=== PATIENT | male | born 1960 | race Caucasian/White ===

== ENCOUNTER → 2018-03-29 | Outpatient (CLI) | payer MEDICARE, OTHER ==
--- NOTE | 2018-03-29 09:44 | US ---
EXAMINATION TYPE: US abdomen complete DATE OF EXAM: 03/29/2018 COMPARISON: NONE CLINICAL HISTORY: R63.4 Abnormal Weight Loss. abnormal weight loss- 20 lbs in 2 months. Diarrhea. L ight headed. NPO. EXAM MEASUREMENTS: Liver Length: 14.7 cm Gallbladder Wall: 0.1 cm CBD: 0.5 cm CHD: 0.3 cm Spleen: 8.3 cm Right Kidney: 9.4 x 4.5 x 5.6 cm Left Kidney: 9.5 x 4.8 x 5.6 cm Pancreas: Heterogenous. Tail obscured by overlying bowel gas. Hypoechoic oval lesion seen superior to pancreas = 1.6 x 2.3 x 0.7 cm Liver: Right lobe anterior cystic appearing lesion seen = 1.6 x 1.1 x 1.0 cm Gallbladder: Nonshadowing echogenic lesion seen, doesn't seen to be mobile = Evidence for sonographic Lee's sign: neg CBD: wnl CHD: wnl Spleen: wnl Right Kidney: possible dromedary hump seen. Possible cortical indentation seen in mid kidney. Left Kidney: possible dromedary hump seen Upper IVC: wnl Abd Aorta: Atherosclerotic changes seen The liver is homogenous. The intrahepatic portion of the IVC and proximal abdominal aorta are within normal limits. Common bile duct is unremarkable. The spleen is unremarkable. Kidneys are symmetri c and free of hydronephrosis. No renal lesions are seen. IMPRESSION: 1. Hypoechoic lesion noted superior to the pancreas may reflect adenopathy. Pancreas also heterogenou s. CT abdomen advised. 2. Probable simple hepatic cysts. 3. Possible gallbladder polyp.
== END | disposition home or self-care (01) ==
LOC: RADUSWWP 08:52
PROVIDERS: ATTEND Family Medicine
DX: L98.9 Disorder of the skin and subcutaneous tissue, unspecified (principal); R63.4 Abnormal weight loss
CPT/HCPCS: 76700

== ENCOUNTER → 2018-04-06 | Outpatient (CLI) | payer MEDICARE, OTHER ==
--- NOTE | 2018-04-06 14:57 | CT ---
EXAMINATION TYPE: CT abdomen w con DATE OF EXAM: 04/06/2018 COMPARISON: NONE HISTORY: 57-year-old male Neoplasm of pancreas. Abnormal US. TECHNIQUE: Contiguous axial scanning of the abdomen and pelvis following administration of 100 ml Iso irish 370 IV contrast. Delayed images through the kidneys and coronal/sagittal reconstructions perform ed. CT DLP: 316.2 mGycm Automated exposure control for dose reduction was used. FINDINGS: Heart normal size without pericardial effusion. Pleural parenchymal scarring at the right base with a symmetric elevation of the right hemidiaphragm. No pleural effusion. There is a 1.4 cm hypodense lesion anterior mid liver that show soft tissue attenuation but no signif icant change in density on delayed kidney images, possibly a complicated cyst given cystic appearance on ultrasound. Oral venous system is patent. No biliary ductal dilatation. Cortical defect lateral right kidney suggesting prior vascular or infectious insult. Otherwise, symme tric uptake contrast from the kidneys. No excretion is seen on the delayed kidney images. This could be due to the timing of the scan or secondary to acute kidney injury. Adrenal glands, gallbladder, spleen, and pancreas appear within normal limits. Moderate atherosclerotic calcifications within the infrarenal abdominal aorta and iliac arteries. No dilated small bowel, free fluid, or free air. Some scattered prominent fluid-filled small bowel loops in the mid and lower abdomen and liquid stool seen throughout the colon. No pericolonic inflammatory change. Borderline sized 1 cm carleen hepatic lymph node likely reactive. Otherwise, no mesenteric or retroperi toneal lymphadenopathy. Bones: Posterior lumbar fusion hardware. Advanced endplate spondylosis lower thoracic spine and thora cic lumbar junction. IMPRESSION: 1. 1.4 CM HYPODENSE LESION ANTERIOR MID LIVER IS INDETERMINATE IT SHOW SOFT TISSUE ATTENUATION. TH IS MAY REPRESENT A COMPLICATED CYST AND CAN BE REASSESSED AT 3 MONTH FOLLOW-UP. A BORDERLINE TO MILDL Y ENLARGED 1 CM PORTAHEPATIC LYMPH NODE CAN ALSO BE REASSESSED AT THAT TIME. 2. PROMINENT FLUID-FILLED SMALL BOWEL LOOPS AND LIQUID STOOL THROUGHOUT THE COLON COULD REPRESENT ENT ERITIS/DIARRHEA. 3. NO EXCRETING CONTRAST ON THE DELAYED KIDNEY IMAGES. THIS COULD BE SECONDARY TO TIMING OF THE SCAN VERSUS ACUTE KIDNEY INJURY. CORRELATE WITH PATIENT'S RENAL FUNCTION.
== END ==
LOC: RADCTMAIN 10:42
PROVIDERS: ATTEND Family Medicine
DX: D49.0 Neoplasm of unspecified behavior of digestive system (principal)
CPT/HCPCS: 74160; Q9967

== ENCOUNTER 2018-05-04 10:43 | Day surgery (SDC) | payer MEDICARE, OTHER ==
[2018-04-28 15:20] VITALS: BMI 22.2
[~2018-05-04 10:43] MED LIST: LACTATED RINGERS 1,000 ML IV SCH
[2018-05-04 11:37] VITALS: RESP 16; TEMP 98.6
[2018-05-04] MEDS ORDERED: PROPOFOL 10 MG/ML 20 ML VIAL IV ONE (13:00)
[2018-05-04] MEDS ORDERED: LIDOCAINE 1% INJ 10MG/ML (20 ML MDV) ONE (13:00)
--- NOTE | 2018-05-04 13:53 | P.PCN ---
Date of Procedure: 05/04/18 Procedure(s) Performed: Procedure: Colonoscopy and biopsy. Preoperative diagnosis: Chronic diarrhea. Postoperative diagnosis: 1. Mild sigmoid diverticulosis with no evidence of acute diverticulitis or strictures. 2. Blind biopsies obtained from the terminal ileum and random colon biopsies were obtained as well. Preparation: HalfLytely prep. Sedation: Was provided by anesthesia. Brief clinical history: The patient is a 57-year-old male with history of chronic diarrhea that dates back to 2014. I have performed a colonoscopy in February 2016 and biopsy showed collagenous colitis. The patient was seen earlier this month and was having ongoing issues with diarrhea and weight loss. He has lost 19 lbs over 2 & 1/2 months. He has nausea but no vomiting. Averaging 5 liquidy movements per day without blood. On his exam in 2015 I was not able to intubate the terminal ileum. This evaluation is scheduled to assess for colitis, ileitis or other pathology. Procedure: With the patient on his left lateral decubitus position and after informed consent and adequate sedation, the perianal area was inspected and it did not show any fissures or fistulas. There were no masses felt on digital rectal examination. The Olympus CFQ 160L video colonoscope was then inserted in the rectum in the usual fashion and advanced to the cecum. I was not able to intubate the ileocecal valve and examine the terminal ileum, however, I was able to pass the biopsy forceps blindly into the terminal ileum and obtain couple biopsies. I also obtained random biopsies from the colon. The colon appeared healthy. There was occasional diverticular orifices seen scattered in the sigmoid but there was no evidence of acute diverticulitis or strictures. No polyps or tumors were seen. I retroflexed the endoscope in the rectum before the endoscope was withdrawn. The patient tolerated the procedure well. Plan: The patient was reassured. Will await biopsy results. I will see him in follow-up in the office and make further recommendations. I will keep you updated on his progress.
[2018-05-04 14:09] VITALS: BP 110/73; PULSE 75
== END 2018-05-04 14:30 | disposition home or self-care (01) ==
LOC: ORWHC2ENDO 10:43
DX: K52.831 Collagenous colitis (principal); K52.9 Noninfective gastroenteritis and colitis, unspecified; K57.30 Diverticulosis of large intestine without perforation or abscess without bleeding; J44.9 Chronic obstructive pulmonary disease, unspecified; Z86.711 Personal history of pulmonary embolism; Z79.899 Other long term (current) drug therapy; Z98.42 Cataract extraction status, left eye; Z98.41 Cataract extraction status, right eye; Z88.8 Allergy status to other drugs, medicaments and biological substances
CPT/HCPCS: 88305; 45380; J2001; J2704

== ENCOUNTER → 2018-06-11 | Outpatient (CLI) | payer MEDICARE, OTHER ==
--- NOTE | 2018-06-11 15:50 | MR ---
EXAMINATION TYPE: MR lumbar spine wo/w con DATE OF EXAM: 06/11/2018 COMPARISON: No images. Report dated 05/05/2017 is reviewed. HISTORY: Low back pain CONTRAST: 7 mL intravenous Gadavist. TECHNIQUE: Multiplanar, multisequence images of the lumbar spine were acquired. FINDINGS: L5-S1: Right paracentral and right lateral endplate spurring is present contributing to severe right foraminal stenosis. Mild anterior thecal sac compression is present from disc bulging. No spinal silvestre l stenosis is present. Left foramen is patent. There is limitation to this level due to the pedicle s crews. L4-L5: There is limitation to this level through pedicle screws greater on the left. No significant d isc herniation is evident. Significant disc bulge is not identified. Foramen are poorly visualized. L3-L4: Disc level is essentially nondiagnostic with significant metallic susceptibility artifact obsc uring the spinal canal. Foramen cannot be evaluated. L2-L3: There is limited evaluation of this level due to susceptibility artifact. Obvious spinal canal stenosis is not evident. Neural foramen cannot be evaluated. L1-L2: There appears to be some broad-based disc bulging with anterior thecal sac flattening. No AP s sarbjit canal stenosis present. Pedicle screws are present causing mild limitation. Facet hypertrophy w ith posterior lateral thecal sac compression on the left is present. Neural foramen appear patent. T12-L1: Broad-based disc bulge is anterior thecal sac contact. No cord contact is evident. No spinal canal stenosis present. Neural foramen are patent. Mild facet hypertrophy is present. No abnormal enhancement. IMPRESSION: 1. Severely limited examination due to metallic susceptibility artifact. 2. Right paracentral endplate spurring with right foraminal stenosis L5-S1. 3. Disc bulging T12-L1 with mild anterior thecal sac compression. L1-2 disc bulging is present with m ild anterior thecal sac flattening.
== END | disposition home or self-care (01) ==
LOC: RADMRIMAIN 10:44
PROVIDERS: ATTEND Anesthesiology Pain Medicine
DX: M99.73 Connective tissue and disc stenosis of intervertebral foramina of lumbar region (principal); M51.05 Intervertebral disc disorders with myelopathy, thoracolumbar region; M46.07 Spinal enthesopathy, lumbosacral region
CPT/HCPCS: 72158; A9585

== ENCOUNTER → 2018-07-07 | Outpatient (CLI) | payer MEDICARE, OTHER ==
--- NOTE | 2018-07-08 08:03 | CT ---
EXAMINATION TYPE: CT abdomen w con DATE OF EXAM: 07/07/2018 COMPARISON: Prior CT abdomen April 06, 2018 HISTORY: Follow up for neoplasm of pancreas CT DLP: 426.6 mGycm, Automated Exposure Control for Dose Reduction was Utilized. CONTRAST: CT scan of the abdomen is performed with water given orally and with IV Contrast, patient injected wi th 120 mL of Isovue 370. Pancreas protocol. FINDINGS: LUNG BASES: Elevated right hemidiaphragm is redemonstrated. There is patchy right basilar scarring an d/or atelectasis redemonstrated. LIVER/GB: There is stable nonspecific 1.1 cm hypodense lesion anterior liver seen best series 5 image 45. Somewhat contracted gallbladder noted. PANCREAS: There is asymmetric bulging or prominence isodense to remainder of pancreas involving the p ancreatic head right aspect extending into the uncinate process seen best near axial image 80. No hyp odense mass or ductal dilatation is clearly seen. Main pancreatic duct extends inferior to this area seen best near axial image 75. Overall no definitive mass or significant change from prior. Correlate with findings obtained during endoscopy ultrasound recommended. SPLEEN: No significant abnormality is seen. ADRENALS: Slight fullness to left adrenal gland axial image 51 is unchanged from prior favoring lipid rich hyperplasia. KIDNEYS: Lobulated cortex to right kidney is redemonstrated seen best on coronal images. BOWEL: No gross abnormality seen. LYMPH NODES: No greater than 1cm abdominal lymph nodes are appreciated. OSSEOUS STRUCTURES: Extensive surgical change to the lumbar spine with multilevel interpedicular rods and screws extending from L2 through the S1 levels. There is severe multilevel spurring above the L2 level with moderate to severe multilevel disc space narrowing and multilevel vacuum disc phenomenon in the thoracolumbar spine. Artificial disc material is present in lower lumbar levels. No significan t change from prior. OTHER: No significant additional abnormality is seen. IMPRESSION: Fullness in the pancreatic head extending inferiorly into uncinate process without defini tive mass or ductal dilatation. Correlate with findings during endoscopic ultrasound and/or MRI/MRCP. Overall no significant change from comparison CT.
== END | disposition home or self-care (01) ==
LOC: RADCTMAIN 16:51
PROVIDERS: ATTEND Family Medicine
DX: R93.3 Abnormal findings on diagnostic imaging of other parts of digestive tract (principal); D49.0 Neoplasm of unspecified behavior of digestive system
CPT/HCPCS: 74160; Q9967

== ENCOUNTER → 2018-07-27 | Outpatient (CLI) | payer MEDICARE, OTHER ==
--- NOTE | 2018-07-28 07:56 | US ---
EXAMINATION TYPE: US carotid duplex BILAT DATE OF EXAM: 07/27/2018 COMPARISON: US 2013 CLINICAL HISTORY: R09.89 other specified symptoms and signs involvin. Bruit EXAM MEASUREMENTS: RIGHT: Peak Systolic Velocity (PSV) cm/sec ----- Right CCA: 115.7 ----- Right ICA: 133.1 ----- Right ECA: 149.6 ICA/CCA ratio: 1.2 RIGHT: End Diastole cm/sec ----- Right CCA: 35.7 ----- Right ICA: 44.5 ----- Right ECA: 17.1 LEFT: Peak Systolic Velocity (PSV) cm/sec ----- Left CCA: 101.3 ----- Left ICA: 146.8 ----- Left ECA: 107.6 ICA/CCA ratio: 1.4 LEFT: End Diastole cm/sec ----- Left CCA: 26.0 ----- Left ICA: 48.0 ----- Left ECA: 19.8 VERTEBRALS (direction of flow): Right Vertebral: Antegrade Left Vertebral: Antegrade Rhythm: Normal Bilateral intimal thickening, plaque bilateral bulb, elevated velocities: right proximal ICA, right p roximal ECA, left proximal CCA, and left proximal ICA, no significant stenosis. IMPRESSION: Elevated velocities throughout suggests underlying hypertension. Although there is a mod erate degree of atheromatous plaquing within the right carotid bulb, right internal carotid artery an d left carotid bulb the internal carotid artery to common carotid artery ratios are maintained and th erefore stenosis is estimated at less than 50% (nonhemodynamically significant). Criteria for Assigning % of Stenosis / Diameter reduction (Estimation based on the indirect measurements of the internal carotid artery velocities (ICA PSV). 1. Normal (no stenosis)=ICA PSV < 125 cm/s: ratio < 2.0: ICA EDV<40 cm/s. 2. Less than 50% stenosis=ICA PSV < 125 cm/s: ratio < 2.0: ICA EDV<40 cm/s. 3. 50 to 69% stenosis=ICA PSV of 125 to 230 cm/s: ration 2.0 ? 4.0: ICA EDV 40-100 cm/s. 4. Greater than 70% stenosis to near occlusion= ICA PSV > 230 cm/s: ratio > 4.0: ICA EDV > 100 cm/s. 5. Near occlusion= ICA PSV velocities may be low or undetectable: variable ratio and ICA EDV. 6. Total occlusion=unable to detect flow.
== END | disposition home or self-care (01) ==
LOC: RADUSWWP 15:42
PROVIDERS: ATTEND Family Medicine
DX: I65.23 Occlusion and stenosis of bilateral carotid arteries (principal)
CPT/HCPCS: 93880

== ENCOUNTER → 2018-07-28 | Outpatient (CLI) | payer MEDICARE, OTHER ==
[2018-07-28 11:29] LABS: HGB 14.6 gm/dL (13.0-17.5); MCH 34.4 pg (25.0-35.0); MCHC 33.9 g/dL (31.0-37.0); MCV 101.5 fL (80.0-100.0); Macrocytosis Slight; Mean Platelet Volume 8.1; Platelet Count 260 k/uL (150-450); RBC 4.23 m/uL (4.30-5.90); RDW 13.2 % (11.5-15.5); WBC 6.1 k/uL (3.8-10.6)
[2018-07-28 11:59] LABS: Partial Thromboplastin Time 24.8 sec (22.0-30.0); Prothrombin Time 10.6 sec (9.0-12.0)
[2018-07-28 17:13] LABS: Iron Saturation 25.48 (15.00-50.00)
[2018-07-28 17:14] LABS: Albumin 4.2 g/dL (3.80-4.90); Albumin/Globulin Ratio 2.33 (1.20-2.10); Anion Gap 2.3 mmol/L (4.00-12.00); Calcium 9.3 mg/dL (8.7-10.3); Carbon Dioxide 30.7 mmol/L (21.6-31.8); Globulin 1.8 g/dL (1.6-3.3); LDL Cholesterol,Calculated 76.6 mg/dL (0.0-131.0); Magnesium 1.8 mg/dL (1.5-2.4); Potassium 4.6 mmol/L (3.5-5.5); Total Bilirubin 0.3 mg/dL (0.3-1.2); VLDL Calculation 19.4 mg/dL (5.00-40.00)
[2018-07-28 17:17] LABS: Parathyroid Hormone Intact 37.8 pg/mL (14.0-72.0)
[2018-07-28 17:24] LABS: Vitamin D 25 Hydroxy 22.6 ng/mL (30.0-100.0)
[2018-07-28 17:32] LABS: Folate, Serum 15.3 ng/mL
[2018-07-28 20:06] LABS: Hemoglobin A1C 5.2 % (4.0-6.0)
[2018-07-29 12:45] LABS: Zinc, Serum 76 ug/dL (60-130)
[2018-07-30 09:35] LABS: Vitamin A 45 ug/dL (38-106)
[2018-07-30 09:45] LABS: Vitamin B1 66 ug/L (38-122)
== END | disposition home or self-care (01) ==
LOC: LABWHC1 10:18
PROVIDERS: ATTEND Surgery Plastic and Reconstructive Surgery
DX: E21.1 Secondary hyperparathyroidism, not elsewhere classified (principal); E89.1 Postprocedural hypoinsulinemia; D50.8 Other iron deficiency anemias; K90.89 Other intestinal malabsorption; E55.9 Vitamin D deficiency, unspecified; K74.1 Hepatic sclerosis; N19 Unspecified kidney failure; K50.90 Crohn's disease, unspecified, without complications
CPT/HCPCS: 36415; 80053; 80061; 82306; 82525; 82607; 82728; 82746; 83036; 83540; 83550; 83735; 83970; 84100; 84134; 84255; 84425; 84443; 84590; 84630; 85027; 85610; 85730

== ENCOUNTER → 2019-07-08 | Outpatient (CLI) | payer MEDICARE, OTHER ==
--- NOTE | 2019-07-08 13:39 | MR ---
EXAMINATION TYPE: MR lumbar spine wo/w con DATE OF EXAM: 07/08/2019 COMPARISON: 06/11/2018 HISTORY: postlaminectomy syndrome CONTRAST: 7 mL intravenous Gadavist. TECHNIQUE: Multiplanar, multisequence images of the lumbar spine were acquired. FINDINGS: Multilevel pedicle screws are present which appear to extend from L2 to S1. This will caus e some susceptibility artifact at these levels causing limitation. L5-S1: No significant disc bulge is evident. There is mild disc space narrowing. Mild facet hypertrop hy is present. There is mild left and moderate right foraminal narrowing. L4-L5: There is loss of disc height. No significant disc bulge is evident. Laminectomies been perform ed. Pedicle screws are present. L3-L4: This level is essentially nondiagnostic due to significant susceptibility artifact. L2-L3: Disc space narrowing is present. No significant residual disc bulge is evident. No spinal silvestre l stenosis present. Susceptibility artifact causing some limitation on evaluation. Left foramen appea rs patent. Right foramen cannot be well evaluated. L1-L2: Left and right paracentral disc bulge is present with moderate anterior thecal sac compression . AP spinal canal stenosis is not present. Facet hypertrophy is present. Pedicle screws are present. T12-L1: Mild disc bulge has anterior thecal sac contact. No AP spinal canal stenosis or neural forami nal stenosis is present. Following contrast no abnormal enhancement is evident. IMPRESSION: 1. Very limited exam due to susceptibility artifact from the pedicle screws. Exam however does appear to be stable from the comparison 06/11/2018. 2. Suspicious spinal canal stenosis is not identified. 3. Some mild foraminal narrowing on the left and moderate foraminal narrowing on the right is present L5-S1. Additional foramen are essentially nondiagnostic.
== END | disposition home or self-care (01) ==
LOC: RADMRIMAIN 11:35
PROVIDERS: ATTEND Anesthesiology Pain Medicine
DX: M96.1 Postlaminectomy syndrome, not elsewhere classified (principal); M48.061 Spinal stenosis, lumbar region without neurogenic claudication
CPT/HCPCS: 72158; A9585

== ENCOUNTER → 2019-09-09 | Outpatient (CLI) | payer MEDICARE, OTHER ==
--- NOTE | 2019-09-11 21:58 | US ---
EXAMINATION TYPE: US carotid duplex BILAT DATE OF EXAM: 09/09/2019 COMPARISON: 07/27/2018 CLINICAL HISTORY: 59-year-old male I65.29 occlusion and stenosis of unspecified. TECHNIQUE: Carotid duplex ultrasound examination. In the right Doppler criteria was utilized. 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 No significant velocity increases. IMPRESSION: Moderate atherosclerotic change redemonstrated on the right. No hemodynamically significant stenosis identified in either internal carotid artery. Criteria for Assigning % of Stenosis / Diameter reduction (Estimation based on the indirect measurements of the internal carotid artery velocities (ICA PSV). 1. Normal (no stenosis)=ICA PSV < 125 cm/s: ratio < 2.0: ICA EDV<40 cm/s. 2. Less than 50% stenosis=ICA PSV < 125 cm/s: ratio < 2.0: ICA EDV<40 cm/s. 3. 50 to 69% stenosis=ICA PSV of 125 to 230 cm/s: ration 2.0 ? 4.0: ICA EDV 40-100 cm/s. 4. Greater than 70% stenosis to near occlusion= ICA PSV > 230 cm/s: ratio > 4.0: ICA EDV > 100 cm/s. 5. Near occlusion= ICA PSV velocities may be low or undetectable: variable ratio and ICA EDV. 6. Total occlusion=unable to detect flow.
== END | disposition home or self-care (01) ==
LOC: RADUSWWP 16:21
PROVIDERS: ATTEND Family Medicine
DX: I65.21 Occlusion and stenosis of right carotid artery (principal)
CPT/HCPCS: 93880

== ENCOUNTER 2020-11-03 14:34 | Emergency (ER) | payer MEDICARE, OTHER ==
[2020-11-03 14:45] VITALS: RESP 18; TEMP 98.6
[2020-11-03] MEDS ORDERED: SODIUM CHLORIDE 0.9% 1,000 ML IV STA (15:08)
--- NOTE | 2020-11-03 15:20 | ED ---
General Adult HPI - General Chief complaint: Back Pain/Injury Stated complaint: back pain Time Seen by Provider: 11/03/20 14:51 Source: patient, EMS, RN notes reviewed Mode of arrival: EMS Limitations: no limitations - History of Present Illness Initial comments: 60-year-old white male, alert and oriented 4, presents to the emergency room with complaints of intermittent dizziness, with brain fog and also generalized weakness that started this morning. Patient states last night when he was playing with the puppies he felt a sharp pain in his right shoulder that radiated into his upper back. Patient states resolved on its own only lasting about 45-60 minutes. Patient took Robaxin, but pain had resolved prior to taking the Robaxin. Patient states this morning when he woke up he felt weak, like he had "brain fog". States he felt dizzy when he walked into the kitchen to make coffee but denies any pain. Patient states he had 2 cups of coffee, a monster, and propel today but didn't eat. Patient also states he just started to cry out of the blue. Patient does have a history of alcohol abuse states has been sober for over for 4 days. Patient states when he is drinking he drinks about 12 beers a day. Patient denies seizures. patient also has a history of asthma, COPD, pulmonary embolisms, surgeries on his back with hardware for fusio ns of L4-L5 and S1. patient has a right foot drop post back surgery. Patient denies any sick contacts. Patient is a pack and a half day smoker. Patient admits to having depression but denies homicidal or suicidal ideations. Patient states he lives with his . -: days(s) (1) Associated Symptoms: confusion, weakness - Related Data Home Medications Medication Instructions Recorded Confirmed Multivitamins, Thera [Multivitamin 1 tab PO DAILY 04/28/18 11/03/20 (formulary)] Vitamin B Complex 1 cap PO DAILY 04/28/18 11/03/20 Calcium/Magnesium/Zinc 1 tab PO DAILY 11/03/20 11/03/20 [Lpkryyh-Mriidikeh-Vcpj Tablet] Cholecalciferol [Vitamin D3 (25 25 mcg PO DAILY 11/03/20 11/03/20 Mcg = 1000 Iu)] DULoxetine HCL [Cymbalta] 30 mg PO DAILY 11/03/20 11/03/20 Diclofenac Sodium [Voltaren] 75 mg PO BID 11/03/20 11/03/20 Gabapentin 600 mg PO TID 11/03/20 11/03/20 Latanoprost/Pf [Latanoprost 0.005% 1 drop BOTH EYES HS 11/03/20 11/03/20 Eye Drop] methocarbamoL [Methocarbamol] 750 mg PO Q8H 11/03/20 11/03/20 traZODone HCL 150 mg PO HS 11/03/20 11/03/20 Allergies Allergy/AdvReac Type Severity Reaction Status Date / Time buprenorphine [From Butrans] Allergy BUTRANS Verified 11/03/20 17:19 PATCH-ITCHING OF SKIN AND DISCOLORATION Review of Systems ROS Statement: Those systems with pertinent positive or pertinent negative responses have been documented in the HPI. ROS Other: All systems not noted in ROS Statement are negative. Past Medical History Past Medical History: Asthma, COPD, Pulmonary Embolus (PE) Additional Past Medical History / Comment(s): HX: chronic diarrhea and weight loss, bilateral lung pulmonary embolisms-in 2012 and previous to that, R lung pleurisy, asthma as child, back pain and sciatica, R foot drop with numbness and tingling to R foot due to pinched nerves, multifactoral anemia, elevated LFTs, 1997 R hand fracture. History of Any Multi-Drug Resistant Organisms: None Reported Past Surgical History: Back Surgery, Orthopedic Surgery Additional Past Surgical History / Comment(s): back-fusions x 2 L4, L5, S1 with hardware, cataracts bilateral with lens implants, rotator cuff right shoulder, colonoscopies Past Anesthesia/Blood Transfusion Reactions: No Reported Reaction Past Psychological History: Anxiety, Depression Smoking Status: Current every day smoker Past Alcohol Use History: Abuse, Heavy Past Drug Use History: Cocaine, Marijuana - Past Family History Mother Family Medical History: Cancer Additional Family Medical History / Comment(s): Mother of pancreatic cancer at age 82 yrs. Father Family Medical History: Cancer Additional Family Medical History / Comment(s): Father of lung cancer at 86yrs. He was a heavy smoker. hx colon cancer Brother(s) Family Medical History: Cancer Additional Family Medical History / Comment(s): (1) lymphoma, (1) BRAIN CANCER Sister(s) Family Medical History: Cancer Additional Family Medical History / Comment(s): lung cancer and throat cancer General Exam Limitations: no limitations General appearance: alert, in no apparent distress Head exam: Present: atraumatic, normocephalic, normal inspection Eye exam: Present: normal appearance, PERRL, EOMI, nystagmus Pupils: Present: normal accommodation ENT exam: Present: normal exam, mucous membranes moist Neck exam: Present: normal inspection, full ROM. Absent: tenderness, meningismus, lymphadenopathy, thyromegaly Respiratory exam: Present: normal lung sounds bilaterally, decreased breath sounds. Absent: respiratory distress, wheezes, rales, rhonchi, stridor Cardiovascular Exam: Present: regular rate, normal rhythm, normal heart sounds. Absent: systolic murmur, diastolic murmur, rubs, gallop, clicks GI/Abdominal exam: Present: soft, normal bowel sounds. Absent: distended, tenderness, guarding, rebound, rigid Extremities exam: Present: normal inspection, normal capillary refill, other (right foot drop chronic). Absent: tenderness, pedal edema, joint swelling Back exam: Present: normal inspection, full ROM. Absent: tenderness, CVA tenderness (R), CVA tenderness (L) Neurological exam: Present: alert, oriented X3, CN II-XII intact Psychiatric exam: Present: normal affect, depressed Skin exam: Present: warm, dry, intact, normal color. Absent: rash, cyanosis, diaphoretic Course Vital Signs 11/03/20 14:39 Temperature 98.6 F Pulse Rate 91 Respiratory 18 Rate Blood Pressure 145/97 O2 Sat by Pulse 99 Oximetry EKG Findings - EKG Results: EKG: sinus rhythm (Ventricular rate of 84, SC interval of 0.10, QRS of 0.90, QTC of 0.437) Medical Decision Making - Medical Decision Making Due to nystagmus, dizziness, alcoholism, aspirin a day for the history of pulmonary embolisms 2, a CT of the brain was performed to rule out bleed and was negative for hemorrhage, masses, sinuses are normal. Patient given IV fluids and states feels better. Patient states he does have a primary care doc tor appointment with Dr. Augustine next week. States that he is on Cymbalta for depression but has been on it for several years and will talk to his primary care doctor about dose adjustments. Troponin was negative at 0.012, hemoglobin stable at 12.7 and 35.4 respectively. Chest x-ray shows right right lung scarring but no effusions, or masses, and heart within normal limits. patient will be given referrals for mental health services in the community. Directed to follow up with his primary care doctor patient is comfortable with this plan. Case discussed with Dr. Hills who is agreeable to this plan of care. - Lab Data Result diagrams: 11/03/20 15:36 11/03/20 15:37 Lab Results 11/03/20 11/03/20 11/03/20 Range/Units 15:36 15:37 15:37 WBC 5.9 (3.8-10.6) k/uL RBC 3.29 L (4.30-5.90) m/uL Hgb 12.7 L (13.0-17.5) gm/dL Hct 35.4 L (39.0-53.0) % MCV 107.4 H (80.0-100.0) fL MCH 38.5 H (25.0-35.0) pg MCHC 35.9 (31.0-37.0) g/dL RDW 12.7 (11.5-15.5) % Plt Count 227 (150-450) k/uL MPV 8.0 Neutrophils % 68 % Lymphocytes % 17 % Monocytes % 8 % Eosinophils % 3 % Basophils % 1 % Neutrophils # 4.0 (1.3-7.7) k/uL Lymphocytes # 1.0 (1.0-4.8) k/uL Monocytes # 0.5 (0-1.0) k/uL Eosinophils # 0.2 (0-0.7) k/uL Basophils # 0.0 (0-0.2) k/uL Macrocytosis Moderate Sodium 136 L (137-145) mmol/L Potassium 3.6 (3.5-5.1) mmol/L Chloride 103 (98-107) mmol/L Carbon Dioxide 27 (22-30) mmol/L Anion Gap 6 mmol/L BUN 4 L (9-20) mg/dL Creatinine 0.57 L (0.66-1.25) mg/dL Est GFR (CKD-EPI)AfAm >90 (>60 ml/min/1.73 sqM) Est GFR (CKD-EPI)NonAf >90 (>60 ml/min/1.73 sqM) Glucose 93 (74-99) mg/dL Calcium 9.0 (8.4-10.2) mg/dL Total Bilirubin 0.6 (0.2-1.3) mg/dL AST 37 (17-59) U/L ALT 19 (4-49) U/L Alkaline Phosphatase 76 (38-126) U/L Troponin I <0.012 (0.000-0.034) ng/mL Total Protein 6.5 (6.3-8.2) g/dL Albumin 3.8 (3.5-5.0) g/dL Disposition Clinical Impression: Depression, Lightheadedness Disposition: HOME SELF-CARE Condition: Fair Instructions (If sedation given, give patient instructions): Depression (ED), Lightheadedness (ED), Musculoskeletal Pain (ED) Additional Instructions: Increase your fluid intake to 6-8 glasses of water a day. Clear primary care doctor and follow up within 1 week. Utilize the list of mental health services provided for alcohol abuse and depression. Return to the emergency room with worsening symptoms. Is patient prescribed a controlled substance at d/c from ED?: No Referrals: Emile Augustine DO [Primary Care Provider] - 1-2 days Time of Disposition: 18:10
[2020-11-03 15:45] LABS: Basophils % (A) 1 %; Eosinophils # (A) 0.2 k/uL (0-0.7); Eosinophils % (A) 3 %; HCT 35.4 % (39.0-53.0); HGB 12.7 gm/dL (13.0-17.5); Lymphocytes % (A) 17 %; MCH 38.5 pg (25.0-35.0); MCHC 35.9 g/dL (31.0-37.0); MCV 107.4 fL (80.0-100.0); Macrocytosis Moderate; Monocytes # (A) 0.5 k/uL (0-1.0); Monocytes % (A) 8 %; Neutrophils % (A) 68 %; Platelet Count 227 k/uL (150-450); RBC 3.29 m/uL (4.30-5.90); RDW 12.7 % (11.5-15.5); WBC 5.9 k/uL (3.8-10.6)
--- NOTE | 2020-11-03 15:47 | XR ---
EXAMINATION TYPE: XR chest 2V DATE OF EXAM: 11/03/2020 COMPARISON: 03/17/2014 HISTORY: Short of breath TECHNIQUE: FINDINGS: There is some linear density right lung base consistent with pleural diaphragmatic scarring . There is no heart failure. Heart size is normal. There is lumbar spine fusion surgery. There are no hilar masses. Trachea is midline. Bony thorax is intact. IMPRESSION: Pleural diaphragmatic scarring at the right lung base without change compared to old exam . No acute lung disease. Normal heart.
[2020-11-03 15:54] LABS: ALT 19 U/L (4-49); AST 37 U/L (17-59); African American GFR (CKD) >90 (>60 ml/min/1.73 sqM); Albumin 3.8 g/dL (3.5-5.0); Alkaline Phosphatase 76 U/L (38-126); Anion Gap 6 mmol/L; Blood Urea Nitrogen 4 mg/dL (9-20); Carbon Dioxide 27 mmol/L (22-30); Chloride 103 mmol/L (98-107); Glucose 93 mg/dL (74-99); Non-African American GFR(CKD) >90 (>60 ml/min/1.73 sqM); Potassium 3.6 mmol/L (3.5-5.1); Sodium 136 mmol/L (137-145); Total Bilirubin 0.6 mg/dL (0.2-1.3); Total Protein 6.5 g/dL (6.3-8.2)
--- NOTE | 2020-11-03 17:41 | CT ---
EXAMINATION TYPE: CT brain wo con DATE OF EXAM: 11/03/2020 COMPARISON: May 21, 2010 HISTORY: Dizziness, brain fog. CT DLP: 1118.4 mGycm Automated exposure control for dose reduction was used. There is some cerebral atrophy. There is no mass effect nor midline shift. There is no sign of intrac ranial hemorrhage. The calvarium is intact. There is fairly normal aeration of the paranasal sinuses and mastoid sinuses. Skull base is intact. IMPRESSION: Cerebral atrophy. No acute intracranial abnormality. Progression of atrophy compared to old exam.
[2020-11-03 18:23] VITALS: BP 146/93; PULSE 75
== END 2020-11-03 18:23 | disposition home or self-care (01) ==
LOC: EC 14:34
DX: F32.9 Major depressive disorder, single episode, unspecified (principal); R42 Dizziness and giddiness; F17.200 Nicotine dependence, unspecified, uncomplicated; J44.9 Chronic obstructive pulmonary disease, unspecified; Z79.899 Other long term (current) drug therapy; F41.9 Anxiety disorder, unspecified; F12.90 Cannabis use, unspecified, uncomplicated; F14.90 Cocaine use, unspecified, uncomplicated; Z86.711 Personal history of pulmonary embolism
CPT/HCPCS: 36415; 70450; 71046; 80053; 84484; 85025; 93005; 96360; 99285

== ENCOUNTER 2020-11-25 21:52 | Emergency (ER) | payer MEDICARE, OTHER ==
[2020-11-25 22:04] VITALS: RESP 18
--- NOTE | 2020-11-25 22:22 | ED ---
General Adult HPI - General Chief complaint: Alcohol Stated complaint: ETOH Time Seen by Provider: 11/25/20 21:57 Source: patient, EMS Mode of arrival: EMS Limitations: no limitations - History of Present Illness Initial comments: 60 year-old male patient presents to the emergency department today requesting assistance to stop drinking. Patient states he has had 8-16oz beers today. States he drinks on a daily basis. States he has done rehab 7 times and does not like AA meetings. He feels that his life is empty so he drinks. Denies any suicidal or homicidal ideation. Denies any current illness or injury. Patient denies any recent rash, fever, chills, cough, shortness of breath, chest pain, abdominal pain, nausea, vomiting, diarrhea, constipation, back pain, numbness, tingling, dizziness, weakness, hematuria, dysuria, urinary urgency, urinary frequency, headache, visual changes, or any other complaints. - Related Data Home Medications Medication Instructions Recorded Confirmed Multivitamins, Thera [Multivitamin 1 tab PO DAILY 04/28/18 11/25/20 (formulary)] Vitamin B Complex 1 cap PO DAILY 04/28/18 11/25/20 Calcium/Magnesium/Zinc 1 tab PO DAILY 11/03/20 11/25/20 [Tlieyve-Cjeksgzyz-Dqum Tablet] Cholecalciferol [Vitamin D3 (25 25 mcg PO DAILY 11/03/20 11/25/20 Mcg = 1000 Iu)] DULoxetine HCL [Cymbalta] 30 mg PO DAILY 11/03/20 11/25/20 Diclofenac Sodium [Voltaren] 75 mg PO BID 11/03/20 11/25/20 Gabapentin 600 mg PO TID 11/03/20 11/25/20 Latanoprost/Pf [Latanoprost 0.005% 1 drop BOTH EYES HS 11/03/20 11/25/20 Eye Drop] methocarbamoL [Methocarbamol] 750 mg PO Q8H 11/03/20 11/25/20 traZODone HCL 150 mg PO HS 11/03/20 11/25/20 Allergies Allergy/AdvReac Type Severity Reaction Status Date / Time buprenorphine [From Butrans] Allergy BUTRANS Verified 11/25/20 23:36 PATCH-ITCHING OF SKIN AND DISCOLORATION Review of Systems ROS Statement: Those systems with pertinent positive or pertinent negative responses have been documented in the HPI. ROS Other: All systems not noted in ROS Statement are negative. Past Medical History Past Medical History: Asthma, COPD, Pulmonary Embolus (PE) Additional Past Medical History / Comment(s): HX: chronic diarrhea and weight loss, bilateral lung pulmonary embolisms-in 2012 and previous to that, R lung pleurisy, asthma as child, back pain and sciatica, R foot drop with numbness and tingling to R foot due to pinched nerves, multifactoral anemia, elevated LFTs, 1997 R hand fracture. History of Any Multi-Drug Resistant Organisms: None Reported Past Surgical History: Back Surgery, Orthopedic Surgery Additional Past Surgical History / Comment(s): back-fusions x 2 L4, L5, S1 with hardware, cataracts bilateral with lens implants, rotator cuff right shoulder, colonoscopies Past Anesthesia/Blood Transfusion Reactions: No Reported Reaction Past Psychological History: Anxiety, Depression Smoking Status: Current every day smoker Past Alcohol Use History: Abuse, Heavy Past Drug Use History: Cocaine, Marijuana - Past Family History Mother Family Medical History: Cancer Additional Family Medical History / Comment(s): Mother of pancreatic cancer at age 82 yrs. Father Family Medical History: Cancer Additional Family Medical History / Comment(s): Father of lung cancer at 86yrs. He was a heavy smoker. hx colon cancer Brother(s) Family Medical History: Cancer Additional Family Medical History / Comment(s): (1) lymphoma, (1) BRAIN CANCER Sister(s) Family Medical History: Cancer Additional Family Medical History / Comment(s): lung cancer and throat cancer General Exam Limitations: no limitations General appearance: alert, in no apparent distress, other (Is a well-developed, well-nourished adult male patient in no acute distress. Vital signs upon presentation are temperature 98.0F, pulse 82, respirations 18, blood pressure 165/105, pulse ox 99% on room air.) Eye exam: Present: normal appearance, PERRL, EOMI. Absent: scleral icterus, conjunctival injection, periorbital swelling ENT exam: Present: normal exam, normal oropharynx, mucous membranes moist Respiratory exam: Present: normal lung sounds bilaterally. Absent: respiratory distress, wheezes, rales, rhonchi, stridor Cardiovascular Exam: Present: regular rate, normal rhythm, normal heart sounds. Absent: systolic murmur, diastolic murmur, rubs, gallop, clicks GI/Abdominal exam: Present: soft, normal bowel sounds. Absent: distended, tenderness, guarding, rebound, rigid Neurological exam: Present: alert, oriented X3, CN II-XII intact Psychiatric exam: Present: normal affect, normal mood Skin exam: Present: warm, dry, intact, normal color. Absent: rash Course Vital Signs 11/25/20 11/26/20 21:53 00:41 Temperature 98 F 97.6 F Pulse Rate 82 74 Respiratory 18 18 Rate Blood Pressure 165/105 154/94 O2 Sat by Pulse 99 97 Oximetry Medical Decision Making - Medical Decision Making 60 year-old presented requesting assistance with stopping alcohol use. Patient physical exam unremarkable. He blew 0.218 on breath alcohol test. He adamantly denies suicidal or homicidal ideation. He is alert and oriented. Patient does not meet criteria for admission based off alcohol level. He is does not have any signs or symptoms of withdrawal. He will be discharged to follow up with his primary care physician for recheck in 1-2 days. Return parameters are discussed in detail. He verbalizes understanding and agrees with this plan. Case discussed with my attending Dr. Chairez. Disposition Clinical Impression: Alcohol intoxication Disposition: HOME SELF-CARE Condition: Good Instructions (If sedation given, give patient instructions): Alcohol Intoxication (ED) Additional Instructions: Follow up with primary care physician for recheck as soon as possible. Return for any new, worsening, or concerning symptoms. Is patient prescribed a controlled substance at d/c from ED?: No Referrals: Emile Augustine DO [Primary Care Provider] - 1-2 days Time of Disposition: 23:59
[2020-11-26 00:43] VITALS: BP 154/94; PULSE 74; TEMP 97.6
== END 2020-11-26 00:42 | disposition home or self-care (01) ==
LOC: EC 21:52
DX: F10.129 Alcohol abuse with intoxication, unspecified (principal); J44.9 Chronic obstructive pulmonary disease, unspecified; F41.9 Anxiety disorder, unspecified; F32.9 Major depressive disorder, single episode, unspecified; F17.200 Nicotine dependence, unspecified, uncomplicated; F12.90 Cannabis use, unspecified, uncomplicated; F14.90 Cocaine use, unspecified, uncomplicated; Z86.711 Personal history of pulmonary embolism; Z79.1 Long term (current) use of non-steroidal anti-inflammatories (NSAID); Y90.9 Presence of alcohol in blood, level not specified
CPT/HCPCS: 99284

== ENCOUNTER 2021-02-01 16:34 | Inpatient (IN) | payer MEDICARE, OTHER ==
[2021-02-01] MEDS ORDERED: PANTOPRAZOLE 40 MG/10 ML VIAL IVP STA (16:44)
[2021-02-01] MEDS ORDERED: LORazepam 2 MG/ML INJ IV PRN ×3 (17:04)
[2021-02-01] MEDS ORDERED: THIAMINE 100 MG/ML 2 ML VIAL IM STA (17:04)
--- NOTE | 2021-02-01 17:07 | ED ---
General Adult HPI - General Chief complaint: GI Bleed Stated complaint: Liver Issues-Sent by Dr Lynch Seen by Provider: 02/01/21 16:43 Source: patient Mode of arrival: ambulatory Limitations: no limitations - History of Present Illness Initial comments: Dictation was produced using [employer] dictation software. please excuse any grammatical, word or spelling errors. Chief Complaint: 60-year-old male presents with melanotic stools History of Present Illness: It is 60-year-old male he drinks daily. He drinks multiple beers on a daily basis has been doing that for several years. States that last 5 days he's had black and tarry stools. Patient reports having had a colonoscopy in 2018 and showed diverticulosis. Patient complains of some mild nausea. He denies any abdominal pain. Patient is out of his any history of esophageal varices. Denies any rectal pain.) Care doctor and was instructed to come to the emergency department. He reports having approximately 5-6 passages of melanotic stools. The ROS documented in this emergency department record has been reviewed and confirmed by me. Those systems with pertinent positive or negative responses have been documented in the HPI. All other systems are other negative and/or noncontributory. PHYSICAL EXAM: General Impression: Alert and oriented x3, not in acute distress HEENT: Normocephalic atraumatic, extra-ocular movements intact, pupils equal and reactive to light bilaterally, mucous membranes moist. Cardiovascular: Heart regular rate and rhythm Chest: Able to complete full sentences, no retractions, no tachypnea Abdomen: abdomen soft, non-tender, non-distended, no organomegaly Musculoskeletal: Pulses present and equal in all extremities, no peripheral ed addie Motor: no focal deficits noted Neurological: CN II-XII grossly intact, no focal motor or sensory deficits noted Skin: Intact with no visualized rashes Psych: Normal affect and mood Rectal exam: No gross blood ED course: 60-year-old male presents with black tarry stools. He is a daily drinker. Vital signs upon arrival shows heart rate of 102 , rest of vital signs within acceptable limits. Laboratory evaluation obtained. CBC, coag panel is unremarkable. Metabolic panel shows lactic acid doses of 2.1. AST is 78. Alcohol is 210, stool occult blood negative. Case discussed with Dr. Meza who is willing to accept patients care. He request the patient be admitted to the ICU. Case was discussed with accounting methods analyst Dr. Pelaez who does not feel patient meets criteria for ICU admission. Patient given Protonix. Revert at bedside at 6:45 PM found to be stable medical condition. Patient will be admitted with consultation to GI. EKG interpretation: Ventricular rate 86, normal sinus rhythm,. Interval 146, QRS 100, QTC 447. No ME prolongation, no QTC prolongation, no ST or T-wave changes noted. EKG compared to 11/03/2020 showing no changes. Overall, this EKG is unremarkable - Related Data Home Medications Medication Instructions Recorded Confirmed Multivitamins, Thera [Multivitamin 1 tab PO DAILY 04/28/18 02/01/21 (formulary)] Vitamin B Complex 1 cap PO DAILY 04/28/18 02/01/21 Calcium/Magnesium/Zinc 1 tab PO DAILY 11/03/20 02/01/21 [Gcaowca-Pczvzkaej-Zgwm Tablet] Cholecalciferol [Vitamin D3 (25 25 mcg PO DAILY 11/03/20 02/01/21 Mcg = 1000 Iu)] DULoxetine HCL [Cymbalta] 30 mg PO DAILY 11/03/20 02/01/21 Diclofenac Sodium [Voltaren] 75 mg PO BID 11/03/20 02/01/21 Gabapentin 600 mg PO TID 11/03/20 02/01/21 methocarbamoL [Methocarbamol] 750 mg PO Q8H 11/03/20 02/01/21 traZODone HCL 150 mg PO HS 11/03/20 02/01/21 Thiamine HCl [Vitamin B-1] 100 mg PO DAILY 02/01/21 02/01/21 Allergies Allergy/AdvReac Type Severity Reaction Status Date / Time buprenorphine [From Butrans] Allergy BUTRANS Verified 02/01/21 17:50 PATCH-ITCHING OF SKIN AND DISCOLORATION Review of Systems ROS Statement: Those systems with pertinent positive or pertinent negative responses have been documented in the HPI. ROS Other: All systems not noted in ROS Statement are negative. Past Medical History Past Medical History: Asthma, COPD, Pulmonary Embolus (PE) Additional Past Medical History / Comment(s): HX: chronic diarrhea and weight loss, alcoholism, bilateral lung pulmonary embolisms-in 2012 and previous to that, R lung pleurisy, asthma as child, back pain and sciatica, R foot drop with numbness and tingling to R foot due to pinched nerves, multifactoral anemia, elevated LFTs, 1997 R hand fracture. History of Any Multi-Drug Resistant Organisms: None Reported Past Surgical History: Back Surgery, Orthopedic Surgery Additional Past Surgical History / Comment(s): back-fusions x 2 L4, L5, S1 with hardware, cataracts bilateral with lens implants, rotator cuff right shoulder, colonoscopies Past Anesthesia/Blood Transfusion Reactions: No Reported Reaction Past Psychological History: Anxiety, Depression Smoking Status: Current every day smoker Past Alcohol Use History: Abuse, Heavy Past Drug Use History: Cocaine, Marijuana - Past Family History Mother Family Medical History: Cancer Additional Family Medical History / Comment(s): Mother of pancreatic cancer at age 82 yrs. Father Family Medical History: Cancer Additional Family Medical History / Comment(s): Father of lung cancer at 86yrs. He was a heavy smoker. hx colon cancer Brother(s) Family Medical History: Cancer Additional Family Medical History / Comment(s): (1) lymphoma, (1) BRAIN CANCER Sister(s) Family Medical History: Cancer Additional Family Medical History / Comment(s): lung cancer and throat cancer General Exam Limitations: no limitations Course Vital Signs 02/01/21 16:35 Temperature 98.1 F Pulse Rate 102 H Respiratory 18 Rate Blood Pressure 126/78 O2 Sat by Pulse 98 Oximetry Medical Decision Making - Lab Data Result diagrams: 02/01/21 17:44 02/01/21 17:44 Lab Results 02/01/21 02/01/21 02/01/21 Range/Units 17:36 17:44 17:44 WBC 3.9 (3.8-10.6) k/uL RBC 3.50 L (4.30-5.90) m/uL Hgb 13.0 (13.0-17.5) gm/dL Hct 36.6 L (39.0-53.0) % MCV 104.5 H (80.0-100.0) fL MCH 37.0 H (25.0-35.0) pg MCHC 35.4 (31.0-37.0) g/dL RDW 12.5 (11.5-15.5) % Plt Count 209 (150-450) k/uL MPV 7.7 Neutrophils % 41 % Lymphocytes % 46 % Monocytes % 7 % Eosinophils % 2 % Basophils % 1 % Neutrophils # 1.6 (1.3-7.7) k/uL Lymphocytes # 1.8 (1.0-4.8) k/uL Monocytes # 0.3 (0-1.0) k/uL Eosinophils # 0.1 (0-0.7) k/uL Basophils # 0.0 (0-0.2) k/uL Macrocytosis Slight PT 10.8 (9.0-12.0) sec INR 1.0 (<1.2) APTT 25.2 (22.0-30.0) sec Sodium (137-145) mmol/L Potassium (3.5-5.1) mmol/L Chloride (98-107) mmol/L Carbon Dioxide (22-30) mmol/L Anion Gap mmol/L BUN (9-20) mg/dL Creatinine (0.66-1.25) mg/dL Est GFR (CKD-EPI)AfAm (>60 ml/min/1.73 sqM) Est GFR (CKD-EPI)NonAf (>60 ml/min/1.73 sqM) Glucose (74-99) mg/dL Plasma Lactic Acid Alli (0.7-2.0) mmol/L Calcium (8.4-10.2) mg/dL Total Bilirubin (0.2-1.3) mg/dL AST (17-59) U/L ALT (4-49) U/L Alkaline Phosphatase (38-126) U/L Total Protein (6.3-8.2) g/dL Albumin (3.5-5.0) g/dL Stool Occult Blood (Negative) Serum Alcohol mg/dL Blood Type B Negative Blood Type Recheck B Neg Bld Type Recheck Status No Antibody Screen NEGATIVE Spec Expiration Date 02/04/2021 - 234302/01/21 02/01/21 02/01/21 Range/Units 17:44 17:44 17:44 WBC (3.8-10.6) k/uL RBC (4.30-5.90) m/uL Hgb (13.0-17.5) gm/dL Hct (39.0-53.0) % MCV (80.0-100.0) fL MCH (25.0-35.0) pg MCHC (31.0-37.0) g/dL RDW (11.5-15.5) % Plt Count (150-450) k/uL MPV Neutrophils % % Lymphocytes % % Monocytes % % Eosinophils % % Basophils % % Neutrophils # (1.3-7.7) k/uL Lymphocytes # (1.0-4.8) k/uL Monocytes # (0-1.0) k/uL Eosinophils # (0-0.7) k/uL Basophils # (0-0.2) k/uL Macrocytosis PT (9.0-12.0) sec INR (<1.2) APTT (22.0-30.0) sec Sodium 138 (137-145) mmol/L Potassium 4.3 (3.5-5.1) mmol/L Chloride 104 (98-107) mmol/L Carbon Dioxide 27 (22-30) mmol/L Anion Gap 7 mmol/L BUN 3 L (9-20) mg/dL Creatinine 0.61 L (0.66-1.25) mg/dL Est GFR (CKD-EPI)AfAm >90 (>60 ml/min/1.73 sqM) Est GFR (CKD-EPI)NonAf >90 (>60 ml/min/1.73 sqM) Glucose 82 (74-99) mg/dL Plasma Lactic Acid Alli 2.1 H* (0.7-2.0) mmol/L Calcium 9.1 (8.4-10.2) mg/dL Total Bilirubin 0.2 (0.2-1.3) mg/dL AST 78 H (17-59) U/L ALT 32 (4-49) U/L Alkaline Phosphatase 77 (38-126) U/L Total Protein 7.0 (6.3-8.2) g/dL Albumin 4.3 (3.5-5.0) g/dL Stool Occult Blood Negative (Negative) Serum Alcohol 210 H* mg/dL Blood Type Blood Type Recheck Bld Type Recheck Status Antibody Screen Spec Expiration Date Disposition Clinical Impression: GI bleed Disposition: ADMITTED IP TO THIS [facility] Condition: Fair Referrals: Emile Augustine DO [Primary Care Provider] - 1-2 days
[2021-02-01 18:00] LABS: ALT 32 U/L (4-49); AST 78 U/L (17-59); African American GFR (CKD) >90 (>60 ml/min/1.73 sqM); Albumin 4.3 g/dL (3.5-5.0); Alkaline Phosphatase 77 U/L (38-126); Anion Gap 7 mmol/L; Blood Urea Nitrogen 3 mg/dL (9-20); Calcium 9.1 mg/dL (8.4-10.2); Carbon Dioxide 27 mmol/L (22-30); Chloride 104 mmol/L (98-107); Glucose 82 mg/dL (74-99); Non-African American GFR(CKD) >90 (>60 ml/min/1.73 sqM); Potassium 4.3 mmol/L (3.5-5.1); Sodium 138 mmol/L (137-145); Total Bilirubin 0.2 mg/dL (0.2-1.3)
[2021-02-01 18:02] LABS: Basophils % (A) 1 %; Eosinophils # (A) 0.1 k/uL (0-0.7); Eosinophils % (A) 2 %; HCT 36.6 % (39.0-53.0); Lymphocytes # (A) 1.8 k/uL (1.0-4.8); Lymphocytes % (A) 46 %; MCHC 35.4 g/dL (31.0-37.0); MCV 104.5 fL (80.0-100.0); Macrocytosis Slight; Mean Platelet Volume 7.7; Monocytes # (A) 0.3 k/uL (0-1.0); Monocytes % (A) 7 %; Neutrophils # (A) 1.6 k/uL (1.3-7.7); Neutrophils % (A) 41 %; Platelet Count 209 k/uL (150-450); RDW 12.5 % (11.5-15.5); WBC 3.9 k/uL (3.8-10.6)
[2021-02-01 18:04] LABS: Alcohol 210 mg/dL
[2021-02-01 18:10] LABS: Partial Thromboplastin Time 25.2 sec (22.0-30.0); Prothrombin Time 10.8 sec (9.0-12.0)
[2021-02-01] MEDS ORDERED: NALOXONE 0.4 MG/ML 1 ML VIAL IV PRN (18:42)
[2021-02-01] MEDS ORDERED: ACETAMINOPHEN TAB 325 MG TAB PO PRN (18:42)
[2021-02-01] MEDS: SODIUM CHLORIDE 0.9% 1,000 ML IV SCH (19:18)
--- NOTE | 2021-02-01 21:57 | P.HPIM ---
History of Present Illness H&P Date: 02/01/21 Chief Complaint: maroon stool per rectum History of presenting complaint: This is a 60-year-old patient who follows a Dr. Augustine. Chronic stable medical conditions include COPD, chronic right foot drop, chronic low back pain, anxiety, depression. Patient long-standing history of excessive alcohol intake. Also smokes a pack of cigarettes a day. Patient drinks anywhere from 8-12 beers a day, 16 ounce. Has been doing it for quite a while. Patient for last 5 days a slight anywhere from 3-5 maroon-colored bowel movements. No abdominal pain. No obvious nausea vomiting. No fever no chills denies any abdominal pain. Feeling weak and tired. Also short of breath and wheezing. Very poor appetite. Note that patient is also on voltaren, and distal could be ulcer b leed. Review of systems: GEN.: Tired, poor appetite EYES: None HEENT: None NECK: None RESPIRATORY: As above CARDIOVASCULAR: None GASTROINTESTINAL: As above GENITOURINARY: None MUSCULOSKELETAL: None LYMPHATICS: None HEMATOLOGICAL: None PSYCHIATRY: None NEUROLOGICAL: Some tremors Past medical history to include: COPD, PE, alcoholism, bilateral pulmonary embolism in 2013, right foot drop due to neuropathy, anxiety depression, alcohol use disorder, nicotine dependence Social history: Drinks 8-12 beers a day, 16 ounce.. Smokes at least a pack a day for over 35 years. In the past has done cocaine and LSD marijuana. . also is an alcoholic. Family history: Mother of pancreatic cancer Physical examination: VITAL SIGNS: 98, 102, 18, 126/78, 98% room air GENERAL: BMI 19.2, sitting up in bed, tired slight shaky. EYES: Pupils equal. Conjunctiva palel. HEENT: External appearance of nose and ears normal, oral cavity grossly normal. NECK: JVD not raised; masses not palpable. HEART: First and second heart sounds are normal; no edema. LUNGS: Respiratory rate increased, diminished breath sounds and wheezing. ABDOMEN: Soft, nontender, liver spleen not palpable, no masses palpable. PSYCH: Alert and oriented x3; mood and affect anxiousl. MUSCULAR SKELETAL: Wasting of muscles, prominent bones NEUROLOGICAL: Cranial nerves grossly intact; no facial asymmetry, power and sensation grossly intact. Mild tremors LYMPHATICS: No lymph nodes palpable in the axilla and neck INVESTIGATIONS, reviewed in the clinical context: WBC 3.9 hemoglobin 13 platelets 209 potassium 4.3 creatinine 0.61 Lactic acid 2.1 AST 78 ALT 32 serum alcohol to 10 EKG tracing personally reviewed by me-normal sinus rhythm Assessment and plan: -This is a patient presents with for 5 days of maroon color stool. Alcoholic. This could be lying very still bleed. Peptic ulcer disease also needs to be ruled out. Follow H&H closely. GI consulted. PPI -Alcohol use disorder CIWA scale -Early alcohol withdrawal symptoms. Patient is anxious. Says some tremors Valium 5 mg 3 times a day. Lopressor 12.5 by mouth twice a day. -Mild protein calorie malnutrition Dietitian -Acute COPD exacerbation in a current smoker [place]. Inhaled steroids -Chronic nicotine dependence, cigarette smoker Nicotine patch -Chronic right foot drop -Chronic anxiety and depression On trazodone, Cymbalta Spoke to the ER physician, for admission to the ICU. He discussed with Dr. Pelaez. Sap Integration Architect. [place],. Inhaled steroids. Nothing by mouth except for medications. Home medications to be resumed. Hold NSAIDs. Follow H&H closely. GI consulted. Given the complexity and severity of patient's condition expect the patient to be in the hospital at least for 2 overnights Past Medical History Past Medical History: Asthma, COPD, Pulmonary Embolus (PE) Additional Past Medical History / Comment(s): HX: chronic diarrhea and weight loss, alcoholism, bilateral lung pulmonary embolisms-in 2012 and previous to that, R lung pleurisy, asthma as child, back pain and sciatica, R foot drop with numbness and tingling to R foot due to pinched nerves, multifactoral anemia, elevated LFTs, 1997 R hand fracture. History of Any Multi-Drug Resistant Organisms: None Reported Past Surgical History: Back Surgery, Orthopedic Surgery Additional Past Surgical History / Comment(s): back-fusions x 2 L4, L5, S1 with hardware, cataracts bilateral with lens implants, rotator cuff right shoulder, colonoscopies Past Anesthesia/Blood Transfusion Reactions: No Reported Reaction Past Psychological History: Anxiety, Depression Smoking Status: Current every day smoker Past Alcohol Use History: Abuse, Heavy Past Drug Use History: Cocaine, Marijuana - Past Family History Mother Family Medical History: Cancer Additional Family Medical History / Comment(s): Mother of pancreatic cancer at age 82 yrs. Father Family Medical History: Cancer Additional Family Medical History / Comment(s): Father of lung cancer at 86yrs. He was a heavy smoker. hx colon cancer Brother(s) Family Medical History: Cancer Additional Family Medical History / Comment(s): (1) lymphoma, (1) BRAIN CANCER Sister(s) Family Medical History: Cancer Additional Family Medical History / Comment(s): lung cancer and throat cancer Medications and Allergies Home Medications Medication Instructions Recorded Confirmed Type Multivitamins, Thera [Multivitamin 1 tab PO DAILY 04/28/18 02/01/21 History (formulary)] Vitamin B Complex 1 cap PO DAILY 04/28/18 02/01/21 History Calcium/Magnesium/Zinc 1 tab PO DAILY 11/03/20 02/01/21 History [Sqpzuyi-Vxewiepcl-Pnqx Tablet] Cholecalciferol [Vitamin D3 (25 25 mcg PO DAILY 11/03/20 02/01/21 History Mcg = 1000 Iu)] DULoxetine HCL [Cymbalta] 30 mg PO DAILY 11/03/20 02/01/21 History Diclofenac Sodium [Voltaren] 75 mg PO BID 11/03/20 02/01/21 History Gabapentin 600 mg PO TID 11/03/20 02/01/21 History methocarbamoL [Methocarbamol] 750 mg PO Q8H 11/03/20 02/01/21 History traZODone HCL 150 mg PO HS 11/03/20 02/01/21 History Thiamine HCl [Vitamin B-1] 100 mg PO DAILY 02/01/21 02/01/21 History Allergies Allergy/AdvReac Type Severity Reaction Status Date / Time buprenorphine [From Butrans] Allergy BUTRANS Verified 02/01/21 17:50 PATCH-ITCHING OF SKIN AND DISCOLORATION Physical Exam Vitals: Vital Signs Temp Pulse Resp BP Pulse Ox 02/01/21 19:03 85 18 105/76 96 02/01/21 16:35 98.1 F 102 H 18 126/78 98 Intake and Output 02/01/21 02/01/21 02/01/21 06:59 14:59 22:59 Other: Weight 60.781 kg Results CBC & Chem 7: 02/01/21 17:44 02/01/21 17:44 Labs: Abnormal Lab Results - Last 24 Hours (Table) 02/01/21 02/01/21 02/01/21 Range/Units 17:44 17:44 17:44 RBC 3.50 L (4.30-5.90) m/uL Hct 36.6 L (39.0-53.0) % MCV 104.5 H (80.0-100.0) fL MCH 37.0 H (25.0-35.0) pg BUN 3 L (9-20) mg/dL Creatinine 0.61 L (0.66-1.25) mg/dL Plasma Lactic Acid Alli 2.1 H* (0.7-2.0) mmol/L AST 78 H (17-59) U/L Serum Alcohol 210 H* mg/dL 02/01/21 Range/Units 20:27 RBC (4.30-5.90) m/uL Hct (39.0-53.0) % MCV (80.0-100.0) fL MCH (25.0-35.0) pg BUN (9-20) mg/dL Creatinine (0.66-1.25) mg/dL Plasma Lactic Acid Alli 2.3 H* (0.7-2.0) mmol/L AST (17-59) U/L Serum Alcohol mg/dL
--- NOTE | 2021-02-01 22:19 | XR ---
EXAMINATION TYPE: XR chest 1V DATE OF EXAM: 02/01/2021 COMPARISON: 11/03/2020 HISTORY: COPD. Weakness. TECHNIQUE: FINDINGS: There is some linear density right lung base with some tenting of the right diaphragm. Left lung is clear. There is no heart failure. Heart size is normal. Mediastinum is normal. IMPRESSION: Pleural and pulmonary scarring right lung base without change. No acute lung disease. Nor mal heart.
[2021-02-02] MEDS: BUDESONIDE 1 MG/2 ML NEBU INHALATION SCH ×3 (00:17→19:46)
[2021-02-02] MEDS: IPRATROPIUM-ALBUTEROL 3 ML NEB INHALATION SCH ×5 (00:17→19:46)
[2021-02-02] MEDS: PANTOPRAZOLE 40 MG/10 ML VIAL IVP SCH ×3 (00:18→20:00)
[2021-02-02] MEDS: methocarbamoL 750 MG TAB PO SCH ×4 (00:18→22:08)
[2021-02-02] MEDS: traZODone HCL 50 MG TAB PO SCH ×2 (00:19→22:08)
[2021-02-02] MEDS: diazePAM 5 MG TAB PO SCH ×4 (00:23→22:09)
[2021-02-02] MEDS: GABAPENTIN 300 MG CAP PO SCH ×4 (00:23→22:08)
[2021-02-02] MEDS: METOPROLOL TARTRATE 12.5 MG TAB PO SCH ×3 (00:23→20:01)
[2021-02-02] MEDS: NICOTINE 21MG/24HR PATCH TRANSDERM SCH ×2 (00:25→07:39)
[2021-02-02] MEDS: SODIUM CHLORIDE 0.9% 1,000 ML IV SCH ×3 (04:27→20:01)
[2021-02-02] MEDS: THIAMINE 100 MG TAB PO SCH ×3 (06:43→15:11)
[2021-02-02] MEDS: DULoxetine HCL 30 MG CAPSULE.DR PO SCH (07:39)
[2021-02-02] MEDS ORDERED: NON FORMULARY DRUG (Vitamin B Complex [Vitamin B Complex] 1 EACH Capsule) PO SCH (09:00)
--- NOTE | 2021-02-02 14:04 | P.PN ---
Progress Note - Text Progress Note Date: 02/02/21 Chief Complaint: maroon stool per rectum History of presenting complaint: This is a 60-year-old patient who follows a Dr. Augustine. Chronic stable medical conditions include COPD, chronic right foot drop, chronic low back pain, anxiety, depression. Patient long-standing history of excessive alcohol intake. Also smokes a pack of cigarettes a day. Patient drinks anywhere from 8-12 beers a day, 16 ounce. Has been doing it for quite a while. Patient for last 5 days a slight anywhere from 3-5 maroon-colored bowel movements. No abdominal pain. No obvious nausea vomiting. No fever no chills denies any abdominal pain. Feeling weak and tired. Also short of breath and wheezing. Very poor appetite. Note that patient is also on voltaren, and distal could be ulcer bleed. Patient has chronic long-standing intermittent diarrhea. Admitted with maroon stools, alcohol use disorder, alcohol withdrawal syndrome, COPD,. Put on bronchodilators. Valium. Beta blockers. CIWA scale. February 02: Less anxious. Tolerating liquid diet. Walk to the bathroom holding a poor. Patient states that he's been into alcohol rehab about 7 times. His relationship with his is not good and that often precipitates his alcohol drinking. He thinks only with her get off of alcohol drinking is going through divorce. Review of systems: Was done for constitutional, cardiovascular, GI, pulmonary. relevant finding as above Active Medications Acetaminophen (Acetaminophen Tab 325 Mg Tab) 650 mg PO Q6HR PRN PRN Reason: Mild Pain or Fever > 100.5 Albuterol/Ipratropium (Ipratropium-Albuterol 3 Ml Neb) 3 ml INHALATION RT-QID [facility] Last Admin: 02/02/21 11:44 Dose: Not Given Documented by: Budesonide (Budesonide 1 Mg/2 Ml Nebu) 1 mg INHALATION RT-BID [facility] Last Admin: 02/02/21 08:16 Dose: Not Given Documented by: Diazepam (Diazepam 5 Mg Tab) 5 mg PO Q8H [facility] Last Admin: 02/02/21 13:41 Dose: 5 mg Documented by: Duloxetine HCl (Duloxetine Hcl 30 Mg Chrissy.) 30 mg PO DAILY [facility] Last Admin: 02/02/21 07:39 Dose: 30 mg Documented by: Gabapentin (Gabapentin 300 Mg Cap) 600 mg PO TID [facility] Last Admin: 02/02/21 07:39 Dose: 600 mg Documented by: Sodium Chloride (Saline 0.9%) 1,000 mls @ 120 mls/hr IV .Q8H20M [facility] Last Admin: 02/02/21 07:44 Dose: Not Given Documented by: Lorazepam (Lorazepam 2 Mg/Ml Inj) 1 mg IV Q2HR PRN PRN Reason: CIWA 8 or 9 Last Admin: 02/01/21 21:16 Dose: 1 mg Documented by: Lorazepam (Lorazepam 2 Mg/Ml Inj) 1 mg IV Q1HR PRN PRN Reason: CIWA 10 to 15 Lorazepam (Lorazepam 2 Mg/Ml Inj) 2 mg IV Q10M PRN PRN Reason: CIWA 16 or higher Stop: 02/03/21 17:04 Methocarbamol (Methocarbamol 750 Mg Tab) 750 mg PO Q8H [facility] Last Admin: 02/02/21 13:41 Dose: 750 mg Documented by: Metoprolol Tartrate (Metoprolol Tartrate 12.5 Mg Tab) 12.5 mg PO BID [facility] Last Admin: 02/02/21 07:39 Dose: 12.5 mg Documented by: Naloxone HCl (Naloxone 0.4 Mg/Ml 1 Ml Vial) 0.2 mg IV Q2M PRN PRN Reason: Opioid Reversal Nicotine (Nicotine 21mg/24hr Patch) 1 patch TRANSDERM DAILY [facility] Last Admin: 02/02/21 07:39 Dose: 1 patch Documented by: Pantoprazole Sodium (Pantoprazole 40 Mg/10 Ml Vial) 40 mg IVP BID [facility] Last Admin: 02/02/21 07:39 Dose: 40 mg Documented by: Psyllium Hydrophilic Mucilloid (Psyllium Husk 100% 6 Gm Packet) 6 gm PO BID [facility] Thiamine HCl (Thiamine 100 Mg Tab) 100 mg PO BID-W/MEALS [facility] Last Admin: 02/02/21 06:43 Dose: 100 mg Documented by: Thiamine HCl (Thiamine 100 Mg Tab) 100 mg PO DAILY [facility] Last Admin: 02/02/21 07:39 Dose: 100 mg Documented by: Trazodone HCl (Trazodone Hcl 50 Mg Tab) 150 mg PO HS [facility] Last Admin: 02/02/21 00:19 Dose: Not Given Documented by: Past medical history to include: COPD, PE, alcoholism, bilateral pulmonary embolism in 2013, right foot drop due to neuropathy, anxiety depression, alcohol use disorder, nicotine dependence Social history: Drinks 8-12 beers a day, 16 ounce.. Smokes at least a pack a day for over 35 years. In the past has done cocaine and LSD marijuana. . also is an alcoholic. Family history: Mother of pancreatic cancer Physical examination: VITAL SIGNS: 98.4, 69, 18, 160/88, 94% room air GENERAL: Sitting up in a chair, less tired, improved shaking EYES: Pupils equal. Conjunctiva pale. HEENT: External appearance of nose and ears normal, oral cavity grossly normal. NECK: JVD not raised; masses not palpable. HEART: First and second heart sounds are normal; no edema. LUNGS: Respiratory rate increased, diminished breath sounds ABDOMEN: Soft, nontender, liver spleen not palpable, no masses palpable. PSYCH: Alert and oriented x3; mood and affect anxiousl. MUSCULAR SKELETAL: Wasting of muscles, prominent bones NEUROLOGICAL: Tremors improved INVESTIGATIONS, reviewed in the clinical context: February 02: Lactic acid 0.9 WBC 3.9 hemoglobin 13 platelets 209 potassium 4.3 creatinine 0.61 Lactic acid 2.1 AST 78 ALT 32 serum alcohol to 10 EKG tracing personally reviewed by me-normal sinus rhythm Assessment and plan: -This is a patient presents with for 5 days of maroon color stool. Alcoholic. Possibly variceal bleed. Peptic ulcer disease also needs to be considered given that patient is taking voltaren. Follow H&H closely. GI consulted. PPI. Pending endoscopy -Alcohol use disorder CIWA scale -Early alcohol withdrawal symptoms. Patient is anxious. Better Valium 5 mg 3 times a day. Lopressor 12.5 by mouth twice a day. -Mild protein calorie malnutrition Dietitian -Acute COPD exacerbation in a current smoker [place]. Inhaled steroids -Chronic nicotine dependence, cigarette smoker Nicotine patch -Chronic right foot drop -Chronic anxiety and depression On trazodone, Cymbalta Continue on clear liquids. Nothing by mouth after midnight for possible endoscopy. Had a lengthy talk to patient of his social situation. Also would alcohol rehab. He is currently located to the same. Add Metamucil for his chronic intermittent diarrhea. Total time spent today was about 40 minutes with over 25 minutes of discussion.
[2021-02-02] MEDS: PSYLLIUM HUSK 100% 6 GM PACKET PO SCH ×2 (15:12→20:00)
[2021-02-03 06:41] LABS: Basophils % (A) 1 %; Eosinophils # (A) 0.2 k/uL (0-0.7); Eosinophils % (A) 6 %; HCT 37.9 % (39.0-53.0); HGB 12.5 gm/dL (13.0-17.5); Lymphocytes # (A) 1.6 k/uL (1.0-4.8); Lymphocytes % (A) 36 %; MCH 35.8 pg (25.0-35.0); MCHC 32.9 g/dL (31.0-37.0); MCV 108.9 fL (80.0-100.0); Macrocytosis Moderate; Mean Platelet Volume 8.7; Monocytes # (A) 0.3 k/uL (0-1.0); Monocytes % (A) 6 %; Neutrophils # (A) 2.2 k/uL (1.3-7.7); Neutrophils % (A) 49 %; Platelet Count 202 k/uL (150-450); RBC 3.48 m/uL (4.30-5.90); RDW 13.2 % (11.5-15.5); WBC 4.4 k/uL (3.8-10.6)
[2021-02-03 06:51] LABS: African American GFR (CKD) >90 (>60 ml/min/1.73 sqM); Anion Gap 2 mmol/L; Blood Urea Nitrogen 5 mg/dL (9-20); Carbon Dioxide 27 mmol/L (22-30); Chloride 112 mmol/L (98-107); Glucose 94 mg/dL (74-99); Magnesium 1.7 mg/dL (1.6-2.3); Non-African American GFR(CKD) >90 (>60 ml/min/1.73 sqM); Potassium 3.5 mmol/L (3.5-5.1); Sodium 141 mmol/L (137-145)
[2021-02-03] MEDS: SODIUM CHLORIDE 0.9% 1,000 ML IV SCH ×2 (06:59→12:08)
[2021-02-03] MEDS ORDERED: PROPOFOL 10 MG/ML 20 ML VIAL IV ONE (08:03)
[2021-02-03] MEDS ORDERED: IV FLUID CONTINUATION 1,000 ML IV ONE (08:06)
[2021-02-03] MEDS: BUDESONIDE 1 MG/2 ML NEBU INHALATION SCH (08:16)
[2021-02-03] MEDS: IPRATROPIUM-ALBUTEROL 3 ML NEB INHALATION SCH ×2 (08:16→11:31)
--- NOTE | 2021-02-03 08:26 | P.CONS ---
History of Present Illness - Reason for Consult Consult date: 02/02/21 Melena Requesting physician: Linus Meza - Chief Complaint Melena - History of Present Illness 60-year-old male with multiple medical comorbidities including COPD, chronic right foot drop, low back pain, alcohol abuse, anxiety and depression who presented to the hospital for evaluation of dark-colored stool. He reports that over the past 5-6 days he has been having black tarry stool. He reports that previously he has seen this intermittently in the past however never for this long infrequent as currently. He denies any history of peptic ulcer disease. He does take a baby aspirin at baseline but denies any eyzn-loa-qjrrgvk NSAID use. No nausea or vomiting. Last colonoscopy in 04/2018 significant for diverticulosis and collagenous colitis. He also reports prior endoscopic ultrasound abruptly 2 years ago for evaluation of pancreas. On presentation hemoglobin 13 with macrocytic indices with alcohol level greater than 210 and stool negative for occult blood. Review of Systems REVIEW OF SYSTEMS: CONSTITUTIONAL: Denies any fevers, chills, weight change or fatigue. CARDIOVASCULAR: Denies any chest pain, palpitations high or low blood pressures RESPIRATORY: Denies any shortness of breath, hemoptysis or cough. GENITOURINARY: No dysuria or hematuria. MUSCULOSKELETAL: No weakness reported. SKIN: Denies any new rashes or lesions, jaundice or pallor. PSYCHIATRIC: History of anxiety, depression, alcohol abuse. NEUROLOGY: Denies headache, denies any new focal deficits. EARS/NOSE/THROAT: No recent hearing change, congestion, nasal discharge or sore throat. EYES: No pain in eyes, discharge or change in vision. GASTROINTESTINAL: As per HPI. Past Medical History Past Medical History: Asthma, COPD, Pulmonary Embolus (PE) Additional Past Medical History / Comment(s): HX: chronic diarrhea and weight loss, alcoholism, bilateral lung pulmonary embolisms-in 2012 and previous to that, R lung pleurisy, asthma as child, back pain and sciatica, R foot drop with numbness and tingling to R foot due to pinched nerves, multifactoral anemia, elevated LFTs, 1997 R hand fracture. History of Any Multi-Drug Resistant Organisms: None Reported Past Surgical History: Back Surgery, Orthopedic Surgery Additional Past Surgical History / Comment(s): back-fusions x 2 L4, L5, S1 with hardware, cataracts bilateral with lens implants, rotator cuff right shoulder, colonoscopies Past Anesthesia/Blood Transfusion Reactions: No Reported Reaction Past Psychological History: Anxiety, Depression Additional Psychological History / Comment(s): He has anxiety and depression and has had mental health unit admissions. Smoking Status: Current every day smoker Past Alcohol Use History: Abuse, Heavy Additional Past Alcohol Use History / Comment(s): pt states drinks 8-12 of 16ox beers a day. smoker for 35 years 1 1/2 ppd Past Drug Use History: Cocaine, Marijuana Additional Drug Use History / Comment(s): In the s, pt used cocaine, LSD, and mesc. He has not used any of these drugs since then. - Past Family History Mother Family Medical History: Cancer Additional Family Medical History / Comment(s): Mother of pancreatic cancer at age 82 yrs. Father Family Medical History: Cancer Additional Family Medical History / Comment(s): Father of lung cancer at 86yrs. He was a heavy smoker. hx colon cancer Brother(s) Family Medical History: Cancer Additional Family Medical History / Comment(s): (1) lymphoma, (1) BRAIN CANCER Sister(s) Family Medical History: Cancer Additional Family Medical History / Comment(s): lung cancer and throat cancer Medications and Allergies Home Medications Medication Instructions Recorded Confirmed Type Multivitamins, Thera [Multivitamin 1 tab PO DAILY 04/28/18 02/01/21 History (formulary)] Vitamin B Complex 1 cap PO DAILY 04/28/18 02/01/21 History Calcium/Magnesium/Zinc 1 tab PO DAILY 11/03/20 02/01/21 History [Nmvkceu-Aocihyofz-Mrqh Tablet] Cholecalciferol [Vitamin D3 (25 25 mcg PO DAILY 11/03/20 02/01/21 History Mcg = 1000 Iu)] DULoxetine HCL [Cymbalta] 30 mg PO DAILY 11/03/20 02/01/21 History Diclofenac Sodium [Voltaren] 75 mg PO BID 11/03/20 02/01/21 History Gabapentin 600 mg PO TID 11/03/20 02/01/21 History methocarbamoL [Methocarbamol] 750 mg PO Q8H 11/03/20 02/01/21 History traZODone HCL 150 mg PO HS 11/03/20 02/01/21 History Thiamine HCl [Vitamin B-1] 100 mg PO DAILY 02/01/21 02/01/21 History Allergies Allergy/AdvReac Type Severity Reaction Status Date / Time buprenorphine [From Butrans] Allergy BUTRANS Verified 02/01/21 17:50 PATCH-ITCHING OF SKIN AND DISCOLORATION Physical Exam Vitals: Vital Signs Temp Pulse Pulse Resp BP BP Pulse Ox 02/02/21 08:00 18 02/02/21 07:35 97.7 F 78 18 111/68 95 02/02/21 03:15 99.3 F 103 H 16 126/68 94 L 02/02/21 02:00 100 20 02/02/21 01:41 99.3 F 100 125/76 97 02/02/21 01:20 96 20 94/62 97 02/01/21 19:03 85 18 105/76 96 02/01/21 16:35 98.1 F 102 H 18 126/78 98 Intake and Output 02/01/21 02/02/21 02/02/21 22:59 06:59 14:59 Intake Total 470 Balance 470 Intake: Intake, IV Titration 470 Amount Sodium Chloride 0.9% 1, 470 000 ml @ 120 mls/hr IV . Q8H20M [facility] Rx#:[id number] Other: Voiding Method Toilet # Voids 1 # Bowel Movements 1 Weight 60.781 kg 59.5 kg On physical examination, patient appears comfortable in no apparent distress. HEAD: Normocephalic, atraumatic. EYES: No scleral icterus. No conjunctival injection. MOUTH: No lesions, tongue midline. NECK: Trachea midline, no gross abnormalities. CHEST: Clear to auscultation with no wheezing or rhonchi appreciated. HEART: Regular rate and rhythm. ABDOMEN: Soft, nontender to palpation. Bowel sounds are positive. No organomegaly. No guarding or rigidity. EXTREMITIES: No pedal edema. SKIN: No rashes, no jaundice. NEUROLOGIC: Alert and oriented x3. No focal deficits. Results CBC & Chem 7: 02/03/21 06:31 02/03/21 06:31 Labs: Abnormal Lab Results - Last 24 Hours (Table) 02/01/21 02/01/21 02/01/21 Range/Units 17:44 17:44 17:44 RBC 3.50 L (4.30-5.90) m/uL Hct 36.6 L (39.0-53.0) % MCV 104.5 H (80.0-100.0) fL MCH 37.0 H (25.0-35.0) pg BUN 3 L (9-20) mg/dL Creatinine 0.61 L (0.66-1.25) mg/dL Plasma Lactic Acid Alli 2.1 H* (0.7-2.0) mmol/L AST 78 H (17-59) U/L Serum Alcohol 210 H* mg/dL 02/01/21 02/01/21 Range/Units 20:27 23:46 RBC (4.30-5.90) m/uL Hct (39.0-53.0) % MCV (80.0-100.0) fL MCH (25.0-35.0) pg BUN (9-20) mg/dL Creatinine (0.66-1.25) mg/dL Plasma Lactic Acid Alli 2.3 H* 2.2 H* (0.7-2.0) mmol/L AST (17-59) U/L Serum Alcohol mg/dL Assessment and Plan (1) Melena Narrative/Plan: 60-year-old male with multiple medical comorbidities including alcohol abuse presenting for evaluation of melanotic stool. 5-6 days of dark tarry stool. No prior peptic ulcer disease. Denies any qnfs-pev-mepvsvh NSAIDs but does take aspirin daily. Hemoglobin 13 on presentation with stool negative for occult blood. Last colonoscopy 04/2018 with diverticulosis in collagenous colitis noted. Unclear etiology, may be related to gastritis, esophagitis, peptic ulcer disease, AVM or other etiology. Current Visit: Yes Status: Acute Code(s): K92.1 - MELENA SNOMED Code(s): 2 830890 (2) Collagenous colitis Current Visit: Yes Status: Acute Code(s): K52.831 - COLLAGENOUS COLITIS SNOMED Code(s): 62939826 (3) Alcoholic intoxication Current Visit: Yes Status: Acute Code(s): F10.129 - ALCOHOL ABUSE WITH INTOXICATION, UNSPECIFIED SNOMED Code(s): 52301332 Plan: Supportive care Clear liquid diet Continue to monitor hemoglobin and hematocrit and transfuse as needed Continue to monitor CBC, BMP, LFTs Protonix 40 mg twice a day Hold anticoagulation therapy for now Nothing by mouth after midnight, plan for EGD tomorrow with all of the risks, benefits and possible complications explained to the patient length all his questions answered to his satisfaction Thank you for allowing us to participate in the care of the patient we will continue to follow
--- NOTE | 2021-02-03 08:28 | P.PCN ---
Date of Procedure: 02/03/21 Description of Procedure: BRIEF HISTORY: 60-year-old male with multiple medical comorbidities including COPD, chronic right foot drop, low back pain, alcohol abuse, anxiety and depression who presented to the hospital for evaluation of dark-colored stool. He reports that over the past 5-6 days he has been having black tarry stool. He reports that previously he has seen this intermittently in the past however never for this long infrequent as currently. He denies any history of peptic ulcer disease. He does take a baby aspirin at baseline but denies any nymo-duu-lrpkfcj NSAID use. No nausea or vomiting. Last colonoscopy in 04/2018 significant for diverticulosis and collagenous colitis. He also reports prior endoscopic ultrasound abruptly 2 years ago for evaluation of pancreas. On presentation hemoglobin 13 with macrocytic indices with alcohol level greater than 210 and stool negative for occult blood. PROCEDURE PERFORMED: Esophagogastroduodenoscopy with biopsy. PREOPERATIVE DIAGNOSIS: Melena. ESTIMATED BLOOD LOSS: Minimal. IV sedation per anesthesia. PROCEDURE: After informed consent was obtained, the patient was brought into the endoscopy unit. IV sedation was administered by Anesthesia under continuous monitoring. Initially the Olympus GIF-190 video endoscope was inserted into the mouth. Esophagus intubated without any difficulty. It was gradually advanced into the stomach and duodenum and carefully examined. The bulb and the second part of the duodenum appeared normal, except for moderate erythema in the bulb suggestive of moderate duodenitis with biopsies taken. The scope at this time was withdrawn to the stomach, adequately insufflated with air, and upon careful examination, mucosa of the antrum, body, cardia and the fundus appeared except for some superficial erythema in the antrum body and some superficial erosions suggestive of moderate gastritis with biopsies of the antrum and body taken. The scope was then withdrawn into the esophagus. The GE junction was located at 39 cm from the incisors and appeared somewhat irregular with biopsies taken to rule out Anderson's esophagus. The esophagus appeared normal. There were no erosions or ulcerations seen and the patient tolerated the procedure well. IMPRESSION: 1. Moderate gastritis . 2. Moderate duodenitis. 3. Biopsies of the duodenum, antrum body and lower esophagus. RECOMMENDATIONS: The findings of this examination were discussed with the patient and his family. Okay to resume diet. Okay to resume medications. Continue Protonix therapy. Await pathology from biopsies. Strict alcohol abstinence. Continue to monitor hemoglobin and hematocrit and stool output. Okay for discharge when otherwise medically stable. The GI service will stand by, please call us back with any questions or concerns.
[2021-02-03] MEDS: THIAMINE 100 MG TAB PO SCH ×2 (08:35→08:38)
[2021-02-03] MEDS: GABAPENTIN 300 MG CAP PO SCH (08:38)
[2021-02-03] MEDS: methocarbamoL 750 MG TAB PO SCH (08:38)
[2021-02-03] MEDS: DULoxetine HCL 30 MG CAPSULE.DR PO SCH (08:38)
[2021-02-03] MEDS: PSYLLIUM HUSK 100% 6 GM PACKET PO SCH (08:38)
[2021-02-03] MEDS: NICOTINE 21MG/24HR PATCH TRANSDERM SCH (08:39)
[2021-02-03] MEDS: PANTOPRAZOLE 40 MG/10 ML VIAL IVP SCH (08:39)
[2021-02-03] MEDS: METOPROLOL TARTRATE 12.5 MG TAB PO SCH (08:39)
[2021-02-03 08:54] VITALS: RESP 18
[2021-02-03] MEDS ORDERED: PANTOPRAZOLE 40 MG/10 ML VIAL IVP SCH (09:00)
[2021-02-03] MEDS: diazePAM 5 MG TAB PO SCH (09:37)
[2021-02-03 12:09] VITALS: BP 112/61; PULSE 67; TEMP 98.6
--- NOTE | 2021-02-03 21:28 | P.DS ---
Providers Date of admission: 02/01/21 18:44 Expected date of discharge: 02/03/21 Attending physician: Linus Meza Consults: 02/01/21 18:43 Consult Physician Routine Consulting Provider: Kareem Helm Reason/Comments: melanotic stools Do you want consulting provider notified?: Yes Primary care physician: [facility] Course: Chief Complaint: maroon stool per rectum History of presenting complaint: This is a 60-year-old patient who follows a Dr. Augustine. Chronic stable medical conditions include COPD, chronic right foot drop, chronic low back pain, anxiety, depression. Patient long-standing history of excessive alcohol intake. Also smokes a pack of cigarettes a day. Patient drinks anywhere from 8-12 beers a day, 16 ounce. Has been doing it for quite a while. Patient for last 5 days a slight anywhere from 3-5 maroon-colored bowel movements. No abdominal pain. No obvious nausea vomiting. No fever no chills denies any abdominal pain. Feeling weak and tired. Also short of breath and wheezing. Very poor appetite. Note that patient is also on voltaren, and distal could be ulcer bleed. Patient has chronic long-standing intermittent diarrhea. Admitted with maroon stools, alcohol use disorder, alcohol withdrawal syndrome, COPD,. Put on bronchodilators. Valium. Beta blockers. CIWA scale. February 02: Less anxious. Tolerating liquid diet. Walk to the bathroom holding a poor. Patient states that he's been into alcohol rehab about 7 times. His relationship with his is not good and that often precipitates his alcohol drinking. He thinks only with her get off of alcohol drinking is going through divorce. February 03: EGD: Moderate gastritis and duodenitis. Biopsy done. Care was discussed at length with the patient. Patient is does not want to use Antabuse. He will try to make social changes.. Questions answered. He might go to his daughter's house. Discussion and discharge planning more than 35 minutes Consultation: Dr. Tracey from GI Past medical history to include: COPD, PE, alcoholism, bilateral pulmonary embolism in 2013, right foot drop due to neuropathy, anxiety depression, alcohol use disorder, nicotine dependence Social history: Drinks 8-12 beers a day, 16 ounce.. Smokes at least a pack a day for over 35 years. In the past has done cocaine and LSD marijuana. . also is an alcoholic. Family history: Mother of pancreatic cancer Physical examination: VITAL SIGNS: 98.6, 67, 18, 112/61, 97% room air GENERAL: Sitting up, comfortable EYES: Pupils equal. Conjunctiva pale. HEENT: External appearance of nose and ears normal, oral cavity grossly normal. NECK: JVD not raised; masses not palpable. HEART: First and second heart sounds are normal; no edema. LUNGS: Respiratory rate increased, diminished breath sounds ABDOMEN: Soft, nontender, liver spleen not palpable, no masses palpable. PSYCH: Alert and oriented x3; mood and affect anxiety improved MUSCULAR SKELETAL: Wasting of muscles, prominent bones NEUROLOGICAL: Tremors improved INVESTIGATIONS, reviewed in the clinical context: February 03: WBC 4.4 hemoglobin 12.5 potassium 3.5 crit 0.5 bun magnesium 1.7 February 02: Lactic acid 0.9 WBC 3.9 hemoglobin 13 platelets 209 potassium 4.3 creatinine 0.61 Lactic acid 2.1 AST 78 ALT 32 serum alcohol to 10 EKG tracing personally reviewed by me-normal sinus rhythm Assessment and plan: -Acute GI bleed from alcohol-induced gastritis and duodenitis PPI -Moderate gastritis and duodenitis from alcoholism Alcohol cessation. PPI -Alcohol use disorder CIWA scale -Early alcohol withdrawal symptoms. Patient is anxious. Improved Valium 5 mg 3 times a day-discontinued. Lopressor 12.5 by mouth twice a day. -Mild protein calorie malnutrition Dietitian -Acute COPD exacerbation in a current smoker-improved DuoNeb. Inhaled steroids. Being discharged on Advair. -Chronic nicotine dependence, cigarette smoker Nicotine patch -Chronic right foot drop -Chronic anxiety and depression On trazodone, Cymbalta Disposition: Home. Patient Condition at Discharge: Fair Plan - Discharge Summary Discharge Rx Participant: No New Discharge Prescriptions: New Fluticasone/Salmeterol [Advair 250-50 Diskus] 1 inhalation PO BID #1 inhaler Psyllium Husk 100% [Metamucil Packet] 6 gm PO BID #60 packet Nicotine 21Mg/24Hr Patch [Habitrol] 1 patch TRANSDERM DAILY #30 patch Pantoprazole Sodium [Protonix] 20 mg PO BID #60 tablet. Continue DULoxetine HCL [Cymbalta] 30 mg PO DAILY Calcium/Magnesium/Zinc [Pgwmfqx-Rwjavxnme-Fsbt Tablet] 1 tab PO DAILY methocarbamoL [Methocarbamol] 750 mg PO Q8H Gabapentin 600 mg PO TID traZODone HCL 150 mg PO HS Discontinued Diclofenac Sodium [Voltaren] 75 mg PO BID No Action Vitamin B Complex 1 cap PO DAILY Multivitamins, Thera [Multivitamin (formulary)] 1 tab PO DAILY Cholecalciferol [Vitamin D3 (25 Mcg = 1000 Iu)] 25 mcg PO DAILY Thiamine HCl [Vitamin B-1] 100 mg PO DAILY Discharge Medication List Multivitamins, Thera [Multivitamin (formulary)] 1 tab PO DAILY 04/28/18 [History] Vitamin B Complex 1 cap PO DAILY 04/28/18 [History] Calcium/Magnesium/Zinc [Neegvpm-Bzcajdgav-Inxy Tablet] 1 tab PO DAILY 11/03/20 [History] Cholecalciferol [Vitamin D3 (25 Mcg = 1000 Iu)] 25 mcg PO DAILY 11/03/20 [History] DULoxetine HCL [Cymbalta] 30 mg PO DAILY 11/03/20 [History] Gabapentin 600 mg PO TID 11/03/20 [History] methocarbamoL [Methocarbamol] 750 mg PO Q8H 11/03/20 [History] traZODone HCL 150 mg PO HS 11/03/20 [History] Thiamine HCl [Vitamin B-1] 100 mg PO DAILY 02/01/21 [History] Fluticasone/Salmeterol [Advair 250-50 Diskus] 1 inhalation PO BID #1 inhaler 02/03/21 [Rx] Nicotine 21Mg/24Hr Patch [Habitrol] 1 patch TRANSDERM DAILY #30 patch 02/03/21 [Rx] Pantoprazole Sodium [Protonix] 20 mg PO BID #60 tablet. 02/03/21 [Rx] Psyllium Husk 100% [Metamucil Packet] 6 gm PO BID #60 packet 02/03/21 [Rx] Follow up Appointment(s)/Referral(s): Emile Augustine DO [Primary Care Provider] - 1-2 days (Office closed - please call to make an appointment) Patient Instructions/Handouts: Gastritis (DC), Abuse of Alcohol (DC), Melena (GEN) Discharge Disposition: HOME SELF-CARE
== END 2021-02-03 14:29 | disposition home or self-care (01) | DRG 378 ==
LOC: EC 16:34 → 3SCARD 18:44
PROVIDERS: ADMIT Hospitalist; ATTEND Hospitalist
PROC: 0DB38ZX Excision of Lower Esophagus, Via Natural or Artificial Opening Endoscopic, Diagnostic (ICD-10-PCS; principal; 2021-02-03 08:00)
PROC: 0DB98ZX Excision of Duodenum, Via Natural or Artificial Opening Endoscopic, Diagnostic (ICD-10-PCS; principal; 2021-02-03 08:00)
PROC: 0DB78ZX Excision of Stomach, Pylorus, Via Natural or Artificial Opening Endoscopic, Diagnostic (ICD-10-PCS; principal; 2021-02-03 08:00)
DX: K29.21 Alcoholic gastritis with bleeding (principal); F10.239 Alcohol dependence with withdrawal, unspecified; E44.1 Mild protein-calorie malnutrition; Z68.1 Body mass index [BMI] 19.9 or less, adult; J44.1 Chronic obstructive pulmonary disease with (acute) exacerbation; F10.229 Alcohol dependence with intoxication, unspecified; Y90.7 Blood alcohol level of 200-239 mg/100 ml; D64.9 Anemia, unspecified; F32.9 Major depressive disorder, single episode, unspecified; K29.81 Duodenitis with bleeding; F17.210 Nicotine dependence, cigarettes, uncomplicated; F41.9 Anxiety disorder, unspecified; G89.29 Other chronic pain; K57.90 Diverticulosis of intestine, part unspecified, without perforation or abscess without bleeding; M54.30 Sciatica, unspecified side; R19.7 Diarrhea, unspecified; M21.371 Foot drop, right foot; G62.9 Polyneuropathy, unspecified; Z63.0 Problems in relationship with spouse or partner; Z71.3 Dietary counseling and surveillance; Z98.1 Arthrodesis status; Z98.42 Cataract extraction status, left eye; Z98.41 Cataract extraction status, right eye; Z96.1 Presence of intraocular lens; Z79.82 Long term (current) use of aspirin; Z79.899 Other long term (current) drug therapy; Z80.0 Family history of malignant neoplasm of digestive organs; Z80.1 Family history of malignant neoplasm of trachea, bronchus and lung; Z80.7 Family history of other malignant neoplasms of lymphoid, hematopoietic and related tissues; Z80.8 Family history of malignant neoplasm of other organs or systems; Z86.711 Personal history of pulmonary embolism; Z87.81 Personal history of (healed) traumatic fracture
CPT/HCPCS: 36415; 43239; 71045; 80048; 80053; 80320; 82272; 83605; 83735; 85025; 85610; 85730; 86850; 86900; 86901; 88305; 93005; 96372; 96374; 99285

== ENCOUNTER 2021-03-12 20:20 | Observation (INO) | payer MEDICARE, OTHER ==
[2021-03-12] MEDS ORDERED: SODIUM CHLORIDE 0.9% 1,000 ML IV STA (21:35)
[2021-03-12] MEDS ORDERED: PANTOPRAZOLE 40 MG/10 ML VIAL IVP STA (21:35)
[2021-03-12] MEDS ORDERED: ONDANSETRON 4 MG/2 ML VIAL IVP STA (21:35)
[2021-03-12 22:00] LABS: HCT 40.8 % (39.0-53.0); HGB 14.1 gm/dL (13.0-17.5); MCH 37.4 pg (25.0-35.0); MCHC 34.5 g/dL (31.0-37.0); MCV 108.4 fL (80.0-100.0); Macrocytosis Moderate; Mean Platelet Volume 7.5; Platelet Count 326 k/uL (150-450); RBC 3.76 m/uL (4.30-5.90); RDW 13.7 % (11.5-15.5); WBC 4.8 k/uL (3.8-10.6)
[2021-03-12 22:04] LABS: ALT 20 U/L (4-49); AST 56 U/L (17-59); African American GFR (CKD) >90 (>60 ml/min/1.73 sqM); Albumin 4.8 g/dL (3.5-5.0); Alkaline Phosphatase 85 U/L (38-126); Anion Gap 12 mmol/L; Blood Urea Nitrogen 3 mg/dL (9-20); Calcium 9.7 mg/dL (8.4-10.2); Carbon Dioxide 21 mmol/L (22-30); Chloride 100 mmol/L (98-107); Glucose 69 mg/dL (74-99); Lipase 133 U/L (23-300); Magnesium 1.8 mg/dL (1.6-2.3); Non-African American GFR(CKD) >90 (>60 ml/min/1.73 sqM); Potassium 4.1 mmol/L (3.5-5.1); Sodium 133 mmol/L (137-145); Total Bilirubin 0.4 mg/dL (0.2-1.3)
[2021-03-12 22:06] LABS: Alcohol 211 mg/dL
[2021-03-12 22:10] LABS: Prothrombin Time 10.4 sec (9.0-12.0)
[2021-03-12 22:11] LABS: Partial Thromboplastin Time 25.2 sec (22.0-30.0)
--- NOTE | 2021-03-12 22:14 | ED ---
GI Bleed HPI - General Chief complaint: GI Bleed Stated complaint: GI Bleed Time Seen by Provider: 03/12/21 21:29 Source: patient, EMS, RN notes reviewed, old records reviewed Mode of arrival: EMS Limitations: no limitations - History of Present Illness Initial comments: This is a 60-year-old male the ER. Today he presents for evaluation regards to significant dark stools. Tarry stools with history of GI bleed and ulcer. Patient also admits to chronic alcoholism. No vomiting of blood. Patient does admit to weakness and dehydration. Patient did drink significant alcohol today. MD complaint: melena -: hour(s) Radiation: none Severity scale (1-10): 6 Quality: painless Consistency: constant Improves with: none Worsens with: none Context: history of GI bleed, liver disease Associated Symptoms: weakness Treatments Prior to Arrival: none - Related Data Home Medications Medication Instructions Recorded Confirmed Multivitamins, Thera [Multivitamin 1 tab PO DAILY 04/28/18 03/12/21 (formulary)] Calcium/Magnesium/Zinc 1 tab PO DAILY 11/03/20 03/12/21 [Ghecdwl-Ufsonsttg-Yoka Tablet] DULoxetine HCL [Cymbalta] 30 mg PO DAILY 11/03/20 03/12/21 Gabapentin 600 mg PO TID 11/03/20 03/12/21 methocarbamoL [Methocarbamol] 750 mg PO Q8H 11/03/20 03/12/21 traZODone HCL 150 mg PO HS 11/03/20 03/12/21 Thiamine HCl [Vitamin B-1] 100 mg PO DAILY 02/01/21 03/12/21 Aspirin EC [Ecotrin] 325 mg PO DAILY 03/12/21 03/12/21 Latanoprost/Pf [Latanoprost 0.005% 1 drop BOTH EYES HS 03/12/21 03/12/21 Eye Drop] Super B Complex 1 cap PO DAILY 03/12/21 03/12/21 Previous Rx's Medication Instructions Recorded Pantoprazole Sodium [Protonix] 20 mg PO BID #60 tablet. 02/03/21 Allergies Allergy/AdvReac Type Severity Reaction Status Date / Time buprenorphine [From Butrans] Allergy BUTRANS Verified 02/01/21 17:50 PATCH-ITCHING OF SKIN AND DISCOLORATION diclofenac [From Arthrotec] AdvReac DIZZY, Verified 03/12/21 22:11 LIGHTHEADED, "FELT STONED" mirtazapine [From Remeron] AdvReac DIZZY, Verified 03/12/21 22:11 LIGHTHEADED, "FELT STONED" misoprostol [From Arthrotec] AdvReac DIZZY, Verified 03/12/21 22:11 LIGHTHEADED, "FELT STONED" Review of Systems ROS Statement: Those systems with pertinent positive or pertinent negative responses have been documented in the HPI. ROS Other: All systems not noted in ROS Statement are negative. Past Medical History Past Medical History: Asthma, COPD, Pulmonary Embolus (PE) Additional Past Medical History / Comment(s): HX: chronic diarrhea and weight loss, alcoholism, bilateral lung pulmonary embolisms-in 2012 and previous to that, R lung pleurisy, asthma as child, back pain and sciatica, R foot drop with numbness and tingling to R foot due to pinched nerves, multifactoral anemia, elevated LFTs, 1997 R hand fracture. History of Any Multi-Drug Resistant Organisms: None Reported Past Surgical History: Back Surgery, Orthopedic Surgery Additional Past Surgical History / Comment(s): back-fusions x 2 L4, L5, S1 with hardware, cataracts bilateral with lens implants, rotator cuff right shoulder, colonoscopies Past Anesthesia/Blood Transfusion Reactions: No Reported Reaction Past Psychological History: Anxiety, Depression Smoking Status: Current every day smoker Past Alcohol Use History: Abuse, Heavy Past Drug Use History: Cocaine, Marijuana - Past Family History Mother Family Medical History: Cancer Additional Family Medical History / Comment(s): Mother of pancreatic cancer at age 82 yrs. Father Family Medical History: Cancer Additional Family Medical History / Comment(s): Father of lung cancer at 86yrs. He was a heavy smoker. hx colon cancer Brother(s) Family Medical History: Cancer Additional Family Medical History / Comment(s): (1) lymphoma, (1) BRAIN CANCER Sister(s) Family Medical History: Cancer Additional Family Medical History / Comment(s): lung cancer and throat cancer General Exam Limitations: no limitations General appearance: alert, in no apparent distress, anxious Head exam: Present: atraumatic, normocephalic, normal inspection Eye exam: Present: normal appearance, PERRL, EOMI. Absent: scleral icterus, conjunctival injection, periorbital swelling ENT exam: Present: normal exam, mucous membranes dry Neck exam: Present: normal inspection. Absent: tenderness, meningismus, lymphadenopathy Respiratory exam: Present: normal lung sounds bilaterally. Absent: respiratory distress, wheezes, rales, rhonchi, stridor Cardiovascular Exam: Present: regular rate, normal rhythm, normal heart sounds. Absent: systolic murmur, diastolic murmur, rubs, gallop, clicks GI/Abdominal exam: Present: soft, normal bowel sounds. Absent: distended, t enderness, guarding, rebound, rigid Extremities exam: Present: normal inspection, full ROM, normal capillary refill. Absent: tenderness, pedal edema, joint swelling, calf tenderness Back exam: Present: normal inspection Neurological exam: Present: alert, oriented X3, CN II-XII intact Psychiatric exam: Present: normal affect, normal mood Skin exam: Present: warm, dry, intact, normal color. Absent: rash Course Vital Signs 03/12/21 03/12/21 03/12/21 20:30 21:36 23:10 Temperature 99.0 F Pulse Rate 83 78 18 L Respiratory 18 18 Rate Blood Pressure 145/96 129/85 O2 Sat by Pulse 97 96 Oximetry - Reevaluation(s) Reevaluation #1: 03/12/21 23:36 Medical record is reviewed Reevaluation #2: 03/12/21 23:36 Patient does have persistent tarry stools here in the ER Reevaluation #3: 03/12/21 23:36 Patient does admit alcohol withdrawal symptoms severe will admit for DTs as well Reevaluation #4: 03/12/21 23:36 Patient is informed results and questions have been answered Medical Decision Making - Medical Decision Making 60-year-old male to the ER today for evaluation with history of alcoholism patient does have dark tarry stool here in the ER is lightheaded dizzy and weak as well as and toxic.. At this time patient be admitted for GI evaluation monitoring of hemoglobin and monitoring for DTs - Lab Data Result diagrams: 03/12/21 21:38 03/12/21 21:38 Lab Results 03/12/21 03/12/21 03/12/21 Range/Units 21:38 21:38 21:38 WBC 4.8 (3.8-10.6) k/uL RBC 3.76 L (4.30-5.90) m/uL Hgb 14.1 (13.0-17.5) gm/dL Hct 40.8 (39.0-53.0) % MCV 108.4 H (80.0-100.0) fL MCH 37.4 H (25.0-35.0) pg MCHC 34.5 (31.0-37.0) g/dL RDW 13.7 (11.5-15.5) % Plt Count 326 (150-450) k/uL MPV 7.5 Neutrophils % (Manual) 36 % Lymphocytes % (Manual) 56 % Monocytes % (Manual) 3 % Eosinophils % (Manual) 5 % Neutrophils # (Manual) 1.73 (1.3-7.7) k/uL Lymphocytes # (Manual) 2.69 (1.0-4.8) k/uL Monocytes # (Manual) 0.14 (0-1.0) k/uL Eosinophils # (Manual) 0.24 (0-0.7) k/uL Nucleated RBCs 0 (0-0) /100 WBC Manual Slide Review Performed Anisocytosis (manual) Present Macrocytosis Moderate Target Cells Present PT 10.4 (9.0-12.0) sec INR 1.0 (<1.2) APTT 25.2 (22.0-30.0) sec Sodium 133 L (137-145) mmol/L Potassium 4.1 (3.5-5.1) mmol/L Chloride 100 (98-107) mmol/L Carbon Dioxide 21 L (22-30) mmol/L Anion Gap 12 mmol/L BUN 3 L (9-20) mg/dL Creatinine 0.53 L (0.66-1.25) mg/dL Est GFR (CKD-EPI)AfAm >90 (>60 ml/min/1.73 sqM) Est GFR (CKD-EPI)NonAf >90 (>60 ml/min/1.73 sqM) Glucose 69 L (74-99) mg/dL Plasma Lactic Acid Alli (0.7-2.0) mmol/L Calcium 9.7 (8.4-10.2) mg/dL Magnesium 1.8 (1.6-2.3) mg/dL Total Bilirubin 0.4 (0.2-1.3) mg/dL AST 56 (17-59) U/L ALT 20 (4-49) U/L Alkaline Phosphatase 85 (38-126) U/L Troponin I (0.000-0.034) ng/mL Total Protein 8.0 (6.3-8.2) g/dL Albumin 4.8 (3.5-5.0) g/dL Lipase 133 (23-300) U/L Serum Alcohol 211 H* mg/dL Blood Type Blood Type Recheck Bld Type Recheck Status Antibody Screen Spec Expiration Date 03/12/21 03/12/21 03/12/21 Range/Units 21:38 21:38 21:38 WBC (3.8-10.6) k/uL RBC (4.30-5.90) m/uL Hgb (13.0-17.5) gm/dL Hct (39.0-53.0) % MCV (80.0-100.0) fL MCH (25.0-35.0) pg MCHC (31.0-37.0) g/dL RDW (11.5-15.5) % Plt Count (150-450) k/uL MPV Neutrophils % (Manual) % Lymphocytes % (Manual) % Monocytes % (Manual) % Eosinophils % (Manual) % Neutrophils # (Manual) (1.3-7.7) k/uL Lymphocytes # (Manual) (1.0-4.8) k/uL Monocytes # (Manual) (0-1.0) k/uL Eosinophils # (Manual) (0-0.7) k/uL Nucleated RBCs (0-0) /100 WBC Manual Slide Review Anisocytosis (manual) Macrocytosis Target Cells PT (9.0-12.0) sec INR (<1.2) APTT (22.0-30.0) sec Sodium (137-145) mmol/L Potassium (3.5-5.1) mmol/L Chloride (98-107) mmol/L Carbon Dioxide (22-30) mmol/L Anion Gap mmol/L BUN (9-20) mg/dL Creatinine (0.66-1.25) mg/dL Est GFR (CKD-EPI)AfAm (>60 ml/min/1.73 sqM) Est GFR (CKD-EPI)NonAf (>60 ml/min/1.73 sqM) Glucose (74-99) mg/dL Plasma Lactic Acid Alli 1.6 (0.7-2.0) mmol/L Calcium (8.4-10.2) mg/dL Magnesium (1.6-2.3) mg/dL Total Bilirubin (0.2-1.3) mg/dL AST (17-59) U/L ALT (4-49) U/L Alkaline Phosphatase (38-126) U/L Troponin I <0.012 (0.000-0.034) ng/mL Total Protein (6.3-8.2) g/dL Albumin (3.5-5.0) g/dL Lipase (23-300) U/L Serum Alcohol mg/dL Blood Type B Negative Blood Type Recheck B Neg Bld Type Recheck Status No Antibody Screen NEGATIVE Spec Expiration Date 03/15/20212337 Disposition Clinical Impression: Alcoholic intoxication, Melena, GI bleed Disposition: ADMITTED IP TO THIS [facility] Condition: Fair Is patient prescribed a controlled substance at d/c from ED?: No Referrals: None,Stated [Primary Care Provider] - 1-2 days
[2021-03-12 22:24] LABS: Eosinophils # (M) 0.24 k/uL (0-0.7); Lymphocytes # (M) 2.69 k/uL (1.0-4.8); Monocytes # (M) 0.14 k/uL (0-1.0); Neutrophils # (M) 1.73 k/uL (1.3-7.7); Neutrophils % (M) 36 %; Nucleated Red Blood Cells 0 /100 WBC (0-0); Total Cells Counted 100
[2021-03-12 22:25] LABS: Anisocytosis (M) Present; Target Cells Present
[2021-03-12] MEDS ORDERED: THIAMINE 100 MG/ML 2 ML VIAL IM STA (23:38)
[2021-03-12] MEDS ORDERED: MORPHINE SULFATE 4 MG/ML SYRINGE IV PRN (23:38)
[2021-03-12] MEDS ORDERED: ONDANSETRON 4 MG/2 ML VIAL IVP PRN (23:38)
[2021-03-12] MEDS ORDERED: LORazepam 2 MG/ML INJ IV PRN ×2 (23:38)
[2021-03-12] MEDS ORDERED: NALOXONE 0.4 MG/ML 1 ML VIAL IV PRN (23:38)
[2021-03-13] MEDS: SODIUM CHLORIDE 0.9% 1,000 ML IV SCH ×4 (00:01→23:47)
[2021-03-13] MEDS: THIAMINE 100 MG TAB PO SCH ×3 (00:01→16:09)
[2021-03-13] MEDS ORDERED: LORazepam 2 MG/ML INJ IV STA (00:24)
[2021-03-13] MEDS ORDERED: DIAZEPAM 5 MG/ML 2 ML INJ IVP STA (00:24)
[2021-03-13] MEDS ORDERED: DIAZEPAM 5 MG/ML 2 ML INJ IVP PRN (00:24)
[2021-03-13] MEDS ORDERED: IPRATROPIUM-ALBUTEROL 3 ML NEB INHALATION PRN (05:17)
[2021-03-13 05:20] LABS: HCT 38.4 % (39.0-53.0); HGB 13.2 gm/dL (13.0-17.5); MCH 37.7 pg (25.0-35.0); MCHC 34.3 g/dL (31.0-37.0); Macrocytosis Marked; Mean Platelet Volume 7.7; Platelet Count 314 k/uL (150-450); RDW 13.8 % (11.5-15.5); WBC 3.8 k/uL (3.8-10.6)
--- NOTE | 2021-03-13 05:28 | P.HPIM ---
History of Present Illness H&P Date: 03/13/21 Chief Complaint: GI bleedin g 60 year old male with chronic alcohol abuse, COPD not on home oxygen , continues to smoke heavily , recurrent GI bleeding patient comes in with black tarry stools, for few days now, denies any abd pain , SOB, palpitations , chest pain , dizziness. he is known to have gastritis,and duodenitis, for recent EGD. January 2021. despite that he continues to drink due to social life stressors . he otherwise denies any other medical concerns at this time. he is interested to look at non local subs rehab places, did not say why he does not want the local ones, but he has been through them over 7 times the one here and in [place] in the ED his Hgb was stable , alcohol level was elevated. he takes daily full aspirin due to history of blood clots. denies any NSAIDs. he is not compliant with his PPI he admits to depression but denies any current suicidal ideation . however he did have suicidal ideation in the remote past , but nothing current Review of Systems Pertinent positives as noted in HPI. All other systems were reviewed and are negative Past Medical History Past Medical History: Asthma, COPD, Pulmonary Embolus (PE) Additional Past Medical History / Comment(s): HX: chronic diarrhea and weight loss, alcoholism, bilateral lung pulmonary embolisms-in 2012 and previous to that, R lung pleurisy, asthma as child, back pain and sciatica, R foot drop with numbness and tingling to R foot due to pinched nerves, multifactoral anemia, elevated LFTs, 1997 R hand fracture. History of Any Multi-Drug Resistant Organisms: None Reported Past Surgical History: Back Surgery, Orthopedic Surgery Additional Past Surgical History / Comment(s): back-fusions x 2 L4, L5, S1 with hardware, cataracts bilateral with lens implants, rotator cuff right shoulder, colonoscopies Past Anesthesia/Blood Transfusion Reactions: No Reported Reaction Past Psychological History: Anxiety, Depression Smoking Status: Current every day smoker Past Alcohol Use History: Abuse, Heavy Past Drug Use History: Cocaine, Marijuana - Past Family History Mother Family Medical History: Cancer Additional Family Medical History / Comment(s): Mother of pancreatic cancer at age 82 yrs. Father Family Medical History: Cancer Additional Family Medical History / Comment(s): Father of lung cancer at 86yrs. He was a heavy smoker. hx colon cancer Brother(s) Family Medical History: Cancer Additional Family Medical History / Comment(s): (1) lymphoma, (1) B RAIN CANCER Sister(s) Family Medical History: Cancer Additional Family Medical History / Comment(s): lung cancer and throat cancer Medications and Allergies Home Medications Medication Instructions Recorded Confirmed Type Multivitamins, Thera [Multivitamin 1 tab PO DAILY 04/28/18 03/12/21 History (formulary)] Calcium/Magnesium/Zinc 1 tab PO DAILY 11/03/20 03/12/21 History [Upmxtgp-Awlvkptav-Dkfe Tablet] DULoxetine HCL [Cymbalta] 30 mg PO DAILY 11/03/20 03/12/21 History Gabapentin 600 mg PO TID 11/03/20 03/12/21 History methocarbamoL [Methocarbamol] 750 mg PO Q8H 11/03/20 03/12/21 History traZODone HCL 150 mg PO HS 11/03/20 03/12/21 History Thiamine HCl [Vitamin B-1] 100 mg PO DAILY 02/01/21 03/12/21 History Pantoprazole Sodium [Protonix] 20 mg PO BID #60 tablet. 02/03/21 03/12/21 Rx Aspirin EC [Ecotrin] 325 mg PO DAILY 03/12/21 03/12/21 History Latanoprost/Pf [Latanoprost 0.005% 1 drop BOTH EYES HS 03/12/21 03/12/21 History Eye Drop] Super B Complex 1 cap PO DAILY 03/12/21 03/12/21 History Allergies Allergy/AdvReac Type Severity Reaction Status Date / Time buprenorphine [From Butrans] Allergy BUTRANS Verified 02/01/21 17:50 PATCH-ITCHING OF SKIN AND DISCOLORATION diclofenac [From Arthrotec] AdvReac DIZZY, Verified 03/12/21 22:11 LIGHTHEADED, "FELT STONED" mirtazapine [From Remeron] AdvReac DIZZY, Verified 03/12/21 22:11 LIGHTHEADED, "FELT STONED" misoprostol [From Arthrotec] AdvReac DIZZY, Verified 03/12/21 22:11 LIGHTHEADED, "FELT STONED" Physical Exam Vitals: Vital Signs Temp Pulse Resp BP Pulse Ox 03/13/21 03:49 18 03/13/21 00:04 55 L 18 126/79 95 03/12/21 23:10 18 L 03/12/21 21:36 78 18 129/85 96 03/12/21 20:30 99.0 F 83 18 145/96 97 Intake and Output 03/12/21 03/12/21 03/13/21 14:59 22:59 06:59 Other: Weight 58.967 kg Constitutional: No acute distress, conversant, pleasant Eyes: Anicteric sclerae, moist conjunctiva, Pupils equal round reactive to light ENMT: NC/AT Oropharynx clear, no erythema, or exudates Neck: Supple, FROM, no masses, or JVD No carotid bruits No thyromegaly Lungs: diminished breath sounds throughout, diffuse wheezing and prolonged expiratory phase Clear to percussion Normal respiratory effort, no accessory muscle use Cardiovascular: Heart regular in rate and rhythm, No murmurs, gallops, or rubs No peripheral edema Abdominal: Soft Nontender, no guarding, rebound or rigidity Abdomen moving with respiration Normoactive bowel sounds No hepatomegaly, No splenomegaly No palpable mass No abdominal wall hernia noted Skin: Normal temperature, tone, texture, turgor echymosis and bruising over bilateral upper extremities Extremities: No digital cyanosis No clubbing Pedal pulses intact and symmetrical Radial pulses intact and symmetrical No calf tenderness Psychiatric: Alert and oriented to person, place and time Appropriate affect fair judgement Neuro Muscles Strength 5/5 in all 4 extremities , except for chronic right foot drop Sensation to light touch grossly present throughout Cranial nerves II-XII grossly intact No focal sensory deficits Lymphatics: no palpable cervical or supraclavicular , or inguinal lymph nodes Results CBC & Chem 7: 03/12/21 21:38 03/12/21 21:38 Labs: Abnormal Lab Results - Last 24 Hours (Table) 03/12/21 03/12/21 Range/Units 21:38 21:38 RBC 3.76 L (4.30-5.90) m/uL MCV 108.4 H (80.0-100.0) fL MCH 37.4 H (25.0-35.0) pg Sodium 133 L (137-145) mmol/L Carbon Dioxide 21 L (22-30) mmol/L BUN 3 L (9-20) mg/dL Creatinine 0.53 L (0.66-1.25) mg/dL Glucose 69 L (74-99) mg/dL Serum Alcohol 211 H* mg/dL Assessment and Plan Assessment: acute moderate alcohol intoxication , improving monitor for alcohol withdrawal syndrome IVF hydration seizure precautions thiamine benzo per CIWA scale public health social worker consult for subs rehab resources GI bleeding with history of gastritis and duodenitis monitor Hgb q8h currently stable if Hgb drops , then consider GI consultation PPI bid EGD done 01/2021, no changes in clinical presentation hold aspirin chronic conditions COPD not on home oxygen encouraged to quit heavy smoking, breathing treatment around the clock and PRN supplemental oxygen as needed depression , denies suicide ideation full code anticipated length of stay < 2 midnights anticipated discharge to home DVT PPX mechanical Preformed a thorough record review from recent hospitalization 01/2021 , presentation for GI bleeding and COPD , EGD done showed gastritis and duodenitis A total of 70 minutes was spent on the care of this complex patient more than 50% of the time was spent in counseling and care coordination.
[2021-03-13 05:42] LABS: MCV 109.8 fL (80.0-100.0)
[2021-03-13 05:56] LABS: ALT 17 U/L (4-49); AST 49 U/L (17-59); African American GFR (CKD) >90 (>60 ml/min/1.73 sqM); Albumin 3.8 g/dL (3.5-5.0); Alkaline Phosphatase 72 U/L (38-126); Anion Gap 9 mmol/L; Blood Urea Nitrogen 3 mg/dL (9-20); Calcium 9.1 mg/dL (8.4-10.2); Carbon Dioxide 20 mmol/L (22-30); Chloride 110 mmol/L (98-107); Glucose 65 mg/dL (74-99); Magnesium 1.7 mg/dL (1.6-2.3); Non-African American GFR(CKD) >90 (>60 ml/min/1.73 sqM); Phosphorus 4.2 mg/dL (2.5-4.5); Potassium 3.9 mmol/L (3.5-5.1); Sodium 139 mmol/L (137-145); Total Bilirubin 0.3 mg/dL (0.2-1.3); Total Protein 6.7 g/dL (6.3-8.2)
[2021-03-13] MEDS: methocarbamoL 750 MG TAB PO SCH ×3 (06:53→20:46)
[2021-03-13] MEDS: PANTOPRAZOLE 40 MG/10 ML VIAL IV SCH ×2 (08:53→20:34)
[2021-03-13] MEDS: GABAPENTIN 300 MG CAP PO SCH ×3 (08:54→20:46)
[2021-03-13] MEDS: NICOTINE 21MG/24HR PATCH TRANSDERM SCH (08:54)
[2021-03-13] MEDS ORDERED: MULTIVITAMINS, THERA 1 EACH TAB PO SCH (09:00)
[2021-03-13] MEDS: LORazepam 2 MG/ML INJ IV PRN ×2 (09:11→16:00)
[2021-03-13] MEDS: IPRATROPIUM-ALBUTEROL 3 ML NEB INHALATION SCH ×4 (09:35→20:04)
[2021-03-13] MEDS: MULTIVITAMINS, THERA 1 EACH TAB PO SCH (11:50)
[2021-03-13] MEDS: DULoxetine HCL 30 MG CAPSULE.DR PO SCH (11:51)
[2021-03-13 13:22] VITALS: BMI 18.6
[2021-03-13 13:54] LABS: Basophils # (A) 0.1 k/uL (0-0.2); Basophils % (A) 1 %; Eosinophils # (A) 0.1 k/uL (0-0.7); Eosinophils % (A) 2 %; HCT 40.4 % (39.0-53.0); HGB 13.7 gm/dL (13.0-17.5); Lymphocytes # (A) 1.6 k/uL (1.0-4.8); Lymphocytes % (A) 25 %; MCH 37.6 pg (25.0-35.0); Macrocytosis Marked; Monocytes # (A) 0.4 k/uL (0-1.0); Monocytes % (A) 6 %; Neutrophils % (A) 63 %; Platelet Count 297 k/uL (150-450); RBC 3.65 m/uL (4.30-5.90); RDW 13.1 % (11.5-15.5); WBC 6.3 k/uL (3.8-10.6)
[2021-03-13 14:02] LABS: MCV 110.7 fL (80.0-100.0)
--- NOTE | 2021-03-13 14:11 | P.CONS ---
History of Present Illness - Reason for Consult Consult date: 03/13/21 GI bleed Requesting physician: Doug Chairez - Chief Complaint dark black stools - History of Present Illness This is a pleasant 60-year-old male with history of chronic alcohol abuse, COPD, and current tobacco abuse . Who came into the emergency department yesterday with complaints of black stool. Patient recently was here a month ago for same complaints with a stable hemoglobin. At that time he underwent an EGD on 02/03/2021 by with findings of moderate gastritis and moderate duodenitis. The patient has a history of chronic alcohol abuse and reports drinking yesterday. States he drinks 1216 ounce beers a day. He denies any nausea, vomiting, or abdominal pain. States he's been having dark stools for the last 1 week's duration. He does have a history of chronic diarrhea and may go up to 6 times a day. He currently takes Pepto-Bismol for the diarrhea which is the likely cause of making his stool dark. He's had prior colonoscopy in 2015 and 2018 with that showed diverticulosis. Admitting labs WBC 3.8, hemoglobin 13.2, hematocrit 38, platelet count 314,000, INR 1.0, blood alcohol level CCXI, total bilirubin 0.3, alkaline phosphatase 72, AST 49, ALT 17. Patient is currently shaky, he denies any abdominal pain, nausea or vomiting. He denies any light in his stool or rectal bleeding. Review of Systems REVIEW OF SYSTEMS: CARDIOPULMONARY: No chest pain or shortness of breath. Gastrointestinal: No abdominal pain. No nausea or vomiting. No hematemesis, coffee-ground emesis. No rectal bleeding, patient reports dark black stool. GENITOURINARY: No dysuria or hematuria. MUSCULOSKELETAL: Reports normal range of motion., Joint pain. SKIN: No rashes. No jaundice. ENDOCRINE: No chills, fevers. No excessive weight gain or loss. No polydipsia or polyuria. PSYCHIATRIC: Unremarkable. NEUROLOGY: No change in mental status. Denies dizziness, headache. ENT: Vision unremarkable. CONSTITUTIONAL: No recent weight loss. No fever, chills, night sweats. Shaky. Past Medical History Past Medical History: Asthma, COPD, Pulmonary Embolus (PE) Additional Past Medical History / Comment(s): HX: chronic diarrhea and weight loss, alcoholism, bilateral lung pulmonary embolisms-in 2012 and previous to that, R lung pleurisy, asthma as child, back pain and sciatica, R foot drop with numbness and tingling to R foot due to pinched nerves, multifactoral anemia, elevated LFTs, 1997 R hand fracture. History of Any Multi-Drug Resistant Organisms: None Reported Past Surgical History: Back Surgery, Orthopedic Surgery Additional Past Surgical History / Comment(s): back-fusions x 2 L4, L5, S1 with hardware, cataracts bilateral with lens implants, rotator cuff right shoulder, colonoscopies Past Anesthesia/Blood Transfusion Reactions: No Reported Reaction Past Psychological History: Anxiety, Depression Smoking Status: Current every day smoker Past Alcohol Use History: Abuse, Heavy Past Drug Use History: Cocaine, Marijuana - Past Family History Mother Family Medical History: Cancer Additional Family Medical History / Comment(s): Mother of pancreatic cancer at age 82 yrs. Father Family Medical History: Cancer Additional Family Medical History / Comment(s): Father of lung cancer at 86yrs. He was a heavy smoker. hx colon cancer Brother(s) Family Medical History: Cancer Additional Family Medical History / Comment(s): (1) lymphoma, (1) BRAIN CANCER Sister(s) Family Medical History: Cancer Additional Family Medical History / Comment(s): lung cancer and throat cancer Medications and Allergies Home Medications Medication Instructions Recorded Confirmed Type Multivitamins, Thera [Multivitamin 1 tab PO DAILY 04/28/18 03/12/21 History (formulary)] Calcium/Magnesium/Zinc 1 tab PO DAILY 11/03/20 03/12/21 History [Ejlwerv-Ybronsdcy-Axdp Tablet] DULoxetine HCL [Cymbalta] 30 mg PO DAILY 11/03/20 03/12/21 History Gabapentin 600 mg PO TID 11/03/20 03/12/21 History methocarbamoL [Methocarbamol] 750 mg PO Q8H 11/03/20 03/12/21 History traZODone HCL 150 mg PO HS 11/03/20 03/12/21 History Thiamine HCl [Vitamin B-1] 100 mg PO DAILY 02/01/21 03/12/21 History Pantoprazole Sodium [Protonix] 20 mg PO BID #60 tablet. 02/03/21 03/12/21 Rx Aspirin EC [Ecotrin] 325 mg PO DAILY 03/12/21 03/12/21 History Latanoprost/Pf [Latanoprost 0.005% 1 drop BOTH EYES HS 03/12/21 03/12/21 History Eye Drop] Super B Complex 1 cap PO DAILY 03/12/21 03/12/21 History Allergies Allergy/AdvReac Type Severity Reaction Status Date / Time buprenorphine [From Butrans] Allergy BUTRANS Verified 02/01/21 17:50 PATCH-ITCHING OF SKIN AND DISCOLORATION diclofenac [From Arthrotec] AdvReac DIZZY, Verified 03/12/21 22:11 LIGHTHEADED, "FELT STONED" mirtazapine [From Remeron] AdvReac DIZZY, Verified 03/12/21 22:11 LIGHTHEADED, "FELT STONED" misoprostol [From Arthrotec] AdvReac DIZZY, Verified 03/12/21 22:11 LIGHTHEADED, "FELT STONED" Physical Exam Vitals: Vital Signs Temp Pulse Resp BP Pulse Ox 03/13/21 06:10 98.8 F 74 18 105/68 96 03/13/21 03:49 18 03/13/21 00:04 55 L 18 126/79 95 03/12/21 23:10 18 L 03/12/21 21:36 78 18 129/85 96 03/12/21 20:30 99.0 F 83 18 145/96 97 Intake and Output 03/12/21 03/13/21 03/13/21 22:59 06:59 14:59 Other: Weight 58.967 kg General appearance: The patient is alert, oriented, appears in no acute distress. HET: Head is normocephalic and atraumatic. Conjunctiva pink. Sclera anicteric. Neck: Supple without lymphadenopathy. Trachea midline. Heart: S1 S2. Regular rate and rhythm. Lungs: Clear to auscultation. Abdomen: Soft, nontender, nondistended with bowel sounds. No guarding or rigidity. Skin: No rashes. No jaundice. Extremities: Normal skin color and turgor. No pedal edema. Neurological: No focal deficits. Alert and oriented 3. Patient has signs of alcohol withdrawal with shakiness and tremors. Results CBC & Chem 7: 03/13/21 04:48 03/13/21 04:48 Labs: Abnormal Lab Results - Last 24 Hours (Table) 03/12/21 03/12/21 03/13/21 Range/Units 21:38 21:38 04:48 RBC 3.76 L 3.50 L (4.30-5.90) m/uL Hct 38.4 L (39.0-53.0) % MCV 108.4 H 109.8 H (80.0-100.0) fL MCH 37.4 H 37.7 H (25.0-35.0) pg Macrocytosis Marked A Sodium 133 L (137-145) mmol/L Chloride (98-107) mmol/L Carbon Dioxide 21 L (22-30) mmol/L BUN 3 L (9-20) mg/dL Creatinine 0.53 L (0.66-1.25) mg/dL Glucose 69 L (74-99) mg/dL Serum Alcohol 211 H* mg/dL 03/13/21 Range/Units 04:48 RBC (4.30-5.90) m/uL Hct (39.0-53.0) % MCV (80.0-100.0) fL MCH (25.0-35.0) pg Macrocytosis Sodium (137-145) mmol/L Chloride 110 H (98-107) mmol/L Carbon Dioxide 20 L (22-30) mmol/L BUN 3 L (9-20) mg/dL Creatinine 0.55 L (0.66-1.25) mg/dL Glucose 65 L (74-99) mg/dL Serum Alcohol mg/dL Assessment and Plan (1) Melena Narrative/Plan: This is 60-year-old male who presented to the emergency department with complaints of black stool. States he's been having black stools for last 1 week duration with no associated abdominal pain, nausea, or vomiting. Patient has history of significant alcohol abuse and presented intoxicated with a blood alcohol level of 211. Patient was recently admitted for the same complaints a month ago and underwent an EGD on 02/03/2021 by findings of moderate gastritis of moderate duodenitis no active bleeding or old blood noted. Patient admits to drinking 1216 ounce peers a day, reports last time drinking yesterday. Also has history of loose stools and collagenous colitis with a colonoscopy completed in 2016 and 2018. The tape patient frequently takes Pepto-Bismol for his diarrhea this is the likely source of making his stool dark. Patient's hemoglobin was stable on previous admission as well as this admission. Current hemoglobin 13.2. No plans on endoscopic evaluation. Discussed with patient importance of alcohol abstinence, continue Protonix 40 mg twice a day. Current Visit: Yes Status: Acute Code(s): K92.1 - MELENA SNOMED Code(s): 2214868 (2) Alcoholic intoxication Current Visit: Yes Status: Acute Code(s): F10.129 - ALCOHOL ABUSE WITH INTOXICATION, UNSPECIFIED SNOMED Code(s): 30112461 Plan: 1. Continue symptomatic and supportive care 2. Protonix 40 mg twice a day 3. Patient may have regular diet 4. Discuss with patient that Pepto-Bismol likely discoloring stool 5. Watch for alcohol withdrawal 6. No plans on endoscopic evaluation Thank you for this consultation, we will continue to follow Dr. Deja Sánchez I agree with the dictator's note, documented as a scribe by Milagros Lux.
[2021-03-13 20:53] LABS: Basophils % (A) 1 %; Eosinophils # (A) 0.1 k/uL (0-0.7); Eosinophils % (A) 1 %; HCT 35.3 % (39.0-53.0); HGB 11.9 gm/dL (13.0-17.5); Lymphocytes # (A) 1.4 k/uL (1.0-4.8); Lymphocytes % (A) 26 %; MCH 37.3 pg (25.0-35.0); MCHC 33.9 g/dL (31.0-37.0); MCV 110.2 fL (80.0-100.0); Macrocytosis Marked; Mean Platelet Volume 9.7; Monocytes # (A) 0.5 k/uL (0-1.0); Monocytes % (A) 9 %; Neutrophils # (A) 3.1 k/uL (1.3-7.7); Neutrophils % (A) 59 %; Platelet Count 234 k/uL (150-450); RDW 13.5 % (11.5-15.5); WBC 5.2 k/uL (3.8-10.6)
[2021-03-13] MEDS ORDERED: traZODone HCL 50 MG TAB PO SCH (21:00)
[2021-03-14] MEDS: LORazepam 2 MG/ML INJ IV PRN ×3 (04:24→12:43)
[2021-03-14] MEDS: SODIUM CHLORIDE 0.9% 1,000 ML IV SCH (04:25)
[2021-03-14] MEDS: methocarbamoL 750 MG TAB PO SCH ×2 (05:02→12:12)
[2021-03-14] MEDS: IPRATROPIUM-ALBUTEROL 3 ML NEB INHALATION SCH ×2 (07:43→11:17)
[2021-03-14] MEDS: THIAMINE 100 MG TAB PO SCH (08:41)
[2021-03-14] MEDS: DULoxetine HCL 30 MG CAPSULE.DR PO SCH (08:41)
[2021-03-14] MEDS: NICOTINE 21MG/24HR PATCH TRANSDERM SCH (08:41)
[2021-03-14] MEDS: GABAPENTIN 300 MG CAP PO SCH (08:41)
[2021-03-14] MEDS: PANTOPRAZOLE 40 MG/10 ML VIAL IV SCH (08:42)
[2021-03-14] MEDS: MULTIVITAMINS, THERA 1 EACH TAB PO SCH (08:42)
[2021-03-14 10:10] VITALS: RESP 16
[2021-03-14 12:16] VITALS: BP 116/78; PULSE 80; TEMP 98.2
--- NOTE | 2021-03-14 14:21 | P.DS ---
Providers Date of admission: 03/12/21 23:38 Expected date of discharge: 03/14/21 Attending physician: Lucia Gray MD Consults: 03/12/21 23:38 Consult Physician Routine Consulting Provider: Zena Sánchez Consult Reason/Comments: gib Do you want consulting provider notified?: Yes Primary care physician: Stated None Hospital Course: Acute alcohol intoxication Alcohol withdrawal syndrome Patient was admitted with acute alcohol intoxication for monitoring of alcohol withdrawal syndrome. Patient did well with when necessary Ativan, received a banana bag, then was started on thiamine, multivitamin, folate. On discharge, patient had plans to attend outpatient rehabilitation. He'll follow-up with his primary care provider for further care. History of gastritis Melenic stools Patient was also admitted with melenic stools, however, hemoglobin remained stable. GI was consulted, but did not recommend repeating EGD since one was recently done 1 month ago. Patient was treated with PPI twice a day. Patient to follow-up with GI on discharge. Alcohol cessation was given. Assessment: Gen: awake, alert HEENT: normocephalic, atraumatic, good hearing acuity, moist mucous membranes Resp: good air exchange, breathing comfortably with no accessory muscle use CVS: good distal perfusion x 4, GI: soft, NTTP, ND : no SPT, no CVAT, lee catheter not present MSK: no pitting edema, no clubbing Neuro: non-focal, moving all extremities Psych: cooperative, euthymic mood Patient Condition at Discharge: Good Plan - Discharge Summary Discharge Rx Participant: No New Discharge Prescriptions: Continue Multivitamins, Thera [Multivitamin (formulary)] 1 tab PO DAILY DULoxetine HCL [Cymbalta] 30 mg PO DAILY Calcium/Magnesium/Zinc [Tivatmo-Dvpgubrpl-Wvfm Tablet] 1 tab PO DAILY Aspirin EC [Ecotrin] 325 mg PO DAILY methocarbamoL [Methocarbamol] 750 mg PO Q8H Gabapentin 600 mg PO TID traZODone HCL 150 mg PO HS Thiamine HCl [Vitamin B-1] 100 mg PO DAILY Pantoprazole Sodium [Protonix] 20 mg PO BID #60 tablet. Latanoprost/Pf [Latanoprost 0.005% Eye Drop] 1 drop BOTH EYES HS Super B Complex 1 cap PO DAILY Discharge Medication List Multivitamins, Thera [Multivitamin (formulary)] 1 tab PO DAILY 04/28/18 [History] Calcium/Magnesium/Zinc [Yetmmze-Zegfhrgsc-Exaz Tablet] 1 tab PO DAILY 11/03/20 [History] DULoxetine HCL [Cymbalta] 30 mg PO DAILY 11/03/20 [History] Gabapentin 600 mg PO TID 11/03/20 [History] methocarbamoL [Methocarbamol] 750 mg PO Q8H 11/03/20 [History] traZODone HCL 150 mg PO HS 11/03/20 [History] Thiamine HCl [Vitamin B-1] 100 mg PO DAILY 02/01/21 [History] Pantoprazole Sodium [Protonix] 20 mg PO BID #60 tablet. 02/03/21 [Rx] Aspirin EC [Ecotrin] 325 mg PO DAILY 03/12/21 [History] Latanoprost/Pf [Latanoprost 0.005% Eye Drop] 1 drop BOTH EYES HS 03/12/21 [History] Super B Complex 1 cap PO DAILY 03/12/21 [History] Follow up Appointment(s)/Referral(s): None,Stated [Primary Care Provider] - 1-2 days Patient Instructions/Handouts: How to Stop Smoking (DC), Abuse of Alcohol (DC) Discharge Disposition: HOME SELF-CARE
== END 2021-03-14 14:02 | disposition home or self-care (01) ==
LOC: EC 20:20 → 4SSUR 23:38 → INTOOBSV 23:38 → 1SOBS 03-13 07:21 → 5NMEDONC 03-13 16:30 → UNDODISIN 03-14 14:02
PROVIDERS: ADMIT Internal Medicine; ATTEND Internal Medicine
DX: F10.229 Alcohol dependence with intoxication, unspecified (principal); K92.1 Melena; J44.9 Chronic obstructive pulmonary disease, unspecified; F17.200 Nicotine dependence, unspecified, uncomplicated; K29.70 Gastritis, unspecified, without bleeding; K29.80 Duodenitis without bleeding; F32.9 Major depressive disorder, single episode, unspecified; F10.239 Alcohol dependence with withdrawal, unspecified; F41.9 Anxiety disorder, unspecified; K52.9 Noninfective gastroenteritis and colitis, unspecified; M54.30 Sciatica, unspecified side; M54.9 Dorsalgia, unspecified; M21.371 Foot drop, right foot; G58.8 Other specified mononeuropathies; D64.9 Anemia, unspecified; Y90.7 Blood alcohol level of 200-239 mg/100 ml; E86.0 Dehydration; Z98.1 Arthrodesis status; Z86.711 Personal history of pulmonary embolism; Z79.899 Other long term (current) drug therapy; Z79.82 Long term (current) use of aspirin; Z88.8 Allergy status to other drugs, medicaments and biological substances; Z81.2 Family history of tobacco abuse and dependence; Z80.0 Family history of malignant neoplasm of digestive organs; Z80.1 Family history of malignant neoplasm of trachea, bronchus and lung; Z80.7 Family history of other malignant neoplasms of lymphoid, hematopoietic and related tissues; Z80.8 Family history of malignant neoplasm of other organs or systems; Z71.41 Alcohol abuse counseling and surveillance of alcoholic; Z71.6 Tobacco abuse counseling
CPT/HCPCS: 96376 ×4; 96361 ×2; 96372; 96374; 96375 ×2; 99285; 36415; 94640 ×3; 86900; 86901; 80053 ×2; 83605; 83690; 83735 ×2; 84100; 84484; 85025 ×2; 85610; 85730; 86850; G0378 ×4; G0480; S4990 ×2; J2060 ×2; J3411; J3360; J2405; C9113 ×3; 80320

== ENCOUNTER 2021-05-18 14:28 | Emergency (ER) | payer MEDICARE, OTHER ==
[2021-05-18 15:03] VITALS: BP 137/97; PULSE 100; RESP 18; TEMP 97.8
--- NOTE | 2021-05-18 15:09 | ED ---
General Adult HPI - General Chief complaint: Alcohol Stated complaint: Anxiety Time Seen by Provider: 05/18/21 14:33 Source: patient, RN notes reviewed Mode of arrival: EMS Limitations: no limitations - History of Present Illness Initial comments: Patient is a pleasant [age]-year-old male presenting to the emergency department for concerns regarding anxiety. Patient states he was meeting with a son of one of his friends who has a lot of problems. Patient felt anxious for him and had concerns regarding him. Patient states he is feeling much better at this time and does not feel he needs to be here. Patient denies any suicidal or homicidal thoughts. No hallucinations. Patient states he is doing fine. Patient has no complaints at this time and requests discharge. - Related Data Home Medications Medication Instructions Recorded Confirmed Multivitamins, Thera [Multivitamin 1 tab PO DAILY 04/28/18 03/12/21 (formulary)] Calcium/Magnesium/Zinc 1 tab PO DAILY 11/03/20 03/12/21 [Dtovppg-Ffczbirwq-Qrde Tablet] DULoxetine HCL [Cymbalta] 30 mg PO DAILY 11/03/20 03/12/21 Gabapentin 600 mg PO TID 11/03/20 03/12/21 methocarbamoL [Methocarbamol] 750 mg PO Q8H 11/03/20 03/12/21 traZODone HCL 150 mg PO HS 11/03/20 03/12/21 Thiamine HCl [Vitamin B-1] 100 mg PO DAILY 02/01/21 03/12/21 Aspirin EC [Ecotrin] 325 mg PO DAILY 03/12/21 03/12/21 Latanoprost/Pf [Latanoprost 0.005% 1 drop BOTH EYES HS 03/12/21 03/12/21 Eye Drop] Super B Complex 1 cap PO DAILY 03/12/21 03/12/21 Previous Rx's Medication Instructions Recorded Pantoprazole Sodium [Protonix] 20 mg PO BID #60 tablet. 02/03/21 Allergies Allergy/AdvReac Type Severity Reaction Status Date / Time buprenorphine [From Butrans] Allergy BUTRANS Verified 05/18/21 15:03 PATCH-ITCHING OF SKIN AND DISCOLORATION diclofenac [From Arthrotec] AdvReac DIZZY, Verified 05/18/21 15:03 LIGHTHEADED, "FELT STONED" mirtazapine [From Remeron] AdvReac DIZZY, Verified 05/18/21 15:03 LIGHTHEADED, "FELT STONED" misoprostol [From Arthrotec] AdvReac DIZZY, Verified 05/18/21 15:03 LIGHTHEADED, "FELT STONED" Review of Systems ROS Statement: Those systems with pertinent positive or pertinent negative responses have been documented in the HPI. ROS Other: All systems not noted in ROS Statement are negative. Constitutional: Denies: fever Eyes: Denies: eye pain ENT: Denies: throat pain Respiratory: Denies: cough Cardiovascular: Denies: chest pain Endocrine: Denies: fatigue Gastrointestinal: Denies: abdominal pain Genitourinary: Denies: dysuria Musculoskeletal: Denies: back pain Skin: Denies: rash Neurological: Denies: weakness Psychiatric: Reports: anxiety. Denies: auditory hallucinations, visual hallucinations, homicidal thoughts, suicidal thoughts Past Medical History Past Medical History: Asthma, COPD, Pulmonary Embolus (PE) Additional Past Medical History / Comment(s): HX: chronic diarrhea and weight loss, alcoholism, bilateral lung pulmonary embolisms-in 2012 and previous to that, R lung pleurisy, asthma as child, back pain and sciatica, R foot drop with numbness and tingling to R foot due to pinched nerves, multifactoral anemia, elevated LFTs, 1997 R hand fracture. History of Any Multi-Drug Resistant Organisms: None Reported Past Surgical History: Back Surgery, Orthopedic Surgery Additional Past Surgical History / Comment(s): back-fusions x 2 L4, L5, S1 with hardware, cataracts bilateral with lens implants, rotator cuff right shoulder, colonoscopies Past Anesthesia/Blood Transfusion Reactions: No Reported Reaction Past Psychological History: Anxiety, Depression Smoking Status: Current every day smoker Past Alcohol Use History: Abuse, Heavy Past Drug Use History: Cocaine, Marijuana - Past Family History Mother Family Medical History: Cancer Additional Family Medical History / Comment(s): Mother of pancreatic cancer at age 82 yrs. Father Family Medical History: Cancer Additional Family Medical History / Comment(s): Father of lung cancer at 86yrs. He was a heavy smoker. hx colon cancer Brother(s) Family Medical History: Cancer Additional Family Medical History / Comment(s): (1) lymphoma, (1) BRAIN CANCER Sister(s) Family Medical History: Cancer Additional Family Medical History / Comment(s): lung cancer and throat cancer General Exam Limitations: no limitations General appearance: alert, in no apparent distress Head exam: Present: normocephalic Eye exam: Present: normal appearance Neck exam: Present: normal inspection Respiratory exam: Present: normal lung sounds bilaterally Cardiovascular Exam: Present: regular rate, normal rhythm GI/Abdominal exam: Present: soft. Absent: tenderness Extremities exam: Present: normal inspection Neurological exam: Present: alert Psychiatric exam: Present: normal affect, normal mood Skin exam: Present: normal color Course Vital Signs 05/18/21 14:59 Temperature 97.8 F Pulse Rate 100 Respiratory 18 Rate Blood Pressure 137/97 O2 Sat by Pulse 97 Oximetry Disposition Clinical Impression: Anxiety Disposition: HOME SELF-CARE Condition: Stable Instructions (If sedation given, give patient instructions): Anxiety (ED) Additional Instructions: Please do follow-up with primary care physician in the next couple days for recheck. Return for thoughts of self-harm, worsening or change in symptoms, difficulty breathing, or other concerns. Is patient prescribed a controlled substance at d/c from ED?: No Referrals: Emile Augustine DO [Primary Care Provider] - 1-2 days Time of Disposition: 15:08
== END 2021-05-18 16:24 | disposition home or self-care (01) ==
LOC: EC 14:28
DX: F41.9 Anxiety disorder, unspecified (principal); J44.9 Chronic obstructive pulmonary disease, unspecified; F32.9 Major depressive disorder, single episode, unspecified; F17.200 Nicotine dependence, unspecified, uncomplicated; F12.90 Cannabis use, unspecified, uncomplicated; Z79.82 Long term (current) use of aspirin; Z88.1 Allergy status to other antibiotic agents; Z86.711 Personal history of pulmonary embolism
CPT/HCPCS: 99283

== ENCOUNTER 2021-12-16 03:27 | Emergency (ER) | payer MEDICARE, OTHER ==
[2021-12-16] MEDS ORDERED: ONDANSETRON 4 MG/2 ML VIAL IVP STA (03:30)
[2021-12-16] MEDS ORDERED: PANTOPRAZOLE 40 MG/10 ML VIAL IVP STA (03:30)
[2021-12-16] MEDS ORDERED: SODIUM CHLORIDE 0.9% 1,000 ML IV STA (03:30)
--- NOTE | 2021-12-16 03:31 | ED ---
GI Bleed HPI - General Stated complaint: GI Bleed Time Seen by Provider: 12/16/21 03:29 Source: RN notes reviewed, old records reviewed Mode of arrival: ambulatory Limitations: no limitations - History of Present Illness Initial comments: This is a 61-year-old male to the emergency department for evaluation he presents today for evaluation GI bleed he does have a history of alcohol disease and alcoholism. Patient coming in for what he states is a GI bleed the patient initially EMSs called the patient's house for domestic issue patient does say that he may have been having blood in his stool for 2 days. He requested EMS taken to the emergency department patient presents to ER under those circumstances. MD complaint: blood streaked stool, gross hematochezia -: unknown Radiation: none Severity scale (1-10): 5 Quality: painless Consistency: constant, now resolved Improves with: none Worsens with: none Context: swallowed FB Associated Symptoms: denies other symptoms - Related Data Home Medications Medication Instructions Recorded Confirmed Multivitamins, Thera [Multivitamin 1 tab PO DAILY 04/28/18 03/12/21 (formulary)] Calcium/Magnesium/Zinc 1 tab PO DAILY 11/03/20 03/12/21 [Gayvwqv-Luztwyyxd-Dcgf Tablet] DULoxetine HCL [Cymbalta] 30 mg PO DAILY 11/03/20 03/12/21 Gabapentin 600 mg PO TID 11/03/20 03/12/21 methocarbamoL [Methocarbamol] 750 mg PO Q8H 11/03/20 03/12/21 traZODone HCL 150 mg PO HS 11/03/20 03/12/21 Thiamine HCl [Vitamin B-1] 100 mg PO DAILY 02/01/21 03/12/21 Aspirin EC [Ecotrin] 325 mg PO DAILY 03/12/21 03/12/21 Latanoprost/Pf [Latanoprost 0.005% 1 drop BOTH EYES HS 03/12/21 03/12/21 Eye Drop] Super B Complex 1 cap PO DAILY 03/12/21 03/12/21 Previous Rx's Medication Instructions Recorded Pantoprazole Sodium [Protonix] 20 mg PO BID #60 tablet. 02/03/21 Allergies Allergy/AdvReac Type Severity Reaction Status Date / Time buprenorphine [From Butrans] Allergy BUTRANS Verified 05/18/21 15:03 PATCH-ITCHING OF SKIN AND DISCOLORATION diclofenac [From Arthrotec] AdvReac DIZZY, Verified 05/18/21 15:03 LIGHTHEADED, "FELT STONED" mirtazapine [From Remeron] AdvReac DIZZY, Verified 05/18/21 15:03 LIGHTHEADED, "FELT STONED" misoprostol [From Arthrotec] AdvReac DIZZY, Verified 05/18/21 15:03 LIGHTHEADED, "FELT STONED" Review of Systems ROS Statement: Those systems with pertinent positive or pertinent negative responses have been documented in the HPI. ROS Other: All systems not noted in ROS Statement are negative. Past Medical History Past Medical History: Asthma, COPD, Pulmonary Embolus (PE) Additional Past Medical History / Comment(s): HX: chronic diarrhea and weight loss, alcoholism, bilateral lung pulmonary embolisms-in 2012 and previous to that, R lung pleurisy, asthma as child, back pain and sciatica, R foot drop with numbness and tingling to R foot due to pinched nerves, multifactoral anemia, elevated LFTs, 1997 R hand fracture. History of Any Multi-Drug Resistant Organisms: None Reported Past Surgical History: Back Surgery, Orthopedic Surgery Additional Past Surgical History / Comment(s): back-fusions x 2 L4, L5, S1 with hardware, cataracts bilateral with lens implants, rotator cuff right shoulder, colonoscopies Past Anesthesia/Blood Transfusion Reactions: No Reported Reaction Past Psychological History: Anxiety, Depression Smoking Status: Current every day smoker Past Alcohol Use History: Abuse, Heavy Past Drug Use History: Cocaine, Marijuana - Past Family History Mother Family Medical History: Cancer Additional Family Medical History / Comment(s): Mother of pancreatic cancer at age 82 yrs. Father Family Medical History: Cancer Additional Family Medical History / Comment(s): Father of lung cancer at 86yrs. He was a heavy smoker. hx colon cancer Brother(s) Family Medical History: Cancer Additional Family Medical History / Comment(s): (1) lymphoma, (1) BRAIN CANCER Sister(s) Family Medical History: Cancer Additional Family Medical History / Comment(s): lung cancer and throat cancer General Exam General appearance: alert, in no apparent distress Head exam: Present: atraumatic, normocephalic, normal inspection Eye exam: Present: normal appearance, PERRL, EOMI. Absent: scleral icterus, conjunctival injection, periorbital swelling ENT exam: Present: normal exam, mucous membranes moist Neck exam: Present: normal inspection. Absent: tenderness, meningismus, lymphadenopathy Respiratory exam: Present: normal lung sounds bilaterally. Absent: respiratory distress, wheezes, rales, rhonchi, stridor Cardiovascular Exam: Present: regular rate, normal rhythm, normal heart sounds. Absent: systolic murmur, diastolic murmur, rubs, gallop, clicks GI/Abdominal exam: Present: soft, normal bowel sounds. Absent: distended, tenderness, guarding, rebound, rigid Extremities exam: Present: normal inspection, full ROM, normal capillary refill. Absent: tenderness, pedal edema, joint swelling, calf tenderness Back exam: Present: normal inspection Neurological exam: Present: alert, oriented X3, CN II-XII intact Psychiatric exam: Present: normal affect, normal mood Skin exam: Present: warm, dry, intact, normal color. Absent: rash Course Vital Signs 12/16/21 12/16/21 03:29 05:00 Temperature 97.9 F Pulse Rate 85 84 Blood Pressure 123/79 129/71 O2 Sat by Pulse 98 Oximetry - Reevaluation(s) Reevaluation #1: 12/16/21 Medical records reviewed Reevaluation #2: 12/16/21 Patient has no active GI bleeding here in the emergency department Reevaluation #3: 12/16/21 Patient is informed of results and questions answered Medical Decision Making - Medical Decision Making 61 male to the emergency department for evaluation patient is intoxicated alcohol intoxication clinic for GI bleed no active bleeding here in the ER. Hemoglobin is normal and vital signs are normal and stable patient can be discharged home - Lab Data Result diagrams: 12/16/21 03:55 12/16/21 03:55 Lab Results 12/16/21 12/16/21 12/16/21 Range/Units 03:55 03:55 03:55 WBC 5.3 (3.8-10.6) k/uL RBC 3.96 L (4.30-5.90) m/uL Hgb 13.5 (13.0-17.5) gm/dL Hct 40.5 (39.0-53.0) % MCV 102.4 H (80.0-100.0) fL MCH 34.2 (25.0-35.0) pg MCHC 33.4 (31.0-37.0) g/dL RDW 12.6 (11.5-15.5) % Plt Count 282 (150-450) k/uL MPV 7.6 Neutrophils % 36 % Lymphocytes % 50 % Monocytes % 5 % Eosinophils % 4 % Basophils % 2 % Neutrophils # 1.9 (1.3-7.7) k/uL Lymphocytes # 2.6 (1.0-4.8) k/uL Monocytes # 0.2 (0-1.0) k/uL Eosinophils # 0.2 (0-0.7) k/uL Basophils # 0.1 (0-0.2) k/uL PT 11.5 (9.0-12.0) sec INR 1.1 (<1.2) APTT 26.0 (22.0-30.0) sec Sodium 134 L (137-145) mmol/L Potassium 4.0 (3.5-5.1) mmol/L Chloride 100 (98-107) mmol/L Carbon Dioxide 25 (22-30) mmol/L Anion Gap 9 mmol/L BUN 4 L (9-20) mg/dL Creatinine 0.73 (0.66-1.25) mg/dL Est GFR (CKD-EPI)AfAm >90 (>60 ml/min/1.73 sqM) Est GFR (CKD-EPI)NonAf >90 (>60 ml/min/1.73 sqM) Glucose 80 (74-99) mg/dL Calcium 8.7 (8.4-10.2) mg/dL Magnesium 1.6 (1.6-2.3) mg/dL Total Bilirubin 0.2 (0.2-1.3) mg/dL AST 35 (17-59) U/L ALT 16 (4-49) U/L Alkaline Phosphatase 79 (38-126) U/L Ammonia (<30) umol/L Troponin I (0.000-0.034) ng/mL Total Protein 7.3 (6.3-8.2) g/dL Albumin 4.2 (3.5-5.0) g/dL Lipase 146 (23-300) U/L Serum Alcohol 263 H* mg/dL Blood Type Blood Type Recheck Bld Type Recheck Status Antibody Screen Spec Expiration Date 12/16/21 12/16/21 12/16/21 Range/Units 03:55 03:55 04:07 WBC (3.8-10.6) k/uL RBC (4.30-5.90) m/uL Hgb (13.0-17.5) gm/dL Hct (39.0-53.0) % MCV (80.0-100.0) fL MCH (25.0-35.0) pg MCHC (31.0-37.0) g/dL RDW (11.5-15.5) % Plt Count (150-450) k/uL MPV Neutrophils % % Lymphocytes % % Monocytes % % Eosinophils % % Basophils % % Neutrophils # (1.3-7.7) k/uL Lymphocytes # (1.0-4.8) k/uL Monocytes # (0-1.0) k/uL Eosinophils # (0-0.7) k/uL Basophils # (0-0.2) k/uL PT (9.0-12.0) sec INR (<1.2) APTT (22.0-30.0) sec Sodium (137-145) mmol/L Potassium (3.5-5.1) mmol/L Chloride (98-107) mmol/L Carbon Dioxide (22-30) mmol/L Anion Gap mmol/L BUN (9-20) mg/dL Creatinine (0.66-1.25) mg/dL Est GFR (CKD-EPI)AfAm (>60 ml/min/1.73 sqM) Est GFR (CKD-EPI)NonAf (>60 ml/min/1.73 sqM) Glucose (74-99) mg/dL Calcium (8.4-10.2) mg/dL Magnesium (1.6-2.3) mg/dL Total Bilirubin (0.2-1.3) mg/dL AST (17-59) U/L ALT (4-49) U/L Alkaline Phosphatase (38-126) U/L Ammonia <9 (<30) umol/L Troponin I <0.012 (0.000-0.034) ng/mL Total Protein (6.3-8.2) g/dL Albumin (3.5-5.0) g/dL Lipase (23-300) U/L Serum Alcohol mg/dL Blood Type B Negative Blood Type Recheck B Neg Bld Type Recheck Status No Antibody Screen NEGATIVE Spec Expiration Date 12/19/20212354 Disposition Clinical Impression: Alcoholic intoxication, GI bleed Disposition: HOME SELF-CARE Condition: Fair Instructions (If sedation given, give patient instructions): Gastrointestinal Bleeding (ED) Is patient prescribed a controlled substance at d/c from ED?: No Referrals: Emile Augustine DO [Primary Care Provider] - 1-2 days Time of Disposition: 06:30
[2021-12-16 03:40] VITALS: TEMP 97.9
[2021-12-16 04:07] LABS: Basophils # (A) 0.1 k/uL (0-0.2); Basophils % (A) 2 %; Eosinophils # (A) 0.2 k/uL (0-0.7); Eosinophils % (A) 4 %; HCT 40.5 % (39.0-53.0); HGB 13.5 gm/dL (13.0-17.5); Lymphocytes # (A) 2.6 k/uL (1.0-4.8); Lymphocytes % (A) 50 %; MCH 34.2 pg (25.0-35.0); MCHC 33.4 g/dL (31.0-37.0); MCV 102.4 fL (80.0-100.0); Mean Platelet Volume 7.6; Monocytes # (A) 0.2 k/uL (0-1.0); Monocytes % (A) 5 %; Neutrophils # (A) 1.9 k/uL (1.3-7.7); Neutrophils % (A) 36 %; Platelet Count 282 k/uL (150-450); RBC 3.96 m/uL (4.30-5.90); RDW 12.6 % (11.5-15.5); WBC 5.3 k/uL (3.8-10.6)
[2021-12-16 04:16] LABS: INR 1.1 (<1.2); Prothrombin Time 11.5 sec (9.0-12.0)
[2021-12-16 04:19] LABS: ALT 16 U/L (4-49); AST 35 U/L (17-59); African American GFR (CKD) >90 (>60 ml/min/1.73 sqM); Albumin 4.2 g/dL (3.5-5.0); Alkaline Phosphatase 79 U/L (38-126); Anion Gap 9 mmol/L; Blood Urea Nitrogen 4 mg/dL (9-20); Calcium 8.7 mg/dL (8.4-10.2); Carbon Dioxide 25 mmol/L (22-30); Chloride 100 mmol/L (98-107); Glucose 80 mg/dL (74-99); Lipase 146 U/L (23-300); Magnesium 1.6 mg/dL (1.6-2.3); Non-African American GFR(CKD) >90 (>60 ml/min/1.73 sqM); Sodium 134 mmol/L (137-145); Total Bilirubin 0.2 mg/dL (0.2-1.3); Total Protein 7.3 g/dL (6.3-8.2)
[2021-12-16 05:03] LABS: Alcohol 263 mg/dL
[2021-12-16 07:06] VITALS: BP 129/71; PULSE 84
== END 2021-12-16 07:07 | disposition home or self-care (01) ==
LOC: EC 03:27
DX: K92.2 Gastrointestinal hemorrhage, unspecified (principal); F10.129 Alcohol abuse with intoxication, unspecified; J44.9 Chronic obstructive pulmonary disease, unspecified; F17.200 Nicotine dependence, unspecified, uncomplicated; Z88.5 Allergy status to narcotic agent; Z88.6 Allergy status to analgesic agent; Z88.3 Allergy status to other anti-infective agents
CPT/HCPCS: 36415; 86900; 86901; 80053; 82140; 83690; 83735; 84484; 85025; 85610; 85730; 86850; 99284; 96374; 96375; G0480; J2405; C9113; 80320

== ENCOUNTER 2022-08-14 18:33 | Emergency (ER) | payer MEDICARE, OTHER ==
[2022-08-14 18:40] VITALS: BP 146/98; PULSE 88; RESP 18; TEMP 98.3
--- NOTE | 2022-08-14 19:31 | ED ---
General Adult HPI - General Chief complaint: Extremity Injury, Lower Stated complaint: R. Ankle Pain Time Seen by Provider: 08/14/22 19:03 Source: patient, EMS Mode of arrival: EMS - History of Present Illness Initial comments: Dictation was produced using [employer] dictation software. please excuse any grammatical, word or spelling errors. Chief Complaint: 62-year-old male presents emergency Department with right ankle injury. History of Present Illness: 62-year-old male presents emergency Department with right ankle injury. Patient was allegedly working on his car when he took a step and felt a pop. Patient states she had some alcohol today. Patient complaining of swelling on the lateral malleolus. Denies paresthesias to the right lower extremity. The ROS documented in this emergency department record has been reviewed and confirmed by me. Those systems with pertinent positive or negative responses have been documented in the HPI. All other systems are other negative and/or noncontributory. PHYSICAL EXAM: General Impression: Alert and oriented x3, not in acute distress HEENT: Normocephalic atraumatic, extra-ocular movements intact, pupils equal and reactive to light bilaterally, mucous membranes moist. Cardiovascular: Heart regular rate and rhythm Chest: Able to complete full sentences, no retractions, no tachypnea Musculoskeletal: Pulses present and equal in all extremities, no peripheral edema Motor: no focal deficits noted Neurological: CN II-XII grossly intact, no focal motor or sensory deficits noted Skin: Intact with no visualized rashes Psych: Normal affect and mood Right ankle: Mild swelling over the lateral malleolus ED course: 62-year-old male presents emergency department for right ankle injury. Vital signs upon arrival are within acceptable limits. Nursing notes and chart review was performed X-ray shows right ankle fracture with healing slightly displaced to the lateral malleolus. Patient placed in a splint. Patient given crutches to remain nonweightbearing. Patient also given orthopedic surgery referral. Was pt. sent in by a medical professional or institution ([facility], [facility], urgent care, hospital, or retirement...) When possible be specific @ -No Did you speak to anyone other than the patient for history (EMS, parent, family, police, friend...)? What history was obtained from this source @ -No Did you review nursing and triage notes (agree or disagree)? Why? @ -I reviewed and agree with nursing and triage notes Were old charts reviewed (outside hosp., previous admission, EMS record, old EKG, old radiological studies, urgent care reports/EKG's, retirement records)? Report findings @ -No old charts were reviewed Differential Diagnosis (chest pain, altered mental status, abdominal pain women, abdominal pain men, vaginal bleeding, weakness, fever, dyspnea, syncope, headache, dizziness, GI bleed, back pain, seizure, CVA, palpatations, mental health)? @ -Ankle sprain, Lisfranc injury, [place] fracture, foot sprain EKG interpreted by me (3pts min.). @ -none X-rays interpreted by me (1pt min.). @ -None done CT interpreted by me (1pt min.). @ -None done U/S interpreted by me (1pt. min.). @ -None done What testing was considered but not performed or refused? (CT, X-rays, U/S, labs)? Why? @ -See above What meds were considered but not given or refused? Why? @ -none Did you discuss the management of the patient with other professionals (professionals i.e. , PA, [facility], lab, RT, psych nurse, social work professor, forest patrolman, teacher, commercial escrow officer, rehabilitation case coordinator)? Give summary @ -no Was smoking cessation discussed for >3mins.? @ -No Was critical care preformed (if so, how long)? @ -No Were there social determinants of health that impacted care today? How? (Homelessness, low income, unemployed, alcoholism, drug addiction, transp ortation, low edu. Level, literacy, decrease access to med. care, residential, rehab)? @ -No Was there de-escalation of care discussed even if they declined (Discuss DNR or withdrawal of care, Hospice)? DNR status @ -No What co-morbidities impacted this encounter? (DM, HTN, Smoking, COPD, CAD, Cancer, CVA, ARF, Chemo, Hep., AIDS, mental health diagnosis, sleep apnea, morbid obesity)? @ -None Was patient admitted / discharged? Hospital course, mention meds given and route, prescriptions, significant lab abnormalities, going to OR and other pertinent info. @ -See above Undiagnosed new problem with uncertain prognosis? @ -No Drug Therapy requiring intensive monitoring for toxicity (Heparin, Nitro, Insulin, Cardizem)? @ -No Were any procedures done? @ -No Diagnosis/symptom? @ -Acute right ankle fracture Acute, or Chronic, or Acute on Chronic? @ -Acute Uncomplicated (without systemic symptoms) or Complicated (systemic symptoms)? @ -default Side effects of treatment? @ -No Exacerbation, Progression, or Severe Exacerbation? @ -No Poses a threat to life or bodily function? How? (Chest pain, [place], [place], pneumonia, PE, COPD, DKA, ARF, appy, cholecystitis, CVA, Diverticulitis, Homicidal, Suicidal, threat to staff... and all critical care pts) @ -No - Related Data Home Medications Medication Instructions Recorded Confirmed Multivitamins, Thera [Multivitamin 1 tab PO DAILY 04/28/18 03/12/21 (formulary)] Calcium/Magnesium/Zinc 1 tab PO DAILY 11/03/20 03/12/21 [Ycfjmao-Khkggtqss-Mrnu Tablet] DULoxetine HCL [Cymbalta] 30 mg PO DAILY 11/03/20 03/12/21 Gabapentin 600 mg PO TID 11/03/20 03/12/21 methocarbamoL [Methocarbamol] 750 mg PO Q8H 11/03/20 03/12/21 traZODone HCL 150 mg PO HS 11/03/20 03/12/21 Thiamine HCl [Vitamin B-1] 100 mg PO DAILY 02/01/21 03/12/21 Aspirin EC [Ecotrin] 325 mg PO DAILY 03/12/21 03/12/21 Latanoprost/Pf [Latanoprost 0.005% 1 drop BOTH EYES HS 03/12/21 03/12/21 Eye Drop] Super B Complex 1 cap PO DAILY 03/12/21 03/12/21 Previous Rx's Medication Instructions Recorded Pantoprazole Sodium [Protonix] 20 mg PO BID #60 tablet. 02/03/21 HYDROcodone/APAP 5-325MG [[place] 1 tab PO Q6HR PRN 3 Days #12 tab 08/14/22 5-325] Allergies Allergy/AdvReac Type Severity Reaction Status Date / Time buprenorphine [From Butrans] Allergy BUTRANS Verified 05/18/21 15:03 PATCH-ITCHING OF SKIN AND DISCOLORATION diclofenac [From Arthrotec] AdvReac DIZZY, Verified 05/18/21 15:03 LIGHTHEADED, "FELT STONED" mirtazapine [From Remeron] AdvReac DIZZY, Verified 05/18/21 15:03 LIGHTHEADED, "FELT STONED" misoprostol [From Arthrotec] AdvReac DIZZY, Verified 05/18/21 15:03 LIGHTHEADED, "FELT STONED" Review of Systems ROS Statement: Those systems with pertinent positive or pertinent negative responses have been documented in the HPI. ROS Other: All systems not noted in ROS Statement are negative. Past Medical History Past Medical History: Asthma, COPD, Pulmonary Embolus (PE) Additional Past Medical History / Comment(s): HX: chronic diarrhea and weight loss, alcoholism, bilateral lung pulmonary embolisms-in 2012 and previous to that, R lung pleurisy, asthma as child, back pain and sciatica, R foot drop with numbness and tingling to R foot due to pinched nerves, multifactoral anemia, elevated LFTs, 1997 R hand fracture. History of Any Multi-Drug Resistant Organisms: None Reported Past Surgical History: Back Surgery, Orthopedic Surgery Additional Past Surgical History / Comment(s): back-fusions x 2 L4, L5, S1 with hardware, cataracts bilateral with lens implants, rotator cuff right shoulder, colonoscopies Past Anesthesia/Blood Transfusion Reactions: No Reported Reaction Past Psychological History: Anxiety, Depression Smoking Status: Current every day smoker Past Alcohol Use History: Abuse, Heavy Past Drug Use History: Cocaine, Marijuana - Past Family History Mother Family Medical History: Cancer Additional Family Medical History / Comment(s): Mother of pancreatic cancer at age 82 yrs. Father Family Medical History: Cancer Additional Family Medical History / Comment(s): Father of lung cancer at 86yrs. He was a heavy smoker. hx colon cancer Brother(s) Family Medical History: Cancer Additional Family Medical History / Comment(s): (1) lymphoma, (1) BRAIN CANCER Sister(s) Family Medical History: Cancer Additional Family Medical History / Comment(s): lung cancer and throat cancer Course Vital Signs 08/14/22 18:36 Temperature 98.3 F Pulse Rate 88 Respiratory 18 Rate Blood Pressure 146/98 O2 Sat by Pulse 100 Oximetry Procedures - Orthopedic Splinting/Casting Injury #1 Side: right Lower Extremity Injury Location: ankle Disposition Clinical Impression: Ankle fracture Disposition: HOME SELF-CARE Condition: Fair Instructions (If sedation given, give patient instructions): Ankle Fracture (ED) Prescriptions: HYDROcodone/APAP 5-325MG [[place] 5-325] 1 tab PO Q6HR PRN 3 Days #12 tab PRN Reason: Severe Pain Is patient prescribed a controlled substance at d/c from ED?: Yes If prescribed controlled substance>3 days was MAPS reviewed?: Prescribed <3 Days Referrals: Emile Augustine DO [Primary Care Provider] - 1-2 days Lolly Piña DO [Doctor of Osteopathic Medicine] - 1-2 days Time of Disposition: 20:35
--- NOTE | 2022-08-14 19:38 | XR ---
EXAMINATION TYPE: XR ankle complete RT DATE OF EXAM: 08/14/2022 CLINICAL HISTORY: Lateral pain and swelling after injury TECHNIQUE: Frontal, lateral and oblique images of the right ankle are obtained. COMPARISON: None. FINDINGS: There is acute slightly displaced intra-articular spiral type fracture through the lateral malleolus with adjacent moderate lateral soft tissue swelling. Ankle mortise symmetry is maintained . Medial malleolus is intact. IMPRESSION: As above.
[2022-08-14] MEDS ORDERED: ACET/COD 300 MG/30 MG STARTER PACK 6 TAB BTL PO STA (20:34)
== END 2022-08-14 20:55 | disposition home or self-care (01) ==
LOC: EC 18:33
DX: S82.891D Other fracture of right lower leg, subsequent encounter for closed fracture with routine healing (principal); J44.9 Chronic obstructive pulmonary disease, unspecified; F41.9 Anxiety disorder, unspecified; F32.A Depression, unspecified; F17.200 Nicotine dependence, unspecified, uncomplicated; F12.90 Cannabis use, unspecified, uncomplicated; F14.10 Cocaine abuse, uncomplicated; Z86.711 Personal history of pulmonary embolism; Z79.82 Long term (current) use of aspirin; Z88.5 Allergy status to narcotic agent; Z88.6 Allergy status to analgesic agent; Z88.3 Allergy status to other anti-infective agents; Z88.8 Allergy status to other drugs, medicaments and biological substances; X58.XXXA Exposure to other specified factors, initial encounter
CPT/HCPCS: 99284

== ENCOUNTER 2022-10-01 17:52 | Emergency (ER) | payer MEDICARE, OTHER ==
[2022-10-01 18:15] VITALS: RESP 16
[2022-10-01] MEDS ORDERED: PROPARACAINE 0.5% OPHTH DROPS 15 ML BTL RIGHT EYE STA (19:18)
[2022-10-01] MEDS ORDERED: FLUORESCEIN STRIPS 1 MG STRIP RIGHT EYE ONE (19:19)
[2022-10-01 20:02] LABS: Chloride 102 mmol/L (98-107)
[2022-10-01 20:06] LABS: ALT 22 U/L (4-49); AST 36 U/L (17-59); African American GFR (CKD) >90 (>60 ml/min/1.73 sqM); Albumin 3.9 g/dL (3.5-5.0); Alkaline Phosphatase 69 U/L (38-126); Anion Gap 1 mmol/L; Blood Urea Nitrogen 6 mg/dL (9-20); C Reactive Protein <0.5 mg/dL (<1.0); Calcium 8.8 mg/dL (8.4-10.2); Carbon Dioxide 31 mmol/L (22-30); Glucose 85 mg/dL (74-99); Non-African American GFR(CKD) >90 (>60 ml/min/1.73 sqM); Potassium 4.1 mmol/L (3.5-5.1); Sodium 134 mmol/L (137-145); Total Bilirubin 0.4 mg/dL (0.2-1.3); Total Protein 6.7 g/dL (6.3-8.2)
[2022-10-01 20:08] LABS: INR 1.1 (<1.2); Partial Thromboplastin Time 24.3 sec (22.0-30.0)
--- NOTE | 2022-10-01 20:11 | ED ---
Eye Problem HPI - General Chief complaint: Eye Problems Stated complaint: vision issues Time Seen by Provider: 10/01/22 18:54 Source: patient, EMS, RN notes reviewed Mode of arrival: EMS Limitations: no limitations - History of Present Illness Initial comments: This is a 62-year-old male who presents to the emergency department for vision loss. States that he's had problems with vision loss on the bottom half of his right eye that seems to be progressing over the last month. Today it seemed to get worse. He is unable to see anything out of the bottom half of the right eye and the upper half is very blurry. The bottom half is described as looking completely black. He was told that he had glaucoma in the past, but was not compliant with the eye drops. Denies any eye pain or pressure. He does have an appointment with [facility] in 2 days, however because of the worsening vision today, he became frightened and opted to come to the emergency department. Denies any injury to the eye. Other than the visual changes, he does not have any symptoms. He does note problems with chronic alcohol use as well as both marijuana and cocaine use. Denies any fevers, chills, sore throat, cough, dyspnea, chest pain, palpitations, abdominal pain, nausea, vomiting, diarrhea, back pain, or headaches. MD chief complaint: vision change Onset/Timin -: month(s) Location: right eye Eye Symptoms: decreased vision, blurry vision - Related Data Home Medications Medication Instructions Recorded Confirmed Multivitamins, Thera [Multivitamin 1 tab PO DAILY 04/28/18 03/12/21 (formulary)] Calcium/Magnesium/Zinc 1 tab PO DAILY 11/03/20 03/12/21 [Azvyrqm-Utzgwnadh-Qvrl Tablet] DULoxetine HCL [Cymbalta] 30 mg PO DAILY 11/03/20 03/12/21 Gabapentin 600 mg PO TID 11/03/20 03/12/21 methocarbamoL [Methocarbamol] 750 mg PO Q8H 11/03/20 03/12/21 traZODone HCL 150 mg PO HS 11/03/20 03/12/21 Thiamine HCl [Vitamin B-1] 100 mg PO DAILY 02/01/21 03/12/21 Aspirin EC [Ecotrin] 325 mg PO DAILY 03/12/21 03/12/21 Latanoprost/Pf [Latanoprost 0.005% 1 drop BOTH EYES HS 03/12/21 03/12/21 Eye Drop] Super B Complex 1 cap PO DAILY 03/12/21 03/12/21 Previous Rx's Medication Instructions Recorded Pantoprazole Sodium [Protonix] 20 mg PO BID #60 tablet. 02/03/21 HYDROcodone/APAP 5-325MG [Dahinda 1 tab PO Q6HR PRN 3 Days #12 tab 08/14/22 5-325] Allergies Allergy/AdvReac Type Severity Reaction Status Date / Time buprenorphine [From Butrans] Allergy BUTRANS Verified 10/01/22 18:03 PATCH-ITCHING OF SKIN AND DISCOLORATION diclofenac [From Arthrotec] AdvReac DIZZY, Verified 10/01/22 18:03 LIGHTHEADED, "FELT STONED" mirtazapine [From Remeron] AdvReac DIZZY, Verified 10/01/22 18:03 LIGHTHEADED, "FELT STONED" misoprostol [From Arthrotec] AdvReac DIZZY, Verified 10/01/22 18:03 LIGHTHEADED, "FELT STONED" Review of Systems ROS Statement: Those systems with pertinent positive or pertinent negative responses have been documented in the HPI. ROS Other: All systems not noted in ROS Statement are negative. Past Medical History Past Medical History: Asthma, COPD, Pulmonary Embolus (PE) Additional Past Medical History / Comment(s): HX: chronic diarrhea and weight loss, alcoholism, bilateral lung pulmonary embolisms-in 2012 and previous to that, R lung pleurisy, asthma as child, back pain and sciatica, R foot drop with numbness and tingling to R foot due to pinched nerves, multifactoral anemia, elevated LFTs, 1997 R hand fracture. History of Any Multi-Drug Resistant Organisms: None Reported Past Surgical History: Back Surgery, Orthopedic Surgery Additional Past Surgical History / Comment(s): back-fusions x 2 L4, L5, S1 with hardware, cataracts bilateral with lens implants, rotator cuff right shoulder, colonoscopies Past Anesthesia/Blood Transfusion Reactions: No Reported Reaction Past Psychological History: Anxiety, Depression Smoking Status: Current every day smoker Past Alcohol Use History: Abuse, Daily, Heavy Past Drug Use History: Cocaine, Marijuana - Past Family History Mother Family Medical History: Cancer Additional Family Medical History / Comment(s): Mother of pancreatic cancer at age 82 yrs. Father Family Medical History: Cancer Additional Family Medical History / Comment(s): Father of lung cancer at 86yrs. He was a heavy smoker. hx colon cancer Brother(s) Family Medical History: Cancer Additional Family Medical History / Comment(s): (1) lymphoma, (1) BRAIN CANCER Sister(s) Family Medical History: Cancer Additional Family Medical History / Comment(s): lung cancer and throat cancer General Exam Limitations: no limitations General appearance: alert, in no apparent distress Head exam: Present: atraumatic, normocephalic, normal inspection Eye exam: Present: normal appearance, PERRL, EOMI. Absent: conjunctival injection, nystagmus, periorbital swelling, periorbital tenderness Pupils: Present: normal accommodation Expanded Eyelids: Normal Inspection: Bilateral Pupils: Regular, Round: Bilateral, Reactive: Bilateral Sclera/Conjunctival: Normal Inspection: Bilateral Visual acuity (R) = 20/: 70 Visual acuity (L) = 20/: 40 IOP (R) in mmH IOP (L) in mmH IOP measured with: Tonopen ENT exam: Present: normal exam, normal oropharynx, mucous membranes moist Respiratory exam: Present: normal lung sounds bilaterally. Absent: respiratory distress, wheezes, rales, rhonchi, stridor Cardiovascular Exam: Present: regular rate, normal rhythm, normal heart sounds. Absent: systolic murmur, diastolic murmur, rubs, gallop, clicks Neurological exam: Present: alert, oriented X3, CN II-XII intact Expanded Speech: Present: fluid speech Cerebellar function: Finger to Nose: Normal Motor strength exam: RUE: 5, LUE: 5, RLE: 5, LLE: 5 Psychiatric exam: Present: normal affect, normal mood Skin exam: Present: warm, dry, intact, normal color. Absent: rash Course Vital Signs 10/01/22 10/01/22 18:14 21:54 Temperature 98.8 F 98.4 F Pulse Rate 80 75 Respiratory 16 16 Rate Blood Pressure 130/82 160/96 O2 Sat by Pulse 97 98 Oximetry Medical Decision Making - Medical Decision Making This is a 62-year-old male who presents to the emergency department for painless vision loss. Was pt. sent in by a medical professional or institution? @ -No Did you speak to anyone other than the patient for history? @ -No Did you review nursing and triage notes? @ -Yes, and I agree, it is accurate with regards to the patient's symptoms. Were old charts reviewed? @ -No Differential Diagnosis? @ -Differential Vision Loss: Retinal artery occlusion, retinal vein occlusion, retinal detachment, stroke, ischemic optic neuropathy, keratitis, this is not meant to be an all-inclusive list. CT interpreted by me (1pt min.)? @ -Computed tomography scan of the brain without contrast and a CTA of the head and neck obtained. My interpretation identifies plaque formation but no evidence of acute intracranial hemorrhage, ischemic changes, or mass effect. What testing was considered but not performed? (CT, X-rays, U/S, labs)? Why? @ -None What meds were considered but not given? Why? @ -None Did you discuss the management of the patient with other professionals? @ -Yes, Dr. Perkins, recreational facilities motel manager ophthalmology. He advised that this is most likely related to retinal detachment or retinal vein occlusion, neither of which need to be addressed tonight. Also suspects that the cocaine use and smoking contributed to this. He instructed the patient to follow-up with an broach grinder, whether it be himself or his own, first thing tomorrow morning. Did you reconcile home meds? @ -No Was smoking cessation discussed for >3mins.? @ -I discussed smoking cessation for greater than 3 minutes. The risk of smoking were discussed with the patient including but not limited to risks of cancer, stroke, coronary artery disease and COPD. Also discussed with patient were multiple methods of quitting smoking. Lastly we discussed the financial cost of smoking. Was critical care preformed (if so, how long)? @ -No Were there social determinants of health that impacted care today? How? (Homele ssness, low income, unemployed, alcoholism, drug addiction, transportation, low edu. Level, literacy, decrease access to med. care, assisted, rehab)? @ -Yes, alcoholism and drug addiction, contributing to worsening of his overall health status and causing him to be noncompliant with medications and treatments. Was there de-escalation of care discussed even if they declined? (Discuss DNR or withdrawal of care, Hospice)? @ -No What co-morbidities impacted this encounter? (DM, HTN, Smoking, COPD, CAD, Cancer, CVA, Hep., AIDS, mental health diagnosis, sleep apnea, morbid obesity)? @ -Smoking, alcohol use, polysubstance abuse Was patient admitted / discharged? @ -Discharged. Lab work obtained and found be nonactionable. Visual acuity is 20/40 in the left eye and 20/70 in the right eye. Intraocular pressure 22 in the right eye and 17 in the left eye. Fluorescein staining negative for evidence of a corneal abrasion. CTA of the head and neck as well as a computed tomography scan of the brain without contrast obtained revealing no acute findings. Case discussed with Dr. Perkins, on-call ophthalmology. He advised that this is most likely related to retinal detachment or retinal vein occlusion. Findings discussed with the patient, in that he needs to follow-up with ophthalmology first thing tomorrow morning. Information for Dr. Perkins's office provided. He can also contact [facility] and see if they can get him in tomorrow as opposed to the following day, and follow up with whichever office can see him sooner. Instructed him to avoid driving, operating machinery, or doing any other potentially dangerous activities due to the vision loss. Undiagnosed new problem with uncertain prognosis? @ -None Drug Therapy requiring intensive monitoring for toxicity (Heparin, Nitro, Insulin, Cardizem)? @ -None Were any procedures done? @ -None Diagnosis/symptom? @ -Vision loss, right eye Acute, or Chronic, or Acute on Chronic? @ -Acute Uncomplicated (without systemic symptoms) or Complicated (systemic symptoms)? @ -Uncomplicated Side effects of treatment? @ -None Exacerbation, Progression, or Severe Exacerbation] @ -Not applicable Poses a threat to life or bodily function? @ -Yes Return precautions reviewed in depth, the patient is instructed to return to the emergency department with any new, worsening, or concerning symptoms. Patient verbalized understanding. This case was discussed in detail with the attending ED physician, Dr. Coronado. Presentation, findings, and treatment plan discussed in detail as well. - Lab Data Result diagrams: 10/01/22 19:43 10/01/22 19:43 Lab Results 10/01/22 10/01/22 10/01/22 Range/Units 19:43 19:43 19:43 WBC 4.3 (3.8-10.6) k/uL RBC 3.07 L (4.30-5.90) m/uL Hgb 11.8 L (13.0-17.5) gm/dL Hct 34.4 L (39.0-53.0) % MCV 112.2 H (80.0-100.0) fL MCH 38.4 H (25.0-35.0) pg MCHC 34.3 (31.0-37.0) g/dL RDW 13.0 (11.5-15.5) % Plt Count 296 (150-450) k/uL MPV 8.2 Neutrophils % 52 % Lymphocytes % 29 % Monocytes % 12 % Eosinophils % 2 % Basophils % 1 % Neutrophils # 2.2 (1.3-7.7) k/uL Lymphocytes # 1.2 (1.0-4.8) k/uL Monocytes # 0.5 (0-1.0) k/uL Eosinophils # 0.1 (0-0.7) k/uL Basophils # 0.0 (0-0.2) k/uL Poikilocytosis (manual Present Macrocytosis Marked A Target Cells Present ESR 12 (0-15) mm/hr PT 11.0 (9.0-12.0) sec INR 1.1 (<1.2) APTT 24.3 (22.0-30.0) sec Sodium 134 L (137-145) mmol/L Potassium 4.1 (3.5-5.1) mmol/L Chloride 102 (98-107) mmol/L Carbon Dioxide 31 H (22-30) mmol/L Anion Gap 1 mmol/L BUN 6 L (9-20) mg/dL Creatinine 0.53 L (0.66-1.25) mg/dL Est GFR (CKD-EPI)AfAm >90 (>60 ml/min/1.73 sqM) Est GFR (CKD-EPI)NonAf >90 (>60 ml/min/1.73 sqM) Glucose 85 (74-99) mg/dL Calcium 8.8 (8.4-10.2) mg/dL Total Bilirubin 0.4 (0.2-1.3) mg/dL AST 36 (17-59) U/L ALT 22 (4-49) U/L Alkaline Phosphatase 69 (38-126) U/L C-Reactive Protein <0.5 (<1.0) mg/dL Total Protein 6.7 (6.3-8.2) g/dL Albumin 3.9 (3.5-5.0) g/dL - Radiology Data Radiology results: report reviewed, image reviewed Disposition Clinical Impression: Vision loss, right eye Disposition: HOME SELF-CARE Instructions (If sedation given, give patient instructions): Blurred Vision (ED) Additional Instructions: Return to the emergency department with any new, worsening, or concerning symptoms. Call [facility] and let them know that you were seen in the emergency department and were told that you need to see ophthalmology first thing tomorrow morning for a follow-up appointment. If they are unable to get you in tomorrow, you can call Dr. Perkins's office, and he is willing to see you first thing tomorrow morning. Follow up with your primary care provider in 1-2 days. Is patient prescribed a controlled substance at d/c from ED?: No Referrals: Emile Augustine DO [Primary Care Provider] - 1-2 days Marques Perkins MD [STAFF PHYSICIAN] - 1-2 days
[2022-10-01 20:24] LABS: Basophils % (A) 1 %; Eosinophils # (A) 0.1 k/uL (0-0.7); Eosinophils % (A) 2 %; HCT 34.4 % (39.0-53.0); HGB 11.8 gm/dL (13.0-17.5); Lymphocytes # (A) 1.2 k/uL (1.0-4.8); Lymphocytes % (A) 29 %; MCH 38.4 pg (25.0-35.0); MCHC 34.3 g/dL (31.0-37.0); MCV 112.2 fL (80.0-100.0); Macrocytosis Marked; Mean Platelet Volume 8.2; Monocytes # (A) 0.5 k/uL (0-1.0); Monocytes % (A) 12 %; Neutrophils # (A) 2.2 k/uL (1.3-7.7); Neutrophils % (A) 52 %; Platelet Count 296 k/uL (150-450); RBC 3.07 m/uL (4.30-5.90); WBC 4.3 k/uL (3.8-10.6)
--- NOTE | 2022-10-01 20:44 | CT ---
EXAMINATION TYPE: CT brain wo con DATE OF EXAM: 10/01/2022 COMPARISON: 11/03/2020 HISTORY: vision changes CT DLP: 1692.6 (combined) mGycm Automated exposure control for dose reduction was used. There is cerebral cortical atrophy. There is no mass effect or midline shift. No sign of intracranial hemorrhage. Calvarium is intact. There is normal aeration of the mastoid sinuses. IMPRESSION: Cerebral atrophy. No acute intracranial abnormality. No change.
[2022-10-01 20:59] LABS: Poikilocytosis (M) Present; Target Cells Present
--- NOTE | 2022-10-01 21:10 | CT ---
EXAMINATION TYPE: CT angio head neck DATE OF EXAM: 10/01/2022 COMPARISON: None HISTORY: vision changes CT DLP: 1692.6 (combined) mGycm Automated exposure control for dose reduction was used. CONTRAST: Performed with IV Contrast, patient injected with 65ml mL of Isovue 370. Images obtained from the aortic arch to the vertex of the brain with the IV contrast. There are Three -D postprocessed images. There is normal branching pattern of the great vessels on the aortic arch. There is significant plaqu e and stenosis in the proximal left subclavian artery with 50% luminal narrowing. There is arterial f low in both subclavian arteries. There is arterial flow in the common internal and external carotid a rteries bilaterally. There is moderate plaque formation on the posterior wall of the right carotid ar lucinda bifurcation. There is plaque formation in 20% stenosis proximal left internal carotid artery. No evidence of carotid or vertebral artery aneurysm or dissection. There is arterial flow in both verte bral arteries with some plaque formation in the mid left vertebral artery. There is arterial flow in the vertebral basilar artery system. There is arterial flow in the anterior middle and posterior cerebral arteries bilaterally. No mass ef fect. No evidence of intracranial aneurysm or neovascularity. No evidence of hemodynamic arterial lionel nosis. There is normal enhancement of the venous sinuses. IMPRESSION: Atherosclerotic plaque formation. No hemodynamic stenosis in the carotid and vertebral arteries. Ther e is 50% stenosis of the proximal left subclavian artery. No dissection. No significant intracranial angiographic abnormality.
[2022-10-01 21:11] LABS: Erythrocyte Sedimentation Rate 12 mm/hr (0-15)
[2022-10-01 21:55] VITALS: BP 160/96; PULSE 75; TEMP 98.4
== END 2022-10-01 22:28 | disposition home or self-care (01) ==
LOC: EC 17:52
DX: H54.61 Unqualified visual loss, right eye, normal vision left eye (principal); J44.9 Chronic obstructive pulmonary disease, unspecified; F41.9 Anxiety disorder, unspecified; F32.A Depression, unspecified; F17.200 Nicotine dependence, unspecified, uncomplicated; F12.90 Cannabis use, unspecified, uncomplicated; Z88.8 Allergy status to other drugs, medicaments and biological substances; Z79.82 Long term (current) use of aspirin; Z79.899 Other long term (current) drug therapy
CPT/HCPCS: 99284 ×2; 36415; 80053; 85652; 85025; 85610; 85730; 86140; 70496; 70450; 70498; Q9967

== ENCOUNTER 2022-11-17 21:23 | Emergency (ER) | payer MEDICARE, OTHER ==
[2022-11-17 22:06] VITALS: TEMP 98.1
--- NOTE | 2022-11-17 22:28 | ED ---
General Adult HPI - General Chief complaint: Psychiatric Symptoms Stated complaint: [facility] Time Seen by Provider: 11/17/22 22:13 Source: patient Mode of arrival: wheelchair - History of Present Illness Initial comments: Dictation was produced using [employer] dictation software. please excuse any grammatical, word or spelling errors. Chief Complaint: 62-year-old male presents emergency department for suicidal ideation History of Present Illness: Patient 62-year-old male presents to emergency Department for suicidal ideation. Patient states he wants to overdose on medications. Patient feels depressed. He denies that there is any sort of particular reason why. Denies any visual or auditory hallucinations. He wants to overdose on his medications. Patient denies any visual or auditory hallucinations. Homicidal ideation. Patient did have alcohol. The ROS documented in this emergency department record has been reviewed and confirmed by me. Those systems with pertinent positive or negative responses have been documented in the HPI. All other systems are other negative and/or noncontributory. - Related Data Home Medications Medication Instructions Recorded Confirmed Gabapentin 600 mg PO TID 11/03/20 11/17/22 methocarbamoL [Methocarbamol] 750 mg PO Q8H 11/03/20 11/17/22 traZODone HCL 150 mg PO HS 11/03/20 11/17/22 Latanoprost/Pf [Latanoprost 0.005% 1 drop BOTH EYES HS 03/12/21 11/17/22 Eye Drop] DULoxetine HCL [Cymbalta] 30 mg PO DAILY 11/17/22 11/17/22 LORazepam [Ativan] 0.5 - 1 mg PO TID PRN 11/17/22 11/17/22 Ofloxacin 0.3% Ophth Soln [Ocuflox 1 drops RIGHT EYE QID 11/17/22 11/17/22 Ophth Soln] Pantoprazole [Protonix] 40 mg PO BID 11/17/22 11/17/22 prednisoLONE ACETATE 1% OPHTH 1 drops RIGHT EYE QID 11/17/22 11/17/22 [Pred Forte 1%] Allergies Allergy/AdvReac Type Severity Reaction Status Date / Time buprenorphine [From Butrans] Allergy BUTRANS Verified 11/17/22 22:06 PATCH-ITCHING OF SKIN AND DISCOLORATION diclofenac [From Arthrotec] AdvReac DIZZY, Verified 11/17/22 22:06 LIGHTHEADED, "FELT STONED" mirtazapine [From Remeron] AdvReac DIZZY, Verified 11/17/22 22:06 LIGHTHEADED, "FELT STONED" misoprostol [From Arthrotec] AdvReac DIZZY, Verified 11/17/22 22:06 LIGHTHEADED, "FELT STONED" Review of Systems ROS Statement: Those systems with pertinent positive or pertinent negative responses have been documented in the HPI. ROS Other: All systems not noted in ROS Statement are negative. Past Medical History Past Medical History: Asthma, COPD, Pulmonary Embolus (PE) Additional Past Medical History / Comment(s): HX: chronic diarrhea and weight loss, alcoholism, bilateral lung pulmonary embolisms-in 2012 and previous to that, R lung pleurisy, asthma as child, back pain and sciatica, R foot drop with numbness and tingling to R foot due to pinched nerves, multifactoral anemia, elevated LFTs, 1997 R hand fracture. History of Any Multi-Drug Resistant Organisms: None Reported Past Surgical History: Back Surgery, Orthopedic Surgery Additional Past Surgical History / Comment(s): back-fusions x 2 L4, L5, S1 with hardware, cataracts bilateral with lens implants, rotator cuff right shoulder, colonoscopies Past Anesthesia/Blood Transfusion Reactions: No Reported Reaction Past Psychological History: Anxiety, Depression Smoking Status: Current every day smoker Past Alcohol Use History: Abuse, Daily, Heavy Past Drug Use History: Cocaine, Marijuana - Past Family History Mother Family Medical History: Cancer Additional Family Medical History / Comment(s): Mother of pancreatic cancer at age 82 yrs. Father Family Medical History: Cancer Additional Family Medical History / Comment(s): Father of lung cancer at 86yrs. He was a heavy smoker. hx colon cancer Brother(s) Family Medical History: Cancer Additional Family Medical History / Comment(s): (1) lymphoma, (1) BRAIN CANCER Sister(s) Family Medical History: Cancer Additional Family Medical History / Comment(s): lung cancer and throat cancer General Exam - General Exam Comments Initial Comments: PHYSICAL EXAM: General Impression: Alert and oriented x3, not in acute distress HEENT: Normocephalic atraumatic, extra-ocular movements intact, pupils equal and reactive to light bilaterally, mucous membranes moist. Cardiovascular: Heart regular rate and rhythm Chest: Able to complete full sentences, no retractions, no tachypnea Abdomen: abdomen soft, non-tender, non-distended, no organomegaly Musculoskeletal: Pulses present and equal in all extremities, no peripheral edema Motor: no focal deficits noted Neurological: CN II-XII grossly intact, no focal motor or sensory deficits noted Skin: Intact with no visualized rashes Psych: Normal affect and mood Course Vital Signs 11/17/22 11/18/22 21:56 05:00 Temperature 98.1 F Pulse Rate 92 98 Respiratory 18 16 Rate Blood Pressure 116/75 110/76 O2 Sat by Pulse 98 98 Oximetry - Reevaluation(s) Reevaluation #1: 11/17/22 22:27 elevated breath alcohol test. Patient pending sobriety for medical clearance Medical Decision Making - Medical Decision Making Was pt. sent in by a medical professional or institution (, PA, SUB ASSEMBLY TEAM WORKER, urgent care, hospital, or care home...) When possible be specific @ -No Did you speak to anyone other than the patient for history (EMS, parent, family, police, friend...)? What history was obtained from this source @ -No Did you review nursing and triage notes (agree or disagree)? Why? @ -I reviewed and agree with nursing and triage notes Were old charts reviewed (outside hosp., previous admission, EMS record, old EKG, old radiological studies, urgent care reports/EKG's, care home records)? Report findings @ -No old charts were reviewed Differential Diagnosis (chest pain, altered mental status, abdominal pain women, abdominal pain men, vaginal bleeding, musculoskeletal, weakness, fever, dyspnea, syncope, headache, dizziness, GI bleed, back pain, seizure, CVA, palpatations, mental health)? @ -Differential Mental Health: Depression, anxiety, bipolar, psychosis, schizophrenia, borderline personality, situational depression, adjustment disorder, behavioral disorder, brain tumor, malingering, substance abuse, encephalopathy, medication reaction, dementia, hypothyroidism, degenerative neurologic disorder, lupus.... This is not meant to be all-inclusive list EKG interpreted by me (3pts min.). @ -None done X-rays interpreted by me (1pt min.). @ -None done CT interpreted by me (1pt min.). @ -None done U/S interpreted by me (1pt. min.). @ -None done What testing was considered but not performed or refused? (CT, X-rays, U/S, labs )? Why? @ -None What meds were considered but not given or refused? Why? @ -None Did you discuss the management of the patient with other professionals (professionals i.e. Dr., PA, SUB ASSEMBLY TEAM WORKER, lab, RT, psych nurse, renal social worker, zinc miner blasting, teacher, international first officer, case worker)? Give summary @ -No Was smoking cessation discussed for >3mins.? @ -No Was critical care preformed (if so, how long)? @ -No Were there social determinants of health that impacted care today? How? (Homelessness, low income, unemployed, alcoholism, drug addiction, transportation, low edu. Level, literacy, decrease access to med. care, usp, rehab)? @ -: Alcoholism Was there de-escalation of care discussed even if they declined (Discuss DNR or withdrawal of care, Hospice)? DNR status @ -No What co-morbidities impacted this encounter? (DM, HTN, Smoking, COPD, CAD, Cancer, CVA, ARF, Chemo, Hep., AIDS, mental health diagnosis, sleep apnea, morbid obesity)? @ -None Was patient admitted / discharged? Hospital course, mention meds given and route, prescriptions, significant lab abnormalities, going to OR and other pertinent info. @ -62-year-old male presents emergency department for depression and suicidal ideation. Patient was positive for alcohol. Patient was medically cleared after sobriety reevaluated by EPS recommended discharge with outpatient follow- up. Undiagnosed new problem with uncertain prognosis? @ -No Drug Therapy requiring intensive monitoring for toxicity (Heparin, Nitro, Insulin, Cardizem)? @ -No Were any procedures done? @ -No Diagnosis/symptom? Acute, or Chronic, or Acute on Chronic? Uncomplicated (without systemic symptoms) or Complicated (systemic symptoms)? @ -1. Suicidal ideation with Depression, 2. Alcoholic intoxication Side effects of treatment? @ -No Exacerbation, Progression, or Severe Exacerbation? @ -No Poses a threat to life or bodily function? How? (Chest pain, [place], [place], pneumonia, PE, COPD, DKA, ARF, appy, cholecystitis, CVA, Diverticulitis, Homicidal, Suicidal, threat to staff... and all critical care pts) @ -yes Disposition Clinical Impression: Depression Disposition: HOME SELF-CARE Condition: Good Instructions (If sedation given, give patient instructions): Depression (ED) Is patient prescribed a controlled substance at d/c from ED?: No Referrals: Emile Augustine DO [Primary Care Provider] - 1-2 days Time of Disposition: 06:15
[2022-11-18 06:31] VITALS: BP 112/78; PULSE 88; RESP 14
== END 2022-11-18 06:25 | disposition home or self-care (01) ==
LOC: EC 21:23
DX: F32.A Depression, unspecified (principal); J44.9 Chronic obstructive pulmonary disease, unspecified; F17.200 Nicotine dependence, unspecified, uncomplicated; F12.90 Cannabis use, unspecified, uncomplicated; Z79.899 Other long term (current) drug therapy; Z88.8 Allergy status to other drugs, medicaments and biological substances
CPT/HCPCS: 82075; 99284

== ENCOUNTER 2023-06-11 00:57 | Emergency (ER) | payer MEDICARE, OTHER ==
--- NOTE | 2023-06-11 02:16 | ED ---
Psych HPI <Gustabo Coronado - Last Filed: 06/11/23 13:31> - General Source: patient, EMS Mode of arrival: EMS Limitations: no limitations - History of Present Illness MD Complaint: suicidal ideation, feels depressed -: hour(s) Associated Psychiatric Symptoms: depression Quality: getting worse Improves With: none Worsens With: none Context: significant life stressor Associated Symptoms: denies other symptoms <Lukas Ward - Last Filed: 06/30/23 11:02> - General Stated Complaint: Mental Health Time Seen by Provider: 06/11/23 01:08 - History of Present Illness Initial Comments: 's patient is 63-year-old man brought by EMS to be evaluated for depression/suicidal ideation. Patient had reportedly called 911 and then described suicidal ideation. When I interview the patient, he states he is very depressed. He states he is at wits end. (Lukas Ward) - Related Data Home Medications Medication Instructions Recorded Confirmed Gabapentin 600 mg PO TID 11/03/20 11/17/22 methocarbamoL 750 mg PO Q8H 11/03/20 11/17/22 traZODone HCL 150 mg PO HS 11/03/20 11/17/22 Latanoprost/Pf [Latanoprost 0.005% 1 drop BOTH EYES HS 03/12/21 11/17/22 Eye Drop] DULoxetine HCL [Cymbalta] 30 mg PO DAILY 11/17/22 11/17/22 LORazepam [Ativan] 0.5 - 1 mg PO TID PRN 11/17/22 11/17/22 Ofloxacin 0.3% Ophth Soln [Ocuflox 1 drops RIGHT EYE QID 11/17/22 11/17/22 Ophth Soln] Pantoprazole [Protonix] 40 mg PO BID 11/17/22 11/17/22 prednisoLONE ACETATE 1% OPHTH 1 drops RIGHT EYE QID 11/17/22 11/17/22 [Pred Forte 1%] Allergies Allergy/AdvReac Type Severity Reaction Status Date / Time buprenorphine [From Butrans] Allergy BUTRANS Verified 11/17/22 22:06 PATCH-ITCHING OF SKIN AND DISCOLORATION diclofenac [From Arthrotec] AdvReac DIZZY, Verified 11/17/22 22:06 LIGHTHEADED, "FELT STONED" mirtazapine [From Remeron] AdvReac DIZZY, Verified 11/17/22 22:06 LIGHTHEADED, "FELT STONED" misoprostol [From Arthrotec] AdvReac DIZZY, Verified 11/17/22 22:06 LIGHTHEADED, "FELT STONED" Review of Systems ROS Other: All systems not noted in ROS Statement are negative. <Gustabo Coronado - Last Filed: 06/11/23 13:31> ROS Other: All systems not noted in ROS Statement are negative. Constitutional: Denies: fever Eyes: Denies: vision change Respiratory: Denies: cough, dyspnea Cardiovascular: Denies: chest pain, syncope Gastrointestinal: Denies: abdominal pain, vomiting, diarrhea Genitourinary: Denies: dysuria Musculoskeletal: Denies: back pain Skin: Denies: rash Neurological: Denies: headache, weakness Psychiatric: Reports: depression <Lukas Ward - Last Filed: 06/30/23 11:02> ROS Statement: Those systems with pertinent positive or pertinent negative responses have been documented in the HPI. Past Medical History Past Medical History: Asthma, COPD, Pulmonary Embolus (PE) Additional Past Medical History / Comment(s): HX: chronic diarrhea and weight loss, alcoholism, bilateral lung pulmonary embolisms-in 2012 and previous to that, R lung pleurisy, asthma as child, back pain and sciatica, R foot drop with numbness and tingling to R foot due to pinched nerves, multifactoral anemia, e levated LFTs, 1996 R hand fracture. History of Any Multi-Drug Resistant Organisms: None Reported Past Surgical History: Back Surgery, Orthopedic Surgery Additional Past Surgical History / Comment(s): back-fusions x 2 L4, L5, S1 with hardware, cataracts bilateral with lens implants, rotator cuff right shoulder, colonoscopies Past Anesthesia/Blood Transfusion Reactions: No Reported Reaction Past Psychological History: Anxiety, Depression Smoking Status: Current every day smoker Past Alcohol Use History: Abuse, Daily, Heavy Past Drug Use History: Cocaine, Marijuana - Past Family History Mother Family Medical History: Cancer Additional Family Medical History / Comment(s): Mother of pancreatic cancer at age 82 yrs. Father Family Medical History: Cancer Additional Family Medical History / Comment(s): Father of lung cancer at 86yrs. He was a heavy smoker. hx colon cancer Brother(s) Family Medical History: Cancer Additional Family Medical History / Comment(s): (1) lymphoma, (1) BRAIN CANCER Sister(s) Family Medical History: Cancer Additional Family Medical History / Comment(s): lung cancer and throat cancer <Lukas Ward - Last Filed: 06/30/23 11:02> General Exam General appearance: alert, in no apparent distress Head exam: Present: atraumatic, normocephalic Eye exam: Present: normal appearance. Absent: scleral icterus, conjunctival injection Neck exam: Present: normal inspection Respiratory exam: Present: normal lung sounds bilaterally. Absent: respiratory distress, wheezes, rales, rhonchi, stridor Cardiovascular Exam: Present: regular rate, normal rhythm, normal heart sounds. Absent: systolic murmur, diastolic murmur, rubs, gallop GI/Abdominal exam: Present: soft. Absent: distended, tenderness, guarding, rebound, rigid, mass Extremities exam: Present: normal inspection, normal capillary refill. Absent: pedal edema, calf tenderness Back exam: Present: normal inspection. Absent: CVA tenderness (R), CVA tenderness (L) Neurological exam: Present: alert Psychiatric exam: Present: depressed, flat affect. Absent: agitated, anxious, manic, homicidal ideation Skin exam: Present: warm, dry, intact, normal color. Absent: rash <Lukas Ward - Last Filed: 06/30/23 11:02> Course Vital Signs 06/11/23 06/11/23 06/11/23 01:50 11:31 14:40 Temperature 98.0 F 98.6 F 97.9 F Pulse Rate 89 106 H 99 Respiratory 20 18 20 Rate Blood Pressure 128/86 137/83 138/76 O2 Sat by Pulse 97 98 99 Oximetry Medical Decision Making <Lukas Ward - Last Filed: 06/30/23 11:02> - Medical Decision Making Was pt. sent in by a medical professional or institution (, PA, RETAIL SOLAR ADVISOR, urgent care, hospital, or usp...) When possible be specific @ -[No] Did you speak to anyone other than the patient for history (EMS, parent, family, police, friend...)? What history was obtained from this source @ -[No] Did you review nursing and triage notes (agree or disagree)? Why? @ -[I reviewed and agree with nursing and triage notes] Were old charts reviewed (outside hosp., previous admission, EMS record, old EKG, old radiological studies, urgent care reports/EKG's, usp records)? Report findings @ -[No old charts were reviewed] Differential Diagnosis (chest pain, altered mental status, abdominal pain women, abdominal pain men, vaginal bleeding, weakness, fever, dyspnea, syncope, headache, dizziness, GI bleed, back pain, seizure, CVA, palpatations, mental health, musculoskeletal)? @ -[Differential Mental Health Depression, anxiety, bipolar, psychosis, schizophrenia, borderline personality, situational depression, adjustment disorder, behavioral disorder, brain tumor, malingering, substance abuse, encephalopathy, medication reaction, dementia, hypothyroidism, degenerative neurologic disorder, lupus.... This is not meant to be all-inclusive list EKG interpreted by me (3pts min.). @ -[As above] X-rays interpreted by me (1pt min.). @ -[None done] CT interpreted by me (1pt min.). @ -[None done] U/S interpreted by me (1pt. min.). @ -[None done] What testing was considered but not performed or refused? (CT, X-rays, U/S, labs)? Why? @ -[None] What meds were considered but not given or refused? Why? @ -[None] Did you discuss the management of the patient with other professionals (professionals i.e. , PA, RETAIL SOLAR ADVISOR, lab, RT, psych nurse, pediatric social worker, utility tender carding, teacher, [employer] revenue officer, nurse case management)? Give summary @ -[Case was discussed with EPS personnel Was smoking cessation discussed for >3mins.? @ -[No] Was critical care preformed (if so, how long)? @ -[No] Were there social determinants of health that impacted care today? How? (Homelessness, low income, unemployed, alcoholism, drug addiction, transportation, low edu. Level, literacy, decrease access to med. care, [facility], rehab)? @ -[No] Was there de-escalation of care discussed even if they declined (Discuss DNR or withdrawal of care, Hospice)? DNR status @ -[No] What co-morbidities impacted this encounter? (DM, HTN, Smoking, COPD, CAD, Cancer, CVA, ARF, Chemo, Hep., AIDS, mental health diagnosis, sleep apnea, morbid obesity)? @ -[None] Was patient admitted / discharged? Hospital course, mention meds given and route, prescriptions, significant lab abnormalities, going to OR and other pertinent info. @ -[Patient is 63-year-old man who was here to have mental health evaluation for suicidal ideation. The patient was pending disposition at the shift change. It was reported to me that he had evaluation and then was stable to have further care as outpatient. Undiagnosed new problem with uncertain prognosis? @ -[No] Drug Therapy requiring intensive monitoring for toxicity (Heparin, Nitro, Insulin, Cardizem)? @ -[No] Were any procedures done? @ -[No] Diagnosis/symptom? @ -[Acute mood disorder Alcohol intoxication Acute, or Chronic, or Acute on Chronic? @ -[default] Uncomplicated (without systemic symptoms) or Complicated (systemic symptoms)? @ -[Uncomplicated Side effects of treatment? @ -[No] Exacerbation, Progression, or Severe Exacerbation? @ -[No] Poses a threat to life or bodily function? How? (Chest pain, [place], [place], pneumonia, PE, COPD, DKA, ARF, appy, cholecystitis, CVA, Diverticulitis, Homicidal, Suicidal, threat to staff... and all critical care pts) @ -[No] (Lukas Ward) Disposition <Gustabo Coronado - Last Filed: 06/11/23 13:31> Is patient prescribed a controlled substance at d/c from ED?: No <Lukas Ward - Last Filed: 06/30/23 11:02> Clinical Impression: Alcoholic intoxication, Mood disorder Disposition: HOME SELF-CARE Instructions (If sedation given, give patient instructions): Suicide Prevention (ED) Referrals: Emile Augustine DO [Primary Care Provider] - 1-2 days
[2023-06-11] MEDS ORDERED: LORazepam 1 MG TAB PO STA (02:52)
[2023-06-11 14:43] VITALS: BP 138/76; PULSE 99; RESP 20; TEMP 97.9
== END 2023-06-11 14:41 | disposition home or self-care (01) ==
LOC: EC 00:57
DX: F10.929 Alcohol use, unspecified with intoxication, unspecified (principal); F39 Unspecified mood [affective] disorder; J44.89 Other specified chronic obstructive pulmonary disease; F41.9 Anxiety disorder, unspecified; F32.A Depression, unspecified; F17.200 Nicotine dependence, unspecified, uncomplicated; F12.90 Cannabis use, unspecified, uncomplicated; F14.90 Cocaine use, unspecified, uncomplicated; Z79.899 Other long term (current) drug therapy; Z88.5 Allergy status to narcotic agent; Z88.8 Allergy status to other drugs, medicaments and biological substances; Z88.6 Allergy status to analgesic agent
CPT/HCPCS: 82075; 99285

== ENCOUNTER 2023-09-24 21:03 | Inpatient (IN) | payer MEDICARE, OTHER ==
[2023-09-24] MEDS ORDERED: IPRATROPIUM-ALBUTEROL 3 ML NEB INHALATION PRN (21:08)
--- NOTE | 2023-09-24 21:08 | ED ---
Abdominal Pain HPI - General Stated Complaint: abd pain Time Seen by Provider: 09/24/23 21:05 Source: RN notes reviewed, old records reviewed Limitations: no limitations - History of Present Illness Initial Comments: This is a 63-year-old male to the ER for evaluation today. Patient was today for evaluation of abdominal pain. Patient has severe abdominal pain with shortness of breath. Patient has no travel history or sick contacts. Patient has no fevers cough or congestion which is severe abdominal pain here in the ER does admit to drinking alcohol today MD Complaint: abdominal pain -: days(s) Location: epigastric Radiation: epigastric Migration to: epigastric Severity: moderate Severity scale (1-10): 6 Quality: cramping, stabbing, fullness, sharp Consistency: constant Improves With: nothing Worsens With: nothing Associated Symptoms: nausea, vomiting, constipation Treatments Prior to Arrival: other (0) - Related Data Home Medications Medication Instructions Recorded Confirmed Gabapentin 600 mg PO TID 11/03/20 09/24/23 methocarbamoL 750 mg PO BID 11/03/20 09/24/23 traZODone HCL 150 mg PO HS 11/03/20 09/24/23 Latanoprost/Pf [Latanoprost 0.005% 1 drop BOTH EYES HS 03/12/21 09/24/23 Eye Drop] DULoxetine HCL [Cymbalta] 30 mg PO DAILY 11/17/22 09/24/23 LORazepam [Ativan] 0.5 - 1 mg PO TID PRN 11/17/22 09/24/23 Ascorbic Acid [Vitamin C] 1,000 mg PO DAILY 09/24/23 09/24/23 Aspirin EC [Ecotrin] 325 mg PO DAILY 09/24/23 09/24/23 Cholecalciferol (Vitamin D3) 50 mcg PO DAILY 09/24/23 09/24/23 [Vitamin D3 (50 Mcg = 2000 Iu)] Multivitamins, Thera [Multivitamin 1 tab PO DAILY 09/24/23 09/24/23 (formulary)] Vitamin B Complex 1 cap PO DAILY 09/24/23 09/24/23 Vitamin C/Biotin [Hair, Skin and 1 tab PO DAILY 09/24/23 09/24/23 Nails Chew] Previous Rx's Medication Instructions Recorded Folic Acid 1 mg PO DAILY #30 tab 09/27/23 Nicotine 21Mg/24Hr Patch [Habitrol] 1 patch TRANSDERM DAILY #30 patch 09/27/23 Pantoprazole [Protonix] 40 mg PO DAILY #30 tab 09/27/23 Allergies Allergy/AdvReac Type Severity Reaction Status Date / Time buprenorphine [From Butrans] Allergy BUTRANS Verified 09/24/23 23:12 PATCH-ITCHING OF SKIN AND DISCOLORATION diclofenac [From Arthrotec] AdvReac DIZZY, Verified 09/24/23 23:12 LIGHTHEADED, "FELT STONED" mirtazapine [From Remeron] AdvReac DIZZY, Verified 09/24/23 23:12 LIGHTHEADED, "FELT STONED" misoprostol [From Arthrotec] AdvReac DIZZY, Verified 09/24/23 23:12 LIGHTHEADED, "FELT STONED" Review of Systems ROS Statement: Those systems with pertinent positive or pertinent negative responses have been documented in the HPI. ROS Other: All systems not noted in ROS Statement are negative. Past Medical History Past Medical History: Asthma, COPD, Pulmonary Embolus (PE) Additional Past Medical History / Comment(s): HX: chronic diarrhea and weight loss, alcoholism, bilateral lung pulmonary embolisms-in 2012 and previous to that, R lung pleurisy, asthma as child, back pain and sciatica, R foot drop with numbness and tingling to R foot due to pinched nerves, multifactoral anemia, elevated LFTs, 1997 R hand fracture. History of Any Multi-Drug Resistant Organisms: None Reported Past Surgical History: Back Surgery, Orthopedic Surgery Additional Past Surgical History / Comment(s): back-fusions x 2 L4, L5, S1 with hardware, cataracts bilateral with lens implants, rotator cuff right shoulder, colonoscopies Past Anesthesia/Blood Transfusion Reactions: No Reported Reaction Past Psychological History: Anxiety, Depression Smoking Status: Current every day smoker Past Alcohol Use History: Abuse, Daily, Heavy Past Drug Use History: Cocaine, Marijuana - Past Family History Mother Family Medical History: Cancer Additional Family Medical History / Comment(s): Mother of pancreatic cancer at age 82 yrs. Father Family Medical History: Cancer Additional Family Medical History / Comment(s): Father of lung cancer at 86 yrs. He was a heavy smoker. hx colon cancer Brother(s) Family Medical History: Cancer Additional Family Medical History / Comment(s): (1) lymphoma, (1) BRAIN CANCER Sister(s) Family Medical History: Cancer Additional Family Medical History / Comment(s): lung cancer and throat cancer General Exam General appearance: alert, in no apparent distress Head exam: Present: atraumatic, normocephalic, normal inspection Eye exam: Present: normal appearance, PERRL, EOMI. Absent: scleral icterus, conjunctival injection, periorbital swelling ENT exam: Present: normal exam, mucous membranes moist Neck exam: Present: normal inspection. Absent: tenderness, meningismus, lymphadenopathy Respiratory exam: Present: normal lung sounds bilaterally. Absent: respiratory distress, wheezes, rales, rhonchi, stridor Cardiovascular Exam: Present: regular rate, normal rhythm, normal heart sounds. Absent: systolic murmur, diastolic murmur, rubs, gallop, clicks GI/Abdominal exam: Present: soft, normal bowel sounds. Absent: distended, tenderness, guarding, rebound, rigid Extremities exam: Present: normal inspection, full ROM, normal capillary refill. Absent: tenderness, pedal edema, joint swelling, calf tenderness Back exam: Present: normal inspection Neurological exam: Present: alert, oriented X3, CN II-XII intact Psychiatric exam: Present: normal affect, normal mood Skin exam: Present: warm, dry, intact, normal color. Absent: rash Course Vital Signs 09/24/23 09/24/23 09/24/23 21:05 21:20 21:22 Temperature 97.9 F Pulse Rate 103 H Respiratory 18 Rate Blood Pressure 154/88 O2 Sat by Pulse 97 97 Oximetry 09/24/23 09/24/23 09/24/23 21:27 21:30 21:37 Temperature Pulse Rate 89 84 85 Respiratory 16 Rate Blood Pressure 134/99 O2 Sat by Pulse 100 Oximetry 09/24/23 09/24/23 09/24/23 22:00 22:30 23:00 Temperature Pulse Rate 96 100 Respiratory 16 14 Rate Blood Pressure 140/95 124/91 136/83 O2 Sat by Pulse Oximetry 09/24/23 09/25/23 23:30 00:00 Temperature Pulse Rate 86 87 Respiratory 18 20 Rate Blood Pressure 133/80 132/82 O2 Sat by Pulse 98 99 Oximetry - Reevaluation(s) Reevaluation #1: 09/24/23 22:45 Medical records reviewed Reevaluation #2: 09/24/23 22:45 Patient symptoms improved Reevaluation #3: 09/24/23 22:45 Patient informed of results and questions answered Reevaluation #4: Was pt. sent in by a medical professional or institution ([facility] Gill, [employer], urgent care, hospital, or detention...) When possible be specific @ -no Did you speak to anyone other than the patient for history (EMS, parent, family, police, friend...)? What history was obtained from this source @ -no Did you review nursing and triage notes (agree or disagree)? Why? @ -agree Are old charts reviewed (outside hosp., previous admission, EMS record, old EKG, old radiological studies, urgent care reports/EKG's, detention records)? Report findings @ -yes Differential Diagnosis (chest pain, altered mental status, abdominal pain women, abdominal pain men, vaginal bleeding, weakness, fever, dyspnea, syncope, headache, dizziness, GI bleed, back pain, seizure, CVA, palpatations, mental health, musculoskeletal)? @ -prior EKG interpreted by me (3pts min.). @ -yes X-rays interpreted by me (1pt min.). @ -no CT interpreted by me (1pt min.). @ -yes negative for acute disease U/S interpreted by me (1pt. min.). @ -no What testing was considered but not performed or refused? (CT, X-rays, U/S, labs)? Why? @ -none What meds were considered but not given or refused? Why? @ -none Did you discuss the management of the patient with other professionals (professionals i.e. , [facility], [employer], lab, RT, psych nurse, social security benefits interviewer, retail property manager, teacher, digital marketing officer, continuous pillowcase cutter)? Give summary @ -no Was smoking cessation discussed for >3mins.? @ -no Was critical care preformed (if so, how long)? @ -no Were there social determinants of health that impacted care today? How? (Homelessness, low income, unemployed, alcoholism, drug addiction, tr ansportation, low edu. Level, literacy, decrease access to med. care, assisted, rehab)? @ -none Was there de-escalation of care discussed even if they declined (Discuss DNR or withdrawal of care, Hospice)? DNR status @ -no What co-morbidities impacted this encounter? (DM, HTN, Smoking, COPD, CAD, Canc er, CVA, ARF, Chemo, Hep., AIDS, mental health diagnosis, sleep apnea, morbid obesity)? @ -none Was patient admitted / discharged? Hospital course, mention meds given and route, prescriptions, significant lab abnormalities, going to OR and other pertinent info. @ - 63 male to ER for evaluation of abdominal pain. Positive alcohol intoxication, positive pancreatitis. Patient admitted for pain control and breathing treatments as needed Admitted Undiagnosed new problem with uncertain prognosis? @ -no Drug Therapy requiring intensive monitoring for toxicity (Heparin, Nitro, Insulin, Cardizem)? @ -no Were any procedures done? @ -no Diagnosis/symptom? @ -CP, Pancreatitis, COPD, ETOH Acute, or Chronic, or Acute on Chronic? @ -Acute Uncomplicated (without systemic symptoms) or Complicated (systemic symptoms)? @ -Complicated Side effects of treatment? @ -no Exacerbation, Progression, or Severe Exacerbation? @ -exacerbation Poses a threat to life or bodily function? How? (Chest pain, [place], [place], pneumonia, PE, COPD, DKA, ARF, appy, cholecystitis, CVA, Diverticulitis, Homicidal, Suicida l, threat to staff... and all critical care pts) @ -yes w pancreatitis Reevaluation #5: Differential Abdominal Pain Men: Appendicitis, cholecystitis, diverticulosis, ischemic bowel, pancreatitis, hepatitis, UTI, gastroenteritis, AAA, incarcerated hernia, bowel obstruction, constipation, inflammatory bowel, hepatitis, peptic ulcer disease, splenic infarction, perforated viscus, testicular torsion, this is not meant to be an all-inclusive list Differential Chest Pain: Stable Angina, Unstable Angina, STEMI, NSTEMI Aortic Dissection, Pneumothorax, Musculoskeletal, Esophageal Spasm GERD, Cholecystitis, Pancreatitis, Zoster, this is not meant to be an all-inclusive list. - Consultations Consultation #1: Spoke with Dr. Meza who agrees to admit this patient Medical Decision Making - Medical Decision Making 63 male to ER for evaluation of abdominal pain. Positive alcohol intoxication, positive pancreatitis. Patient admitted for pain control and breathing treatments as needed - Lab Data Result diagrams: 09/25/23 06:59 09/25/23 06:59 Lab Results 0309/24/23 09/24/23 Range/Units 21:10 21:10 21:10 WBC 4.4 (3.8-10.6) k/uL RBC 3.34 L (4.30-5.90) m/uL Hgb 13.2 (13.0-17.5) gm/dL Hct 38.1 L (39.0-53.0) % MCV 114.2 H (80.0-100.0) fL MCH 39.7 H (25.0-35.0) pg MCHC 34.7 (31.0-37.0) g/dL RDW 13.0 (11.5-15.5) % Plt Count 228 (150-450) k/uL MPV 7.9 Neutrophils % 55 % Lymphocytes % 30 % Monocytes % 9 % Eosinophils % 1 % Basophils % 1 % Neutrophils # 2.4 (1.3-7.7) k/uL Lymphocytes # 1.3 (1.0-4.8) k/uL Monocytes # 0.4 (0-1.0) k/uL Eosinophils # 0.0 (0-0.7) k/uL Basophils # 0.1 (0-0.2) k/uL Manual Slide Review Performed Polychromasia Present Macrocytosis Marked A PT 12.4 (10.0-12.5) sec INR 1.2 H (<1.2) APTT 26.4 (22.0-30.0) sec Sodium (137-145) mmol/L Potassium (3.5-5.1) mmol/L Chloride (98-107) mmol/L Carbon Dioxide (22-30) mmol/L Anion Gap mmol/L BUN (9-20) mg/dL Creatinine (0.66-1.25) mg/dL Est GFR (CKD-EPI)AfAm (>60 ml/min/1.73 sqM) Est GFR (CKD-EPI)NonAf (>60 ml/min/1.73 sqM) Glucose (74-99) mg/dL Calcium (8.4-10.2) mg/dL Phosphorus (2.5-4.5) mg/dL Magnesium (1.6-2.3) mg/dL Total Bilirubin (0.2-1.3) mg/dL AST (17-59) U/L ALT (4-49) U/L Alkaline Phosphatase (38-126) U/L Troponin I (0.000-0.034) ng/mL NT-Pro-B Natriuret Pep pg/mL Total Protein (6.3-8.2) g/dL Albumin (3.5-5.0) g/dL Lipase (23-300) U/L Urine Color Colorless Urine Appearance Clear (Clear) Urine pH 5.5 (5.0-8.0) Ur Specific [place] 1.008 (1.001-1.035) Urine Protein Negative (Negative) Urine Glucose (UA) Negative (Negative) Urine Ketones Negative (Negative) Urine Blood Negative (Negative) Urine Nitrite Negative (Negative) Urine Bilirubin Negative (Negative) Urine Urobilinogen <2.0 (<2.0) mg/dL Ur Leukocyte Esterase Negative (Negative) Serum Alcohol mg/dL 09/24/23 09/24/23 09/24/23 Range/Units 21:10 21:10 21:58 WBC (3.8-10.6) k/uL RBC (4.30-5.90) m/uL Hgb (13.0-17.5) gm/dL Hct (39.0-53.0) % MCV (80.0-100.0) fL MCH (25.0-35.0) pg MCHC (31.0-37.0) g/dL RDW (11.5-15.5) % Plt Count (150-450) k/uL MPV Neutrophils % % Lymphocytes % % Monocytes % % Eosinophils % % Basophils % % Neutrophils # (1.3-7.7) k/uL Lymphocytes # (1.0-4.8) k/uL Monocytes # (0-1.0) k/uL Eosinophils # (0-0.7) k/uL Basophils # (0-0.2) k/uL Manual Slide Review Polychromasia Macrocytosis PT (10.0-12.5) sec INR (<1.2) APTT (22.0-30.0) sec Sodium 132 L (137-145) mmol/L Potassium 4.2 (3.5-5.1) mmol/L Chloride 100 (98-107) mmol/L Carbon Dioxide 19 L (22-30) mmol/L Anion Gap 13 mmol/L BUN <2 L (9-20) mg/dL Creatinine 0.49 L (0.66-1.25) mg/dL Est GFR (CKD-EPI)AfAm >90 (>60 ml/min/1.73 sqM) Est GFR (CKD-EPI)NonAf >90 (>60 ml/min/1.73 sqM) Glucose 82 (74-99) mg/dL Calcium 9.2 (8.4-10.2) mg/dL Phosphorus 4.0 (2.5-4.5) mg/dL Magnesium 1.5 L (1.6-2.3) mg/dL Total Bilirubin 0.8 (0.2-1.3) mg/dL AST 74 H (17-59) U/L ALT 35 (4-49) U/L Alkaline Phosphatase 101 (38-126) U/L Troponin I <0.012 (0.000-0.034) ng/mL NT-Pro-B Natriuret Pep 265 pg/mL Total Protein 7.3 (6.3-8.2) g/dL Albumin 4.3 (3.5-5.0) g/dL Lipase 1737 H (23-300) U/L Urine Color Urine Appearance (Clear) Urine pH (5.0-8.0) Ur Specific [place] (1.001-1.035) Urine Protein (Negative) Urine Glucose (UA) (Negative) Urine Ketones (Negative) Urine Blood (Negative) Urine Nitrite (Negative) Urine Bilirubin (Negative) Urine Urobilinogen (<2.0) mg/dL Ur Leukocyte Esterase (Negative) Serum Alcohol 135 mg/dL - EKG Data -: EKG Interpreted by Me (EKG is sinus 85 CO 155 QRS 98 QTc 470) - Radiology Data Radiology results: report reviewed (CTA chest abdomen pelvis negative for acute disease), image reviewed Disposition Clinical Impression: Pancreatitis, Abdominal colic, Acute exacerbation of chronic obstructive airways disease, Alcoholic intoxication, Abdominal pain Disposition: ADMITTED IP TO THIS HOSP Is patient prescribed a controlled substance at d/c from ED?: No Time of Disposition: 22:45
[2023-09-24 21:22] LABS: Basophils # (A) 0.1 k/uL (0-0.2); Basophils % (A) 1 %; Eosinophils % (A) 1 %; HCT 38.1 % (39.0-53.0); HGB 13.2 gm/dL (13.0-17.5); Lymphocytes # (A) 1.3 k/uL (1.0-4.8); Lymphocytes % (A) 30 %; MCH 39.7 pg (25.0-35.0); MCHC 34.7 g/dL (31.0-37.0); MCV 114.2 fL (80.0-100.0); Macrocytosis Marked; Mean Platelet Volume 7.9; Monocytes # (A) 0.4 k/uL (0-1.0); Monocytes % (A) 9 %; Neutrophils # (A) 2.4 k/uL (1.3-7.7); Neutrophils % (A) 55 %; Platelet Count 228 k/uL (150-450); RBC 3.34 m/uL (4.30-5.90); WBC 4.4 k/uL (3.8-10.6)
[2023-09-24] MEDS: SODIUM CHLORIDE 0.9% 1,000 ML IV STA (21:24)
[2023-09-24] MEDS: IPRATROPIUM-ALBUTEROL 3 ML NEB INHALATION STA (21:27)
[2023-09-24 21:37] LABS: ALT 35 U/L (4-49); AST 74 U/L (17-59); African American GFR (CKD) >90 (>60 ml/min/1.73 sqM); Albumin 4.3 g/dL (3.5-5.0); Alkaline Phosphatase 101 U/L (38-126); Anion Gap 13 mmol/L; Blood Urea Nitrogen <2 mg/dL (9-20); Calcium 9.2 mg/dL (8.4-10.2); Carbon Dioxide 19 mmol/L (22-30); Chloride 100 mmol/L (98-107); Glucose 82 mg/dL (74-99); INR 1.2 (<1.2); Magnesium 1.5 mg/dL (1.6-2.3); Non-African American GFR(CKD) >90 (>60 ml/min/1.73 sqM); Partial Thromboplastin Time 26.4 sec (22.0-30.0); Potassium 4.2 mmol/L (3.5-5.1); Prothrombin Time 12.4 sec (10.0-12.5); Sodium 132 mmol/L (137-145); Total Bilirubin 0.8 mg/dL (0.2-1.3); Total Protein 7.3 g/dL (6.3-8.2)
[2023-09-24 21:43] LABS: Polychromasia Present
[2023-09-24 21:45] LABS: NT-Pro-B-Type Natriuretic Pept 265 pg/mL
[2023-09-24 21:47] LABS: Alcohol 135 mg/dL
[2023-09-24] MEDS: MAGNESIUM OXIDE 400 MG TAB PO STA ×2 (22:21)
[2023-09-24] MEDS: HYDROmorphone 1 MG/ML 1 ML SYRINGE IVP STA (22:22)
[2023-09-24] MEDS: MAGNESIUM SULFATE-D5W PMX 1 GM in DEXTROSE/WATER 1 100ML.BAG IVPB SCH (22:24)
--- NOTE | 2023-09-24 22:25 | CT ---
EXAM: CT Abdomen and Pelvis With Intravenous Contrast CLINICAL HISTORY: ITS.REASON CT Reason: pain TECHNIQUE: Axial computed tomography images of the abdomen and pelvis with intravenous contrast. CTDI is 6 mGy and DLP is 979.3 mGy-cm. This CT exam was performed using one or more of the following dose reduction techniques: automated exposure control, adjustment of the mA and/or kV according to patient size, and/or use of iterative reconstruction technique. COMPARISON: CT abdomen and pelvis July 07, 2018. FINDINGS: Lung bases: Atelectasis at the lung bases. ABDOMEN: Liver: Hepatic steatosis. Gallbladder and bile ducts: Unremarkable. No calcified stones. No ductal dilation. Pancreas: Unremarkable. No mass. No ductal dilation. Spleen: Unremarkable. No splenomegaly. Adrenals: Unremarkable. No mass. Kidneys and ureters: Unremarkable. No solid mass. No hydronephrosis. Stomach and bowel: Diverticulosis, without acute diverticulitis. No bowel obstruction. No free intraperitoneal air. PELVIS: Appendix: No findings to suggest acute appendicitis. Bladder: Unremarkable. No mass. Reproductive: Unremarkable as visualized. ABDOMEN and PELVIS: Intraperitoneal space: Unremarkable. No free air. No significant fluid collection. Bones/joints: Multilevel posterior lumbosacral fusion hardware. No acute fracture. No dislocation. Soft tissues: Unremarkable. Vasculature: Unremarkable. No abdominal aortic aneurysm. Lymph nodes: Unremarkable. No enlarged lymph nodes. IMPRESSION: 1. Hepatic steatosis. 2. Diverticulosis, without acute diverticulitis. No bowel obstruction. No free intraperitoneal air.
[2023-09-24 22:35] LABS: Appearance,Urine Clear (Clear); Bilirubin,Urine Negative (Negative); Blood,Urine Negative (Negative); Color,Urine Colorless; Glucose,Urine (UA) Negative (Negative); Ketones,Urine Negative (Negative); Leukocyte Esterase,Urine Negative (Negative); Nitrite,Urine Negative (Negative); PH, Urine 5.5 (5.0-8.0); Protein,Urine Negative (Negative); Specific Gravity,Urine 1.008 (1.001-1.035); Urobilinogen,Urine <2.0 mg/dL (<2.0)
--- NOTE | 2023-09-24 22:36 | CT ---
EXAM: CT Angiography Chest With Intravenous Contrast CLINICAL HISTORY: ITS.REASON CT Reason: cp TECHNIQUE: Axial computed tomographic angiography images of the chest with intravenous contrast. CTDI is 6 mGy and DLP is 979.3 mGy-cm. This CT exam was performed using one or more of the following dose reduction techniques: automated exposure control, adjustment of the mA and/or kV according to patient size, and/or use of iterative reconstruction technique. MIP reconstructed images were created and reviewed. COMPARISON: No relevant prior studies available. FINDINGS: Pulmonary arteries: Unremarkable. No acute pulmonary embolism. Aorta: Atherosclerotic changes of the aorta. No thoracic aortic aneurysm. Lungs: Unremarkable. No mass. No consolidation. Pleural space: Unremarkable. No focal consolidation, pleural effusion, or pneumothorax. Heart: Unremarkable. No cardiomegaly. No significant pericardial effusion. No evidence of RV dysfunction. Bones/joints: Degenerative changes of the spine. Multilevel posterior lumbar fusion hardware. No acute fracture. No dislocation. Soft tissues: Unremarkable. Lymph nodes: Unremarkable. No enlarged lymph nodes. IMPRESSION: 1. No acute pulmonary embolism. 2. No focal consolidation, pleural effusion, or pneumothorax.
[2023-09-24] MEDS ORDERED: LORazepam 1 MG TAB PO PRN ×3 (22:42)
[2023-09-24] MEDS ORDERED: NALOXONE 0.4 MG/ML 1 ML VIAL IV PRN (22:42)
[2023-09-24] MEDS ORDERED: LORazepam 2 MG/ML INJ IV PRN ×3 (22:42)
[2023-09-24] MEDS: NICOTINE 21MG/24HR PATCH TRANSDERM STA (22:56)
[2023-09-24] MEDS: LORazepam 0.5 MG TAB PO PRN (22:56)
[2023-09-24] MEDS: SODIUM CHLORIDE 0.9% 1,000 ML IV SCH (23:00)
[2023-09-25] MEDS: LORazepam 1 MG TAB PO PRN (06:35)
[2023-09-25] MEDS: HYDROmorphone 1 MG/ML 1 ML SYRINGE IVP PRN (06:35)
[2023-09-25 07:18] LABS: HCT 37.2 % (39.0-53.0); HGB 12.8 gm/dL (13.0-17.5); RBC 3.22 m/uL (4.30-5.90)
[2023-09-25 07:19] LABS: Basophils % (A) 1 %; Eosinophils % (A) 1 %; Lymphocytes # (A) 1.5 k/uL (1.0-4.8); Lymphocytes % (A) 24 %; MCH 39.9 pg (25.0-35.0); MCHC 34.5 g/dL (31.0-37.0); MCV 115.6 fL (80.0-100.0); Macrocytosis Marked; Mean Platelet Volume 8.1; Monocytes # (A) 0.5 k/uL (0-1.0); Monocytes % (A) 9 %; Neutrophils # (A) 3.8 k/uL (1.3-7.7); Neutrophils % (A) 62 %; Platelet Count 234 k/uL (150-450)
[2023-09-25 07:59] LABS: ALT 32 U/L (4-49); AST 73 U/L (17-59); African American GFR (CKD) >90 (>60 ml/min/1.73 sqM); Alkaline Phosphatase 105 U/L (38-126); Anion Gap 9 mmol/L; Blood Urea Nitrogen <2 mg/dL (9-20); Calcium 8.6 mg/dL (8.4-10.2); Carbon Dioxide 17 mmol/L (22-30); Chloride 107 mmol/L (98-107); Glucose 102 mg/dL (74-99); Lipase 1311 U/L (23-300); Non-African American GFR(CKD) >90 (>60 ml/min/1.73 sqM); Phosphorus 3.8 mg/dL (2.5-4.5); Potassium 3.7 mmol/L (3.5-5.1); Sodium 133 mmol/L (137-145); Total Bilirubin 1.1 mg/dL (0.2-1.3); Total Protein 6.7 g/dL (6.3-8.2)
[2023-09-25] MEDS: MULTIVITAMINS, THERA 1 EACH TAB PO SCH (08:52)
[2023-09-25] MEDS: FOLIC ACID 1 MG TAB PO SCH (08:52)
[2023-09-25] MEDS: PANTOPRAZOLE 40 MG/10 ML VIAL IV SCH (08:52)
[2023-09-25] MEDS: GABAPENTIN 300 MG CAP PO SCH (08:52)
[2023-09-25] MEDS: DULoxetine HCL 30 MG CAPSULE.DR PO SCH (08:53)
[2023-09-25] MEDS: PANTOPRAZOLE 40 MG TABLET PO SCH (12:11)
[2023-09-25] MEDS: DEXTROSE 5%-0.45% NACL 1,000 ML IV SCH (12:18)
[2023-09-25] MEDS: diazePAM 2 MG TAB PO SCH (12:19)
[2023-09-25] MEDS: NICOTINE 21MG/24HR PATCH TRANSDERM SCH (12:19)
[2023-09-25] MEDS: ENOXAPARIN 40 MG/0.4 ML SYRINGE SQ SCH (12:19)
[2023-09-25] MEDS: ASPIRIN 325 MG TAB PO SCH (12:19)
[2023-09-25 15:08] VITALS: BMI 18.5
--- NOTE | 2023-09-25 16:20 | P.HPIM ---
History of Present Illness H&P Date: 09/25/23 Chief Complaint: Abdominal pain This is a pleasant 63-year-old patient, follows with Dr. Augustine. Chronic stable medical conditions include COPD, pulm embolism for which she is on aspirin, alcohol use disorder, pulm embolism in 2012, back pain if she [place], history of right foot drop, anxiety depression Patient is a longstanding intake of alcohol. Drinks an average of 10 beers a day 16 ounce beers. Also smokes a pack and a half a day. Patient started off with increasing abdominal pain yesterday. No nausea vomiting. No fever no chills. Progressively became worse. Last drink was yesterday. Admitted with acute pancreatitis. Initial lipase was 1737. This morning still having abdominal pain. Has been made NPO. Review of systems: GEN.: Tired EYES: None HEENT: None NECK: None RESPIRATORY: None CARDIOVASCULAR: None GASTROINTESTINAL: As above GENITOURINARY: None MUSCULOSKELETAL: Joint pains LYMPHATICS: None HEMATOLOGICAL: None PSYCHIATRY: None NEUROLOGICAL: None Social history: Smokes pack and half a day. Drinks an average of 8-12 beers of 16 ounce daily. Also in the past has done cocaine and marijuana. Also LSD. This is back in the 70s. Smoking for over 35 years. Lives with his who also has an alcohol problem Physical examination: VITAL SIGNS: Afebrile, 84, 16, 134/99, 100% room air GENERAL: BMI 18.5, tired, loss of muscle mass. EYES: Pupils equal. Conjunctiva gino l. HEENT: External appearance of nose and ears normal, oral cavity grossly normal. NECK: JVD not raised; masses not palpable. HEART: First and second heart sounds are normal; no edema. LUNGS: Respiratory rate normal; decreased breath sounds. ABDOMEN: Soft, significant epigastric tenderness, no guarding rigidity liver spleen not palpable, no masses palpable. PSYCH: [Alert and oriented x3; mood and affect a bit low. MUSCULOSKELETAL:No Clubbing/cyanosis;muscles-grossly intact. Loss of muscle mass. OA. NEUROLOGICAL: Cranial nerves grossly intact; no facial asymmetry, power and sensation grossly intact. LYMPHATICS: No lymph nodes palpable in the axilla and neck INVESTIGATIONS, reviewed in the clinical context: September 24: White count 6 hemoglobin 12.8 platelets 234 sodium 133 potassium 3.7 BUN less than 2 creatinine 0.42 AST 73 ALT 32 Lipase 1311 September 23: Lipase 1737 EKG tracing personally reviewed by me-normal sinus rhythm. Right bundle krista block CT abdomen and pelvis: Hepatic steatosis. Diverticulosis. Pancreas unremarkable CT angiography chest: Unremarkable Assessment plan: -Acute pancreatitis secondary to alcoholism CT scan unremarkable. Keep NPO. Significant pain. IV fluids. -Chronic alcohol use disorder Thiamine. Folic acid. Multivitamin. Valium 2 mg 3 times daily. CIWA scale -Moderate protein calorie malnutrition from decreased oral intake Will have patient on nutritional supplements when he is able to tolerate diet -Alcoholic hepatitis/liver disease -Chronic pulm embolism Chronically on aspirin -Chronic back pain from musculoskeletal causes -Anxiety depression Cymbalta -COPD no current smoker Albuterol as needed -Chronic nicotine dependence, cigarette smoker Nicotine patch IV fluids. NPO. Dilaudid. Okay for oral medications. Discussed with patient. Add Valium for DVT prophylaxis. CIWA scale. Past Medical History Past Medical History: Asthma, COPD, Pulmonary Embolus (PE) Additional Past Medical History / Comment(s): HX: chronic diarrhea and weight loss, alcoholism, bilateral lung pulmonary embolisms-in 2012 and previous to that, R lung pleurisy, asthma as child, back pain and sciatica, R foot drop with numbness and tingling to R foot due to pinched nerves, multifactoral anemia, elevated LFTs, 1997 R hand fracture. History of Any Multi-Drug Resistant Organisms: None Reported Past Surgical History: Back Surgery, Orthopedic Surgery Additional Past Surgical History / Comment(s): back-fusions x 2 L4, L5, S1 with hardware, cataracts bilateral with lens implants, rotator cuff right shoulder, colonoscopies carpal tunnel bilat. Past Anesthesia/Blood Transfusion Reactions: No Reported Reaction Past Psychological History: Anxiety, Depression Additional Psychological History / Comment(s): He has anxiety and depression and has had mental health unit admissions. Smoking Status: Current every day smoker Past Alcohol Use History: Abuse, Daily, Heavy Additional Past Alcohol Use History / Comment(s): pt states drinks 8-12 of 16ox beers a day. smoker for 35 years 1 1/2 ppd Past Drug Use History: Cocaine, Marijuana Additional Drug Use History / Comment(s): In the 1970's, pt used cocaine, LSD, and mesc. He has not used any of these drugs since then. - Past Family History Mother Family Medical History: Cancer Additional Family Medical History / Comment(s): Mother of pancreatic cancer at age 82 yrs. Father Family Medical History: Cancer Additional Family Medical History / Comment(s): Father of lung cancer at 86yrs. He was a heavy smoker. hx colon cancer Brother(s) Family Medical History: Cancer Additional Family Medical History / Comment(s): (1) lymphoma, (1) BRAIN CANCER Sister(s) Family Medical History: Cancer Additional Family Medical History / Comment(s): lung cancer and throat cancer Medications and Allergies Home Medications Medication Instructions Recorded Confirmed Type Gabapentin 600 mg PO TID 11/03/20 09/24/23 History methocarbamoL 750 mg PO BID 11/03/20 09/24/23 History traZODone HCL 150 mg PO HS 11/03/20 09/24/23 History Latanoprost/Pf [Latanoprost 0.005% 1 drop BOTH EYES HS 03/12/21 09/24/23 History Eye Drop] DULoxetine HCL [Cymbalta] 30 mg PO DAILY 11/17/22 09/24/23 History LORazepam [Ativan] 0.5 - 1 mg PO TID PRN 11/17/22 09/24/23 History Ascorbic Acid [Vitamin C] 1,000 mg PO DAILY 09/24/23 09/24/23 History Aspirin EC [Ecotrin] 325 mg PO DAILY 09/24/23 09/24/23 History Cholecalciferol (Vitamin D3) 50 mcg PO DAILY 09/24/23 09/24/23 History [Vitamin D3 (50 Mcg = 2000 Iu)] Multivitamins, Thera [Multivitamin 1 tab PO DAILY 09/24/23 09/24/23 History (formulary)] Vitamin B Complex 1 cap PO DAILY 09/24/23 09/24/23 History Vitamin C/Biotin [Hair, Skin and 1 tab PO DAILY 09/24/23 09/24/23 History Nails Chew] Allergies Allergy/AdvReac Type Severity Reaction Status Date / Time buprenorphine [From Butrans] Allergy BUTRANS Verified 09/24/23 23:12 PATCH-ITCHING OF SKIN AND DISCOLORATION diclofenac [From Arthrotec] AdvReac DIZZY, Verified 09/24/23 23:12 LIGHTHEADED, "FELT STONED" mirtazapine [From Remeron] AdvReac DIZZY, Verified 09/24/23 23:12 LIGHTHEADED, "FELT STONED" misoprostol [From Arthrotec] AdvReac DIZZY, Verified 09/24/23 23:12 LIGHTHEADED, "FELT STONED" Physical Exam Vitals: Vital Signs Temp Pulse Pulse Resp BP BP Pulse Ox 09/25/23 07:06 98.2 F 85 16 158/85 92 L 09/25/23 02:00 98.4 F 89 147/82 99 09/25/23 01:31 85 16 141/85 97 09/25/23 00:00 87 20 132/82 99 09/24/23 23:30 86 18 133/80 98 09/24/23 23:00 100 14 136/83 09/24/23 22:30 96 16 124/91 09/24/23 22:00 140/95 09/24/23 21:37 85 09/24/23 21:30 84 16 134/99 100 09/24/23 21:27 89 09/24/23 21:22 97 09/24/23 21:20 97.9 F 09/24/23 21:05 103 H 18 154/88 97 Intake and Output 09/24/23 09/25/23 09/25/23 22:59 06:59 14:59 Other: Voiding Method Toilet # Voids 1 # Bowel Movements 1 1 Weight 58.513 kg 58.513 kg Results CBC & Chem 7: 09/25/23 06:59 09/25/23 06:59 Labs: Abnormal Lab Results - Last 24 Hours (Table) 09/24/23 09/24/23 09/24/23 Range/Units 21:10 21:10 21:10 RBC 3.34 L (4.30-5.90) m/uL Hgb (13.0-17.5) gm/dL Hct 38.1 L (39.0-53.0) % MCV 114.2 H (80.0-100.0) fL MCH 39.7 H (25.0-35.0) pg Macrocytosis Marked A INR 1.2 H (<1.2) Sodium 132 L (137-145) mmol/L Carbon Dioxide 19 L (22-30) mmol/L BUN <2 L (9-20) mg/dL Creatinine 0.49 L (0.66-1.25) mg/dL Glucose (74-99) mg/dL Magnesium 1.5 L (1.6-2.3) mg/dL AST 74 H (17-59) U/L Lipase (23-300) U/L 09/24/23 09/25/23 09/25/23 Range/Units 21:58 06:59 06:59 RBC 3.22 L (4.30-5.90) m/uL Hgb 12.8 L (13.0-17.5) gm/dL Hct 37.2 L (39.0-53.0) % MCV 115.6 H (80.0-100.0) fL MCH 39.9 H (25.0-35.0) pg Macrocytosis Marked A INR (<1.2) Sodium 133 L (137-145) mmol/L Carbon Dioxide 17 L (22-30) mmol/L BUN <2 L (9-20) mg/dL Creatinine 0.42 L (0.66-1.25) mg/dL Glucose 102 H (74-99) mg/dL Magnesium (1.6-2.3) mg/dL AST 73 H (17-59) U/L Lipase 1737 H 1311 H (23-300) U/L Thrombosis Risk Factor Assmnt - Choose All That Apply Any of the Below Risk Factors Present?: No Other Risk Factors: Yes Each Risk Factor Represents 2 Points: Age 61-74 years Thrombosis Risk Factor Assessment Total Risk Factor Score: 2 Thrombosis Risk Factor Assessment Level: Low Risk
[2023-09-25] MEDS: THIAMINE 100 MG TAB PO SCH (17:12)
[2023-09-25] MEDS: traZODone HCL 50 MG TAB PO SCH (20:12)
[2023-09-25] MEDS: LATANOPROST 0.005% OPHTH DROPS 2.5 ML BTL BOTH EYES SCH (20:16)
--- NOTE | 2023-09-26 13:29 | P.PN ---
Progress Note - Text Progress Note Date: 09/26/23 Chief Complaint: Abdominal pain This is a pleasant 63-year-old patient, follows with Dr. Augustine. Chronic stable medical conditions include COPD, pulm embolism for which she is on aspirin, alcohol use disorder, pulm embolism in 2012, back pain if she [place], history of right foot drop, anxiety depression Patient is a longstanding intake of alcohol. Drinks an average of 10 beers a day 16 ounce beers. Also smokes a pack and a half a day. Patient started off with increasing abdominal pain yesterday. No nausea vomiting. No fever no chills. Progressively became worse. Last drink was yesterday. Admitted with acute pancreatitis. Initial lipase was 1737. This morning still having abdominal pain. Has been made NPO. September 25: Abdominal pain and tenderness better. Requesting food. Starting clear liquids. DC Dilaudid. Cut back Valium. Active Medications Albuterol/Ipratropium (Ipratropium-Albuterol 3 Ml Neb) 3 ml INHALATION RT-QID PRN PRN Reason: Shortness Of Breath Or Wheezing Aspirin (Aspirin 325 Mg Tab) 325 mg PO DAILY [facility] Last Admin: 09/26/23 09:28 Dose: 325 mg Diazepam (Diazepam 2 Mg Tab) 2 mg PO TID [facility] Stop: 09/26/23 23:59 Last Admin: 09/26/23 09:28 Dose: 2 mg Duloxetine HCl (Duloxetine Hcl 30 Mg Capsule.Dr) 30 mg PO DAILY [facility] Last Admin: 09/26/23 09:28 Dose: 30 mg Enoxaparin Sodium (Enoxaparin 40 Mg/0.4 Ml Syringe) 40 mg SQ DAILY [facility] Last Admin: 09/26/23 09:29 Dose: 40 mg Folic Acid (Folic Acid 1 Mg Tab) 1 mg PO DAILY [facility] Last Admin: 09/26/23 09:28 Dose: 1 mg Gabapentin (Gabapentin 300 Mg Cap) 600 mg PO TID [facility] Last Admin: 09/26/23 09:29 Dose: 600 mg Dextrose/Sodium Chloride (Dextrose 5%-1/2ns Iv Soln) 1,000 mls @ 130 mls/hr IV .[id number] [facility] Last Admin: 09/26/23 03:45 Dose: 130 mls/hr Latanoprost (Latanoprost 0.005% Ophth Drops 2.5 Ml Btl) 1 drops BOTH EYES [facility] Last Admin: 09/25/23 20:16 Dose: 1 drops Lorazepam (Lorazepam 2 Mg/Ml Inj) 2 mg IV Q10M PRN PRN Reason: CIWA 16 or higher Stop: 09/26/23 22:43 Lorazepam (Lorazepam 2 Mg/Ml Inj) 1 mg IV Q2HR PRN PRN Reason: CIWA 8 or 9 Lorazepam (Lorazepam 2 Mg/Ml Inj) 1 mg IV Q1HR PRN PRN Reason: CIWA 10 to 15 Lorazepam (Lorazepam 1 Mg Tab) 2 mg PO Q3HR PRN PRN Reason: Ciwa 8 To 9 Lorazepam (Lorazepam 1 Mg Tab) 2 mg PO Q2HR PRN PRN Reason: Ciwa 10 or greater Lorazepam (Lorazepam 1 Mg Tab) 1 mg PO Q4HR PRN PRN Reason: Ciwa 6 To 7 Last Admin: 09/25/23 06:35 Dose: 1 mg Lorazepam (Lorazepam 0.5 Mg Tab) 0.5 mg PO Q4HR PRN PRN Reason: Ciwa 4 To 5 Last Admin: 09/25/23 20:21 Dose: 0.5 mg Lorazepam (Lorazepam 1 Mg Tab) 1 mg PO Q1HR PRN PRN Reason: Alcohol Withdrawal Multivitamins (Multivitamins, Thera 1 Each Tab) 1 each PO DAILY [facility] Last Admin: 09/26/23 09:28 Dose: 1 each Naloxone HCl (Naloxone 0.4 Mg/Ml 1 Ml Vial) 0.2 mg IV Q2M PRN PRN Reason: Opioid Reversal Nicotine (Nicotine 21mg/24hr Patch) 1 patch TRANSDERM DAILY [facility] Last Admin: 09/26/23 09:29 Dose: 1 patch Ondansetron HCl (Ondansetron 4 Mg/2 Ml Vial) 4 mg IVP Q8HR PRN PRN Reason: Nausea And Vomiting Pantoprazole Sodium (Pantoprazole 40 Mg Tablet) 40 mg PO AC-BID [facility] Last Admin: 09/26/23 06:17 Dose: 40 mg Thiamine HCl (Thiamine 100 Mg Tab) 100 mg PO DAILY [facility] Last Admin: 09/26/23 09:29 Dose: 100 mg Trazodone HCl (Trazodone Hcl 50 Mg Tab) 150 mg PO HS [facility] Last Admin: 09/25/23 20:12 Dose: 150 mg Social history: Smokes pack and half a day. Drinks an average of 8-12 beers of 16 ounce daily. Also in the past has done cocaine and marijuana. Also LSD. This is back in the 70s. Smoking for over 35 years. Lives with his who also has an alcohol problem Physical examination: VITAL SIGNS: 99.3, 80, 19, 1 one 4 x 70, 91% room air GENERAL: Sitting up in bed, looking a bit better EYES: Pupils equal. Conjunctiva gino l. HEENT: External appearance of nose and ears normal, oral cavity grossly normal. NECK: JVD not raised; masses not palpable. HEART: First and second heart sounds are normal; no edema. LUNGS: Respiratory rate normal; decreased breath sounds. ABDOMEN: Soft, no tenderness, no guarding rigidity liver spleen not palpable, no masses palpable. PSYCH: [Alert and oriented x3; mood and affect a bit low. MUSCULOSKELETAL:No Clubbing/cyanosis;muscles-grossly intact. Loss of muscle mass. OA. INVESTIGATIONS, reviewed in the clinical context: September 25: Lipase 194 September 24: White count 6 hemoglobin 12.8 platelets 234 sodium 133 potassium 3.7 BUN less than 2 creatinine 0.42 AST 73 ALT 32 Lipase 1311 September 23: Lipase 1737 EKG tracing personally reviewed by me-normal sinus rhythm. Right bundle krista block CT abdomen and pelvis: Hepatic steatosis. Diverticulosis. Pancreas unremarkable CT angiography chest: Unremarkable Assessment plan: -Acute pancreatitis secondary to alcoholism: Better CT scan unremarkable. Start clear liquids. Advance as tolerated diet -Chronic alcohol use disorder Thiamine. Folic acid. Multivitamin. Valium cut back CIWA scale -Moderate protein calorie malnutrition from decreased oral intake Will have patient on nutritional supplements when he is able to tolerate diet -Alcoholic hepatitis/liver disease -Chronic pulm embolism Chronically on aspirin -Chronic back pain from musculoskeletal causes -Anxiety depression Cymbalta -COPD no current smoker Albuterol as needed -Chronic nicotine dependence, cigarette smoker Nicotine patch Discussed with patient. Start with clear liquids diet. Advance as tolerated. Increase activity. Past Medical History Past Medical History: Asthma, COPD, Pulmonary Embolus (PE) Additional Past Medical History / Comment(s): HX: chronic diarrhea and weight loss, alcoholism, bilateral lung pulmonary embolisms-in 2012 and previous to that, R lung pleurisy, asthma as child, back pain and sciatica, R foot drop with numbness and tingling to R foot due to pinched nerves, multifactoral anemia, elevated LFTs, 1997 R hand fracture. History of Any Multi-Drug Resistant Organisms: None Reported Past Surgical History: Back Surgery, Orthopedic Surgery Additional Past Surgical History / Comment(s): back-fusions x 2 L4, L5, S1 with hardware, cataracts bilateral with lens implants, rotator cuff right shoulder, colonoscopies carpal tunnel bilat. Past Anesthesia/Blood Transfusion Reactions: No Reported Reaction Past Psychological History: Anxiety, Depression Additional Psychological History / Comment(s): He has anxiety and depression and has had mental health unit admissions. Smoking Status: Current every day smoker Past Alcohol Use History: Abuse, Daily, Heavy Additional Past Alcohol Use History / Comment(s): pt states drinks 8-12 of 16ox beers a day. smoker for 35 years 1 1/2 ppd Past Drug Use History: Cocaine, Marijuana Additional Drug Use History / Comment(s): In the 1969's, pt used cocaine, LSD, and mesc. He has not used any of these drugs since then.
[2023-09-27] MEDS: ONDANSETRON 4 MG/2 ML VIAL IVP PRN (04:04)
[2023-09-27 07:59] VITALS: BP 122/77; PULSE 77; TEMP 98.4
[2023-09-27] MEDS: LORazepam 1 MG TAB PO SCH (08:59)
[2023-09-27 11:15] VITALS: RESP 18
--- NOTE | 2023-09-27 17:05 | P.DS ---
Providers Date of admission: 09/24/23 22:44 Expected date of discharge: 09/27/23 Attending physician: Linus Meza Primary care physician: Emile Augustine [facility] Course: Chief Complaint: Abdominal pain This is a pleasant 63-year-old patient, follows with Dr. Augustine. Chronic stable medical conditions include COPD, pulm embolism for which she is on aspirin, alcohol use disorder, pulm embolism in 2013, back pain if she [place], history of right foot drop, anxiety depression Patient is a longstanding intake of alcohol. Drinks an average of 10 beers a day 16 ounce beers. Also smokes a pack and a half a day. Patient started off with increasing abdominal pain yesterday. No nausea vomiting. No fever no chills. Progressively became worse. Last drink was yesterday. Admitted with acute pancreatitis. Initial lipase was 1737. This morning still having abdominal pain. Has been made NPO. September 25: Abdominal pain and tenderness better. Requesting food. Starting clear liquids. DC Dilaudid. Cut back Valium. September 26: Tolerating soft diet. No abdominal pain. Patient does not take any medications for chronic alcohol use. Again counseled about the same. Also counseled about smoking. Questions answered. Patient follow-up with Dr. Deja Sánchez from GI regarding his alcohol hepatitis. Discussion and discharge planning more than 35 minutes Social history: Smokes pack and half a day. Drinks an average of 8-12 beers of 16 ounce daily. Also in the past has done cocaine and marijuana. Also LSD. This is back in the 70s. Smoking for over 35 years. Lives with his who also has an alcohol problem Physical examination: VITAL SIGNS: 98.4, 77, 17, 122 x 77, 96% room air GENERAL: Sitting up in bed, comfortable EYES: Pupils equal. Conjunctiva gino l. HEENT: External appearance of nose and ears normal, oral cavity grossly normal. NECK: JVD not raised; masses not palpable. HEART: First and second heart sounds are normal; no edema. LUNGS: Respiratory rate normal; decreased breath sounds. ABDOMEN: Soft, no tenderness, no guarding rigidity liver spleen not palpable, no masses palpable. PSYCH: [Alert and oriented x3; mood and affect a bit low. MUSCULOSKELETAL:No Clubbing/cyanosis;muscles-grossly intact. Loss of muscle mass. OA. INVESTIGATIONS, reviewed in the clinical context: September 25: Lipase 194 September 24: White count 6 hemoglobin 12.8 platelets 234 sodium 133 potassium 3.7 BUN less than 2 creatinine 0.42 AST 73 ALT 32 Lipase 1311 September 23: Lipase 1737 EKG tracing personally reviewed by me-normal sinus rhythm. Right bundle krista block CT abdomen and pelvis: Hepatic steatosis. Diverticulosis. Pancreas unremarkable CT angiography chest: Unremarkable Assessment plan: -Acute pancreatitis secondary to alcoholism: Resolved CT scan unremarkable. Tolerating chopped diet -Chronic alcohol use disorder Thiamine. Folic acid. Multivitamin. Valium discontinued Patient does not want any medications for alcohol use disorder -Moderate protein calorie malnutrition from decreased oral intake Diet discussed -Alcoholic hepatitis/liver disease Follow-up with Dr. Deja Sánchez outpatient -Chronic pulm embolism Chronically on aspirin -Chronic back pain from musculoskeletal causes -Anxiety depression Cymbalta -COPD no current smoker Albuterol as needed -Chronic nicotine dependence, cigarette smoker Nicotine patch Disposition: Home Past Medical History Past Medical History: Asthma, COPD, Pulmonary Embolus (PE) Additional Past Medical History / Comment(s): HX: chronic diarrhea and weight loss, alcoholism, bilateral lung pulmonary embolisms-in 2012 and previous to that, R lung pleurisy, asthma as child, back pain and sciatica, R foot drop with numbness and tingling to R foot due to pinched nerves, multifactoral anemia, elevated LFTs, 1997 R hand fracture. History of Any Multi-Drug Resistant Organisms: None Reported Past Surgical History: Back Surgery, Orthopedic Surgery Additional Past Surgical History / Comment(s): back-fusions x 2 L4, L5, S1 with hardware, cataracts bilateral with lens implants, rotator cuff right shoulder, colonoscopies carpal tunnel bilat. Past Anesthesia/Blood Transfusion Reactions: No Reported Reaction Past Psychological History: Anxiety, Depression Additional Psychological History / Comment(s): He has anxiety and depression and has had mental health unit admissions. Smoking Status: Current every day smoker Past Alcohol Use History: Abuse, Daily, Heavy Additional Past Alcohol Use History / Comment(s): pt states drinks 8-12 of 16ox beers a day. smoker for 35 years 1 1/2 ppd Past Drug Use History: Cocaine, Marijuana Additional Drug Use History / Comment(s): In the 1970's, pt used cocaine, LSD, and mesc. He has not used any of these drugs since then. Plan - Discharge Summary Discharge Rx Participant: Yes New Discharge Prescriptions: New Nicotine 21Mg/24Hr Patch [Habitrol] 1 patch TRANSDERM DAILY #30 patch Folic Acid 1 mg PO DAILY #30 tab Pantoprazole [Protonix] 40 mg PO DAILY #30 tab Continue LORazepam [Ativan] 0.5 - 1 mg PO TID PRN PRN Reason: Anxiety Vitamin B Complex 1 cap PO DAILY Multivitamins, Thera [Multivitamin (formulary)] 1 tab PO DAILY Ascorbic Acid [Vitamin C] 1,000 mg PO DAILY Aspirin EC [Ecotrin] 325 mg PO DAILY methocarbamoL 750 mg PO BID Gabapentin 600 mg PO TID traZODone HCL 150 mg PO HS Latanoprost/Pf [Latanoprost 0.005% Eye Drop] 1 drop BOTH EYES HS DULoxetine HCL [Cymbalta] 30 mg PO DAILY Vitamin C/Biotin [Hair, Skin and Nails Chew] 1 tab PO DAILY Cholecalciferol (Vitamin D3) [Vitamin D3 (50 Mcg = 2000 Iu)] 50 mcg PO DAILY Discharge Medication List Gabapentin 600 mg PO TID 11/03/20 [History] methocarbamoL 750 mg PO BID 11/03/20 [History] traZODone HCL 150 mg PO HS 11/03/20 [History] Latanoprost/Pf [Latanoprost 0.005% Eye Drop] 1 drop BOTH EYES HS 03/12/21 [History] DULoxetine HCL [Cymbalta] 30 mg PO DAILY 11/17/22 [History] LORazepam [Ativan] 0.5 - 1 mg PO TID PRN 11/17/22 [History] Ascorbic Acid [Vitamin C] 1,000 mg PO DAILY 09/24/23 [History] Aspirin EC [Ecotrin] 325 mg PO DAILY 09/24/23 [History] Cholecalciferol (Vitamin D3) [Vitamin D3 (50 Mcg = 2000 Iu)] 50 mcg PO DAILY 09/24/23 [History] Multivitamins, Thera [Multivitamin (formulary)] 1 tab PO DAILY 09/24/23 [History] Vitamin B Complex 1 cap PO DAILY 09/24/23 [History] Vitamin C/Biotin [Hair, Skin and Nails Chew] 1 tab PO DAILY 09/24/23 [History] Folic Acid 1 mg PO DAILY #30 tab 09/27/23 [Rx] Nicotine 21Mg/24Hr Patch [Habitrol] 1 patch TRANSDERM DAILY #30 patch 09/27/23 [Rx] Pantoprazole [Protonix] 40 mg PO DAILY #30 tab 09/27/23 [Rx] Follow up Appointment(s)/Referral(s): Emile Augustine DO [Primary Care Provider] - 1-2 days (Office is closed at time of discharge. Please call for follow-up appointment.) Zena Sánchez MD [STAFF PHYSICIAN] - 2 Weeks (Office is closed at time of discharge. Please call for follow-up appointment.) Patient Instructions/Handouts: Pancreatitis (DC) Discharge Disposition: HOME SELF-CARE
== END 2023-09-27 13:08 | disposition home or self-care (01) | DRG 439 ==
LOC: EC 21:03 → 4SSUR 22:44
PROVIDERS: ADMIT Hospitalist; ATTEND Hospitalist
DX: K85.20 Alcohol induced acute pancreatitis without necrosis or infection (principal); E44.0 Moderate protein-calorie malnutrition; F10.239 Alcohol dependence with withdrawal, unspecified; J44.1 Chronic obstructive pulmonary disease with (acute) exacerbation; Z68.1 Body mass index [BMI] 19.9 or less, adult; K70.10 Alcoholic hepatitis without ascites; F10.229 Alcohol dependence with intoxication, unspecified; Y90.6 Blood alcohol level of 120-199 mg/100 ml; F32.A Depression, unspecified; F41.9 Anxiety disorder, unspecified; K59.00 Constipation, unspecified; K52.9 Noninfective gastroenteritis and colitis, unspecified; M21.371 Foot drop, right foot; M54.40 Lumbago with sciatica, unspecified side; F17.210 Nicotine dependence, cigarettes, uncomplicated; Z71.6 Tobacco abuse counseling; Z79.82 Long term (current) use of aspirin; Z79.899 Other long term (current) drug therapy; Z86.711 Personal history of pulmonary embolism; Z71.3 Dietary counseling and surveillance; Z98.1 Arthrodesis status; Z88.8 Allergy status to other drugs, medicaments and biological substances
CPT/HCPCS: 36415; 71275; 74177; 80053; 80320; 81003; 83690; 83735; 83880; 84100; 84484; 85025; 85610; 85730; 93005; 94640; 96361; 96365; 96366; 96375; 99285

== ENCOUNTER 2024-03-07 22:00 | Emergency (ER) | payer MEDICARE, OTHER ==
[~2024-03-07 22:00] MED LIST changes: +IPRATROPIUM-ALBUTEROL 3 ML NEB ONE; -LACTATED RINGERS 1,000 ML IV SCH; +SODIUM CHLORIDE 0.9% 1,000 ML BAG ONE
[2024-03-08] MEDS ORDERED: methylPREDNISolone SOD SUCCI 125 MG/2 ML VIAL ONE (01:12)
[2024-03-08] MEDS ORDERED: WATER FOR INJECTION, STERILE 10 ML IV ONE (01:12)
== END 2024-03-08 04:40 | disposition home or self-care (01) ==
LOC: EC 22:00
DX: F10.129 Alcohol abuse with intoxication, unspecified (principal)
CPT/HCPCS: 71046; 93005; 94640; 96360; 96361; 96372; 99284

== ENCOUNTER → 2024-04-21 | Outpatient (CLI) | payer MEDICARE, OTHER ==
--- NOTE | 2024-04-21 15:52 | US ---
EXAMINATION TYPE: US carotid duplex BILAT DATE OF EXAM: 04/21/2024 COMPARISON: US 2019 CLINICAL INDICATION: Male, 63 years old with history of I65.29 Occlusion and stenosis of carotid ramón ry; TECHNIQUE: Grayscale, color Doppler and spectral Doppler evaluation of the bilateral carotid systems and vertebral arteries.Indirect Doppler criteria was utilized. FINDINGS: EXAM MEASUREMENTS: RIGHT: Peak Systolic Velocity (PSV) cm/sec ----- Right CCA: 80.9 ----- Right ICA: 88.1 ----- Right ECA: 66.4 ICA/CCA ratio: 1.1 RIGHT: End Diastole cm/sec ----- Right CCA: 23.7 ----- Right ICA: 32.0 ----- Right ECA: 14.3 LEFT: Peak Systolic Velocity (PSV) cm/sec ----- Left CCA: 68.8 ----- Left ICA: 70.2 ----- Left ECA: 55.2 ICA/CCA ratio: 1.0 LEFT: End Diastole cm/sec ----- Left CCA: 17.1 ----- Left ICA: 27.3 ----- Left ECA: 13.0 VERTEBRALS (direction of flow): Right Vertebral: Antegrade Left Vertebral: Antegrade Rhythm: Normal No significant stenosis bilateral atherosclerotic plaque. IMPRESSION: No significant hemodynamic stenosis. Criteria for Assigning % of Stenosis / Diameter reduction (Estimation based on the indirect measurements of the internal carotid artery velocities (ICA PSV). 1. Normal (no stenosis)=ICA PSV < 125 cm/s: ratio < 2.0: ICA EDV<40 cm/s. 2. Less than 50% stenosis=ICA PSV < 125 cm/s: ratio < 2.0: ICA EDV<40 cm/s. 3. 50 to 69% stenosis=ICA PSV of 125 to 230 cm/s: ration 2.0 ? 4.0: ICA EDV 40-100 cm/s. 4. Greater than 70% stenosis to near occlusion= ICA PSV > 230 cm/s: ratio > 4.0: ICA EDV > 100 cm/s. 5. Near occlusion= ICA PSV velocities may be low or undetectable: variable ratio and ICA EDV. 6. Total occlusion=unable to detect flow. [facility], , 04/21/2024 3:50 PM
== END | disposition home or self-care (01) ==
LOC: RADUSWWP 14:40
PROVIDERS: ATTEND Family Medicine
DX: I65.29 Occlusion and stenosis of unspecified carotid artery (principal)
CPT/HCPCS: 93880

== ENCOUNTER → 2024-04-29 | Outpatient (CLI) | payer MEDICARE, OTHER ==
--- NOTE | 2024-04-29 09:27 | CT ---
EXAMINATION TYPE: CT brain wo con DATE OF EXAM: 04/29/2024 COMPARISON: 10/01/2022 HISTORY: lightheaded, dizzy, sense of falling CT DLP: 1116.[address] of the brain was performed. The ventricles, basal cisterns and sulci overlying the cerebral convexities demonstrate mild enlargem ent. There is no evidence for intracranial hemorrhage or sulcal effacement. There is decreased attenuation about the periventricular white matter and deep white matter of both c erebral hemispheres, compatible with chronic small vessel ischemia. Differential diagnosis does inclu de demyelination. No mass effects are seen.No midline shift. Osseous calvarium is intact. If symptoms persist consider MRI. IMPRESSION: 1. Age related atrophic and chronic small vessel ischemic change without acute intracranial process s een at this time. [facility], , 04/29/2024 9:25 AM
== END | disposition home or self-care (01) ==
LOC: RADCTMAIN 08:31
PROVIDERS: ATTEND Family Medicine
DX: F44.89 Other dissociative and conversion disorders
CPT/HCPCS: 70450

== ENCOUNTER → 2024-05-11 | Outpatient (CLI) | payer MEDICARE, OTHER ==
--- NOTE | 2024-05-11 10:34 | CT ---
EXAMINATION TYPE: CT chest w con CT DLP: 462 mGycm, Automated exposure control for dose reduction was used. DATE OF EXAM: 05/11/2024 10:23 AM COMPARISON: . Chest radiograph 03/08/2024, 02/01/2021, CTA chest 09/24/2023 CLINICAL INDICATION:Male, 64 years old with history of J91.8 PLEURAL EFFUSION IN OTH CONDITIONS; PHH, PLEURAL EFFUSION? TECHNIQUE: Multiple axial images were obtained through the chest following the administration of 100 cc of Isovue 300. . Coronal and sagittal reformats reviewed. FINDINGS: LUNGS/ PLEURA: No pleural effusion, pneumothorax, or focal consolidation. Chronic elevation of the ri ght hemidiaphragm. Mild centrilobular and paraseptal emphysematous changes. Minimal biapical pleural parenchymal scarring. Scattered regions of scarring within the anterior aspect of the bilateral uppe r lobes and periphery of the right lower lobe. No suspicious pulmonary nodule or mass. AIRWAY: Patent and unremarkable.. HEART: Size within normal limits. No pericardial effusion. MEDIASTINUM: No evidence of adenopathy. VASCULATURE: No aortic aneurysm. Mild atherosclerotic calcification of the aorta and its branches. MUSCULOSKELETAL: No acute osseous abnormalities. Remote bilateral lower rib fractures. Partial visual ization of lumbar fusion hardware. Moderate multilevel degenerative disc disease. SOFT TISSUES/LYMPH NODES: Unremarkable. LOWER NECK: No significant findings. UPPER ABDOMEN: No significant findings. IMPRESSION: 1. No acute thoracic process. No pleural effusion. 2. Mild COPD changes with stable scattered regions of scarring. Most prominent within the right lung base. Chronic elevation of the right hemidiaphragm. [facility], , 05/11/2024 10:32 AM
== END | disposition home or self-care (01) ==
LOC: RADCTMAIN 09:47
PROVIDERS: ATTEND Family Medicine
CPT/HCPCS: 71260

== ENCOUNTER → 2024-05-26 | Outpatient (CLI) | payer MEDICARE, OTHER ==
--- NOTE | 2024-05-26 09:18 | MR ---
EXAMINATION TYPE: MR brain wo con DATE OF EXAM: 05/26/2024 COMPARISON: NONE CLINICAL INDICATION: Male, 64 years old with history of I67.82 Cerebral ischemia PHH, Dizziness, cere bral vascular disease. TECHNIQUE: T1-weighted sagittal, T2, FLAIR, and diffusion axial, and T2 coronal coronal views of the brain are submitted. FINDINGS: There is no evidence of acute ischemia. Changes of chronic sinusitis with nasal septal deviation. Orbits are symmetric. Craniocervical juncti on is maintained. Sella turcica is normal. Moderate generalized degenerative change. Mild scattered focal areas of abnormal signal throughout th e white matter which are nonspecific but most typical remote microvascular ischemic disease. IMPRESSION: 1. Moderate degenerative change with a slightly greater central component. Normal pressure hydrocepha ivon in the differential diagnosis. 2. No evidence of acute ischemia. [facility], , 05/26/2024 9:15 AM
== END | disposition home or self-care (01) ==
LOC: RADMRIMAIN 08:38
PROVIDERS: ATTEND Family Medicine
DX: I67.82 Cerebral ischemia (principal); G93.89 Other specified disorders of brain
CPT/HCPCS: 70551

== ENCOUNTER → 2024-08-17 | Outpatient (CLI) | payer MEDICARE, OTHER ==
--- NOTE | 2024-08-17 12:33 | CT ---
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 Coronal and sagittal reconstructions performed. CT DLP: 318.2 mGycm, Automated exposure control for dose reduction was used. FINDINGS: Moderate emphysematous change in the visualized upper lungs. There is a 6 mm nodule at the left upper lung which appears better defined from prior chest CT. the 1 cm groundglass right apex is unchanged. Atherosclerotic change resulting in a moderate to severe focal stenosis left subclavian artery 1.5 cm above its origin. Moderate atherosclerotic change of the bilateral carotid bifurcations. Rightward nasal septal deviation. Visualized paranasal sinuses and mastoid air cells appear clear. In ferior aspect of the orbits and visualized brain appears clear. Nasal pharynx and oropharynx are clear. Epiglottis and prevertebral soft tissues are satisfactory. There is some asymmetric thickening possibly beginning at the lower aspect of the right aryepiglottic folds and extending to circumferentially narrow and efface the supraglottic airway. Asymmetric soft tissue thickening along the right vocal fold causing terese asymmetry. No overlying osseous erosion is seen. There is some asymmetric sclerosis of the right arytenoid cartilage. Thyroid and submandibular glands appear satisfactory. Bilateral parotid glands mildly atrophic. No obvious cervical adenopathy seen. Bones: Mild to moderate spondylotic change throughout the cervical spine. IMPRESSION: 1. CIRCUMFERENTIAL SOFT TISSUE THICKENING EFFACING THE SUPRAGLOTTIC AIRWAY. SOFT TISSUE THICKENING EX TENDS UP INTO THE LOWER RIGHT ARYEPIGLOTTIC FOLD AND DOWN INTO THE RIGHT VOCAL FOLD. 2. NO SUSPICIOUS CERVICAL ADENOPATHY SEEN. 3. OSTEOPENIA WITH MODERATE EMPHYSEMA. A 6 MM LEFT UPPER LOBE PULMONARY NODULE IS MORE DEFINED FROM 1 . FOLLOW-UP CT CHEST IN 2-3 MONTHS TO EXCLUDE THE POSSIBILITY OF A METACHRONOUS PRIMARY NEOP LASM. 4. MODERATE TO SEVERE FOCAL STENOSIS PROXIMAL LEFT SUBCLAVIAN ARTERY LOCATED 1.5 CM ABOVE THE ORIGIN. [facility], Workstation: [email or web address], 08/17/2024 12:31 PM
== END | disposition home or self-care (01) ==
LOC: RADCTMAIN 11:26
PROVIDERS: ATTEND Otolaryngology
DX: C32.0 Malignant neoplasm of glottis (principal); J43.9 Emphysema, unspecified
CPT/HCPCS: 70491; Q9967

== ENCOUNTER → 2024-09-15 | Outpatient (CLI) | payer MEDICARE, OTHER ==
--- NOTE | 2024-09-17 16:38 | PE ---
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 Images are reviewed on the computer in the coronal, axial, an d sagittal planes. Reconstructed rotating images are created on independent workstation and reviewed on the computer. A localization and attenuation correction CT is performed in conjunction with the PET scan. DLP: 608.16 mGycm SCAN: Initial Blood glucose: 93 mg/dL Average Mediastinum SUV: 2.1 Average Liver SUV: 3.04 FINDINGS: HEAD and NECK: There is focal uptake within a small lymph node in the right posterior triangle. Image 68, SUV 4.46. There is marked uptake within the right vocal cord level with an SUV of 21.04. NECK: Marked abnormal uptake is again evident at the right vocal cord level image 40, SUV 19.21. Bruce e posterior lateral uptake just inferior to the larynx is present, image 44, SUV on the left 12.52 an d on the right 11.8. Some subtle uptake in the right supraclavicular small lymph node image 54 has been a significant 3.79 suspicious for an early metastasis. THORAX: No abnormal uptake ABDOMEN: No abnormal uptake PELVIS: No abnormal uptake OSSEOUS STRUCTURES: There is some uptake within the cervical facets on the left image 70, this could be inflammatory in nature. Metastasis is not excluded. SUV is 4.73. There is some subtle uptake within the medial left ilium adjacent to the sacroiliac joint, image 181, SUV 1.77. This could be inflammatory change from degenerative joint changes. LOCALIZATION CT: Asymmetry of the vocal cord level is evident. Postsurgical changes are noted lower l umbar spine COMPARISON: Uptake is correlates with the mass area on the right vocal cord on MRI. IMPRESSION: 1. Marked uptake at the right vocal cord level compatible with neoplasm. 2. Small lymph node within the posterior right neck and right supraclavicular region suspicious for e tony metastasis to lymph nodes. 3. Mild areas of uptake within the osseous structures discussed above. This is not clearly metastasis and inflammatory joint changes could be considered. However the SUV at the cervical level is somewha t higher than expected for typical inflammatory change. [facility], , 09/17/2024 4:36 PM
== END | disposition home or self-care (01) ==
LOC: RADPETMAIN 14:02
PROVIDERS: ATTEND Radiology Radiation Oncology
DX: C32.0 Malignant neoplasm of glottis (principal); R93.7 Abnormal findings on diagnostic imaging of other parts of musculoskeletal system
CPT/HCPCS: 78815; A9552

== ENCOUNTER 2024-11-11 10:17 | Inpatient (IN) | payer MEDICARE, OTHER ==
--- NOTE | 2024-11-11 12:12 | ED ---
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 Patient states t hat he last had chemo on Thursday. He states he had radiation 2 days ago. He does go to radiation 5 days a week Thursday through Thursday. He states that he has missed his last 2 sessions because he is felt very fatigued and weak. He does report that he is unable to have solid intake due to swallowing issues from the cancer. He states that there has been discussion about him getting a PEG tube outpatient although this is not happened yet. He denies any recent fever, chills. Denies any nausea or vomiting. - Related Data Home Medications Medication Instructions Recorded Confirmed traZODone HCL 150 mg PO HS 11/03/20 11/11/24 ALPRAZolam [Xanax] 0.5 - 1 mg PO BID PRN 11/11/24 11/11/24 Albuterol Inhaler [Ventolin Hfa 2 puff INHALATION RT-Q4H PRN 11/11/24 11/11/24 Inhaler] Benzonatate [Tessalon Perles] 100 mg PO TID PRN 11/11/24 11/11/24 Fluconazole [Diflucan] 100 mg PO DAILY 11/11/24 11/11/24 HYDROcodone/APAP 10-325MG [[place] 1 - 2 tab PO Q6H PRN 11/11/24 11/11/24 10-325] Ondansetron [Zofran] 4 mg PO Q4H PRN 11/11/24 11/11/24 Pantoprazole [Protonix] 40 mg PO BID 11/11/24 11/11/24 [place] [Salagen] 5 mg PO TID 11/11/24 11/11/24 Allergies Allergy/AdvReac Type Severity Reaction Status Date / Time buprenorphine [From Butrans] Allergy BUTRANS Verified 11/11/24 14:34 PATCH-ITCHING OF SKIN AND DISCOLORATION diclofenac [From Arthrotec] AdvReac DIZZY, Verified 11/11/24 14:34 LIGHTHEADED, "FELT STONED" mirtazapine [From Remeron] AdvReac DIZZY, Verified 11/11/24 14:34 LIGHTHEADED, "FELT STONED" misoprostol [From Arthrotec] AdvReac DIZZY, Verified 11/11/24 14:34 LIGHTHEADED, "FELT STONED" Review of Systems ROS Statement: Those systems with pertinent positive or pertinent negative responses have been documented in the HPI. ROS Other: All systems not noted in ROS Statement are negative. Past Medical History Past Medical History: Asthma, COPD, Pulmonary Embolus (PE) Additional Past Medical History / Comment(s): HX: chronic diarrhea and weight loss, alcoholism, bilateral lung pulmonary embolisms-in 2012 and previous to that, R lung pleurisy, asthma as child, back pain and sciatica, R foot drop with numbness and tingling to R foot due to pinched nerves, multifactoral anemia, elevated LFTs, 1997 R hand fracture. History of Any Multi-Drug Resistant Organisms: None Reported Past Surgical History: Back Surgery, Orthopedic Surgery Additional Past Surgical History / Comment(s): back-fusions x 2 L4, L5, S1 with hardware, cataracts bilateral with lens implants, rotator cuff right shoulder, colonoscopies Past Anesthesia/Blood Transfusion Reactions: No Reported Reaction Past Psychological History: Anxiety, Depression Smoking Status: Current every day smoker Past Alcohol Use History: Abuse, Daily, Heavy Past Drug Use History: Cocaine, Marijuana - Past Family History Mother Family Medical History: Cancer Additional Family Medical History / Comment(s): Mother of pancreatic cancer at age 82 yrs. Father Family Medical History: Cancer Additional Family Medical History / Comment(s): Father of lung cancer at 86yrs. He was a heavy smoker. hx colon cancer Brother(s) Family Medical History: Cancer Additional Family Medical History / Comment(s): (1) lymphoma, (1) BRAIN CANCER Sister(s) Family Medical History: Cancer Additional Family Medical History / Comment(s): lung cancer and throat cancer General Exam Limitations: no limitations General appearance: alert, cachectic Head exam: Present: atraumatic, normocephalic, normal inspection Eye exam: Present: normal appearance, PERRL, EOMI. Absent: scleral icterus, conjunctival injection, periorbital swelling ENT exam: Present: normal exam, mucous membranes moist Neck exam: Present: normal inspection. Absent: tenderness, meningismus, lymphadenopathy Respiratory exam: Present: normal lung sounds bilaterally. Absent: respiratory distress, wheezes, rales, rhonchi, stridor Cardiovascular Exam: Present: regular rate, normal rhythm, normal heart sounds. Absent: systolic murmur, diastolic murmur, rubs, gallop, clicks GI/Abdominal exam: Present: soft. Absent: distended, tenderness, guarding, rebound, rigid Extremities exam: Present: normal inspection, full ROM, normal capillary refill. Absent: tenderness, pedal edema, joint swelling, calf tenderness Back exam: Present: normal inspection Neurological exam: Present: alert, oriented X3 Psychiatric exam: Present: normal affect, normal mood Skin exam: Present: warm, dry, intact, normal color. Absent: rash Course Vital Signs 11/11/24 11/11/24 11/11/24 11:46 15:00 16:32 Temperature 98.0 F Pulse Rate 96 71 84 Respiratory 18 18 18 Rate Blood Pressure 103/70 120/80 127/80 O2 Sat by Pulse 97 95 95 Oximetry 11/11/24 17:35 Temperature Pulse Rate 78 Respiratory 18 Rate Blood Pressure 139/84 O2 Sat by Pulse 96 Oximetry Medical Decision Making - Medical Decision Making Was pt. sent in by a medical professional or institution (, PA, ALL SOURCE ANALYST, urgent care, hospital, or [facility]...) When possible be specific @ -No Did you speak to anyone other than the patient for history (EMS, parent, family, police, friend...)? What history was obtained from this source @ -No Did you review nursing and triage notes (agree or disagree)? Why? @ -I reviewed and agree with nursing and triage notes Were old charts reviewed (outside hosp., previous admission, EMS record, old EKG, old radiological studies, urgent care reports/EKG's, [facility] records)? Report findings @ -No old charts were reviewed Differential Diagnosis (chest pain, altered mental status, abdominal pain women, abdominal pain men, vaginal bleeding, weakness, fever, dyspnea, syncope, headache, dizziness, GI bleed, back pain, seizure, CVA, palpatations, mental health, musculoskeletal)? @ -Differential Weakness: Hypoglycemia, shock, sepsis, hyponatremia, anemia, infection, NH, ETOH, adverse medicine reaction, overdose, stroke, this is not meant to be an all-inclusive list. EKG interpreted by me (3pts min.). @ -EKG at 1503 shows sinus rhythm rate 94, MT 142, QRS 118, QTQTc [id number] X-rays interpreted by me (1pt min.). @ -Chest x-ray reveals no acute process X-ray of the soft tissue neck CT interpreted by me (1pt min.). @ -None done U/S interpreted by me (1pt. min.). @ -None done What testing was considered but not performed or refused? (CT, X-rays, U/S, labs)? Why? @ -None What meds were considered but not given or refused? Why? @ -None Did you discuss the management of the patient with other professionals (professionals i.e. , PA, ALL SOURCE ANALYST, lab, RT, psych nurse, social security specialist, petroleum refinery operator, teacher, commissioned fire officer, behavioral health case manager)? Give summary @ -Case discussed with Dr. Cerrato who is accepting of admission Was smoking cessation discussed for >3mins.? @ -No Was critical care preformed (if so, how long)? @ -No Were there social determinants of health that impacted care today? How? (Homelessness, low income, unemployed, alcoholism, drug addiction, transportation, low edu. Level, literacy, decrease access to med. care, custodial, rehab)? @ -No Was there de-escalation of care discussed even if they declined (Discuss DNR or withdrawal of care, Hospice)? DNR status @ -No What co-morbidities impacted this encounter? (DM, HTN, Smoking, COPD, CAD, Cancer, CVA, ARF, Chemo, Hep., AIDS, mental health diagnosis, sleep apnea, morbid obesity)? @ -cancer, radiation and chemo Was patient admitted / discharged? Hospital course, mention meds given and route, prescriptions, significant lab abnormalities, going to OR and other pertinent info. @ -Admitted. Patient presented to the emergency department for generalized weakness. Patient states that he is able to tolerate fluids but is not able to swallow food. Laboratory studies were obtained.Patient is leukopenic with a WBC of 2.08, hemoglobin is 9.0; CMP shows elevated INR at 1.7. He had mild hypokalemia with a potassium of 3.3. Magnesium significantly low at 0.8. This was replaced IV. The patient will be admitted. He is understanding agreeable with plan. The case was discussed with Dr. Burks who is accepting of the admission. Case is discussed with Dr. Hills. Undiagnosed new problem with uncertain prognosis? @ -No Drug Therapy requiring intensive monitoring for toxicity (Heparin, Nitro, Insulin, Cardizem)? @ -No Were any procedures done? @ -No Diagnosis/symptom? @ -Hypomagnesemia, weakness Acute, or Chronic, or Acute on Chronic? @ -Acute Uncomplicated (without systemic symptoms) or Complicated (systemic symptoms)? @ -Uncomplicated Side effects of treatment? @ -possibly Exacerbation, Progression, or Severe Exacerbation? @ -exacerbation Poses a threat to life or bodily function? How? (Chest pain, USA, NH, pneumonia, PE, COPD, DKA, ARF, appy, cholecystitis, CVA, Diverticulitis, Homicidal, Suicidal, threat to staff... and all critical care pts) @ -severe hypomagnesemia - Lab Data Result diagrams: 11/11/24 12:13 11/11/24 12:13 Lab Results 11/11/24 11/11/24 11/11/24 Range/Units 12:13 12:13 12:13 WBC 2.08 L (4.50-10.00) 10*3/uL RBC 2.52 L (4.40-5.60) 10*6/uL Hgb 9.0 L (13.0-17.0) g/dL Hct 24.6 L (39.6-50.0) % MCV 97.6 H (80.0-97.0) fL MCH 35.7 H (27.0-32.0) pg MCHC 36.6 (32.0-37.0) g/dL Plt Count 147 (140-440) 10*3/uL MPV 10.4 (9.5-12.2) fL Immature Gran % (Auto) 0.5 % Neutrophils % 59.6 % Lymphocytes % 10.6 % Monocytes % 28.8 % Eosinophils % 0.0 % Basophils % 0.5 % Immature Gran # 0.01 (0.00-0.04) 10*3/uL Neutrophils # 1.24 L (1.80-7.70) 10*3/uL Lymphocytes # 0.22 L (0.90-5.00) 10*3/uL Monocytes # 0.60 (0.20-1.00) 10*3/uL Eosinophils # 0.00 L (0.04-0.35) 10*3/uL Basophils # 0.01 (0.00-0.10) 10*3/uL PT 17.5 H (10.0-12.5) sec INR 1.7 H (<1.2) APTT 24.9 (22.0-30.0) sec Sodium 138 (137-145) mmol/L Potassium 3.3 L (3.5-5.1) mmol/L Chloride 105 (98-107) mmol/L Carbon Dioxide 19 L (22-30) mmol/L Anion Gap 14 mmol/L BUN 16 (9-20) mg/dL Creatinine 0.88 (0.66-1.25) mg/dL Est GFR (CKD-EPI)AfAm >90 (>60 ml/min/1.73 sqM) Est GFR (CKD-EPI)NonAf >90 (>60 ml/min/1.73 sqM) Glucose 80 (74-99) mg/dL Plasma Lactic Acid Alli (0.7-2.0) mmol/L Calcium 7.1 L (8.4-10.2) mg/dL Magnesium 0.8 L* (1.6-2.3) mg/dL Total Bilirubin 0.7 (0.2-1.3) mg/dL AST 30 (17-59) U/L ALT 19 (4-49) U/L Alkaline Phosphatase 56 (38-126) U/L Total Protein 5.9 L (6.3-8.2) g/dL Albumin 3.2 L (3.5-5.0) g/dL 11/11/24 Range/Units 12:13 WBC (4.50-10.00) 10*3/uL RBC (4.40-5.60) 10*6/uL Hgb (13.0-17.0) g/dL Hct (39.6-50.0) % MCV (80.0-97.0) fL MCH (27.0-32.0) pg MCHC (32.0-37.0) g/dL Plt Count (140-440) 10*3/uL MPV (9.5-12.2) fL Immature Gran % (Auto) % Neutrophils % % Lymphocytes % % Monocytes % % Eosinophils % % Basophils % % Immature Gran # (0.00-0.04) 10*3/uL Neutrophils # (1.80-7.70) 10*3/uL Lymphocytes # (0.90-5.00) 10*3/uL Monocytes # (0.20-1.00) 10*3/uL Eosinophils # (0.04-0.35) 10*3/uL Basophils # (0.00-0.10) 10*3/uL PT (10.0-12.5) sec INR (<1.2) APTT (22.0-30.0) sec Sodium (137-145) mmol/L Potassium (3.5-5.1) mmol/L Chloride (98-107) mmol/L Carbon Dioxide (22-30) mmol/L Anion Gap mmol/L BUN (9-20) mg/dL Creatinine (0.66-1.25) mg/dL Est GFR (CKD-EPI)AfAm (>60 ml/min/1.73 sqM) Est GFR (CKD-EPI)NonAf (>60 ml/min/1.73 sqM) Glucose (74-99) mg/dL Plasma Lactic Acid Alli 0.9 (0.7-2.0) mmol/L Calcium (8.4-10.2) mg/dL Magnesium (1.6-2.3) mg/dL Total Bilirubin (0.2-1.3) mg/dL AST (17-59) U/L ALT (4-49) U/L Alkaline Phosphatase (38-126) U/L Total Protein (6.3-8.2) g/dL Albumin (3.5-5.0) g/dL Disposition Clinical Impression: Hypomagnesemia, Weakness Disposition: ADMITTED IP TO THIS HOSP Condition: Stable Is patient prescribed a controlled substance at d/c from ED?: No
[2024-11-11] MEDS: SODIUM CHLORIDE 0.9% 1,000 ML IV ONE (12:44)
[2024-11-11] MEDS: HYDROmorphone 0.5 MG/0.5 ML SYRINGE IVP STA (12:45)
--- NOTE | 2024-11-11 12:49 | XR ---
EXAMINATION TYPE: XR chest 2V DATE OF EXAM: 11/11/2024 12:43 PM COMPARISON: Chest radiographs from 03/08/2024, PET/CT 09/15/2024 TECHNIQUE: XR chest 2V Frontal and lateral views of the chest. CLINICAL INDICATION:Male, 64 years old with history of Weakness; FINDINGS: Lungs/Pleura: There is flattening of the diaphragm with increased lucency of the lungs. No evidence o f pneumothorax, pleural effusion or focal consolidation. Similar right basilar scarring with eventrat ion of the hemidiaphragm. Pulmonary vascularity: Unremarkable. Heart/mediastinum: Cardiomediastinal silhouette is unremarkable. Atherosclerotic calcifications are seen in the aorta. Partial visualization of lumbar fusion hardware. Musculoskeletal: Multiple level degenerative disc disease changes seen throughout the spine. IMPRESSION: 1. No acute cardiopulmonary disease process. 2. COPD changes. [facility], , 11/11/2024 12:47 PM
[2024-11-11 12:52] LABS: Basophils # (A) 0.01 10*3/uL (0.00-0.10); Basophils % (A) 0.5 %; HCT 24.6 % (39.6-50.0); Lymphocytes # (A) 0.22 10*3/uL (0.90-5.00); Lymphocytes % (A) 10.6 %; MCH 35.7 pg (27.0-32.0); MCHC 36.6 g/dL (32.0-37.0); MCV 97.6 fL (80.0-97.0); Mean Platelet Volume 10.4 fL (9.5-12.2); Monocytes % (A) 28.8 %; Neutrophils # (A) 1.24 10*3/uL (1.80-7.70); Neutrophils % (A) 59.6 %; Platelet Count 147 10*3/uL (140-440); RBC 2.52 10*6/uL (4.40-5.60); RDW 13.7 % (11.5-14.5); WBC 2.08 10*3/uL (4.50-10.00)
--- NOTE | 2024-11-11 12:53 | XR ---
EXAMINATION TYPE: XR soft tissue neck DATE OF EXAM: 11/11/2024 12:43 PM INDICATION: Patient age:Male; 64 years old; Reason for study: difficulty swallowing; PHH. pain, history of glottic cancer COMPARISON: PET CT 09/15/2024, MR neck 08/27/2024, CT neck 08/17/2024 TECHNIQUE: The soft tissues of the neck were imaged in 2 views. FINDINGS: The prevertebral soft tissues are unremarkable. There is no gross evidence of mass effect o r tracheal deviation. No acute osseous abnormality demonstrated. Multilevel degenerative disc diseas e of the cervical spine with disc space narrowing and anterior osteophytosis. There is soft tissue th ickening in the region of the glottis. IMPRESSION: 1. Soft tissue thickening in the region of the glottis. Consider further evaluation with CT as patie nt has history of glottic cancer. 2. Moderate cervical degenerative disc disease. [facility], , 11/11/2024 12:50 PM
[2024-11-11 13:06] LABS: INR 1.7 (<1.2); Partial Thromboplastin Time 24.9 sec (22.0-30.0); Prothrombin Time 17.5 sec (10.0-12.5)
[2024-11-11 13:08] LABS: ALT 19 U/L (4-49); AST 30 U/L (17-59); African American GFR (CKD) >90 (>60 ml/min/1.73 sqM); Albumin 3.2 g/dL (3.5-5.0); Alkaline Phosphatase 56 U/L (38-126); Anion Gap 14 mmol/L; Blood Urea Nitrogen 16 mg/dL (9-20); Calcium 7.1 mg/dL (8.4-10.2); Carbon Dioxide 19 mmol/L (22-30); Chloride 105 mmol/L (98-107); Glucose 80 mg/dL (74-99); Non-African American GFR(CKD) >90 (>60 ml/min/1.73 sqM); Potassium 3.3 mmol/L (3.5-5.1); Sodium 138 mmol/L (137-145); Total Bilirubin 0.7 mg/dL (0.2-1.3); Total Protein 5.9 g/dL (6.3-8.2)
[2024-11-11 13:37] LABS: Magnesium 0.8 mg/dL (1.6-2.3)
[2024-11-11] MEDS ORDERED: NALOXONE 0.4 MG/ML 1 ML VIAL IV PRN (14:37)
[2024-11-11] MEDS: Magnesium Replacement Protocol 1 EACH MISC MISCELLANE PRN (14:39)
[2024-11-11] MEDS: MAGNESIUM SULFATE-D5W PMX 1 GM in DEXTROSE/WATER 1 100ML.BAG IVPB SCH (14:39)
[2024-11-11] MEDS: SODIUM CHLORIDE 0.9% 1,000 ML IV SCH (15:34)
[2024-11-11] MEDS: HYDROmorphone 0.5 MG/0.5 ML SYRINGE IVP PRN (18:35)
[2024-11-11] MEDS: POTASSIUM CHLORIDE 20 MEQ in WATER FOR INJECTION 1 100ML.BAG IVPB STA (21:08)
[2024-11-12] MEDS: traZODone HCL 50 MG TAB PO PRN (00:14)
[2024-11-12] MEDS: HYDROmorphone 2 MG/ML 1 ML SYRINGE IVP PRN (04:20)
[2024-11-12] MEDS ORDERED: ALBUTEROL NEBULIZED 2.5 MG/3 ML INHALATION PRN (05:54)
[2024-11-12] MEDS: PANTOPRAZOLE 40 MG/10 ML VIAL IVP SCH (09:14)
[2024-11-12] MEDS: PILOCARPINE 5 MG TAB PO SCH (09:14)
[2024-11-12] MEDS: traZODone HCL 50 MG TAB PO SCH ×2 (09:38→22:11)
--- NOTE | 2024-11-12 09:45 | P.HPIM ---
History of Present Illness H&P Date: 11/12/24 History of present illness; patient is a 64-year-old gentleman with past medical history significant laryngeal cancer presented the ER because of generalized weakness. Patient stated he has not been eating for the last couple of days. Patient is currently on chemotherapy and radiation, last chemotherapy being Thursday and gets radiation 5 times per week. Patient has been complaining of poor appetite. Patient also complaining of dysphagia to solids. Patient has been losing weight. Patient stated that there was discussion between his oncologist and him about possible PEG tube placement. Because of his weakness, patient came to the ER Initial lab work done in the ER showed WBC 2.08, hemoglobin 9, platelet count 147, sodium 138, potassium 3.3 carbon 919, anion gap 14, BUN 16, creatinine 0 .88, calcium 7.1, magnesium 0.8, bilirubin 0.7, albumin 3.2 EKG done in the ER showed heart rate of 94, no ST segment elevation or depression seen, no T-wave inversions seen. Chest x-ray done in the ER no acute cardiopulmonary process X-ray soft tissue done showed soft tissue thickening in the region of the glottis. Patient admitted to internal medicine service REVIEW OF SYSTEMS: CONSTITUTIONAL: As mentioned above HEENT: No recent visual problems or hearing problems. Denied any sore throat. CARDIOVASCULAR: No chest pain, orthopnea, PND, no palpitations, no syncope. PULMONARY: No shortness of breath, no cough, no hemoptysis. GASTROINTESTINAL: No diarrhea, no nausea, no vomiting, no abdominal pain. NEUROLOGICAL: No headaches, no weakness, no numbness. HEMATOLOGICAL: Denies any bleeding or petechiae. GENITOURINARY: Denies any burning micturition, frequency, or urgency. MUSCULOSKELETAL/RHEUMATOLOGICAL: Denies any joint pain, swelling, or any muscle pain. ENDOCRINE: Denies any polyuria or polydipsia. The rest of the 14-point review of systems is negative. PHYSICAL EXAMINATION: GENERAL: The patient is alert and oriented x3, ill looking HEENT: Pupils are round and equally reacting to light. EOMI. No scleral icterus. No conjunctival pallor. Normocephalic, atraumatic. No pharyngeal erythema. No thyromegaly. CARDIOVASCULAR: S1 and S2 present. No murmurs, rubs, or gallops. PULMONARY: Chest is clear to auscultation, no wheezing or crackles. ABDOMEN: Soft, nontender, nondistended, normoactive bowel sounds. No palpable organomegaly. MUSCULOSKELETAL: No joint swelling or deformity. EXTREMITIES: No cyanosis, clubbing, or pedal edema. NEUROLOGICAL: Gross neurological examination did not reveal any focal deficits. SKIN: No rashes. Assessment and plan Generalized weakness Hypokalemia Hypocalcemia Hypomagnesemia Dysphagia Severe malnutrition History of laryngeal carcinoma Monitor vital signs Monitor CBC Monitor CMP Serial electrolytes, repeat magnesium and potassium check Continue IV fluid Ordered antiemetics Ordered IV Protonix Resume home meds Consult hematology oncology Consult surgery for possible PEG tube placement Labs and medication were reviewed.. Continue same treatment. Continue with symptomatic treatment. Resume home medication. Monitor labs and vitals. DVT and GI prophylaxis. Further recommendations as per clinical course of the patie nt Dictation was produced using [employer] dictation software. please excuse any grammatical, word or spelling errors. Past Medical History Past Medical History: Asthma, COPD, Pulmonary Embolus (PE) Additional Past Medical History / Comment(s): HX: chronic diarrhea and weight loss, alcoholism, bilateral lung pulmonary embolisms-in 2012 and previous to that, R lung pleurisy, asthma as child, back pain and sciatica, R foot drop with numbness and tingling to R foot due to pinched nerves, multifactoral anemia, elevated LFTs, 1997 R hand fracture. History of Any Multi-Drug Resistant Organisms: None Reported Past Surgical History: Back Surgery, Orthopedic Surgery Additional Past Surgical History / Comment(s): back-fusions x 2 L4, L5, S1 with hardware, cataracts bilateral with lens implants, rotator cuff right shoulder, colonoscopies Past Anesthesia/Blood Transfusion Reactions: No Reported Reaction Past Psychological History: Anxiety, Depression Smoking Status: Current every day smoker Past Alcohol Use History: Abuse, Daily, Heavy Past Drug Use History: Cocaine, Marijuana - Past Family History Mother Family Medical History: Cancer Additional Family Medical History / Comment(s): Mother of pancreatic cancer at age 82 yrs. Father Family Medical History: Cancer Additional Family Medical History / Comment(s): Father of lung cancer at 86yrs. He was a heavy smoker. hx colon cancer Brother(s) Family Medical History: Cancer Additional Family Medical History / Comment(s): (1) lymphoma, (1) BRAIN CANCER Sister(s) Family Medical History: Cancer Additional Family Medical History / Comment(s): lung cancer and throat cancer Medications and Allergies Home Medications Medication Instructions Recorded Confirmed Type traZODone HCL 150 mg PO HS 11/03/20 11/11/24 History ALPRAZolam [Xanax] 0.5 - 1 mg PO BID PRN 11/11/24 11/11/24 History Albuterol Inhaler [Ventolin Hfa 2 puff INHALATION RT-Q4H PRN 11/11/24 11/11/24 History Inhaler] Benzonatate [Tessalon Perles] 100 mg PO TID PRN 11/11/24 11/11/24 History Fluconazole [Diflucan] 100 mg PO DAILY 11/11/24 11/11/24 History HYDROcodone/APAP 10-325MG [[place] 1 - 2 tab PO Q6H PRN 11/11/24 11/11/24 History 10-325] Ondansetron [Zofran] 4 mg PO Q4H PRN 11/11/24 11/11/24 History Pantoprazole [Protonix] 40 mg PO BID 11/11/24 11/11/24 History Pilocarpine [Salagen] 5 mg PO TID 11/11/24 11/11/24 History Allergies Allergy/AdvReac Type Severity Reaction Status Date / Time buprenorphine [From Butrans] Allergy BUTRANS Verified 11/11/24 14:34 PATCH-ITCHING OF SKIN AND DISCOLORATION diclofenac [From Arthrotec] AdvReac DIZZY, Verified 11/11/24 14:34 LIGHTHEADED, "FELT STONED" mirtazapine [From Remeron] AdvReac DIZZY, Verified 11/11/24 14:34 LIGHTHEADED, "FELT STONED" misoprostol [From Arthrotec] AdvReac DIZZY, Verified 11/11/24 14:34 LIGHTHEADED, "FELT STONED" Physical Exam Vitals: Vital Signs Temp Pulse Pulse Resp BP BP Pulse Ox 11/12/24 01:57 100.2 F H 87 12 123/82 95 11/11/24 20:00 98.7 F 86 12 124/74 95 11/11/24 18:16 98.5 F 97 19 115/79 98 11/11/24 17:35 78 18 139/84 96 11/11/24 16:32 84 18 127/80 95 11/11/24 15:00 71 18 120/80 95 11/11/24 11:46 98.0 F 96 18 103/70 97 Intake and Output 11/11/24 11/11/24 11/12/24 14:59 22:59 06:59 Other: Voiding Method Toilet # Voids 1 Weight 63.503 kg 63.503 kg Results CBC & Chem 7: 11/11/24 12:13 11/11/24 12:13 Labs: Abnormal Lab Results - Last 24 Hours (Table) 11/11/24 11/11/24 11/11/24 Range/Units 12:13 12:13 12:13 WBC 2.08 L (4.50-10.00) 10*3/uL RBC 2.52 L (4.40-5.60) 10*6/uL Hgb 9.0 L (13.0-17.0) g/dL Hct 24.6 L (39.6-50.0) % MCV 97.6 H (80.0-97.0) fL MCH 35.7 H (27.0-32.0) pg Neutrophils # 1.24 L (1.80-7.70) 10*3/uL Lymphocytes # 0.22 L (0.90-5.00) 10*3/uL Eosinophils # 0.00 L (0.04-0.35) 10*3/uL PT 17.5 H (10.0-12.5) sec INR 1.7 H (<1.2) Potassium 3.3 L (3.5-5.1) mmol/L Carbon Dioxide 19 L (22-30) mmol/L Calcium 7.1 L (8.4-10.2) mg/dL Magnesium 0.8 L* (1.6-2.3) mg/dL Total Protein 5.9 L (6.3-8.2) g/dL Albumin 3.2 L (3.5-5.0) g/dL Thrombosis Risk Factor Assmnt - Choose All That Apply Each Risk Factor Represents 2 Points: Age 61-74 years, Malignancy Thrombosis Risk Factor Assessment Total Risk Factor Score: 4 Thrombosis Risk Factor Assessment Level: Moderate Risk
[2024-11-12 09:49] LABS: HCT 24.4 % (39.6-50.0); HGB 8.6 g/dL (13.0-17.0); MCH 34.8 pg (27.0-32.0); MCHC 35.2 g/dL (32.0-37.0); MCV 98.8 FL (80.0-97.0); Mean Platelet Volume 10.7 FL (9.5-12.2); NRBC Per 100 WBC 0 X 10*3/uL (0.00-0.01); Platelet Count 171 X 10*3/uL (140-440); RBC 2.47 X 10*6/uL (4.40-5.60); WBC 1.87 X 10*3/uL (4.50-10.00)
[2024-11-12 10:49] LABS: Basophils # (A) 0.01 X 10*3/uL (0.00-0.10); Basophils % (A) 0.5 %; Eosinophils # (A) 0.01 X 10*3/uL (0.04-0.35); Eosinophils % (A) 0.5 %; Immature Grans, Automated 0 %; Lymphocytes # (A) 0.23 X 10*3/uL (0.90-5.00); Lymphocytes % (A) 12.3 %; Monocytes # (A) 0.64 X 10*3/uL (0.20-1.00); Monocytes % (A) 34.2 %; Neutrophils # (A) 0.98 X 10*3/uL (1.80-7.70); Neutrophils % (A) 52.5 %; RBC Morphology Normal (Normal)
[2024-11-12 11:16] LABS: BUN/Creat Ratio 14.22 Ratio (12.00-20.00); Blood Urea Nitrogen 12.8 mg/dL (9.0-27.0); Carbon Dioxide 20.5 mmol/L (21.6-31.8); Chloride 100 mmol/L (96-109); Glucose 86 mg/dL (70-110); Magnesium 1.6 mg/dL (1.5-2.4); Potassium 3.7 mmol/L (3.5-5.5); Sodium 136 mmol/L (135-145)
[2024-11-12] MEDS: ACETAMINOPHEN TAB 325 MG TAB PO PRN (13:07)
--- NOTE | 2024-11-12 16:18 | P.CONS ---
History of Present Illness - Reason for Consult Consult date: 11/12/24 Stage III SCC of the glottis - Chief Complaint Weakness - History of Present Illness Mr. 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 Most recent weight in our clinic on 11/07/2024 was 147 pounds and weighed 161 pounds on 09/22/2024 prior to initiating treatment. He was noted to be febrile to Tmax of 102 F noted this afternoon and is otherwise hemodynamically stable on room air. Labs revealed CBC 2.08 (ANC 1.24), hemoglobin 9, platelets 147. CMP noted creatinine 0.88, sodium 138, potassium 3.3, magnesium 0.8, albumin 3.2. Chest x-ray revealed no acute cardiopulmonary disease with x-ray of the soft tissue of the neck noting soft tissue thickening in the glottis that is likely secondary to concurrent chemoradiotherapy. Prior to presentation, he denied any fevers, chills, night sweats. He has noted dry heaving intermittently and very little oral intake. He feels he is lost at least 20 pounds since starting treatment. Review of Systems 14 point review of systems was conducted pertinent positives and negatives as noted per HPI Past Medical History Past Medical History: Asthma, COPD, Pulmonary Embolus (PE) Additional Past Medical History / Comment(s): HX: chronic diarrhea and weight loss, alcoholism, bilateral lung pulmonary embolisms-in 2012 and previous to that, R lung pleurisy, asthma as child, back pain and sciatica, R foot drop with numbness and tingling to R foot due to pinched nerves, multifactoral anemia, elevated LFTs, 1997 R hand fracture. History of Any Multi-Drug Resistant Organisms: None Reported Past Surgical History: Back Surgery, Orthopedic Surgery Additional Past Surgical History / Comment(s): back-fusions x 2 L4, L5, S1 with hardware, cataracts bilateral with lens implants, rotator cuff right shoulder, colonoscopies Past Anesthesia/Blood Transfusion Reactions: No Reported Reaction Past Psychological History: Anxiety, Depression Smoking Status: Current every day smoker Past Alcohol Use History: Abuse, Daily, Heavy Past Drug Use History: Cocaine, Marijuana - Past Family History Mother Family Medical History: Cancer Additional Family Medical History / Comment(s): Mother of pancreatic cancer at age 82 yrs. Father Family Medical History: Cancer Additional Family Medical History / Comment(s): Father of lung cancer at 86yrs. He was a heavy smoker. hx colon cancer Brother(s) Family Medical History: Cancer Additional Family Medical History / Comment(s): (1) lymphoma, (1) BRAIN CANCER Sister(s) Family Medical History: Cancer Additional Family Medical History / Comment(s): lung cancer and throat cancer Medications and Allergies Home Medications Medication Instructions Recorded Confirmed Type traZODone HCL 150 mg PO HS 11/03/20 11/11/24 History ALPRAZolam [Xanax] 0.5 - 1 mg PO BID PRN 11/11/24 11/11/24 History Albuterol Inhaler [Ventolin Hfa 2 puff INHALATION RT-Q4H PRN 11/11/24 11/11/24 History Inhaler] Benzonatate [Tessalon Perles] 100 mg PO TID PRN 11/11/24 11/11/24 History Fluconazole [Diflucan] 100 mg PO DAILY 11/11/24 11/11/24 History HYDROcodone/APAP 10-325MG [[place] 1 - 2 tab PO Q6H PRN 11/11/24 11/11/24 History 10-325] Ondansetron [Zofran] 4 mg PO Q4H PRN 11/11/24 11/11/24 History Pantoprazole [Protonix] 40 mg PO BID 11/11/24 11/11/24 History Pilocarpine [Salagen] 5 mg PO TID 11/11/24 11/11/24 History Allergies Allergy/AdvReac Type Severity Reaction Status Date / Time buprenorphine [From Butrans] Allergy BUTRANS Verified 11/11/24 14:34 PATCH-ITCHING OF SKIN AND DISCOLORATION diclofenac [From Arthrotec] AdvReac DIZZY, Verified 11/11/24 14:34 LIGHTHEADED, "FELT STONED" mirtazapine [From Remeron] AdvReac DIZZY, Verified 11/11/24 14:34 LIGHTHEADED, "FELT STONED" misoprostol [From Arthrotec] AdvReac DIZZY, Verified 11/11/24 14:34 LIGHTHEADED, "FELT STONED" Physical Exam Vitals: Vital Signs Temp Pulse Pulse Resp BP BP Pulse Ox 11/12/24 12:33 102.0 F H 95 12 137/91 99 11/12/24 07:15 98.4 F 80 12 125/74 96 11/12/24 01:57 100.2 F H 87 12 123/82 95 11/11/24 20:00 98.7 F 86 12 124/74 95 11/11/24 18:16 98.5 F 97 19 115/79 98 11/11/24 17:35 78 18 139/84 96 11/11/24 16:32 84 18 127/80 95 11/11/24 15:00 71 18 120/80 95 Intake and Output 11/11/24 11/12/24 11/12/24 22:59 06:59 14:59 Intake Total 240 Balance 240 Intake: Oral 240 Other: Voiding Method Toilet Toilet # Voids 1 10 Weight 63.503 kg - Constitutional Appears weak and thin - EENT White plaques noted in the hard palate Eyes: EOMI - Neck Radiation dermatitis of the neck - Respiratory Respiratory: bilateral: CTA - Cardiovascular Rhythm: regular - Gastrointestinal General gastrointestinal: no distended, soft, no tenderness - Integumentary Radiation dermatitis in the neck with paleness - Neurologic Neurologic: CNII-XII intact Results CBC & Chem 7: 11/12/24 06:00 11/12/24 03:26 Labs: Abnormal Lab Results - Last 24 Hours (Table) 11/12/24 11/12/24 Range/Units 03:26 06:00 WBC 1.87 L (4.50-10.00) X 10*3/uL RBC 2.47 L (4.40-5.60) X 10*6/uL Hgb 8.6 L (13.0-17.0) g/dL Hct 24.4 L (39.6-50.0) % MCV 98.8 H (80.0-97.0) FL MCH 34.8 H (27.0-32.0) pg Neutrophils # 0.98 L (1.80-7.70) X 10*3/uL Lymphocytes # 0.23 L (0.90-5.00) X 10*3/uL Eosinophils # 0.01 L (0.04-0.35) X 10*3/uL Carbon Dioxide 20.5 L (21.6-31.8) mmol/L Anion Gap 15.50 H (4.00-12.00) mmol/L Calcium 8.0 L (8.7-10.3) mg/dL Assessment and Plan (1) Glottis carcinoma Current Visit: Yes Status: Acute Code(s): C32.0 - MALIGNANT NEOPLASM OF TANISHA TTIS SNOMED Code(s): 583373249 (2) Weakness Current Visit: Yes Status: Acute Code(s): R53.1 - WEAKNESS SNOMED Code(s): 10567405 (3) Chemotherapy-induced neutropenia Current Visit: Yes Status: Acute Code(s): D70.1 - AGRANULOCYTOSIS SECONDARY TO CANCER CHEMOTHERAPY; T45.1X5A - ADVERSE EFFECT OF ANTINEOPLASTIC AND IMMUNOSUP DRUGS, INIT SNOMED Code(s): 429581437 (4) Anemia due to chemotherapy Current Visit: Yes Status: Acute Code(s): D64.81 - ANEMIA DUE TO ANTINEOPLASTIC CHEMOTHERAPY; T45.1X5A - ADVERSE EFFECT OF ANTINEOPLASTIC AND IMMUNOSUP DRUGS, INIT SNOMED Code(s): 684114546183512 Plan: #Weakness, failure to thrive - Has been undergoing concurrent chemoradiotherapy since 10/03/2024 with progressive weight loss and decreased oral intake - Noted to be febrile today at 102 F - General Surgery has been consulted for potential PEG tube placement - At the time temperature was drawn, he did have covers on and may have contributed to elevated temperature - If he has repeat fever, he would need infectious workup with blood cultures, urinalysis, and empiric antibiotics with either cefepime or Zosyn - Topical nystatin swish and spit was ordered due to concern for potential thrush noted on the hard palate #Neutropenia, anemia - He has grade 2 anemia and grade 2-3 neutropenia secondary to chemotherapy with weekly cisplatin - Nutritional etiologies of anemia along with thyroid profile ordered from blood obtained on admission - Monitor CBC daily and transfuse for hemoglobin less than 7 and platelets less than or equal to 10/or bleeding #Stage III p16 negative squamous cell carcinoma of the glottis - Initiated concurrent chemoradiotherapy on 10/03/2024 - Received last weekly cisplatin with cycle 6 on 11/07/2024 - He has 2 weeks of radiation therapy remaining and has missed fractions of treatment due to weakness - Consult to radiation oncology will be placed Mily Ritchie MD
--- NOTE | 2024-11-12 17:12 | P.GSCN ---
History of Present Illness Consult date: 11/12/24 Reason for Consult: Malnutrition, PEG tube placement History of present illness: This is a 64-year-old male with history of squamous cell carcinoma of the glottis. Patient is currently undergoing chemotherapy. Patient has had poor oral intake. Past Medical History Past Medical History: Asthma, COPD, Pulmonary Embolus (PE) Additional Past Medical History / Comment(s): HX: chronic diarrhea and weight loss, alcoholism, bilateral lung pulmonary embolisms-in 2012 and previous to that, R lung pleurisy, asthma as child, back pain and sciatica, R foot drop with numbness and tingling to R foot due to pinched nerves, multifactoral anemia, elevated LFTs, 1997 R hand fracture. History of Any Multi-Drug Resistant Organisms: None Reported Past Surgical History: Back Surgery, Orthopedic Surgery Additional Past Surgical History / Comment(s): back-fusions x 2 L4, L5, S1 with hardware, cataracts bilateral with lens implants, rotator cuff right shoulder, colonoscopies Past Anesthesia/Blood Transfusion Reactions: No Reported Reaction Past Psychological History: Anxiety, Depression Smoking Status: Current every day smoker Past Alcohol Use History: Abuse, Daily, Heavy Past Drug Use History: Cocaine, Marijuana - Past Family History Mother Family Medical History: Cancer Additional Family Medical History / Comment(s): Mother of pancreatic cancer at age 82 yrs. Father Family Medical History: Cancer Additional Family Medical History / Comment(s): Father of lung cancer at 86yrs. He was a heavy smoker. hx colon cancer Brother(s) Family Medical History: Cancer Additional Family Medical History / Comment(s): (1) lymphoma, (1) BRAIN CANCER Sister(s) Family Medical History: Cancer Additional Family Medical History / Comment(s): lung cancer and throat cancer Medications and Allergies Home Medications Medication Instructions Recorded Confirmed Type traZODone HCL 150 mg PO HS 11/03/20 11/11/24 History ALPRAZolam [Xanax] 0.5 - 1 mg PO BID PRN 11/11/24 11/11/24 History Albuterol Inhaler [Ventolin Hfa 2 puff INHALATION RT-Q4H PRN 11/11/24 11/11/24 History Inhaler] Benzonatate [Tessalon Perles] 100 mg PO TID PRN 11/11/24 11/11/24 History Fluconazole [Diflucan] 100 mg PO DAILY 11/11/24 11/11/24 History HYDROcodone/APAP 10-325MG [[place] 1 - 2 tab PO Q6H PRN 11/11/24 11/11/24 History 10-325] Ondansetron [Zofran] 4 mg PO Q4H PRN 11/11/24 11/11/24 History Pantoprazole [Protonix] 40 mg PO BID 11/11/24 11/11/24 History Pilocarpine [Salagen] 5 mg PO TID 11/11/24 11/11/24 History Allergies Allergy/AdvReac Type Severity Reaction Status Date / Time buprenorphine [From Butrans] Allergy BUTRANS Verified 11/11/24 14:34 PATCH-ITCHING OF SKIN AND DISCOLORATION diclofenac [From Arthrotec] AdvReac DIZZY, Verified 11/11/24 14:34 LIGHTHEADED, "FELT STONED" mirtazapine [From Remeron] AdvReac DIZZY, Verified 11/11/24 14:34 LIGHTHEADED, "FELT STONED" misoprostol [From Arthrotec] AdvReac DIZZY, Verified 11/11/24 14:34 LIGHTHEADED, "FELT STONED" Surgical - Exam Vital Signs Temp Pulse Resp BP Pulse Ox 98.0 F 96 18 103/70 97 11/11/24 11:46 11/11/24 11:46 11/11/24 11:46 11/11/24 11:46 11/11/24 11:46 - General chronically ill - Eyes PERRL - ENT normal pinna - Neck no masses - Respiratory normal expansion - Cardiovascular Rhythm: regular - Abdomen Abdomen: soft, non tender Results - Labs 11/12/24 06:00 11/12/24 03:26 Abnormal Lab Results - Last 24 Hours (Table) 11/12/24 11/12/24 Range/Units 03:26 06:00 WBC 1.87 L (4.50-10.00) X 10*3/uL RBC 2.47 L (4.40-5.60) X 10*6/uL Hgb 8.6 L (13.0-17.0) g/dL Hct 24.4 L (39.6-50.0) % MCV 98.8 H (80.0-97.0) FL MCH 34.8 H (27.0-32.0) pg Neutrophils # 0.98 L (1.80-7.70) X 10*3/uL Lymphocytes # 0.23 L (0.90-5.00) X 10*3/uL Eosinophils # 0.01 L (0.04-0.35) X 10*3/uL Carbon Dioxide 20.5 L (21.6-31.8) mmol/L Anion Gap 15.50 H (4.00-12.00) mmol/L Calcium 8.0 L (8.7-10.3) mg/dL Diabetes panel 11/12/24 Range/Units 03:26 Sodium 136 (135-145) mmol/L Potassium 3.7 (3.5-5.5) mmol/L Chloride 100 (96-109) mmol/L Carbon Dioxide 20.5 L (21.6-31.8) mmol/L BUN 12.8 (9.0-27.0) mg/dL Creatinine 0.9 (0.6-1.5) mg/dL Glucose 86 (70-110) mg/dL Calcium 8.0 L (8.7-10.3) mg/dL Calcium panel 11/12/24 Range/Units 03:26 Calcium 8.0 L (8.7-10.3) mg/dL Pituitary panel 11/12/24 Range/Units 03:26 Sodium 136 (135-145) mmol/L Potassium 3.7 (3.5-5.5) mmol/L Chloride 100 (96-109) mmol/L Carbon Dioxide 20.5 L (21.6-31.8) mmol/L BUN 12.8 (9.0-27.0) mg/dL Creatinine 0.9 (0.6-1.5) mg/dL Glucose 86 (70-110) mg/dL Calcium 8.0 L (8.7-10.3) mg/dL Adrenal panel 11/12/24 Range/Units 03:26 Sodium 136 (135-145) mmol/L Potassium 3.7 (3.5-5.5) mmol/L Chloride 100 (96-109) mmol/L Carbon Dioxide 20.5 L (21.6-31.8) mmol/L BUN 12.8 (9.0-27.0) mg/dL Creatinine 0.9 (0.6-1.5) mg/dL Glucose 86 (70-110) mg/dL Calcium 8.0 L (8.7-10.3) mg/dL Assessment and Plan Assessment: Male nutrition due to protein calorie deficiency due to poor oral intake. Consult for PEG tube was made. We will attempt an EGD. However due to his glottic cancer this may not be possible. If we are unable to pass the gastroscope patient may require an open gastrostomy tube placement.
[2024-11-12] MEDS: NYSTATIN 100,000 UNIT/ML SUSP 500,000 UNIT/5 ML CUP PO SCH (18:22)
[2024-11-12] MEDS: BENZONATATE 100 MG CAP PO PRN (22:31)
[2024-11-13] MEDS: PIPERACILLIN-TAZOBACTAM 3.375 GM in SODIUM CHLORIDE 0.9% 100 ML IVPB SCH (00:56)
[2024-11-13] MEDS: ONDANSETRON 4 MG/2 ML VIAL IVP PRN (03:49)
[2024-11-13 05:36] LABS: Appearance,Urine Clear (Clear); Bilirubin,Urine Negative (Negative); Blood,Urine Negative (Negative); Color,Urine Colorless; Glucose,Urine (UA) Negative (Negative); Ketones,Urine 2+ (Negative); Leukocyte Esterase,Urine Negative (Negative); Nitrite,Urine Negative (Negative); PH, Urine 5.5 (5.0-8.0); Protein,Urine Negative (Negative); Specific Gravity,Urine 1.014 (1.001-1.035); Urobilinogen,Urine <2.0 mg/dL (<2.0)
[2024-11-13 07:11] LABS: % Iron Saturation 47.42 (15.00-50.00); Iron 101 UG/DL (65-175); Total Iron Binding Capacity 213 UG/DL (228-460)
--- NOTE | 2024-11-13 10:40 | P.PN ---
Subjective Progress Note Date: 11/13/24 Patient barbara stable. He is tentatively scheduled for EGD with possible PEG tube placement. I did discuss with patient that we may not be able to do this due to scarring/edema of his glottic area. Objective - Vital Signs Vital signs: Vital Signs Temp 98.6 F 11/13/24 10:02 Pulse 76 11/13/24 08:00 Resp 14 11/13/24 08:00 BP 138/71 11/13/24 07:04 Pulse Ox 97 11/13/24 07:04 FiO2 Intake & Output 11/12/24 11/13/24 11/13/24 18:59 06:59 18:59 Intake Total 1979 540 Balance 1979 540 Weight 63.503 kg Intake: Intake, IV Titration 900 Amount Sodium Chloride 0.9% 1, 900 000 ml @ 75 mls/hr IV . [id number] [facility] Rx#:[id number] Oral 1080 540 Other: Voiding Method Toilet Toilet Toilet # Voids 3 1 - Labs CBC & Chem 7: 11/12/24 06:00 11/12/24 03:26 Labs: Abnormal Lab Results - Last 24 Hours (Table) 11/11/24 11/12/24 11/12/24 Range/Units 12:13 03:26 06:00 Neutrophils # 0.98 L (1.80-7.70) X 10*3/uL Lymphocytes # 0.23 L (0.90-5.00) X 10*3/uL Eosinophils # 0.01 L (0.04-0.35) X 10*3/uL Carbon Dioxide 20.5 L (21.6-31.8) mmol/L Anion Gap 15.50 H (4.00-12.00) mmol/L Plasma Lactic Acid Alli (0.7-2.0) mmol/L Calcium 8.0 L (8.7-10.3) mg/dL TIBC 213 L (228-460) UG/DL Transferrin 152.0 L (204.0-354.0) mg/dL Ferritin 753.0 H (22.0-322.0) ng/mL Vitamin B12 1009.0 H (200.0-944.0) pg/mL Urine Ketones (Negative) 11/13/24 11/13/24 Range/Units 03:40 05:42 Neutrophils # (1.80-7.70) X 10*3/uL Lymphocytes # (0.90-5.00) X 10*3/uL Eosinophils # (0.04-0.35) X 10*3/uL Carbon Dioxide (21.6-31.8) mmol/L Anion Gap (4.00-12.00) mmol/L Plasma Lactic Acid Alli 0.5 L (0.7-2.0) mmol/L Calcium (8.7-10.3) mg/dL TIBC (228-460) UG/DL Transferrin (204.0-354.0) mg/dL Ferritin (22.0-322.0) ng/mL Vitamin B12 (200.0-944.0) pg/mL Urine Ketones 2+ H (Negative)
--- NOTE | 2024-11-13 15:19 | P.PN ---
Subjective Progress Note Date: 11/13/24 Principal diagnosis: SCC of glottis - Febrile overnight to 100.9 F - Started on empiric Zosyn with blood cultures pending - Clinically, he continues to have odynophagia and pain in the throat. He feels Hunt helps more than IV Dilaudid Objective - Vital Signs Vital signs: Vital Signs Temp 99.4 F 11/13/24 11:37 Pulse 78 11/13/24 11:37 Resp 14 11/13/24 11:37 BP 120/67 11/13/24 11:37 Pulse Ox 97 11/13/24 11:37 FiO2 Intake & Output 11/12/24 11/13/24 11/13/24 18:59 06:59 18:59 Intake Total 1979 540 Balance 1979 540 Weight 63.503 kg Intake: Intake, IV Titration 900 Amount Sodium Chloride 0.9% 1, 900 000 ml @ 75 mls/hr IV . [id number] [facility] Rx#:[id number] Oral 1080 540 Other: Voiding Method Toilet Toilet Toilet # Voids 3 1 - Constitutional Constitutional Comment(s): Thin and fatigued appearing General appearance: Present: cooperative - EENT EENT Comment(s): Area of white lesions on the hard palate Eyes: Present: EOMI - Respiratory Respiratory: bilateral: CTA - Cardiovascular Rhythm: regular - Gastrointestinal General gastrointestinal: Present: soft. Absent: distended, tenderness - Integumentary Integumentary Comment(s): Radiation dermatitis of the neck - Neurologic Neurologic: Present: CNII-XII intact. Absent: focal deficits - Labs CBC & Chem 7: 11/12/24 06:00 11/12/24 03:26 Labs: Abnormal Lab Results - Last 24 Hours (Table) 11/11/24 11/13/24 11/13/24 Range/Units 12:13 03:40 05:42 Plasma Lactic Acid Alli 0.5 L (0.7-2.0) mmol/L TIBC 213 L (228-460) UG/DL Transferrin 152.0 L (204.0-354.0) mg/dL Ferritin 753.0 H (22.0-322.0) ng/mL Vitamin B12 1009.0 H (200.0-944.0) pg/mL Urine Ketones 2+ H (Negative) Assessment and Plan (1) Glottis carcinoma Current Visit: Yes Status: Acute Code(s): C32.0 - MALIGNANT NEOPLASM OF GLOTTIS SNOMED Code(s): 297492734 (2) Weakness Current Visit: Yes Status: Acute Code(s): R53.1 - WEAKNESS SNOMED Code(s): 46413891 (3) Chemotherapy-induced neutropenia Current Visit: Yes Status: Acute Code(s): D70.1 - AGRANULOCYTOSIS SECONDARY TO CANCER CHEMOTHERAPY; T45.1X5A - ADVERSE EFFECT OF ANTINEOPLASTIC AND IMMUNOSUP DRUGS, INIT SNOMED Code(s): 995471538 (4) Anemia due to chemotherapy Current Visit: Yes Status: Acute Code(s): D64.81 - ANEMIA DUE TO ANTINEOPLASTIC CHEMOTHERAPY; T45.1X5A - ADVERSE EFFECT OF ANTINEOPLASTIC AND IMMUNOSUP DRUGS, INIT SNOMED Code(s): 927962638577009 Plan: #Weakness, failure to thrive - Has been undergoing concurrent chemoradiotherapy since 10/03/2024 with progressive weight loss and decreased oral intake - Noted to have multiple fevers on 11/12/2024 and was started on empiric Zosyn - Blood cultures pending, UA with no evidence of infection - Noted to be febrile today at 102 F - Continue topical nystatin swish and spit was ordered due to concern for potential thrush noted on the hard palate - If he continues to have fevers despite initiation of empiric Zosyn, empiric treatment of Abbie could be considered #Neutropenia, anemia - He has grade 2 anemia and grade 2-3 neutropenia secondary to chemotherapy with weekly cisplatin - No evidence of nutritional deficiencies or low thyroid hormone - Monitor CBC daily and transfuse for hemoglobin less than 7 and platelets less than or equal to 10/or bleeding #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
[2024-11-13] MEDS: SODIUM CHLORIDE 0.9% 1,000 ML IV SCH (15:35)
--- NOTE | 2024-11-13 15:38 | P.PN ---
Subjective Progress Note Date: 11/13/24 patient is a 64-year-old gentleman with past medical history significant laryngeal cancer presented the ER because of generalized weakness. Patient stated he has not been eating for the last couple of days. Patient is currently on chemotherapy and radiation, last chemotherapy being Thursday and gets radiation 5 times per week. Patient has been complaining of poor appetite. Patient also complaining of dysphagia to solids. Patient has been losing weight. Patient stated that there was discussion between his oncologist and him about possible PEG tube placement. Because of his weakness, patient came to the ER Initial lab work done in the ER showed WBC 2.08, hemoglobin 9, platelet count 147, sodium 138, potassium 3.3 carbon 919, anion gap 14, BUN 16, creatinine 0.88, calcium 7.1, magnesium 0.8, bilirubin 0.7, albumin 3.2 EKG done in the ER showed heart rate of 94, no ST segment elevation or depr ession seen, no T-wave inversions seen. Chest x-ray done in the ER no acute cardiopulmonary process X-ray soft tissue done showed soft tissue thickening in the region of the glottis. Patient admitted to internal medicine service 11/13 patient seen and examined. Patient has been spiking fevers overnight, Tmax of 100. Continues to have poor appetite REVIEW OF SYSTEMS: CONSTITUTIONAL: No fever, no malaise,. CARDIOVASCULAR: No chest pain, no palpitations, no syncope. PULMONARY: No shortness of breath, no cough, GASTROINTESTINAL: No diarrhea, no nausea, no vomiting, no abdominal pain. NEUROLOGICAL: No headaches, no weakness, PHYSICAL EXAMINATION: GENERAL: The patient is alert and oriented x3, ill looking, cachectic HEENT: Pupils are round and equally reacting to light. EOMI. No scleral icterus. No conjunctival pallor. Normocephalic, atraumatic. No pharyngeal erythema. No thyromegaly. CARDIOVASCULAR: S1 and S2 present. No murmurs, rubs, or gallops. PULMONARY: Chest is clear to auscultation, no wheezing or crackles. ABDOMEN: Soft, nontender, nondistended, normoactive bowel sounds. No palpable organomegaly. MUSCULOSKELETAL: No joint swelling or deformity. EXTREMITIES: No cyanosis, clubbing, or pedal edema. NEUROLOGICAL: Gross neurological examination did not reveal any focal deficits. SKIN: No rashes. Assessment and plan Generalized weakness Hypokalemia Hypocalcemia Hypomagnesemia Dysphagia Severe malnutrition History of laryngeal carcinoma Monitor vital signs Monitor CBC Monitor CMP Continue IV Protonix Continue IV fluids Ordered blood cultures Start IV Zosyn Surgery following, planning EGD with possible PEG tube placement Hematology-oncology following Labs and medication were reviewed.. Continue same treatment. Continue with symptomatic treatment. Resume home medication. Monitor labs and vitals. DVT and GI prophylaxis. Further recommendations as per clinical course of the patient Dictation was produced using [employer] dictation software. please excuse any grammatical, word or spelling errors. Objective - Vital Signs Vital signs: Vital Signs Temp 99.4 F 11/13/24 11:37 Pulse 78 11/13/24 11:37 Resp 14 11/13/24 11:37 BP 120/67 11/13/24 11:37 Pulse Ox 97 11/13/24 11:37 FiO2 Intake & Output 11/12/24 11/13/24 11/13/24 18:59 06:59 18:59 Intake Total 1980 540 Balance 1979 540 Weight 63.503 kg Intake: Intake, IV Titration 900 Amount Sodium Chloride 0.9% 1, 900 000 ml @ 75 mls/hr IV . [id number] [facility] Rx#:[id number] Oral 1080 540 Other: Voiding Method Toilet Toilet Toilet # Voids 3 1 - Labs CBC & Chem 7: 11/12/24 06:00 11/12/24 03:26 Labs: Abnormal Lab Results - Last 24 Hours (Table) 11/11/24 11/13/24 11/13/24 Range/Units 12:13 03:40 05:42 Plasma Lactic Acid Alli 0.5 L (0.7-2.0) mmol/L TIBC 213 L (228-460) UG/DL Transferrin 152.0 L (204.0-354.0) mg/dL Ferritin 753.0 H (22.0-322.0) ng/mL Vitamin B12 1009.0 H (200.0-944.0) pg/mL Urine Ketones 2+ H (Negative)
[2024-11-13] MEDS: HYDROcodone/APAP 10-325MG 1 EACH TAB PO PRN (16:06)
[2024-11-13 19:26] LABS: Basophils # (A) 0.02 10*3/uL (0.00-0.10); Basophils % (A) 0.9 %; Eosinophils # (A) 0.01 10*3/uL (0.04-0.35); Eosinophils % (A) 0.4 %; HCT 23.2 % (39.6-50.0); HGB 8.4 g/dL (13.0-17.0); Lymphocytes # (A) 0.39 10*3/uL (0.90-5.00); Lymphocytes % (A) 16.9 %; MCH 35.9 pg (27.0-32.0); MCHC 36.2 g/dL (32.0-37.0); MCV 99.1 fL (80.0-97.0); Mean Platelet Volume 10.4 fL (9.5-12.2); Monocytes # (A) 0.76 10*3/uL (0.20-1.00); Monocytes % (A) 32.9 %; Neutrophils # (A) 1.12 10*3/uL (1.80-7.70); Neutrophils % (A) 48.5 %; Platelet Count 199 10*3/uL (140-440); RBC 2.34 10*6/uL (4.40-5.60); WBC 2.31 10*3/uL (4.50-10.00)
--- NOTE | 2024-11-13 23:06 | P.CONS ---
History of Present Illness - Reason for Consult Consult date: 11/13/24 Fever of unknown origin Requesting physician: Al Pena - Chief Complaint Weakness x few days - History of Present Illness Patient is a 64-year-old male with past medical history significant for COPD pulmonary embolism asthma in this patient has been recently diagnosed with a laryngeal cancer for the patient has received radiation and chemotherapy with the last dose of radiation on Thursday since then the patient has been feeling weak and sleepy did miss his appointment with his oncologist on Thursday who did call to check on him with him complaining of significant weakness decreased appetite unable to swallow any food for the patient was advised to go to the patient did not recall having any fever at home however patient did have a temperature of 102 F yesterday afternoon that has prompted this consultation patient currently denies having any headache symptoms mostly cough and spitting up stuff unable to swallow denies having any abdominal pain or diarrhea no chest pain shortness, patient did have a white count of 1.87 with a left shift he did have a creatinine of 0.9 UA has been negative patient did have a chest x-ray no acute cardiopulmonary disease process x-ray of the soft tissue of the neck did show soft tissue swelling in the region of the glottis consider further evaluation with CT patient has been empirically treated with Zosyn infectious disease was consulted today concerning for fever of unknown origin Review of Systems Positive point and negatives has been mentioned in the HPI, complete review of systems was performed and all other systems are negative Past Medical History Past Medical History: Asthma, COPD, Pulmonary Embolus (PE) Additional Past Medical History / Comment(s): HX: chronic diarrhea and weight loss, alcoholism, bilateral lung pulmonary embolisms-in 2012 and previous to that, R lung pleurisy, asthma as child, back pain and sciatica, R foot drop with numbness and tingling to R foot due to pinched nerves, multifactoral anemia, elevated LFTs, 1997 R hand fracture. History of Any Multi-Drug Resistant Organisms: None Reported Past Surgical History: Back Surgery, Orthopedic Surgery Additional Past Surgical History / Comment(s): back-fusions x 2 L4, L5, S1 with hardware, cataracts bilateral with lens implants, rotator cuff right shoulder, colonoscopies Past Anesthesia/Blood Transfusion Reactions: No Reported Reaction Past Psychological History: Anxiety, Depression Smoking Status: Current every day smoker Past Alcohol Use History: Abuse, Daily, Heavy Past Drug Use History: Cocaine, Marijuana - Past Family History Mother Family Medical History: Cancer Additional Family Medical History / Comment(s): Mother of pancreatic cancer at age 82 yrs. Father Family Medical History: Cancer Additional Family Medical History / Comment(s): Father of lung cancer at 86yrs. He was a heavy smoker. hx colon cancer Brother(s) Family Medical History: Cancer Additional Family Medical History / Comment(s): (1) lymphoma, (1) BRAIN CANCER Sister(s) Family Medical History: Cancer Additional Family Medical History / Comment(s): lung cancer and throat cancer Medications and Allergies Home Medications Medication Instructions Recorded Confirmed Type traZODone HCL 150 mg PO HS 11/03/20 11/11/24 History ALPRAZolam [Xanax] 0.5 - 1 mg PO BID PRN 11/11/24 11/11/24 History Albuterol Inhaler [Ventolin Hfa 2 puff INHALATION RT-Q4H PRN 11/11/24 11/11/24 History Inhaler] Benzonatate [Tessalon Perles] 100 mg PO TID PRN 11/11/24 11/11/24 History Fluconazole [Diflucan] 100 mg PO DAILY 11/11/24 11/11/24 History HYDROcodone/APAP 10-325MG [Tensed 1 - 2 tab PO Q6H PRN 11/11/24 11/11/24 History 10-325] Ondansetron [Zofran] 4 mg PO Q4H PRN 11/11/24 11/11/24 History Pantoprazole [Protonix] 40 mg PO BID 11/11/24 11/11/24 History Pilocarpine [Salagen] 5 mg PO TID 11/11/24 11/11/24 History Allergies Allergy/AdvReac Type Severity Reaction Status Date / Time buprenorphine [From Butrans] Allergy BUTRANS Verified 11/11/24 14:34 PATCH-ITCHING OF SKIN AND DISCOLORATION diclofenac [From Arthrotec] AdvReac DIZZY, Verified 11/11/24 14:34 LIGHTHEADED, "FELT STONED" mirtazapine [From Remeron] AdvReac DIZZY, Verified 11/11/24 14:34 LIGHTHEADED, "FELT STONED" misoprostol [From Arthrotec] AdvReac DIZZY, Verified 11/11/24 14:34 LIGHTHEADED, "FELT STONED" Physical Exam Vitals: Vital Signs Temp Pulse Resp BP Pulse Ox 11/13/24 11:37 99.4 F 78 14 120/67 97 11/13/24 10:02 98.6 F 11/13/24 08:00 76 14 11/13/24 07:04 100.0 F H 76 14 138/71 97 11/13/24 01:43 99.5 F 83 14 138/78 97 11/12/24 22:22 99.5 F 11/12/24 20:55 100.9 F H 11/12/24 20:00 100.6 F H 87 14 172/85 99 Intake and Output 11/13/24 11/13/24 11/13/24 06:59 14:59 22:59 Intake Total 540 Balance 540 Intake: Oral 540 Other: Voiding Method Toilet # Voids 1 GENERAL DESCRIPTION: Middle-age male lying in bed, no distress. No tachypnea or accessory muscle of respiration use. HEENT: Shows Pallor , no scleral icterus. Oral mucous membrane is dry. NECK: Trachea central, no thyromegaly. LUNGS: Unlabored breathing. Decreased breath sound at the base HEART: S1, S2, regular rate and rhythm. No loud murmur ABDOMEN: Soft, no tenderness , guarding or rigidity, no organomegaly EXTREMITIES: No edema of feet. SKIN: No rash, no masses palpable. NEUROLOGICAL: The patient is awake, alert, oriented x3, mood and affect normal. Results CBC & Chem 7: 11/13/24 18:41 11/12/24 03:26 Labs: Abnormal Lab Results - Last 24 Hours (Table) 11/11/24 11/13/24 11/13/24 Range/Units 12:13 03:40 05:42 Plasma Lactic Acid Alli 0.5 L (0.7-2.0) mmol/L TIBC 213 L (228-460) UG/DL Transferrin 152.0 L (204.0-354.0) mg/dL Ferritin 753.0 H (22.0-322.0) ng/mL Vitamin B12 1009.0 H (200.0-944.0) pg/mL Urine Ketones 2+ H (Negative) Assessment and Plan (1) Fever Current Visit: Yes Status: Acute Code(s): R50.9 - FEVER, UNSPECIFIED SNOMED Code(s): 518077297 (2) Leukopenia Current Visit: Yes Status: Acute Code(s): D72.819 - DECREASED WHITE BLOOD CELL COUNT, UNSPECIFIED SNOMED Code(s): 46977841 Plan: 1patient with fever in this patient who did have a history of an laryngeal cancer presenting to the hospital for evaluation of increasing weakness unable to swallow patient did have difficulty swallowing and continues to be spitting up stuff concerning for possible aspiration pneumonitis versus local inflammation in his laryngeal area from recent chemo and radiation therapy 2-we will try to obtain sputum for Gram stain and culture along with inflammatory markers 3-patient benefits from CT of the head and neck 4-we will treat with Zosyn while waiting for the workup to be completed We will follow on clinical condition and cultures to further adjust medication if needed Thank you for this consultation we will follow the patient along with you Dictation was produced using [employer] dictation software. please excuse any grammatical, word or spelling errors. Time with Patient: Greater than 30
[2024-11-14] MEDS: ALPRAZolam 0.5 MG TAB PO PRN (03:15)
[2024-11-14 08:45] LABS: ALT 18 U/L (10-49); AST 28 U/L (14-35); Albumin 3.1 g/dL (3.8-4.9); Albumin/Globulin Ratio 1.35 Ratio (1.60-3.17); Alkaline Phosphatase 62 U/L (41-126); BUN/Creat Ratio 10.86 Ratio (12.00-20.00); Blood Urea Nitrogen 7.6 mg/dL (9.0-27.0); Calcium 7.4 mg/dL (8.7-10.3); Carbon Dioxide 20.4 mmol/L (21.6-31.8); Chloride 101 mmol/L (96-109); Globulin 2.3 g/dL (1.6-3.3); Glucose 61 mg/dL (70-110); Potassium 3.1 mmol/L (3.5-5.5); Sodium 139 mmol/L (135-145); Total Bilirubin 0.3 mg/dL (0.3-1.2); Total Protein 5.4 g/dL (6.2-8.2)
[2024-11-14] MEDS: DEXTROSE 5%-0.9% NACL 1,000 ML IV SCH (10:00)
--- NOTE | 2024-11-14 10:30 | P.PN ---
Progress Note - Text Progress Note Date: 11/14/24 patient is a 64-year-old gentleman with past medical history significant laryngeal cancer presented the ER because of generalized weakness. Patient stated he has not been eating for the last couple of days. Patient is currently on chemotherapy and radiation, last chemotherapy being Thursday and gets radiation 5 times per week. Patient has been complaining of poor appetite. Patient also complaining of dysphagia to solids. Patient has been losing weight. Patient stated that there was discussion between his oncologist and him about possible PEG tube placement. Because of his weakness, patient came to the ER Initial lab work done in the ER showed WBC 2.08, hemoglobin 9, platelet count 1 47, sodium 138, potassium 3.3 carbon 919, anion gap 14, BUN 16, creatinine 0.88, calcium 7.1, magnesium 0.8, bilirubin 0.7, albumin 3.2 EKG done in the ER showed heart rate of 94, no ST segment elevation or depression seen, no T-wave inversions seen. Chest x-ray done in the ER no acute cardiopulmonary process X-ray soft tissue done showed soft tissue thickening in the region of the glottis. Patient admitted to internal medicine service 11/13 patient seen and examined. Patient has been spiking fevers overnight, Tmax of 100. Continues to have poor appetite November 14: Laying in bed. Tired. Congested cough. Trouble swallowing has bringing up sputum. Patient is NPO. Pending PEG tube today. By Dr Bradley. Hypoglycemia due to poor oral intake. Change IV fluids to D5 saline. Active Medications Acetaminophen (Acetaminophen Tab 325 Mg Tab) 650 mg PO Q4HR PRN PRN Reason: Fever and/ or Mild Pain Last Admin: 11/13/24 12:01 Dose: 650 mg Hydrocodone Bitart/Acetaminophen (Hydrocodone/Apap 10-325mg 1 Each Tab) 1 each PO Q4HR PRN PRN Reason: Pain Last Admin: 11/14/24 08:44 Dose: 1 each Albuterol Sulfate (Albuterol Nebulized 2.5 Mg/3 Ml) 2.5 mg INHALATION RT-Q4H PRN PRN Reason: Shortness Of Breath Alprazolam (Alprazolam 0.5 Mg Tab) 0.5 mg PO BID PRN PRN Reason: Severe Anxiety Last Admin: 11/14/24 03:15 Dose: 0.5 mg Benzonatate (Benzonatate 100 Mg Cap) 100 mg PO TID PRN PRN Reason: Cough Last Admin: 11/13/24 23:20 Dose: 100 mg Piperacillin Sod/Tazobactam (Sod 3.375 gm/ Sodium Chloride) 100 mls @ 25 mls/hr IVPB Q8HR [facility]; Protocol Last Admin: 11/14/24 08:43 Dose: 25 mls/hr Sodium Chloride (Saline 0.9%) 1,000 mls @ 75 mls/hr IV .[id number] [facility] Last Admin: 11/14/24 08:42 Dose: 75 mls/hr Potassium Chloride 10 meq/ IV (Solution) 100 mls @ 100 mls/hr IVPB Q1HR [facility] Stop: 11/14/24 13:59 Miscellaneous Information (Magnesium Replacement Protocol 1 Each Misc) 1 each MISCELLANE DAILY PRN; Protocol PRN Reason: Per Protocol Last Admin: 11/11/24 14:39 Dose: 1 each Nystatin (Nystatin 100,000 Unit/Ml Susp 500,000 Unit/5 Ml Cup) 500,000 unit PO QID [facility]; Protocol Stop: 11/22/24 16:10 Last Admin: 11/14/24 08:43 Dose: 500,000 unit Pantoprazole Sodium (Pantoprazole 40 Mg/10 Ml Vial) 40 mg IVP DAILY [facility] Last Admin: 11/14/24 08:43 Dose: 40 mg Pilocarpine HCl (Pilocarpine 5 Mg Tab) 5 mg PO TID [facility] Last Admin: 11/14/24 08:45 Dose: Not Given Trazodone HCl (Trazodone Hcl 50 Mg Tab) 50 mg PO HS PRN PRN Reason: Insomnia Last Admin: 11/12/24 00:14 Dose: 50 mg Trazodone HCl (Trazodone Hcl 50 Mg Tab) 150 mg PO HS [facility] Last Admin: 11/13/24 21:33 Dose: 150 mg Social history: Until recently: Smokes pack and half a day. Drinks an average of 8-12 beers of 16 ounce daily. Also in the past has done cocaine and marijuana. Also LSD. This is back in the 70s. Smoking for over 35 years. Lives with his who also has an alcohol problem Physical examination: VITAL SIGNS: 99.4, 80, 15, 137 x 80, 98% room air GENERAL: BMI 20.1, laying in bed tired EYES: Pupils equal. Conjunctiva pale HEENT: External appearance of nose and ears normal, oral cavity grossly normal. NECK: JVD not raised; masses not palpable. HEART: First and second heart sounds are normal; no edema. LUNGS: Respiratory rate normal; decreased breath sounds. ABDOMEN: Soft, no tenderness, no guarding rigidity liver spleen not palpable, no masses palpable. PSYCH: [Alert and oriented x3; mood and affect a bit low. MUSCULOSKELETAL:No Clubbing/cyanosis;muscles-grossly intact. Loss of muscle mass. And subcutaneous tissue. OA. INVESTIGATIONS, reviewed in the clinical context: November 06: Sodium 139 potassium 3.1 BUN 7.6 creatinine 0.7 glucose 61 procalcitonin less than 0.2 November 13: White count 2.3 hemoglobin 8.4 platelets 199 EKG tracing personally reviewed by me-normal sinus rhythm. Right bundle krista block CT abdomen and pelvis: Hepatic steatosis. Diverticulosis. Pancreas unremarkable CT angiography chest: Unremarkable Assessment plan: - Acute on chronic worsening medical asthenia due to underlying malignancy and other medical issues - Dysphagia, with trouble swallowing due to laryngeal cancer N.p.o. - Nutrition: Pending PEG tube placement with Dr. Bradley today -Chronic alcohol use disorder - Fever in a patient getting chemotherapy/immunosuppression. Currently empirically on Zosyn. Being followed by ID. 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 Deja Sánchez outpatient -Chronic pulm embolism Chronically on aspirin Add subcu Lovenox -Chronic back pain from musculoskeletal causes K-pad -Anxiety depression Cymbalta -COPD and current smoker Albuterol as needed -Chronic nicotine dependence, cigarette smoker Nicotine patch - Hypoglycemia secondary to poor oral intake: New diagnosis Change IV fluids to D5 saline
[2024-11-14] MEDS: POTASSIUM CHLORIDE 10 MEQ in WATER FOR INJECTION 1 100ML.BAG IVPB SCH (10:31)
--- NOTE | 2024-11-14 12:28 | P.CONS ---
History of Present Illness - Reason for Consult Consult date: 11/14/24 Failure to thrive Requesting physician: Mily Ritchie - Chief Complaint "I can't swallow" - History of Present Illness Mr. 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 He is status post planned radiation fr actions with concurrent cisplatin. As above, the patient is currently on treatment for a locally advanced laryngeal cancer. Last week, he was noted to have lost about 20 pounds since treatment start. He was referred to Dr. Borrero for consideration for PEG tube placement. He missed that appointment, and was then noted to be not taking any nutrition by mouth. He was directed to the [facility], where he was found to be neutropenic with fevers. Today, he notes he is unale to swallow anything due to pain. Review of Systems as per HPI Past Medical History Past Medical History: Asthma, COPD, Pulmonary Embolus (PE) Additional Past Medical History / Comment(s): HX: chronic diarrhea and weight loss, alcoholism, bilateral lung pulmonary embolisms-in 2012 and previous to that, R lung pleurisy, asthma as child, back pain and sciatica, R foot drop with numbness and tingling to R foot due to pinched nerves, multifactoral anemia, elevated LFTs, 1997 R hand fracture. History of Any Multi-Drug Resistant Organisms: None Reported Past Surgical History: Back Surgery, Orthopedic Surgery Additional Past Surgical History / Comment(s): back-fusions x 2 L4, L5, S1 with hardware, cataracts bilateral with lens implants, rotator cuff right shoulder, colonoscopies Past Anesthesia/Blood Transfusion Reactions: No Reported Reaction Past Psychological History: Anxiety, Depression Smoking Status: Current every day smoker Past Alcohol Use History: Abuse, Daily, Heavy Past Drug Use History: Cocaine, Marijuana - Past Family History Mother Family Medical History: Cancer Additional Family Medical History / Comment(s): Mother of pancreatic cancer at age 82 yrs. Father Family Medical History: Cancer Additional Family Medical History / Comment(s): Father of lung cancer at 86yrs. He was a heavy smoker. hx colon cancer Brother(s) Family Medical History: Cancer Additional Family Medical History / Comment(s): (1) lymphoma, (1) BRAIN CANCER Sister(s) Family Medical History: Cancer Additional Family Medical History / Comment(s): lung cancer and throat cancer Medications and Allergies Home Medications Medication Instructions Recorded Confirmed Type traZODone HCL 150 mg PO HS 11/03/20 11/11/24 History ALPRAZolam [Xanax] 0.5 - 1 mg PO BID PRN 11/11/24 11/11/24 History Albuterol Inhaler [Ventolin Hfa 2 puff INHALATION RT-Q4H PRN 11/11/24 11/11/24 History Inhaler] Benzonatate [Tessalon Perles] 100 mg PO TID PRN 11/11/24 11/11/24 History Fluconazole [Diflucan] 100 mg PO DAILY 11/11/24 11/11/24 History HYDROcodone/APAP 10-325MG [[place] 1 - 2 tab PO Q6H PRN 11/11/24 11/11/24 History 10-325] Ondansetron [Zofran] 4 mg PO Q4H PRN 11/11/24 11/11/24 History Pantoprazole [Protonix] 40 mg PO BID 11/11/24 11/11/24 History Pilocarpine [[place]] 5 mg PO TID 11/11/24 11/11/24 History Allergies Allergy/AdvReac Type Severity Reaction Status Date / Time buprenorphine [From Butrans] Allergy BUTRANS Verified 11/11/24 14:34 PATCH-ITCHING OF SKIN AND DISCOLORATION diclofenac [From Arthrotec] AdvReac DIZZY, Verified 11/11/24 14:34 LIGHTHEADED, "FELT STONED" mirtazapine [From Remeron] AdvReac DIZZY, Verified 11/11/24 14:34 LIGHTHEADED, "FELT STONED" misoprostol [From Arthrotec] AdvReac DIZZY, Verified 11/11/24 14:34 LIGHTHEADED, "FELT STONED" Physical Exam Vitals: Vital Signs Temp Pulse Resp BP Pulse Ox 11/14/24 07:05 99.4 F 80 15 167/80 98 11/14/24 01:33 99.5 F 68 16 129/73 96 11/13/24 20:00 98.8 F 79 16 127/77 98 Intake and Output 11/13/24 11/14/24 11/14/24 22:59 06:59 14:59 Intake Total 925 Balance 925 Intake: Intake, IV Titration 925 Amount Piperacillin-Tazobactam 3 100 .375 gm In Sodium Chloride 0.9% 100 ml @ 25 mls/hr IVPB Q8HR [facility] Rx# :[id number] Sodium Chloride 0.9% 1, 825 000 ml @ 75 mls/hr IV . [id number] [facility] Rx#:[id number] Other: Voiding Method Toilet Toilet # Voids 0 1 - Constitutional General appearance: mild distress, thin - Respiratory Respiratory: negative: prolonged expiration, prolonged inspiration moderate diffuse erythema necks Results CBC & Chem 7: 11/13/24 18:41 11/14/24 04:58 Labs: Abnormal Lab Results - Last 24 Hours (Table) 11/13/24 11/14/24 Range/Units 18:41 04:58 WBC 2.31 L (4.50-10.00) 10*3/uL RBC 2.34 L (4.40-5.60) 10*6/uL Hgb 8.4 L (13.0-17.0) g/dL Hct 23.2 L (39.6-50.0) % MCV 99.1 H (80.0-97.0) fL MCH 35.9 H (27.0-32.0) pg Neutrophils # 1.12 L (1.80-7.70) 10*3/uL Lymphocytes # 0.39 L (0.90-5.00) 10*3/uL Eosinophils # 0.01 L (0.04-0.35) 10*3/uL Potassium 3.1 L (3.5-5.5) mmol/L Carbon Dioxide 20.4 L (21.6-31.8) mmol/L Anion Gap 17.60 H (4.00-12.00) mmol/L BUN 7.6 L (9.0-27.0) mg/dL BUN/Creatinine Ratio 10.86 L (12.00-20.00) Ratio Glucose 61 L (70-110) mg/dL Calcium 7.4 L (8.7-10.3) mg/dL C-Reactive Protein 9.60 H (0.00-0.80) mg/dL Total Protein 5.4 L (6.2-8.2) g/dL Albumin 3.1 L (3.8-4.9) g/dL Albumin/Globulin Ratio 1.35 L (1.60-3.17) Ratio Assessment and Plan Assessment: Mr. 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 He is status post 25/35 planned radiation fractions with concurrent cisplatin. He presents with neutropenic fever and failure to thrive. Plan: I recommend PEG tube/laparoscopic tube placement on an inpatient basis. Treatment will be held until his condition improves. Julio C Stallings MD Radiation Oncology Time with Patient: Greater than 30
[2024-11-14 12:31] LABS: Glucose,Whole Blood 88 mg/dL (70-110)
[2024-11-14] MEDS: ENOXAPARIN 40 MG/0.4 ML SYRINGE SQ SCH (12:35)
--- NOTE | 2024-11-14 15:05 | P.PN ---
Subjective Progress Note Date: 11/14/24 SURGICAL PROGRESS NOTE CHIEF COMPLAINT: Glottic cancer HISTORY OF PRESENT ILLNESS: Patient scheduled for EGD with PEG tube placement today. Potassium 3.1 and being replaced. Vital stable. PHYSICAL EXAM: VITAL SIGNS: Reviewed. GENERAL: Well-developed in no acute distress. HEENT: No sclera icterus. Extraocular movements grossly intact. Moist buccal mucosa. Head is atraumatic, normocephalic. ABDOMEN: Soft. Nondistended. Nontender. NEUROLOGIC: Alert and oriented. Cranial nerves II through XII grossly intact. ASSESSMENT: 1. Glottic cancer 2. Moderate protein calorie malnutrition 3. Hypokalemia PLAN: - Patient scheduled for EGD with PEG tube placement - Potassium being replaced Physician Fire Protection Designer note has been reviewed by physician. Signing provider agrees with the documented findings, assessment, and plan of care. Objective - Vital Signs Vital signs: Vital Signs Temp 99.3 F 11/14/24 12:13 Pulse 75 11/14/24 12:13 Resp 16 11/14/24 12:13 BP 123/80 11/14/24 12:13 Pulse Ox 98 11/14/24 12:13 FiO2 Intake & Output 11/13/24 11/14/24 11/14/24 18:59 06:59 18:59 Intake Total 925 Balance 925 Intake: Intake, IV Titration 925 Amount Piperacillin-Tazobactam 3 100 .375 gm In Sodium Chloride 0.9% 100 ml @ 25 mls/hr IVPB Q8HR [facility] Rx# :[id number] Sodium Chloride 0.9% 1, 825 000 ml @ 75 mls/hr IV . [id number] [facility] Rx#:[id number] Other: Voiding Method Toilet Toilet Toilet # Voids 0 1 - Labs CBC & Chem 7: 11/13/24 18:41 11/14/24 04:58 Labs: Abnormal Lab Results - Last 24 Hours (Table) 11/13/24 11/14/24 Range/Units 18:41 04:58 WBC 2.31 L (4.50-10.00) 10*3/uL RBC 2.34 L (4.40-5.60) 10*6/uL Hgb 8.4 L (13.0-17.0) g/dL Hct 23.2 L (39.6-50.0) % MCV 99.1 H (80.0-97.0) fL MCH 35.9 H (27.0-32.0) pg Neutrophils # 1.12 L (1.80-7.70) 10*3/uL Lymphocytes # 0.39 L (0.90-5.00) 10*3/uL Eosinophils # 0.01 L (0.04-0.35) 10*3/uL Potassium 3.1 L (3.5-5.5) mmol/L Carbon Dioxide 20.4 L (21.6-31.8) mmol/L Anion Gap 17.60 H (4.00-12.00) mmol/L BUN 7.6 L (9.0-27.0) mg/dL BUN/Creatinine Ratio 10.86 L (12.00-20.00) Ratio Glucose 61 L (70-110) mg/dL Calcium 7.4 L (8.7-10.3) mg/dL C-Reactive Protein 9.60 H (0.00-0.80) mg/dL Total Protein 5.4 L (6.2-8.2) g/dL Albumin 3.1 L (3.8-4.9) g/dL Albumin/Globulin Ratio 1.35 L (1.60-3.17) Ratio Microbiology - Last 24 Hours (Table) 11/12/24 22:04 Blood Culture - Preliminary Blood
[2024-11-14] MEDS ORDERED: PROPOFOL 10 MG/ML 20 ML VIAL IV ONE (15:13)
[2024-11-14] MEDS ORDERED: LIDOCAINE 2% (PF) 20 MG/ML 5 ML VIAL ONE (15:13)
[2024-11-14] MEDS: IV FLUID CONTINUATION 1,000 ML IV ONE (15:21)
--- NOTE | 2024-11-14 15:31 | P.OP ---
Date of Procedure: 11/14/24 Preoperative Diagnosis: Protein calorie malnutrition Postoperative Diagnosis: Protein calorie malnutrition Procedure(s) Performed: PEG tube placement Anesthesia: MAC Surgeon: Nestor Brdaley Pathology: none sent Condition: stable Disposition: PACU Description of Procedure: Patient received IV sedation Next the gastroscope placed oropharynx passed in the esophagus and stomach. There is no evidence of any outlet obstruction. Stomach was insufflated with air. The light reflux seen the anterior abdominal wall. The abdomen was prepped and draped usual fashion. The skin was incised. And the needles placed and stomach under direct visualization. The needle was snared. And the wires placed through the needle and the wire was snared and brought the oropharynx. The PEG tube was placed over top the wire brought down to the stomach. The PEG tube was secured. At the 3 cm sybil. The one-piece bolster was used. Patient tolerated procedure well.
--- NOTE | 2024-11-14 16:27 | P.PN ---
Subjective Progress Note Date: 11/14/24 Pt reporting persisting dyphagia and spitting up sputum. Denies n/v. Persisting odynphagia, pain meds helping control pain. Pt scheduled today for PEG placement Objective - Vital Signs Vital signs: Vital Signs Temp 99.4 F 11/14/24 07:05 Pulse 80 11/14/24 07:05 Resp 15 11/14/24 07:05 BP 167/80 11/14/24 07:05 Pulse Ox 98 11/14/24 07:05 FiO2 Intake & Output 11/13/24 11/14/24 11/14/24 18:59 06:59 18:59 Intake Total 925 Balance 925 Intake: Intake, IV Titration 925 Amount Piperacillin-Tazobactam 3 100 .375 gm In Sodium Chloride 0.9% 100 ml @ 25 mls/hr IVPB Q8HR [facility] Rx# :[id number] Sodium Chloride 0.9% 1, 825 000 ml @ 75 mls/hr IV . [id number] [facility] Rx#:[id number] Other: Voiding Method Toilet Toilet Toilet # Voids 0 1 - Constitutional General appearance: Present: average body habitus, no acute distress - EENT Eyes: Present: anicteric sclerae, EOMI ENT: Present: hearing grossly normal - Respiratory Details: breathing is even and unlabored - Cardiovascular Details: skin warm and dry - Integumentary Integumentary: Absent: cyanotic - Musculoskeletal Musculoskeletal: Present: generalized weakness - Psychiatric Psychiatric: Present: A&O x's 3 - Labs CBC & Chem 7: 11/13/24 18:41 11/14/24 04:58 Labs: Abnormal Lab Results - Last 24 Hours (Table) 11/13/24 11/14/24 Range/Units 18:41 04:58 WBC 2.31 L (4.50-10.00) 10*3/uL RBC 2.34 L (4.40-5.60) 10*6/uL Hgb 8.4 L (13.0-17.0) g/dL Hct 23.2 L (39.6-50.0) % MCV 99.1 H (80.0-97.0) fL MCH 35.9 H (27.0-32.0) pg Neutrophils # 1.12 L (1.80-7.70) 10*3/uL Lymphocytes # 0.39 L (0.90-5.00) 10*3/uL Eosinophils # 0.01 L (0.04-0.35) 10*3/uL Potassium 3.1 L (3.5-5.5) mmol/L Carbon Dioxide 20.4 L (21.6-31.8) mmol/L Anion Gap 17.60 H (4.00-12.00) mmol/L BUN 7.6 L (9.0-27.0) mg/dL BUN/Creatinine Ratio 10.86 L (12.00-20.00) Ratio Glucose 61 L (70-110) mg/dL Calcium 7.4 L (8.7-10.3) mg/dL C-Reactive Protein 9.60 H (0.00-0.80) mg/dL Total Protein 5.4 L (6.2-8.2) g/dL Albumin 3.1 L (3.8-4.9) g/dL Albumin/Globulin Ratio 1.35 L (1.60-3.17) Ratio Assessment and Plan (1) Anemia due to chemotherapy Current Visit: Yes Status: Acute Code(s): D64.81 - ANEMIA DUE TO ANTINEOPLASTIC CHEMOTHERAPY; T45.1X5A - ADVERSE EFFECT OF ANTINEOPLASTIC AND IMMUNOSUP DRUGS, INIT SNOMED Code(s): 320580419513812 (2) Chemotherapy-induced neutropenia Current Visit: Yes Status: Acute Code(s): D70.1 - AGRANULOCYTOSIS SECONDARY TO CANCER CHEMOTHERAPY; T45.1X5A - ADVERSE EFFECT OF ANTINEOPLASTIC AND IMMUNOSUP DRUGS, INIT SNOMED Code(s): 286416705 (3) Fever Current Visit: Yes Status: Acute Code(s): R50.9 - FEVER, UNSPECIFIED SNOMED Code(s): 073722577 (4) Glottis carcinoma Current Visit: Yes Status: Acute Code(s): C32.0 - MALIGNANT NEOPLASM OF GLOTTIS SNOMED Code(s): 506377004 Plan: #Weakness, failure to thrive - Has been undergoing concurrent chemoradiotherapy since 10/03/2024 with progressive weight loss and decreased oral intake - Noted to have multiple fevers on 11/12/2024 and was started on empiric Zosyn - Blood cultures and sputum culture pending, UA with no evidence of infection - Tmax 102 F, no fevers x 24 hrs - Continue topical nystatin swish and spit was ordered due to concern for potential thrush noted on the hard palate - If he continues to have fevers despite initiation of empiric Zosyn, empiric treatment of Abbie could be considered - General surgery consulted for PEG tube placement #Neutropenia, anemia - He has grade 2 anemia and grade 2-3 neutropenia secondary to chemotherapy with weekly cisplatin - No evidence of nutritional deficiencies or low thyroid hormone - Monitor CBC daily and transfuse for hemoglobin less than 7 and platelets less than or equal to 10/or bleeding #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
[2024-11-14 17:04] LABS: Glucose,Whole Blood 93 mg/dL (70-110)
[2024-11-14] MEDS ORDERED: ONDANSETRON ODT 4 MG TAB PO PRN (20:07)
[2024-11-14] MEDS: ONDANSETRON 4 MG/2 ML VIAL IVP PRN (20:11)
[2024-11-14] MEDS: MAGNESIUM SULFATE-D5W PMX 1 GM in DEXTROSE/WATER 1 100ML.BAG IVPB SCH (21:09)
--- NOTE | 2024-11-14 22:01 | P.PN ---
Subjective Progress Note Date: 11/14/24 Principal diagnosis: Reason for follow-up is fever Patient is a 64-year-old male with past medical history significant for COPD pulmonary embolism asthma in this patient has been recently diagnosed with a laryngeal cancer for the patient has received radiation and chemotherapy presented the hospital complaining of generalized weakness he did have a fever prompting this consultation. On today's evaluation that is 11/14/2024, Patient did have improvement in his fever pattern he did have a low-grade fever of 99.5 F this morning patient denies having any chest pain shortness of breath still complaining of difficulty swallowing spitting and cough no vomiting or diarrhea. Patient white count is 2.31 creatinine 0.7 blood cultures currently pending sputum cultures currently pending Objective - Vital Signs Vital signs: Vital Signs Temp 99.3 F 11/14/24 12:13 Pulse 75 11/14/24 12:13 Resp 16 11/14/24 12:13 BP 123/80 11/14/24 12:13 Pulse Ox 98 11/14/24 12:13 FiO2 Intake & Output 11/13/24 11/14/24 11/14/24 18:59 06:59 18:59 Intake Total 925 Balance 925 Intake: Intake, IV Titration 925 Amount Piperacillin-Tazobactam 3 100 .375 gm In Sodium Chloride 0.9% 100 ml @ 25 mls/hr IVPB Q8HR [facility] Rx# :[id number] Sodium Chloride 0.9% 1, 825 000 ml @ 75 mls/hr IV . [id number] [facility] Rx#:[id number] Other: Voiding Method Toilet Toilet Toilet # Voids 0 1 - Exam GENERAL DESCRIPTION: Delete male lying in bed in no distress RESPIRATORY SYSTEM: Unlabored breathing , decreased intensity breath sounds HEART: S1 S2 regular rate and rhythm , ABDOMEN: Soft , no tenderness EXTREMITIES: No edema feet - Labs CBC & Chem 7: 11/13/24 18:41 11/14/24 04:58 Labs: Abnormal Lab Results - Last 24 Hours (Table) 11/13/24 11/14/24 Range/Units 18:41 04:58 WBC 2.31 L (4.50-10.00) 10*3/uL RBC 2.34 L (4.40-5.60) 10*6/uL Hgb 8.4 L (13.0-17.0) g/dL Hct 23.2 L (39.6-50.0) % MCV 99.1 H (80.0-97.0) fL MCH 35.9 H (27.0-32.0) pg Neutrophils # 1.12 L (1.80-7.70) 10*3/uL Lymphocytes # 0.39 L (0.90-5.00) 10*3/uL Eosinophils # 0.01 L (0.04-0.35) 10*3/uL Potassium 3.1 L (3.5-5.5) mmol/L Carbon Dioxide 20.4 L (21.6-31.8) mmol/L Anion Gap 17.60 H (4.00-12.00) mmol/L BUN 7.6 L (9.0-27.0) mg/dL BUN/Creatinine Ratio 10.86 L (12.00-20.00) Ratio Glucose 61 L (70-110) mg/dL Calcium 7.4 L (8.7-10.3) mg/dL C-Reactive Protein 9.60 H (0.00-0.80) mg/dL Total Protein 5.4 L (6.2-8.2) g/dL Albumin 3.1 L (3.8-4.9) g/dL Albumin/Globulin Ratio 1.35 L (1.60-3.17) Ratio Assessment and Plan (1) Fever Current Visit: Yes Status: Acute Code(s): R50.9 - FEVER, UNSPECIFIED SNOMED Code(s): 394814628 (2) Leukopenia Current Visit: Yes Status: Acute Code(s): D72.819 - DECREASED WHITE BLOOD CELL COUNT, UNSPECIFIED SNOMED Code(s): 91801554 Plan: 1patient with fever in this patient who did have a history of an laryngeal cancer presenting to the hospital for evaluation of increasing weakness unable to swallow patient did have difficulty swallowing and continues to be spitting up stuff concerning for possible aspiration pneumonitis versus local inflammation in his laryngeal area from recent chemo and radiation therapy 2-blood and sputum cultures currently pending 3patient did have improvement in fever pattern he will continue with Zosyn while waiting for the workup to be completed Dictation was produced using [employer] software. please excuse any grammatical, word or spelling errors. Time with Patient: Less than 30
[2024-11-15 08:06] LABS: Magnesium 1.2 mg/dL (1.5-2.4)
[2024-11-15 08:20] LABS: BUN/Creat Ratio 5.14 Ratio (12.00-20.00); Blood Urea Nitrogen 3.6 mg/dL (9.0-27.0); Carbon Dioxide 25.5 mmol/L (21.6-31.8); Chloride 103 mmol/L (96-109); Glucose 122 mg/dL (70-110); Potassium 2.9 mmol/L (3.5-5.5); Sodium 140 mmol/L (135-145)
[2024-11-15 08:30] LABS: Glucose,Whole Blood 143 mg/dL (70-110)
[2024-11-15] MEDS: HYDROmorphone 2 MG/ML 1 ML SYRINGE IVP PRN (10:56)
[2024-11-15 12:14] LABS: Glucose,Whole Blood 136 mg/dL (70-110)
--- NOTE | 2024-11-15 12:56 | P.PN ---
Subjective Progress Note Date: 11/15/24 SURGICAL PROGRESS NOTE CHIEF COMPLAINT: Glottic cancer HISTORY OF PRESENT ILLNESS: Patient is postop day #1 status post PEG tube placement. He reports his pain is controlled. He is sitting at bedside chair. He is scheduled to start tube feedings later this afternoon. Afebrile. Potassium 2.9 magnesium 1.2 PHYSICAL EXAM: VITAL SIGNS: Reviewed. GENERAL: Well-developed in no acute distress. ABDOMEN: Soft. Nondistended. PEG tube site clean dry and intact NEUROLOGIC: Alert and oriented. Cranial nerves II through XII grossly intact. ASSESSMENT: 1. Glottic cancer 2. Moderate protein calorie malnutrition 3. Hypokalemia and hypomagnesemia PLAN: -Dietitian consulted to start tube feedings today -Replacing potassium and magnesium Physician Twist Packer note has been reviewed by physician. Signing provider agrees with the documented findings, assessment, and plan of care. Objective - Vital Signs Vital signs: Vital Signs Temp 98.3 F 11/15/24 12:48 Pulse 77 11/15/24 12:48 Resp 16 11/15/24 12:48 BP 115/69 11/15/24 12:48 Pulse Ox 96 11/15/24 12:48 FiO2 Intake & Output 11/14/24 11/15/24 11/15/24 18:59 06:59 18:59 Intake Total 1680 Balance 1680 Weight 63.503 kg Intake: Intake, IV Titration 1200 Amount Dextrose 5%-0.9% NaCl 1, 700 000 ml @ 100 mls/hr IV . Q10H [facility] Rx#:[id number] Magnesium Sulfate-D5w Pmx 400 1 gm In Dextrose/Water 1 100ml.bag @ 100 mls/hr IVPB Q1H [facility] Rx#: [id number] Piperacillin-Tazobactam 3 100 .375 gm In Sodium Chloride 0.9% 100 ml @ 25 mls/hr IVPB Q8HR [facility] Rx# :[id number] Oral 480 Other: Voiding Method Toilet Toilet # Voids 2 # Bowel Movements 1 1 - Labs CBC & Chem 7: 11/13/24 18:41 11/15/24 05:26 Labs: Abnormal Lab Results - Last 24 Hours (Table) 11/14/24 11/15/24 11/15/24 Range/Units 19:41 05:26 08:28 Potassium 2.9 L (3.5-5.5) mmol/L BUN 3.6 L (9.0-27.0) mg/dL BUN/Creatinine Ratio 5.14 L (12.00-20.00) Ratio Glucose 122 H (70-110) mg/dL POC Glucose (mg/dL) 143 H (70-110) mg/dL Calcium 7.0 L (8.7-10.3) mg/dL Magnesium 0.5 L* 1.2 L (1.6-2.3) mg/dL 11/15/24 Range/Units 12:12 Potassium (3.5-5.5) mmol/L BUN (9.0-27.0) mg/dL BUN/Creatinine Ratio (12.00-20.00) Ratio Glucose (70-110) mg/dL POC Glucose (mg/dL) 136 H (70-110) mg/dL Calcium (8.7-10.3) mg/dL Magnesium (1.6-2.3) mg/dL Microbiology - Last 24 Hours (Table) 11/14/24 00:20 Gram Stain - Preliminary Sputum Sputum Culture - Preliminary 11/12/24 22:04 Blood Culture - Preliminary Blood
[2024-11-15] MEDS: POTASSIUM BICARBONATE/CIT AC 20 MEQ TABLET.EFF PEG/G-TUBE SCH (15:04)
[2024-11-15] MEDS: MAGNESIUM SULFATE-D5W PMX 1 GM in DEXTROSE/WATER 1 100ML.BAG IVPB SCH (15:05)
--- NOTE | 2024-11-15 15:53 | P.PN ---
Subjective Progress Note Date: 11/15/24 Principal diagnosis: Reason for follow-up is fever Patient is a 64-year-old male with past medical history significant for COPD pulmonary embolism asthma in this patient has been recently diagnosed with a laryngeal cancer for the patient has received radiation and chemotherapy presented the hospital complaining of generalized weakness he did have a fever prompting this consultation. On today's evaluation that is 11/15/2024,the patient denies any fever or any chills, patient is breathing slightly comfortably he is currently on room air he did have some cough and spitting up his secretion abdominal pain is currently controlled no diarrhea. The patient did have a creatinine 0.7 no CBC was done today blood sputum cultures currently pending Objective - Vital Signs Vital signs: Vital Signs Temp 99.3 F 11/15/24 08:11 Pulse 64 11/15/24 08:11 Resp 16 11/15/24 08:11 BP 161/90 11/15/24 08:11 Pulse Ox 95 11/15/24 08:11 FiO2 Intake & Output 11/14/24 11/15/24 11/15/24 18:59 06:59 18:59 Intake Total 1680 Balance 1680 Weight 63.503 kg Intake: Intake, IV Titration 1200 Amount Dextrose 5%-0.9% NaCl 1, 700 000 ml @ 100 mls/hr IV . Q10H [facility] Rx#:[id number] Magnesium Sulfate-D5w Pmx 400 1 gm In Dextrose/Water 1 100ml.bag @ 100 mls/hr IVPB Q1H [facility] Rx#: [id number] Piperacillin-Tazobactam 3 100 .375 gm In Sodium Chloride 0.9% 100 ml @ 25 mls/hr IVPB Q8HR [facility] Rx# :[id number] Oral 480 Other: Voiding Method Toilet Toilet # Voids 2 # Bowel Movements 1 1 - Exam GENERAL DESCRIPTION: Delete male lying in bed in no distress RESPIRATORY SYSTEM: Unlabored breathing , decreased intensity breath sounds HEART: S1 S2 regular rate and rhythm , ABDOMEN: Soft , no tenderness EXTREMITIES: No edema feet - Labs CBC & Chem 7: 11/13/24 18:41 11/15/24 05:26 Labs: Abnormal Lab Results - Last 24 Hours (Table) 11/14/24 11/15/24 11/15/24 Range/Units 19:41 05:26 08:28 Potassium 2.9 L (3.5-5.5) mmol/L BUN 3.6 L (9.0-27.0) mg/dL BUN/Creatinine Ratio 5.14 L (12.00-20.00) Ratio Glucose 122 H (70-110) mg/dL POC Glucose (mg/dL) 143 H (70-110) mg/dL Calcium 7.0 L (8.7-10.3) mg/dL Magnesium 0.5 L* 1.2 L (1.6-2.3) mg/dL 11/15/24 Range/Units 12:12 Potassium (3.5-5.5) mmol/L BUN (9.0-27.0) mg/dL BUN/Creatinine Ratio (12.00-20.00) Ratio Glucose (70-110) mg/dL POC Glucose (mg/dL) 136 H (70-110) mg/dL Calcium (8.7-10.3) mg/dL Magnesium (1.6-2.3) mg/dL Microbiology - Last 24 Hours (Table) 11/14/24 00:20 Gram Stain - Preliminary Sputum Sputum Culture - Preliminary 11/12/24 22:04 Blood Culture - Preliminary Blood Assessment and Plan (1) Fever Current Visit: Yes Status: Acute Code(s): R50.9 - FEVER, UNSPECIFIED SNOMED Code(s): 553689283 (2) Leukopenia Current Visit: Yes Status: Acute Code(s): D72.819 - DECREASED WHITE BLOOD CELL COUNT, UNSPECIFIED SNOMED Code(s): 14953481 Plan: 1patient with fever in this patient who did have a history of an laryngeal cancer presenting to the hospital for evaluation of increasing weakness unable to swallow patient did have difficulty swallowing and continues to be spitting up stuff concerning for possible aspiration pneumonitis versus local i nflammation in his laryngeal area from recent chemo and radiation therapy 2-blood and sputum cultures currently pending 3patient did have resolution of his fever patient to be treated with Zosyn whil e waiting for the cultures to be completed Dictation was produced using [employer] dictation software. please excuse any grammatical, word or spelling errors. Time with Patient: Less than 30
[2024-11-15 17:05] LABS: Glucose,Whole Blood 106 mg/dL (70-110)
--- NOTE | 2024-11-15 20:17 | P.PN ---
Subjective Progress Note Date: 11/15/24 Pt reporting persisting dyphagia and spitting up sputum. Denies n/v. Persisting odynphagia, pain meds changed to IV pain meds. S/p peg tube placement. Plan to inititate tube feedings later today Objective - Vital Signs Vital signs: Vital Signs Temp 98.3 F 11/15/24 12:48 Pulse 77 11/15/24 12:48 Resp 16 11/15/24 12:48 BP 115/69 11/15/24 12:48 Pulse Ox 96 11/15/24 12:48 FiO2 Intake & Output 11/14/24 11/15/24 11/15/24 18:59 06:59 18:59 Intake Total 1680 Balance 1680 Weight 63.503 kg Intake: Intake, IV Titration 1200 Amount Dextrose 5%-0.9% NaCl 1, 700 000 ml @ 100 mls/hr IV . Q10H [facility] Rx#:[id number] Magnesium Sulfate-D5w Pmx 400 1 gm In Dextrose/Water 1 100ml.bag @ 100 mls/hr IVPB Q1H [facility] Rx#: [id number] Piperacillin-Tazobactam 3 100 .375 gm In Sodium Chloride 0.9% 100 ml @ 25 mls/hr IVPB Q8HR [facility] Rx# :[id number] Oral 480 Other: Voiding Method Toilet Toilet # Voids 2 # Bowel Movements 1 1 - Labs CBC & Chem 7: 11/13/24 18:41 11/15/24 05:26 Labs: Abnormal Lab Results - Last 24 Hours (Table) 11/14/24 11/15/24 11/15/24 Range/Units 19:41 05:26 08:28 Potassium 2.9 L (3.5-5.5) mmol/L BUN 3.6 L (9.0-27.0) mg/dL BUN/Creatinine Ratio 5.14 L (12.00-20.00) Ratio Glucose 122 H (70-110) mg/dL POC Glucose (mg/dL) 143 H (70-110) mg/dL Calcium 7.0 L (8.7-10.3) mg/dL Magnesium 0.5 L* 1.2 L (1.6-2.3) mg/dL 11/15/24 Range/Units 12:12 Potassium (3.5-5.5) mmol/L BUN (9.0-27.0) mg/dL BUN/Creatinine Ratio (12.00-20.00) Ratio Glucose (70-110) mg/dL POC Glucose (mg/dL) 136 H (70-110) mg/dL Calcium (8.7-10.3) mg/dL Magnesium (1.6-2.3) mg/dL Microbiology - Last 24 Hours (Table) 11/12/24 22:04 Blood Culture - Preliminary Blood 11/14/24 00:20 Gram Stain - Preliminary Sputum Sputum Culture - Preliminary Assessment and Plan (1) Anemia due to chemotherapy Current Visit: Yes Status: Acute Code(s): D64.81 - ANEMIA DUE TO ANTINEOPLASTIC CHEMOTHERAPY; T45.1X5A - ADVERSE EFFECT OF ANTINEOPLASTIC AND IMMUNOSUP DRUGS, INIT SNOMED Code(s): 277896408493151 (2) Chemotherapy-induced neutropenia Current Visit: Yes Status: Acute Code(s): D70.1 - AGRANULOCYTOSIS SECONDARY TO CANCER CHEMOTHERAPY; T45.1X5A - ADVERSE EFFECT OF ANTINEOPLASTIC AND IMMUNOSUP DRUGS, INIT SNOMED Code(s): 137213638 (3) Fever Current Visit: Yes Status: Acute Code(s): R50.9 - FEVER, UNSPECIFIED SNOMED Code(s): 805018901 (4) Glottis carcinoma Current Visit: Yes Status: Acute Code(s): C32.0 - MALIGNANT NEOPLASM OF GLOTTIS SNOMED Code(s): 502183671 Plan: #Weakness, failure to thrive - Has been undergoing concurrent chemoradiotherapy since 10/03/2024 with progressive weight loss and decreased oral intake - Noted to have multiple fevers on 11/12/2024 and was started on empiric Zosyn - Blood cultures negative thus far, sputum culture pending, UA with no evidence of infection - Tmax 102 F. Fevers subsided - Continue topical nystatin swish and spit was ordered due to concern for potential thrush noted on the hard palate - General surgery consulted, s/p PEG tube placement. 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
--- NOTE | 2024-11-15 20:58 | P.PN ---
Progress Note - Text Progress Note Date: 11/15/24 patient is a 64-year-old gentleman with past medical history significant laryngeal cancer presented the ER because of generalized weakness. Patient stated he has not been eating for the last couple of days. Patient is currently on chemotherapy and radiation, last chemotherapy being Thursday and gets radiation 5 times per week. Patient has been complaining of poor appetite. Patient also complaining of dysphagia to solids. Patient has been losing weight. Patient stated that there was discussion between his oncologist and him about possible PEG tube placement. Because of his weakness, patient came to the ER Initial lab work done in the ER showed WBC 2.08, hemoglobin 9, platelet count 1 47, sodium 138, potassium 3.3 carbon 919, anion gap 14, BUN 16, creatinine 0.88, calcium 7.1, magnesium 0.8, bilirubin 0.7, albumin 3.2 EKG done in the ER showed heart rate of 94, no ST segment elevation or depression seen, no T-wave inversions seen. Chest x-ray done in the ER no acute cardiopulmonary process X-ray soft tissue done showed soft tissue thickening in the region of the glottis. Patient admitted to internal medicine service 11/13 patient seen and examined. Patient has been spiking fevers overnight, Tmax of 100. Continues to have poor appetite November 14: Laying in bed. Tired. Congested cough. Trouble swallowing has bringing up sputum. Patient is NPO. Pending PEG tube today. By Dr Bradley. Hypoglycemia due to poor oral intake. Change IV fluids to D5 saline. November 15: In bed. Remains tired. Trouble swallowing. Keeps on expectorating. PEG tube feeding at 10 cc an hour. On IV Zosyn. Hypomagnesemia being corrected. Water flushes. Active Medications Acetaminophen (Acetaminophen Tab 325 Mg Tab) 650 mg PO Q4HR PRN PRN Reason: Fever and/ or Mild Pain Last Admin: 11/13/24 12:01 Dose: 650 mg Hydrocodone Bitart/Acetaminophen (Hydrocodone/Apap 10-325mg 1 Each Tab) 1 each PO Q4HR PRN PRN Reason: Pain Last Admin: 11/15/24 19:57 Dose: 1 each Albuterol Sulfate (Albuterol Nebulized 2.5 Mg/3 Ml) 2.5 mg INHALATION RT-Q4H PRN PRN Reason: Shortness Of Breath Alprazolam (Alprazolam 0.5 Mg Tab) 0.5 mg PO BID PRN PRN Reason: Severe Anxiety Last Admin: 11/15/24 19:57 Dose: 0.5 mg Benzonatate (Benzonatate 100 Mg Cap) 100 mg PO TID PRN PRN Reason: Cough Last Admin: 11/15/24 09:09 Dose: 100 mg Enoxaparin Sodium (Enoxaparin 40 Mg/0.4 Ml Syringe) 40 mg SQ DAILY [facility] Last Admin: 11/15/24 09:11 Dose: 40 mg Hydromorphone HCl (Hydromorphone 1 Mg/Ml 1 Ml Syringe) 1 mg IVP Q3HR PRN PRN Reason: Breakthrough Pain Piperacillin Sod/Tazobactam (Sod 3.375 gm/ Sodium Chloride) 100 mls @ 25 mls/hr IVPB Q8HR [facility]; Protocol Last Admin: 11/15/24 17:00 Dose: 25 mls/hr Dextrose/Sodium Chloride (Dextrose 5%-Ns Iv Soln) 1,000 mls @ 100 mls/hr IV .Q10H [facility] Last Admin: 11/15/24 17:02 Dose: Not Given Miscellaneous Information (Magnesium Replacement Protocol 1 Each Misc) 1 each MISCELLANE DAILY PRN; Protocol PRN Reason: Per Protocol Last Admin: 11/11/24 14:39 Dose: 1 each Nystatin (Nystatin 100,000 Unit/Ml Susp 500,000 Unit/5 Ml Cup) 500,000 unit PO QID [facility]; Protocol Stop: 11/22/24 16:10 Last Admin: 11/15/24 17:01 Dose: Not Given Ondansetron HCl (Ondansetron 4 Mg/2 Ml Vial) 4 mg IVP Q8HR PRN PRN Reason: Nausea And Vomiting Last Admin: 11/14/24 20:11 Dose: 4 mg Ondansetron HCl (Ondansetron Odt 4 Mg Tab) 4 mg PO Q8HR PRN PRN Reason: Nausea And Vomiting Pantoprazole Sodium (Pantoprazole 40 Mg/10 Ml Vial) 40 mg IVP DAILY [facility] Last Admin: 11/15/24 09:11 Dose: 40 mg Pilocarpine HCl (Pilocarpine 5 Mg Tab) 5 mg PO TID [facility] Last Admin: 11/15/24 20:03 Dose: Not Given Trazodone HCl (Trazodone Hcl 50 Mg Tab) 50 mg PO HS PRN PRN Reason: Insomnia Last Admin: 11/12/24 00:14 Dose: 50 mg Trazodone HCl (Trazodone Hcl 50 Mg Tab) 150 mg PO HS [facility] Last Admin: 11/15/24 04:12 Dose: Not Given Social history: Until recently: Smokes pack and half a day. Drinks an average of 8-12 beers of 16 ounce daily. Also in the past has done cocaine and marijuana. Also LSD. This is back in the 70s. Smoking for over 35 years. Lives with his who also has an alcohol problem Physical examination: VITAL SIGNS: 98.8, 101, 17, 114 x 73, 98% room air GENERAL: BMI 20.1, laying in bed tired EYES: Pupils equal. Conjunctiva pale HEENT: External appearance of nose and ears normal, oral cavity grossly normal. NECK: JVD not raised; masses not palpable. HEART: First and second heart sounds are normal; no edema. LUNGS: Respiratory rate normal; decreased breath sounds. ABDOMEN: Soft, no tenderness, no guarding rigidity liver spleen not palpable, no masses palpable. PEG tube with feeding PSYCH: [Alert and oriented x3; mood and affect-low. MUSCULOSKELETAL:No Clubbing/cyanosis;muscles-grossly intact. Loss of muscle mass. And subcutaneous tissue. OA. INVESTIGATIONS, reviewed in the clinical context: November 15: Potassium 2.9 creatinine 0.7 magnesium 1.2 November 14: Sodium 139 potassium 3.1 BUN 7.6 creatinine 0.7 glucose 61 procalcitonin less than 0.2 November 13: White count 2.3 hemoglobin 8.4 platelets 199 EKG tracing personally reviewed by me-normal sinus rhythm. Right bundle krista block CT abdomen and pelvis: Hepatic steatosis. Diverticulosis. Pancreas unremarkab le CT angiography chest: Unremarkable Assessment plan: - Acute on chronic worsening medical asthenia due to underlying malignancy and other medical issues - Dysphagia, with trouble swallowing due to laryngeal cancer N.p.o. -PEG tube placed on November 15, [address] Bradley Tube feeding at 10 cc an hour. Water flushes -Chronic alcohol use disorder - Fever in a patient getting chemotherapy/immunosuppression. Currently empirically on Zosyn. Being followed by ID. 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
[2024-11-16 00:14] LABS: Glucose,Whole Blood 139 mg/dL (70-110)
[2024-11-16] MEDS: HYDROmorphone 1 MG/ML 1 ML SYRINGE IVP PRN (03:20)
[2024-11-16 05:02] LABS: African American GFR (CKD) >90 (>60 ml/min/1.73 sqM); Anion Gap 8 mmol/L; Blood Urea Nitrogen <2 mg/dL (9-20); Calcium 6.9 mg/dL (8.4-10.2); Carbon Dioxide 28 mmol/L (22-30); Chloride 101 mmol/L (98-107); Glucose 124 mg/dL (74-99); Non-African American GFR(CKD) >90 (>60 ml/min/1.73 sqM); Sodium 137 mmol/L (137-145)
[2024-11-16 05:04] LABS: Potassium 2.7 mmol/L (3.5-5.1)
[2024-11-16] MEDS: POTASSIUM CHLORIDE ER 20 MEQ TAB.ER PO SCH (05:28)
[2024-11-16 05:39] LABS: Glucose,Whole Blood 144 mg/dL (70-110)
[2024-11-16] MEDS: MAGNESIUM SULFATE-D5W PMX 1 GM in DEXTROSE/WATER 1 100ML.BAG IVPB SCH (05:52)
[2024-11-16] MEDS: POTASSIUM BICARBONATE/CIT AC 20 MEQ TABLET.EFF PO SCH (11:08)
--- NOTE | 2024-11-16 15:06 | P.PN ---
Subjective Progress Note Date: 11/16/24 SURGICAL PROGRESS NOTE CHIEF COMPLAINT: Glottic cancer HISTORY OF PRESENT ILLNESS: Patient is postop day #2 status post PEG tube placement. Patient is tolerating tube feeds. Tube feeds are currently at 30 mL/h. Afebrile. Potassium 2.7 magnesium 1.0 PHYSICAL EXAM: VITAL SIGNS: Reviewed. GENERAL: Well-developed in no acute distress. ABDOMEN: Soft. Nondistended. PEG tube site clean dry and intact NEUROLOGIC: Sleeping comfortably ASSESSMENT: 1. Glottic cancer 2. Moderate protein calorie malnutrition 3. Hypokalemia and hypomagnesemia PLAN: -Continue to titrate tube feeds per dietitian recommendations -Medicine service replacing electrolytes Physician Horse Identifier note has been reviewed by physician. Signing provider agrees with the documented findings, assessment, and plan of care. Objective - Vital Signs Vital signs: Vital Signs Temp 99.1 F 11/16/24 12:19 Pulse 83 11/16/24 12:19 Resp 18 11/16/24 12:19 BP 105/71 11/16/24 12:19 Pulse Ox 93 L 11/16/24 12:19 FiO2 Intake & Output 11/15/24 11/16/24 11/16/24 18:59 06:59 18:59 Weight 63.503 kg 66.6 kg Other: Voiding Method Toilet # Voids 1 # Bowel Movements 1 - Labs CBC & Chem 7: 11/13/24 18:41 11/16/24 10:08 Labs: Abnormal Lab Results - Last 24 Hours (Table) 11/16/24 11/16/24 11/16/24 Range/Units 00:08 04:16 05:37 Potassium 2.7 L* (3.5-5.1) mmol/L BUN <2 L (9-20) mg/dL Creatinine 0.63 L (0.66-1.25) mg/dL Glucose 124 H (74-99) mg/dL POC Glucose (mg/dL) 139 H 144 H (70-110) mg/dL Calcium 6.9 L (8.4-10.2) mg/dL Magnesium 1.0 L (1.6-2.3) mg/dL 11/16/24 Range/Units 10:08 Potassium 2.7 L* (3.5-5.1) mmol/L BUN (9-20) mg/dL Creatinine (0.66-1.25) mg/dL Glucose (74-99) mg/dL POC Glucose (mg/dL) (70-110) mg/dL Calcium (8.4-10.2) mg/dL Magnesium (1.6-2.3) mg/dL Microbiology - Last 24 Hours (Table) 11/12/24 22:04 Blood Culture - Preliminary Blood 11/14/24 00:20 Gram Stain - Final Sputum Sputum Culture - Final
--- NOTE | 2024-11-16 18:06 | P.PN ---
Subjective Progress Note Date: 11/16/24 Pt reporting persisting dyphagia. Feeling improved today. Denies n/v, tolerating tube feedings. Potassium 2.7, magnesium 1.0, supplementation ordered Objective - Vital Signs Vital signs: Vital Signs Temp 99.1 F 11/16/24 12:19 Pulse 83 11/16/24 12:19 Resp 18 11/16/24 12:19 BP 105/71 11/16/24 12:19 Pulse Ox 93 L 11/16/24 12:19 FiO2 Intake & Output 11/15/24 11/16/24 11/16/24 18:59 06:59 18:59 Weight 63.503 kg 66.6 kg Other: Voiding Method Toilet # Voids 1 # Bowel Movements 1 - Constitutional General appearance: Present: no acute distress - EENT Eyes: Present: anicteric sclerae, EOMI ENT: Present: hearing grossly normal - Gastrointestinal General gastrointestinal: Absent: tenderness - Integumentary Integumentary: Absent: cyanotic, jaundiced - Musculoskeletal Musculoskeletal: Present: strength equal bilaterally - Psychiatric Psychiatric: Present: A&O x's 3 - Labs CBC & Chem 7: 11/13/24 18:41 11/16/24 15:52 Labs: Abnormal Lab Results - Last 24 Hours (Table) 11/16/24 11/16/24 11/16/24 Range/Units 00:08 04:16 05:37 Potassium 2.7 L* (3.5-5.1) mmol/L BUN <2 L (9-20) mg/dL Creatinine 0.63 L (0.66-1.25) mg/dL Glucose 124 H (74-99) mg/dL POC Glucose (mg/dL) 139 H 144 H (70-110) mg/dL Calcium 6.9 L (8.4-10.2) mg/dL Magnesium 1.0 L (1.6-2.3) mg/dL 11/16/24 Range/Units 10:08 Potassium 2.7 L* (3.5-5.1) mmol/L BUN (9-20) mg/dL Creatinine (0.66-1.25) mg/dL Glucose (74-99) mg/dL POC Glucose (mg/dL) (70-110) mg/dL Calcium (8.4-10.2) mg/dL Magnesium (1.6-2.3) mg/dL Microbiology - Last 24 Hours (Table) 11/12/24 22:04 Blood Culture - Preliminary Blood 11/14/24 00:20 Gram Stain - Final Sputum Sputum Culture - Final Assessment and Plan (1) Anemia due to chemotherapy Current Visit: Yes Status: Acute Code(s): D64.81 - ANEMIA DUE TO ANTINEOPLASTIC CHEMOTHERAPY; T45.1X5A - ADVERSE EFFECT OF ANTINEOPLASTIC AND IMMUNOSUP DRUGS, INIT SNOMED Code(s): 439253009120975 (2) Chemotherapy-induced neutropenia Current Visit: Yes Status: Acute Code(s): D70.1 - AGRANULOCYTOSIS SECONDARY TO CANCER CHEMOTHERAPY; T45.1X5A - ADVERSE EFFECT OF ANTINEOPLASTIC AND IMMUNOSU P DRUGS, INIT SNOMED Code(s): 145501980 (3) Fever Current Visit: Yes Status: Acute Code(s): R50.9 - FEVER, UNSPECIFIED SNOMED Code(s): 461697329 (4) Glottis carcinoma Current Visit: Yes Status: Acute Code(s): C32.0 - MALIGNANT NEOPLASM OF GLOTTIS SNOMED Code(s): 907821040 Plan: #Weakness, failure to thrive - Has been undergoing concurrent chemoradiotherapy since 10/03/2024 with pr ogressive weight loss and decreased oral intake - Noted to have multiple fevers on 11/12/2024 and was started on empiric Zosyn - Blood cultures negative thus far, sputum culture pending, UA with no evidence of infection - Tmax 102 F. Fevers subsided - Continue topical nystatin swish and spit was ordered due to concern for potential thrush noted on the hard palate - General surgery consulted, s/p PEG tube placement. 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 Plan to restart radiaiton upon discharge Pt is cleared for discharge from hem/onc standpoint once cleared by admitting team and other consulted specialities
--- NOTE | 2024-11-16 19:13 | P.PN ---
Progress Note - Text Progress Note Date: 11/16/24 patient is a 64-year-old gentleman with past medical history significant laryngeal cancer presented the ER because of generalized weakness. Patient stated he has not been eating for the last couple of days. Patient is currently on chemotherapy and radiation, last chemotherapy being Thursday and gets radiation 5 times per week. Patient has been complaining of poor appetite. Patient also complaining of dysphagia to solids. Patient has been losing weight. Patient stated that there was discussion between his oncologist and him about possible PEG tube placement. Because of his weakness, patient came to the ER Initial lab work done in the ER showed WBC 2.08, hemoglobin 9, platelet count 1 47, sodium 138, potassium 3.3 carbon 919, anion gap 14, BUN 16, creatinine 0.88, calcium 7.1, magnesium 0.8, bilirubin 0.7, albumin 3.2 EKG done in the ER showed heart rate of 94, no ST segment elevation or depression seen, no T-wave inversions seen. Chest x-ray done in the ER no acute cardiopulmonary process X-ray soft tissue done showed soft tissue thickening in the region of the glottis. Patient admitted to internal medicine service 11/13 patient seen and examined. Patient has been spiking fevers overnight, Tmax of 100. Continues to have poor appetite November 14: Laying in bed. Tired. Congested cough. Trouble swallowing has bringing up sputum. Patient is NPO. Pending PEG tube today. By Dr Bradley. Hypoglycemia due to poor oral intake. Change IV fluids to D5 saline. November 15: In bed. Remains tired. Trouble swallowing. Keeps on expectorating. PEG tube feeding at 10 cc an hour. On IV Zosyn. Hypomagnesemia being corrected. Water flushes. November 16: Patient tolerating tube feeding. Potassium was down to 2.7 today. Replacement ordered. Up in a chair. Spoke to mental health social worker. Ava plan to discharge home. Tomorrow. Will DC IV fluids Active Medications Acetaminophen (Acetaminophen Tab 325 Mg Tab) 650 mg PO Q4HR PRN PRN Reason: Fever and/ or Mild Pain Last Admin: 11/13/24 12:01 Dose: 650 mg Hydrocodone Bitart/Acetaminophen (Hydrocodone/Apap 10-325mg 1 Each Tab) 1 each PO Q4HR PRN PRN Reason: Pain Last Admin: 11/15/24 19:57 Dose: 1 each Albuterol Sulfate (Albuterol Nebulized 2.5 Mg/3 Ml) 2.5 mg INHALATION RT-Q4H PRN PRN Reason: Shortness Of Breath Alprazolam (Alprazolam 0.5 Mg Tab) 0.5 mg PO BID PRN PRN Reason: Severe Anxiety Last Admin: 11/15/24 19:57 Dose: 0.5 mg Benzonatate (Benzonatate 100 Mg Cap) 100 mg PO TID PRN PRN Reason: Cough Last Admin: 11/15/24 09:09 Dose: 100 mg Enoxaparin Sodium (Enoxaparin 40 Mg/0.4 Ml Syringe) 40 mg SQ DAILY [facility] Last Admin: 11/16/24 09:10 Dose: 40 mg Hydromorphone HCl (Hydromorphone 1 Mg/Ml 1 Ml Syringe) 1 mg IVP Q3HR PRN PRN Reason: Breakthrough Pain Last Admin: 11/16/24 16:29 Dose: 1 mg Piperacillin Sod/Tazobactam (Sod 3.375 gm/ Sodium Chloride) 100 mls @ 25 mls/hr IVPB Q8HR [facility]; Protocol Last Admin: 11/16/24 16:29 Dose: 25 mls/hr Dextrose/Sodium Chloride (Dextrose 5%-Ns Iv Soln) 1,000 mls @ 100 mls/hr IV .Q10H [facility] Last Admin: 11/16/24 11:11 Dose: 100 mls/hr Magnesium Oxide (Magnesium Oxide 400 Mg Tab) 400 mg PO BID [facility] Miscellaneous Information (Magnesium Replacement Protocol 1 Each Misc) 1 each MISCELLANE DAILY PRN; Protocol PRN Reason: Per Protocol Last Admin: 11/11/24 14:39 Dose: 1 each Nystatin (Nystatin 100,000 Unit/Ml Susp 500,000 Unit/5 Ml Cup) 500,000 unit PO QID [facility]; Protocol Stop: 11/22/24 16:10 Last Admin: 11/16/24 15:53 Dose: Not Given Ondansetron HCl (Ondansetron 4 Mg/2 Ml Vial) 4 mg IVP Q8HR PRN PRN Reason: Nausea And Vomiting Last Admin: 11/14/24 20:11 Dose: 4 mg Ondansetron HCl (Ondansetron Odt 4 Mg Tab) 4 mg PO Q8HR PRN PRN Reason: Nausea And Vomiting Pantoprazole Sodium (Pantoprazole 40 Mg/10 Ml Vial) 40 mg IVP DAILY [facility] Last Admin: 11/16/24 09:10 Dose: 40 mg Pilocarpine HCl (Pilocarpine 5 Mg Tab) 5 mg PO TID [facility] Last Admin: 11/16/24 11:10 Dose: Not Given Trazodone HCl (Trazodone Hcl 50 Mg Tab) 50 mg PO HS PRN PRN Reason: Insomnia Last Admin: 11/12/24 00:14 Dose: 50 mg Trazodone HCl (Trazodone Hcl 50 Mg Tab) 150 mg PO HS [facility] Last Admin: 11/15/24 21:44 Dose: 150 mg Social history: Until recently: Smokes pack and half a day. Drinks an average of 8-12 beers of 16 ounce daily. Also in the past has done cocaine and marijuana. Also LSD. This is back in the 70s. Smoking for over 35 years. Lives with his who also has an alcohol problem Physical examination: VITAL SIGNS: 99.1, 83, 18, 105 S91, 93% room GENERAL: BMI 20.1, up in a chair EYES: Pupils equal. Conjunctiva pale HEENT: External appearance of nose and ears normal, oral cavity grossly normal. NECK: JVD not raised; masses not palpable. HEART: First and second heart sounds are normal; no edema. LUNGS: Respiratory rate normal; decreased breath sounds. ABDOMEN: Soft, no tenderness, no guarding rigidity liver spleen not palpable, no masses palpable. PEG tube with feeding PSYCH: [Alert and oriented x3; mood and affect-low. MUSCULOSKELETAL:No Clubbing/cyanosis;muscles-grossly intact. Loss of muscle mass. And subcutaneous tissue. OA. INVESTIGATIONS, reviewed in the clinical context: November 16: Potassium 2.7. Repeat 2.7. Repeat 4.3 November 15: Potassium 2.9 creatinine 0.7 magnesium 1.2 November 14: Sodium 139 potassium 3.1 BUN 7.6 creatinine 0.7 glucose 61 procalcitonin less than 0.2 November 13: White count 2.3 hemoglobin 8.4 platelets 199 EKG tracing personally reviewed by me-normal sinus rhythm. Right bundle krista block CT abdomen and pelvis: Hepatic steatosis. Diverticulosis. Pancreas unremarkable CT angiography chest: Unremarkable Assessment plan: - Acute on chronic worsening medical asthenia due to underlying malignancy and other medical issues - Dysphagia, with trouble swallowing due to laryngeal cancer N.p.o. -PEG tube placed on November 15, [address] Bradley Tube feeding at 30cc an hour. Water flushes -Chronic alcohol use disorder - Fever in a patient getting chemotherapy/immunosuppression. Currently empirically on Zosyn. Being followed by ID. 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 Deja Sánchez outpatient -Chronic pulm embolism Chronically on aspirin Add subcu Lovenox -Chronic back pain from musculoskeletal causes K-pad -Anxiety depression Cymbalta -COPD and current smoker Albuterol as needed -Chronic nicotine dependence, cigarette smoker Nicotine patch - Hypoglycemia secondary to poor oral intake: Improved Tube feeding Replace potassium. Plan for hopefully discharge tomorrow.
[2024-11-16] MEDS: MAGNESIUM OXIDE 400 MG TAB PO SCH (21:32)
[2024-11-17 00:08] LABS: Glucose,Whole Blood 122 mg/dL (70-110)
[2024-11-17 05:56] LABS: Glucose,Whole Blood 132 mg/dL (70-110)
[2024-11-17 07:48] VITALS: BP 138/76; PULSE 76; RESP 10; TEMP 99
--- NOTE | 2024-11-17 13:13 | P.PN ---
Subjective Progress Note Date: 11/17/24 SURGICAL PROGRESS NOTE CHIEF COMPLAINT: Glottic cancer HISTORY OF PRESENT ILLNESS: Patient is postop day #3 status post PEG tube placement. Patient is tolerating tube feeds. Tube feeds are at goal at 56 mL/h. Afebrile. PHYSICAL EXAM: VITAL SIGNS: Reviewed. GENERAL: Well-developed in no acute distress. ABDOMEN: Soft. Nondistended. PEG tube site clean dry and intact NEUROLOGIC: Sleeping comfortably ASSESSMENT: 1. Glottic cancer 2. Moderate protein calorie malnutrition 3. Hypokalemia improved 4. Hypomagnesemia PLAN: -Continue tube feeds -Electrolyte replacement per medicine service Physician Wharfinger Chief note has been reviewed by physician. Signing provider agrees with the documented findings, assessment, and plan of care. Objective - Vital Signs Vital signs: Vital Signs Temp 99 F 11/17/24 07:48 Pulse 76 11/17/24 07:48 Resp 10 L 11/17/24 07:48 BP 138/76 11/17/24 07:48 Pulse Ox 97 11/17/24 07:48 FiO2 Intake & Output 11/16/24 11/17/24 11/17/24 18:59 06:59 18:59 Intake Total 500 Balance 500 Weight 68.084 kg Intake: Intake, IV Titration 500 Amount Dextrose 5%-0.9% NaCl 1, 400 000 ml @ 100 mls/hr IV . Q10H [facility] Rx#:[id number] Piperacillin-Tazobactam 3 100 .375 gm In Sodium Chloride 0.9% 100 ml @ 25 mls/hr IVPB Q8HR [facility] Rx# :[id number] Other: Voiding Method Toilet Toilet # Voids 4 - Labs CBC & Chem 7: 11/13/24 18:41 11/16/24 15:52 Labs: Abnormal Lab Results - Last 24 Hours (Table) 11/17/24 11/17/24 11/17/24 Range/Units 00:06 05:45 05:55 POC Glucose (mg/dL) 122 H 132 H (70-110) mg/dL Magnesium 1.0 L (1.5-2.4) mg/dL Microbiology - Last 24 Hours (Table) 11/12/24 22:04 Blood Culture - Preliminary Blood 11/14/24 00:20 Gram Stain - Final Sputum Sputum Culture - Final
--- NOTE | 2024-11-17 13:46 | P.PN ---
Subjective Progress Note Date: 11/16/24 Principal diagnosis: Reason for follow-up is fever Patient is a 64-year-old male with past medical history significant for COPD pulmonary embolism asthma in this patient has been recently diagnosed with a laryngeal cancer for the patient has received radiation and chemotherapy presented the hospital complaining of generalized weakness he did have a fever prompting this consultation. On today's evaluation that is 11/16/2024,the patient remains to be afebrile, patient is on room air not requiring supplemental oxygen and denies any shortness of breath no chest pain, occasional cough.Patient still have some nausea and spitting up his secretion some abdominal discomfort but tolerating his tube feed. No, creatinine 0.63 blood and sputum culture have been negative so far CBC was done today Objective - Vital Signs Vital signs: Vital Signs Temp 99.1 F 11/16/24 12:19 Pulse 83 11/16/24 12:19 Resp 18 11/16/24 12:19 BP 105/71 11/16/24 12:19 Pulse Ox 93 L 11/16/24 12:19 FiO2 Intake & Output 11/15/24 11/16/24 11/16/24 18:59 06:59 18:59 Weight 63.503 kg 66.6 kg Other: Voiding Method Toilet # Voids 1 # Bowel Movements 1 - Exam GENERAL DESCRIPTION: Delete male lying in bed in no distress RESPIRATORY SYSTEM: Unlabored breathing , decreased intensity breath sounds HEART: S1 S2 regular rate and rhythm , ABDOMEN: Soft , no tenderness EXTREMITIES: No edema feet - Labs CBC & Chem 7: 11/13/24 18:41 11/16/24 15:52 Labs: Abnormal Lab Results - Last 24 Hours (Table) 11/16/24 11/16/24 11/16/24 Range/Units 00:08 04:16 05:37 Potassium 2.7 L* (3.5-5.1) mmol/L BUN <2 L (9-20) mg/dL Creatinine 0.63 L (0.66-1.25) mg/dL Glucose 124 H (74-99) mg/dL POC Glucose (mg/dL) 139 H 144 H (70-110) mg/dL Calcium 6.9 L (8.4-10.2) mg/dL Magnesium 1.0 L (1.6-2.3) mg/dL 11/16/24 Range/Units 10:08 Potassium 2.7 L* (3.5-5.1) mmol/L BUN (9-20) mg/dL Creatinine (0.66-1.25) mg/dL Glucose (74-99) mg/dL POC Glucose (mg/dL) (70-110) mg/dL Calcium (8.4-10.2) mg/dL Magnesium (1.6-2.3) mg/dL Microbiology - Last 24 Hours (Table) 11/12/24 22:04 Blood Culture - Preliminary Blood 11/14/24 00:20 Gram Stain - Final Sputum Sputum Culture - Final Assessment and Plan (1) Fever Current Visit: Yes Status: Acute Code(s): R50.9 - FEVER, UNSPECIFIED SNOMED Code(s): 315969193 (2) Leukopenia Current Visit: Yes Status: Acute Code(s): D72.819 - DECREASED WHITE BLOOD CELL COUNT, UNSPECIFIED SNOMED Code(s): 82754726 Plan: 1patient with fever in this patient who did have a history of an laryngeal cancer presenting to the hospital for evaluation of increasing weakness unable to swallow patient did have difficulty swallowing and continues to be spitting up stuff concerning for possible aspiration pneumonitis versus local inf lammation in his laryngeal area from recent chemo and radiation therapy 2-blood and sputum cultures are so far negative 3patient did have resolution of his fever we will keep with the Zosyn while inp atient Dictation was produced using [employer] dictation software. please excuse any grammatical, word or spelling errors. Time with Patient: Less than 30
--- NOTE | 2024-11-17 13:47 | P.PN ---
Subjective Progress Note Date: 11/17/24 Principal diagnosis: Reason for follow-up is fever Patient is a 64-year-old male with past medical history significant for COPD pulmonary embolism asthma in this patient has been recently diagnosed with a laryngeal cancer for the patient has received radiation and chemotherapy presented the hospital complaining of generalized weakness he did have a fever prompting this consultation. On today's evaluation that is 11/17/2024, the patient continues to be afebrile, the patient is on room air and breathing comfortably, the Pt denies having any chest pain, occasional cough, the patient seem to be tolerating his tube feeds some abdominal discomfort nausea but no vomiting has been reported by the nursing staff. No new labs has been repeated today culture has been negative so far Objective - Vital Signs Vital signs: Vital Signs Temp 99 F 11/17/24 07:48 Pulse 76 11/17/24 07:48 Resp 10 L 11/17/24 07:48 BP 138/76 11/17/24 07:48 Pulse Ox 97 11/17/24 07:48 FiO2 Intake & Output 11/16/24 11/17/24 11/17/24 18:59 06:59 18:59 Intake Total 500 Balance 500 Weight 68.084 kg Intake: Intake, IV Titration 500 Amount Dextrose 5%-0.9% NaCl 1, 400 000 ml @ 100 mls/hr IV . Q10H [facility] Rx#:[id number] Piperacillin-Tazobactam 3 100 .375 gm In Sodium Chloride 0.9% 100 ml @ 25 mls/hr IVPB Q8HR [facility] Rx# :[id number] Other: Voiding Method Toilet Toilet # Voids 4 - Exam GENERAL DESCRIPTION: Delete male lying in bed in no distress RESPIRATORY SYSTEM: Unlabored breathing , decreased intensity breath sounds HEART: S1 S2 regular rate and rhythm , ABDOMEN: Soft , no tenderness EXTREMITIES: No edema feet - Labs CBC & Chem 7: 11/13/24 18:41 11/16/24 15:52 Labs: Abnormal Lab Results - Last 24 Hours (Table) 11/17/24 11/17/24 11/17/24 Range/Units 00:06 05:45 05:55 POC Glucose (mg/dL) 122 H 132 H (70-110) mg/dL Magnesium 1.0 L (1.5-2.4) mg/dL Microbiology - Last 24 Hours (Table) 11/12/24 22:04 Blood Culture - Preliminary Blood 11/14/24 00:20 Gram Stain - Final Sputum Sputum Culture - Final Assessment and Plan (1) Fever Current Visit: Yes Status: Acute Code(s): R50.9 - FEVER, UNSPECIFIED SNOMED Code(s): 874606983 (2) Leukopenia Current Visit: Yes Status: Acute Code(s): D72.819 - DECREASED WHITE BLOOD CELL COUNT, UNSPECIFIED SNOMED Code(s): 79807998 Plan: 1patient with fever in this patient who did have a history of an laryngeal cancer presenting to the hospital for evaluation of increasing weakness unable to swallow patient did have difficulty swallowing and continues to be spitting up stuff concerning for possible aspiration pneumonitis versus local inflammation in his laryngeal area from recent chemo and radiation therapy 2-blood and sputum cultures are so far negative 3patient did have resolution of his fever with a culture negative may consider short course of oral Augmentin from the PEG tube on discharge Dictation was produced using [employer] dictation software. please excuse any grammatical, word or spelling errors.
[2024-11-17 13:56] VITALS: BMI 21.5
--- NOTE | 2024-11-17 17:58 | P.DS ---
Providers Date of admission: 11/11/24 14:03 Expected date of discharge: 11/17/24 Attending physician: Linus Meza Consults: 11/11/24 14:37 Consult Physician Routine Consulting Provider: Nestor Bradley Consult Reason/Comments: ?PEG tube placement Do you want consulting provider notified?: Yes, Notify in am 11/11/24 14:53 Consult Physician Routine Consulting Provider: Wade Lomas Consult Reason/Comments: laryngeal ca, chemo & rad Do you want consulting provider notified?: Yes, Notify in am 11/12/24 16:18 Consult Physician Routine Consulting Provider: Julio C Stallings Consult Reason/Comments: SCC of glottis on chemo/RT Do you want consulting provider notified?: Yes, Notify in am 11/13/24 15:35 Consult Physician Routine Consulting Provider: Alessandro Sifuentes Consult Reason/Comments: Fever of unknown origin Do you want consulting provider notified?: Yes Primary care physician: [facility] Course: patient is a 64-year-old gentleman with past medical history significant laryngeal cancer presented the ER because of generalized weakness. Patient stated he has not been eating for the last couple of days. Patient is currently on chemotherapy and radiation, last chemotherapy being Thursday and gets radiation 5 times per week. Patient has been complaining of poor appetite. Patient also complaining of dysphagia to solids. Patient has been losing weight. Patient stated that there was discussion between his oncologist and him about possible PEG tube placement. Because of his weakness, patient came to the ER Initial lab work done in the ER showed WBC 2.08, hemoglobin 9, platelet count 147, sodium 138, potassium 3.3 carbon 919, anion gap 14, BUN 16, creatinine 0.88, calcium 7.1, magnesium 0.8, bilirubin 0.7, albumin 3.2 EKG done in the ER showed heart rate of 94, no ST segment elevation or depression seen, no T-wave inversions seen. Chest x-ray done in the ER no acute cardiopulmonary process X-ray soft tissue done showed soft tissue thickening in the region of the glottis. Patient admitted to internal medicine service 11/13 patient seen and examined. Patient has been spiking fevers overnight, Tmax of 100. Continues to have poor appetite November 14: Laying in bed. Tired. Congested cough. Trouble swallowing has bringing up sputum. Patient is NPO. Pending PEG tube today. By Dr Bradley. Hypoglycemia due to poor oral intake. Change IV fluids to D5 saline. November 15: In bed. Remains tired. Trouble swallowing. Keeps on expectorating. PEG tube feeding at 10 cc an hour. On IV Zosyn. Hypomagnesemia being corrected. Water flushes. November 16: Patient tolerating tube feeding. Potassium was down to 2.7 today. Replacement ordered. Up in a chair. Spoke to social services specialist. Ava plan to discharge home. Tomorrow. Will DC IV fluids November 17: Tolerating tube feeding. At goal. Will be discharged home. Supplies been taking care of. Follow-up with his oncology. Had bowel movement. No further fever. Discontinue antibiotics. Social history: Until recently: Smokes pack and half a day. Drinks an average of 8-12 beers of 16 ounce daily. Also in the past has done cocaine and marijuana. Also LSD. This is back in the 70s. Smoking for over 35 years. Lives with his who also has an alcohol problem Physical examination: VITAL SIGNS: 99, 76, 10, 138% 6, 97% room GENERAL: BMI 20.1, up in a chair, comfortable EYES: Pupils equal. Conjunctiva pale HEENT: External appearance of nose and ears normal, oral cavity grossly normal. NECK: JVD not raised; masses not palpable. HEART: First and second heart sounds are normal; no edema. LUNGS: Respiratory rate normal; decreased breath sounds. ABDOMEN: Soft, no tenderness, no guarding rigidity liver spleen not palpable, no masses palpable. PEG tube with feeding PSYCH: [Alert and oriented x3; mood and affect-low. MUSCULOSKELETAL:No Clubbing/cyanosis;muscles-grossly intact. Loss of muscle mass. And subcutaneous tissue. OA. INVESTIGATIONS, reviewed in the clinical context: November 16: Potassium 2.7. Repeat 2.7. Repeat 4.3 November 15: Potassium 2.9 creatinine 0.7 magnesium 1.2 November 14: Sodium 139 potassium 3.1 BUN 7.6 creatinine 0.7 glucose 61 procalcitonin less than 0.2 November 13: White count 2.3 hemoglobin 8.4 platelets 199 EKG tracing personally reviewed by me-normal sinus rhythm. Right bundle krista block CT abdomen and pelvis: Hepatic steatosis. Diverticulosis. Pancreas unremarkable CT angiography chest: Unremarkable Assessment plan: - Acute on chronic worsening medical asthenia due to underlying malignancy and other medical issues - Dysphagia, with trouble swallowing due to laryngeal cancer N.p.o. -PEG tube placed on November 15, [address] Bradley Tube feeding at goal. At 56 cc an hour. Water flushes -Chronic alcohol use disorder - Fever in a patient getting chemotherapy/immunosuppression. Currently empirically on Zosyn. Being followed by ID. 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 Deja Sánchez outpatient -Chronic pulm embolism Chronically on aspirin Add subcu Lovenox -Chronic back pain from musculoskeletal causes K-pad -Anxiety depression Cymbalta -COPD and current smoker Albuterol as needed -Chronic nicotine dependence, cigarette smoker Nicotine patch - Hypoglycemia secondary to poor oral intake: Improved Tube feeding Disposition: Home with Plan - Discharge Summary Discharge Rx Participant: No New Discharge Prescriptions: New Acetaminophen Tab [Tylenol] 650 mg PO Q4HR PRN tab PRN Reason: Fever and/ or Mild Pain traZODone HCL [Desyrel] 50 mg PO HS PRN #30 tab PRN Reason: Insomnia Magnesium Oxide [Mag-Ox] 400 mg PO BID #60 tab Continue ALPRAZolam [Xanax] 0.5 - 1 mg PO BID PRN PRN Reason: Severe Anxiety Benzonatate [Tessalon Perles] 100 mg PO TID PRN PRN Reason: Cough [place] [Salagen] 5 mg PO TID Pantoprazole [Protonix] 40 mg PO BID traZODone HCL 150 mg PO HS Albuterol Inhaler [Ventolin Hfa Inhaler] 2 puff INHALATION RT-Q4H PRN PRN Reason: Shortness Of Breath HYDROcodone/APAP 10-325MG [[place] 10-325] 1 - 2 tab PO Q6H PRN PRN Reason: Pain Ondansetron [Zofran] 4 mg PO Q4H PRN PRN Reason: Nausea Discontinued Fluconazole [Diflucan] 100 mg PO DAILY Discharge Medication List traZODone HCL 150 mg PO HS 11/03/20 [History] ALPRAZolam [Xanax] 0.5 - 1 mg PO BID PRN 11/11/24 [History] Albuterol Inhaler [Ventolin Hfa Inhaler] 2 puff INHALATION RT-Q4H PRN 11/11/24 [History] Benzonatate [Tessalon Perles] 100 mg PO TID PRN 11/11/24 [History] HYDROcodone/APAP 10-325MG [[place] 10-325] 1 - 2 tab PO Q6H PRN 11/11/24 [History] Ondansetron [Zofran] 4 mg PO Q4H PRN 11/11/24 [History] Pantoprazole [Protonix] 40 mg PO BID 11/11/24 [History] [place]ocarpine [Salagen] 5 mg PO TID 11/11/24 [History] Acetaminophen Tab [Tylenol] 650 mg PO Q4HR PRN tab 11/17/24 [Rx] Magnesium Oxide [Mag-Ox] 400 mg PO BID #60 tab 11/17/24 [Rx] traZODone HCL [Desyrel] 50 mg PO HS PRN #30 tab 11/17/24 [Rx] Follow up Appointment(s)/Referral(s): Wade Lomas [STAFF PHYSICIAN] - 11/18/24 11:15 am ([place] office ) Emile Augustine DO [Primary Care Provider] - 1-2 days (The office will call you with an appointement time and date.) Julio C Stallings MD [STAFF PHYSICIAN] - 11/18/24 8:00 am (In [facility] at [facility], [NON-STAFF] - 1 Week [facility], [REFERRING] - 1 Week Patient Instructions/Handouts: Trazodone (By mouth), Magnesium Oxide (By mouth), How to Use and Care for Your PEG Tube (DC) Activity/Diet/Wound Care/Special Instructions: Tube feeding directions: Pivot 1.5 - 6 cartons per day, 1 carton per feed 100 ml H2O flush pre/post feed, total of 600 ml H2O per day Discharge Disposition: HOME WITH HOME HEALTH SERVICES
--- NOTE | 2024-11-21 12:41 | CDI ---
Documentation Clarification Form Date: 11/21/2024 12:11:30 PM From: Ana Nguyen Phone: Admit Date: 11/11/2024 02:03:00 PM Patient Name: Scott Jett Visit Number: [id number] Discharge Date: 11/17/2024 03:12:00 PM ATTENTION: The Clinical Documentation Specialists (CDI) and [facility] Coding Staff appreciate your assistance in clarifying documentation. Please respond to the clarification below the line at the bottom and electronically sign. The CDI & [facility] Coding staff will review the response and follow-up if needed. Please note: Queries are made part of the Legal Health Record. If you have any questions, please contact the author of this message via ITS. Doctor/Provider: Linus Meza Conflicting documentation has been found in the medical record. As attending physician, please provide clarification. 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 Last week, he was noted to have lost about 20 pounds since treatment start. He was referred to Dr. Borrero for consideration forPEG tube placement. He missed that appointment, and was then noted to be not taking any nutrition by mouth. BMI 20.1 Treatment: PEG tube placement w feeding Please clarify which diagnosis is most appropriate: [ ] Moderate protein calorie malnutrition [ + ] Severe protein calorie malnutrition [ ] Other (please specify) [ ] Unable to determine (Template Last Revised: September 2020) MTDD
== END 2024-11-17 15:12 | disposition home health service (06) | DRG 146 ==
LOC: EC 10:17 → 4SSUR 14:03 → 5NMEDONC 15:51
PROVIDERS: ADMIT Hospitalist; ATTEND Hospitalist
PROC: 3E0G76Z Introduction of Nutritional Substance into Upper GI, Via Natural or Artificial Opening (ICD-10-PCS; 2024-11-14)
PROC: 0DH63UZ Insertion of Feeding Device into Stomach, Percutaneous Approach (ICD-10-PCS; principal; 2024-11-14 07:30)
DX: C32.0 Malignant neoplasm of glottis (principal); E43 Unspecified severe protein-calorie malnutrition; D70.1 Agranulocytosis secondary to cancer chemotherapy; J44.89 Other specified chronic obstructive pulmonary disease; K70.10 Alcoholic hepatitis without ascites; F32.A Depression, unspecified; R62.7 Adult failure to thrive; E83.51 Hypocalcemia; E83.42 Hypomagnesemia; R13.10 Dysphagia, unspecified; D64.81 Anemia due to antineoplastic chemotherapy; E87.6 Hypokalemia; F17.210 Nicotine dependence, cigarettes, uncomplicated; T45.1X5A Adverse effect of antineoplastic and immunosuppressive drugs, initial encounter; E16.2 Hypoglycemia, unspecified; R50.81 Fever presenting with conditions classified elsewhere; F41.9 Anxiety disorder, unspecified; G89.29 Other chronic pain; M54.9 Dorsalgia, unspecified; T50.996A Underdosing of other drugs, medicaments and biological substances, initial encounter; Z79.82 Long term (current) use of aspirin; Z91.138 Patient's unintentional underdosing of medication regimen for other reason; Z86.711 Personal history of pulmonary embolism; Z79.899 Other long term (current) drug therapy; Z68.20 Body mass index [BMI] 20.0-20.9, adult
CPT/HCPCS: 36415; 43246; 70360; 71046; 80048; 80053; 81003; 82607; 82728; 82746; 83540; 83550; 83605; 83735; 84132; 84145; 84443; 85025; 85610; 85730; 86140; 87040; 87070; 87205; 93005; 96361; 96365; 96366; 96375; 99285

== ENCOUNTER 2024-11-20 17:33 | Observation (INO) | payer MEDICARE, OTHER ==
--- NOTE | 2024-11-20 18:08 | ED ---
General Adult HPI - General Chief complaint: Chest Pain Stated complaint: chest pain Time Seen by Provider: 11/20/24 17:50 Source: patient, EMS, RN notes reviewed, old records reviewed Mode of arrival: EMS - History of Present Illness Initial comments: This is a 64-year-old male who presents to the emergency department with a past medical history significant for laryngeal cancer. Patient states he had chemotherapy last a little over a week ago. Patient comes in today because he started having some left-sided chest pain radiating to his shoulder that was occurring at rest. Patient states it seems like he gets a little worse with deep breathing but it is still there. Patient denies shortness of breath or difficulty breathing. Patient Nu[place] fever chills or cough. Patient Nuys any abdominal pain patient has nausea vomiting diarrhea - Related Data Home Medications Medication Instructions Recorded Confirmed traZODone HCL 150 mg PO HS 11/03/20 11/11/24 ALPRAZolam [Xanax] 0.5 - 1 mg PO BID PRN 11/11/24 11/11/24 Albuterol Inhaler [Ventolin Hfa 2 puff INHALATION RT-Q4H PRN 11/11/24 11/11/24 Inhaler] Benzonatate [Tessalon Perles] 100 mg PO TID PRN 11/11/24 11/11/24 HYDROcodone/APAP 10-325MG [[place] 1 - 2 tab PO Q6H PRN 11/11/24 11/11/24 10-325] Ondansetron [Zofran] 4 mg PO Q4H PRN 11/11/24 11/11/24 Pantoprazole [Protonix] 40 mg PO BID 11/11/24 11/11/24 [place] [[place]] 5 mg PO TID 11/11/24 11/11/24 Previous Rx's Medication Instructions Recorded Acetaminophen Tab [Tylenol] 650 mg PO Q4HR PRN tab 11/17/24 Magnesium Oxide [Mag-Ox] 400 mg PO BID #60 tab 11/17/24 traZODone HCL [Desyrel] 50 mg PO HS PRN #30 tab 11/17/24 Allergies Allergy/AdvReac Type Severity Reaction Status Date / Time buprenorphine [From Butrans] Allergy BUTRANS Verified 11/20/24 17:47 PATCH-ITCHING OF SKIN AND DISCOLORATION diclofenac [From Arthrotec] AdvReac DIZZY, Verified 11/20/24 17:47 LIGHTHEADED, "FELT STONED" mirtazapine [From Remeron] AdvReac DIZZY, Verified 11/20/24 17:47 LIGHTHEADED, "FELT STONED" misoprostol [From Arthrotec] AdvReac DIZZY, Verified 11/20/24 17:47 LIGHTHEADED, "FELT STONED" Review of Systems ROS Statement: Those systems with pertinent positive or pertinent negative responses have been documented in the HPI. ROS Other: All systems not noted in ROS Statement are negative. Past Medical History Past Medical History: Asthma, COPD, Pulmonary Embolus (PE) Additional Past Medical History / Comment(s): HX: chronic diarrhea and weight loss, alcoholism, bilateral lung pulmonary embolisms-in 2012 and previous to that, R lung pleurisy, asthma as child, back pain and sciatica, R foot drop with numbness and tingling to R foot due to pinched nerves, multifactoral anemia, elevated LFTs, 1997 R hand fracture. History of Any Multi-Drug Resistant Organisms: None Reported Past Surgical History: Back Surgery, Orthopedic Surgery Additional Past Surgical History / Comment(s): back-fusions x 2 L4, L5, S1 with hardware, cataracts bilateral with lens implants, rotator cuff right shoulder, colonoscopies Past Anesthesia/Blood Transfusion Reactions: No Reported Reaction Past Psychological History: Anxiety, Depression Smoking Status: Current every day smoker Past Alcohol Use History: Abuse, Daily, Heavy Past Drug Use History: Cocaine, Marijuana - Past Family History Mother Family Medical History: Cancer Additional Family Medical History / Comment(s): Mother of pancreatic cancer at age 82 yrs. Father Family Medical History: Cancer Additional Family Medical History / Comment(s): Father of lung cancer at 86yrs. He was a heavy smoker. hx colon cancer Brother(s) Family Medical History: Cancer Additional Family Medical History / Comment(s): (1) lymphoma, (1) BRAIN CANCER Sister(s) Family Medical History: Cancer Additional Family Medical History / Comment(s): lung cancer and throat cancer General Exam - General Exam Comments Initial Comments: GENERAL: Patient is well-developed and well-nourished. Patient is nontoxic and well- hydrated and is in mild distress. ENT: Neck is soft and supple. No significant lymphadenopathy is noted. Oropharynx is clear. Moist mucous membranes. Neck has full range of motion without eliciting any pain. EYES: The sclera were anicteric and conjunctiva were pink and moist. Extraocular movements were intact and pupils were equal round and reactive to light. Eyelids were unremarkable. PULMONARY: Unlabored respirations. Good breath sounds bilaterally. No audible rales rhonchi or wheezing was noted. CARDIOVASCULAR: There is a regular rate and rhythm without any murmurs gallops or rubs. ABDOMEN: Soft and nontender with normal bowel sounds. SKIN: Skin is clear with no lesions or rashes and otherwise unremarkable. NEUROLOGIC: Patient is alert and oriented x3. Cranial nerves II through XII are grossly intact. Motor and sensory are also intact. Normal speech, volume and content. Symmetrical smile. MUSCULOSKELETAL: Normal extremities with adequate strength and full range of motion. LYMPHATICS: No significant lymphadenopathy is noted PSYCHIATRIC: Normal psychiatric evaluation. Course Vital Signs 11/20/24 11/20/24 11/20/24 17:40 19:00 19:28 Temperature 98.0 F Pulse Rate 95 93 80 Respiratory 18 20 17 Rate Blood Pressure 107/67 117/52 104/56 O2 Sat by Pulse 100 96 97 Oximetry 11/20/24 11/20/24 21:05 22:42 Temperature Pulse Rate 85 74 Respiratory 17 17 Rate Blood Pressure 102/57 109/55 O2 Sat by Pulse 98 99 Oximetry Medical Decision Making - Medical Decision Making EKG is interpreted by myself and EKG shows a sinus rhythm at 88 bpm. Of the 152 QRS is 97 QT interval is 362 QTc is 4 Ali. Patient's EKG shows no ST segment elevation or depression Was pt. sent in by a medical professional or institution (, PA, METEOROLOGY PROFESSOR, urgent care, hospital, or [place] health care facility...) When possible be specific @ -No Did you speak to anyone other than the patient for history (EMS, parent, family, police, friend...)? What history was obtained from this source @ -No Did you review nursing and triage notes (agree or disagree)? Why? @ -I reviewed and agree with nursing and triage notes Were old charts reviewed (outside hosp., previous admission, EMS record, old EKG, old radiological studies, urgent care reports/EKG's, [place] health care facility records)? Report findings @ -No old charts were reviewed Differential Diagnosis? @ -Differential Chest Pain: Stable Angina, Unstable Angina, STEMI, NSTEMI Aortic Dissection, Pneumothorax, Musculoskeletal, Esophageal Spasm GERD, Cholecystitis, Pancreatitis, Zoster, this is not meant to be an all-inclusive list. EKG interpreted by me (3pts min.). @ -As above X-rays interpreted by me (1pt min.). @ - chest x-ray shows no acute abnormality CT interpreted by me (1pt min.). @ -None done U/S interpreted by me (1pt. min.). @ -None done What testing was considered but not performed or refused? (CT, X-rays, U/S, labs)? Why? @ -None What meds were considered but not given or refused? Why? @ -None Did you discuss the management of the patient with other professionals (professionals i.e. , PA, METEOROLOGY PROFESSOR, lab, RT, psych nurse, older adult social work specialist, percussion instructor, teacher, classification officer, case worker)? Give summary @ -I spoke with Dr. Meza he agreed to admit the patient admit the patient wrote admitting orders Was smoking cessation discussed for >3mins.? @ -Yes Was critical care preformed (if so, how long)? @ -No Were there social determinants of health that impacted care today? How? (Homelessness, low income, unemployed, alcoholism, drug addiction, transportation, low edu. Level, literacy, decrease access to med. care, care home, rehab)? @ -No Was there de-escalation of care discussed even if they declined (Discuss DNR or withdrawal of care, Hospice)? DNR status @ -No What co-morbidities impacted this encounter? (DM, HTN, Smoking, COPD, CAD, Cancer, CVA, ARF, Chemo, Hep., AIDS, mental health diagnosis, sleep apnea, morbid obesity)? @ -Smoking Was patient admitted / discharged? Hospital course, mention meds given and route, prescriptions, significant lab abnormalities, going to OR and other pertinent info. @ -Patient's lab work showed a low potassium low sodium and low magnesium. Patient will be admitted for chest pain and these will be corrected while the patient is in the hospital. Patient was given 2 g of magnesium bolus and normal saline fluid and potassium replacement. Undiagnosed new problem with uncertain prognosis? @ -No Drug Therapy requiring intensive monitoring for toxicity (Heparin, Nitro, Insulin, Cardizem)? @ -No Were any procedures done? @ -No Diagnosis/symptom? @ -Chest pain Acute, or Chronic, or Acute on Chronic? @ -Acute Uncomplicated (without systemic symptoms) or Complicated (systemic symptoms)? @ -Complicated Side effects of treatment? @ -No Exacerbation, Progression, or Severe Exacerbation? @ -No Poses a threat to life or bodily function? How? (Chest pain, [place], [place], pneumonia, PE, COPD, DKA, ARF, appy, cholecystitis, CVA, Diverticulitis, Homicidal, Suicidal, threat to staff... and all critical care pts) @ -Yes this could lead to an OK and endorgan dysfunction Diagnosis/symptom? @ -Hypomagnesemia Acute, or Chronic, or Acute on Chronic? @ -Acute Uncomplicated (without systemic symptoms) or Complicated (systemic symptoms)? @ -Complicated Side effects of treatment? @ -None Exacerbation, Progression, or Severe Exacerbation] @ -No Poses a threat to life or bodily function? @ -No Diagnosis/symptom? @ -Hypokalemia Acute, or Chronic, or Acute on Chronic? @ -Acute Uncomplicated (without systemic symptoms) or Complicated (systemic symptoms)? @ -Complicated Side effects of treatment? @ -None Exacerbation, Progression, or Severe Exacerbation] @ -No Poses a threat to life or bodily function? @ -No Diagnosis/symptom? @ -Hyponatremia Acute, or Chronic, or Acute on Chronic? @ -Acute Uncomplicated (without systemic symptoms) or Complicated (systemic symptoms)? @ -Complicated Side effects of treatment? @ -None Exacerbation, Progression, or Severe Exacerbation] @ -No Poses a threat to life or bodily function? @ -No - Lab Data Result diagrams: 11/20/24 18:33 11/20/24 18:33 Lab Results 11/20/24 11/20/24 11/20/24 Range/Units 18:33 18:33 18:33 WBC 3.38 L (4.50-10.00) 10*3/uL RBC 2.18 L (4.40-5.60) 10*6/uL Hgb 7.8 L (13.0-17.0) g/dL Hct 21.1 L (39.6-50.0) % MCV 96.8 (80.0-97.0) fL MCH 35.8 H (27.0-32.0) pg MCHC 37.0 (32.0-37.0) g/dL Plt Count 327 (140-440) 10*3/uL MPV 10.2 (9.5-12.2) fL Immature Gran % (Auto) 0.6 % Neutrophils % 50.9 % Lymphocytes % 11.2 % Monocytes % 36.4 % Eosinophils % 0.3 % Basophils % 0.6 % Immature Gran # 0.02 (0.00-0.04) 10*3/uL Neutrophils # 1.72 L (1.80-7.70) 10*3/uL Lymphocytes # 0.38 L (0.90-5.00) 10*3/uL Monocytes # 1.23 H (0.20-1.00) 10*3/uL Eosinophils # 0.01 L (0.04-0.35) 10*3/uL Basophils # 0.02 (0.00-0.10) 10*3/uL PT 12.8 H (10.0-12.5) sec INR 1.2 H (<1.2) APTT 21.5 L (22.0-30.0) sec D-Dimer 1.80 H (<0.60) mg/L FEU Sodium 133 L (137-145) mmol/L Potassium 3.2 L (3.5-5.1) mmol/L Chloride 97 L (98-107) mmol/L Carbon Dioxide 28 (22-30) mmol/L Anion Gap 8 mmol/L BUN 13 (9-20) mg/dL Creatinine 0.75 (0.66-1.25) mg/dL Est GFR (CKD-EPI)AfAm >90 (>60 ml/min/1.73 sqM) Est GFR (CKD-EPI)NonAf >90 (>60 ml/min/1.73 sqM) Glucose 94 (74-99) mg/dL Calcium 7.3 L (8.4-10.2) mg/dL Magnesium 0.9 L* (1.6-2.3) mg/dL Total Bilirubin 0.3 (0.2-1.3) mg/dL AST 41 (17-59) U/L ALT 24 (4-49) U/L Alkaline Phosphatase 73 (38-126) U/L Troponin I (0.000-0.034) ng/mL Total Protein 5.8 L (6.3-8.2) g/dL Albumin 2.9 L (3.5-5.0) g/dL 11/20/24 Range/Units 18:33 WBC (4.50-10.00) 10*3/uL RBC (4.40-5.60) 10*6/uL Hgb (13.0-17.0) g/dL Hct (39.6-50.0) % MCV (80.0-97.0) fL MCH (27.0-32.0) pg MCHC (32.0-37.0) g/dL Plt Count (140-440) 10*3/uL MPV (9.5-12.2) fL Immature Gran % (Auto) % Neutrophils % % Lymphocytes % % Monocytes % % Eosinophils % % Basophils % % Immature Gran # (0.00-0.04) 10*3/uL Neutrophils # (1.80-7.70) 10*3/uL Lymphocytes # (0.90-5.00) 10*3/uL Monocytes # (0.20-1.00) 10*3/uL Eosinophils # (0.04-0.35) 10*3/uL Basophils # (0.00-0.10) 10*3/uL PT (10.0-12.5) sec INR (<1.2) APTT (22.0-30.0) sec D-Dimer (<0.60) mg/L FEU Sodium (137-145) mmol/L Potassium (3.5-5.1) mmol/L Chloride (98-107) mmol/L Carbon Dioxide (22-30) mmol/L Anion Gap mmol/L BUN (9-20) mg/dL Creatinine (0.66-1.25) mg/dL Est GFR (CKD-EPI)AfAm (>60 ml/min/1.73 sqM) Est GFR (CKD-EPI)NonAf (>60 ml/min/1.73 sqM) Glucose (74-99) mg/dL Calcium (8.4-10.2) mg/dL Magnesium (1.6-2.3) mg/dL Total Bilirubin (0.2-1.3) mg/dL AST (17-59) U/L ALT (4-49) U/L Alkaline Phosphatase (38-126) U/L Troponin I <0.012 (0.000-0.034) ng/mL Total Protein (6.3-8.2) g/dL Albumin (3.5-5.0) g/dL Disposition Clinical Impression: Chest pain, Hypomagnesemia, Hypokalemia, Hyponatremia Disposition: ADMITTED IP TO THIS [facility] Referrals: Emile Augustine DO [Primary Care Provider] - 1-2 days Time of Disposition: 23:57
--- NOTE | 2024-11-20 18:49 | XR ---
EXAMINATION TYPE: XR chest 2V DATE OF EXAM: 11/20/2024 6:45 PM COMPARISON: 11/11/2024 CLINICAL INDICATION: Male, 64 years old with history of Chest Pain: Shortness of breath TECHNIQUE: XR chest 2V views of the chest are obtained. FINDINGS: Scattered senescent parenchymal changes noted. Hyperinflation compatible with COPD. Chronic basilar m arkings. Blunting right costophrenic angle may reflect pleural thickening versus small effusion. No evidence for infiltrate. No evidence for atelectasis. Heart size is stable. Mediastinal structures are stable and grossly unremarkable. No evidence for hilar prominence. Degenerative changes dorsal spine. IMPRESSION: 1. No evidence for acute pulmonary disease. [facility], , 11/20/2024 6:47 PM
[2024-11-20] MEDS: KETOROLAC 15 MG/ML 1 ML VIAL IVP STA (19:02)
[2024-11-20 20:34] LABS: Basophils # (A) 0.02 10*3/uL (0.00-0.10); Basophils % (A) 0.6 %; Eosinophils # (A) 0.01 10*3/uL (0.04-0.35); Eosinophils % (A) 0.3 %; HCT 21.1 % (39.6-50.0); HGB 7.8 g/dL (13.0-17.0); Lymphocytes # (A) 0.38 10*3/uL (0.90-5.00); Lymphocytes % (A) 11.2 %; MCH 35.8 pg (27.0-32.0); MCV 96.8 fL (80.0-97.0); Mean Platelet Volume 10.2 fL (9.5-12.2); Monocytes # (A) 1.23 10*3/uL (0.20-1.00); Monocytes % (A) 36.4 %; Neutrophils # (A) 1.72 10*3/uL (1.80-7.70); Neutrophils % (A) 50.9 %; Platelet Count 327 10*3/uL (140-440); RBC 2.18 10*6/uL (4.40-5.60); RDW 15.3 % (11.5-14.5); WBC 3.38 10*3/uL (4.50-10.00)
[2024-11-20 21:01] LABS: ALT 24 U/L (4-49); AST 41 U/L (17-59); African American GFR (CKD) >90 (>60 ml/min/1.73 sqM); Albumin 2.9 g/dL (3.5-5.0); Alkaline Phosphatase 73 U/L (38-126); Anion Gap 8 mmol/L; Blood Urea Nitrogen 13 mg/dL (9-20); Calcium 7.3 mg/dL (8.4-10.2); Carbon Dioxide 28 mmol/L (22-30); Chloride 97 mmol/L (98-107); Glucose 94 mg/dL (74-99); INR 1.2 (<1.2); Non-African American GFR(CKD) >90 (>60 ml/min/1.73 sqM); Potassium 3.2 mmol/L (3.5-5.1); Prothrombin Time 12.8 sec (10.0-12.5); Sodium 133 mmol/L (137-145); Total Bilirubin 0.3 mg/dL (0.2-1.3); Total Protein 5.8 g/dL (6.3-8.2)
[2024-11-20 21:08] LABS: Magnesium 0.9 mg/dL (1.6-2.3)
[2024-11-20] MEDS: SODIUM CHLORIDE 0.9% 500 ML 500 ML IV ONE (21:36)
[2024-11-20] MEDS: MAGNESIUM SULFATE-D5W PMX 1 GM in DEXTROSE/WATER 1 100ML.BAG IVPB SCH (21:36)
[2024-11-20] MEDS: POTASSIUM CHLORIDE ER 20 MEQ TAB.ER PO STA (21:53)
[2024-11-20] MEDS: POTASSIUM BICARBONATE/CIT AC 20 MEQ TABLET.EFF PO ONE (22:11)
[2024-11-20 22:29] LABS: Partial Thromboplastin Time 21.5 sec (22.0-30.0)
[2024-11-20] MEDS: LORazepam 2 MG/ML INJ IV STA (22:39)
--- NOTE | 2024-11-20 23:46 | CT ---
EXAM: CT Angiography Chest With Intravenous Contrast CLINICAL HISTORY: ITS.REASON CT Reason: Elevated D-dimer TECHNIQUE: Axial computed tomographic angiography images of the chest with intravenous contrast. CTDI is 12.3 mGy and DLP is 334.1 mGy-cm. This CT exam was performed using one or more of the following dose reduction techniques: automated exposure control, adjustment of the mA and/or kV according to patient size, and/or use of iterative reconstruction technique. MIP reconstructed images were created and reviewed. COMPARISON: PET scan on 09/15/2024 FINDINGS: Pulmonary arteries: Unremarkable. No pulmonary embolus identified. Aorta: Atherosclerotic changes in the aorta. No aortic aneurysm or dissection. Lungs: 3.7 cm nodular consolidation in the posterior medial left lower lobe may represent rounded atelectasis but has increased in size compared to prior exam. Neoplasm cannot be excluded. Mild scarring at the lung apices. Emphysematous changes. Pleural space: Probable trace bilateral pleural effusions. No pneumothorax. Heart: Coronary artery calcifications. No cardiomegaly. No significant pericardial effusion. No evidence of RV dysfunction. Bones/joints: Small calcific tendinosis along the humeral heads. Degenerative changes of the spine. Lumbar fusion partially seen. No acute fracture. No dislocation. Soft tissues: Unremarkable. Lymph nodes: Unremarkable. No enlarged lymph nodes. Kidneys and ureters: Punctate nonobstructing right renal stones. Tubes, lines and devices: G-tube in place. IMPRESSION: 1. No pulmonary embolus identified. 2. 3.7 cm nodular consolidation in the posterior medial left lower lobe may represent rounded atelectasis but has increased in size compared to prior exam. Neoplasm cannot be excluded. 3. Atherosclerotic changes in the aorta. No aortic aneurysm or dissection. 4. Probable trace bilateral pleural effusions. 5. Emphysematous changes. 6. Punctate nonobstructing right renal stones.
[2024-11-20] MEDS ORDERED: NITROGLYCERIN SL TABS 0.4 MG TAB SUBLINGUAL PRN (23:57)
[2024-11-21] MEDS: NITROGLYCERIN OINT 1 INCH/GM PACKET TOPICAL SCH (05:30)
[2024-11-21 08:08] LABS: Magnesium 1.3 mg/dL (1.6-2.3); Potassium 3.5 mmol/L (3.5-5.1)
[2024-11-21 09:17] VITALS: RESP 18
[2024-11-21] MEDS ORDERED: ALBUTEROL NEBULIZED 2.5 MG/3 ML INHALATION PRN (10:25)
[2024-11-21] MEDS ORDERED: ONDANSETRON ODT 4 MG TAB PO PRN (10:25)
[2024-11-21] MEDS ORDERED: ACETAMINOPHEN TAB 325 MG TAB PO PRN (10:25)
[2024-11-21 10:30] LABS: Chol/HDL Ratio 4.88 Ratio; LDL Cholesterol,Calculated 73.4 mg/dL (0.0-131.0)
[2024-11-21 10:39] VITALS: BP 110/61; PULSE 79; TEMP 98.6
--- NOTE | 2024-11-21 11:12 | P.CRDCN ---
History of Present Illness Consult date: 11/21/24 Consult reason: chest pain History of present illness: This is a 64-year-old male with past medical history of laryngeal cancer, history of PE, COPD tobacco use and dependence, alcohol abuse. We have been asked to evaluate the patient for chest pain. Patient complains of left-sided chest pain starting while he was at rest. It seems to be worse when he takes a deep breath and tender to touch. Blood pressure 114/71, heart rate 75, pulse ox 97% on room air, temperature max 100.0. Patient is seen today in the emergency center waiting for a bed on the cardiac stepdown unit. Magnesium and potassium have been replaced. -EKG: Sinus rhythm with no acute changes x 2 -Chest x-ray: No acute process. -CTA chest: No PE. 3.7 cm nodular consolidation in the posterior medial left lower lobe may represent rounded atelectasis but has increased in size compared to prior exam neoplasm cannot be excluded. Atherosclerotic changes in the aorta. No aortic aneurysm or dissection. Probable trace bilateral pleural effusions. Emphysematous changes. Nonobstructing right renal stones. -Laboratory studies: WBC 3.3, hemoglobin 7.8, platelet count 327. D-dimer 1.8, INR 1.2. Sodium 133, potassium 3.2, chloride 97, BUN 13 creatinine 0.75. Troponin negative x 3. Magnesium 0.9, calcium 7.3. -Home cardiac medications: None Review Of Systems: At the time of my exam: CONSTITUTIONAL: Denies fever or chills. HEENT: Denies blurred vision, vision changes, or eye pain. Denies hemoptysis CARDIOVASCULAR: Denies chest pain. Denies orthopnea. Denies PND. Denies palpitations RESPIRATORY: Denies shortness of breath. GASTROINTESTINAL: Denies abdominal pain. Denies nausea or vomiting. HEMATOLOGIC: Denies bleeding disorders. GENITOURINARY: Denies any blood in urine. SKIN: Denies puritis. Denies rash. Physical examination: Gen: This is a 64-year-old male in no acute distress VS: reviewed HEENT: Head is atraumatic, normocephalic. Pupils equal, round. Sclerae is anicteric. NECK: Supple. No JVD. LUNGS: Clear to auscultation. No wheezes or rhonchi. No intercostal retractions. HEART: Regular rate and rhythm. No murmur. ABDOMEN: Soft No tenderness. EXTREMITIES: No pedal edema. No calf tenderness. NEUROLOGICAL: Patient is awake, alert and oriented x3. Assessment: Atypical chest pain, acute coronary syndrome ruled out Laryngeal cancer Hypomagnesemia, hypokalemia Elevated D-dimer Anemia and leukopenia Moderate to severe protein calorie malnutrition with BMI of 20 History of PE COPD Tobacco use and dependence Plan: Obtain 2-D echocardiogram and Doppler study to assess cardiac structure and function No further cardiac workup is planned. [facility] discontinue telemetry. Thank you kindly for this consultation. Nurse practitioner note has been reviewed, I agree with documented findings and plan of care. Patient was seen and examined. Past Medical History Past Medical History: Asthma, COPD, Pulmonary Embolus (PE) Additional Past Medical History / Comment(s): HX: chronic diarrhea and weight loss, alcoholism, bilateral lung pulmonary embolisms-in 2012 and previous to that, R lung pleurisy, asthma as child, back pain and sciatica, R foot drop with numbness and tingling to R foot due to pinched nerves, multifactoral anemia, elevated LFTs, 1997 R hand fracture. History of Any Multi-Drug Resistant Organisms: None Reported Past Surgical History: Back Surgery, Orthopedic Surgery Additional Past Surgical History / Comment(s): back-fusions x 2 L4, L5, S1 with hardware, cataracts bilateral with lens implants, rotator cuff right shoulder, colonoscopies Past Anesthesia/Blood Transfusion Reactions: No Reported Reaction Past Psychological History: Anxiety, Depression Smoking Status: Current every day smoker Past Alcohol Use History: Abuse, Daily, Heavy Past Drug Use History: Cocaine, Marijuana - Past Family History Mother Family Medical History: Cancer Additional Family Medical History / Comment(s): Mother of pancreatic cancer at age 82 yrs. Father Family Medical History: Cancer Additional Family Medical History / Comment(s): Father of lung cancer at 86yrs. He was a heavy smoker. hx colon cancer Brother(s) Family Medical History: Cancer Additional Family Medical History / Comment(s): (1) lymphoma, (1) BRAIN CANCER Sister(s) Family Medical History: Cancer Additional Family Medical History / Comment(s): lung cancer and throat cancer Medications and Allergies Home Medications Medication Instructions Recorded Confirmed Type traZODone HCL 150 mg PO HS 04/17/21 05/05/25 History ALPRAZolam [Xanax] 0.5 - 1 mg PO BID PRN 11/11/24 11/21/24 History Albuterol Inhaler [Ventolin Hfa 2 puff INHALATION RT-Q4H PRN 11/11/24 11/21/24 History Inhaler] Benzonatate [Tessalon Perles] 100 mg PO TID PRN 11/11/24 11/21/24 History HYDROcodone/APAP 10-325MG [[place] 1 - 2 tab PO Q6H PRN 11/11/24 11/21/24 History 10-325] Ondansetron [Zofran] 4 mg PO Q4H PRN 11/11/24 11/21/24 History Acetaminophen Tab [Tylenol] 650 mg PO Q4HR PRN tab 11/17/24 11/21/24 Rx Fluconazole [Diflucan] 100 mg PO DAILY 11/21/24 11/21/24 History Allergies Allergy/AdvReac Type Severity Reaction Status Date / Time buprenorphine [From Butrans] Allergy BUTRANS Verified 11/21/24 09:26 PATCH-ITCHING OF SKIN AND DISCOLORATION diclofenac [From Arthrotec] AdvReac DIZZY, Verified 11/21/24 09:26 LIGHTHEADED, "FELT STONED" mirtazapine [From Remeron] AdvReac DIZZY, Verified 11/21/24 09:26 LIGHTHEADED, "FELT STONED" misoprostol [From Arthrotec] AdvReac DIZZY, Verified 11/21/24 09:26 LIGHTHEADED, "FELT STONED" Physical Exam Vitals: Vital Signs Temp Pulse Resp BP Pulse Ox 11/21/24 05:49 99.3 F 11/21/24 05:35 100.0 F H 75 17 114/71 97 11/21/24 01:58 74 17 95 11/20/24 22:42 74 17 109/55 99 11/20/24 21:05 85 17 102/57 98 11/20/24 19:28 80 17 104/56 97 11/20/24 19:00 93 20 117/52 96 11/20/24 17:40 98.0 F 95 18 107/67 100 Intake and Output 05/11/1111/21/24 11/21/24 22:59 06:59 14:59 Other: Weight 65.771 kg Results 11/20/24 18:33 11/21/24 07:18 Cardiac Enzymes 11/20/24 11/20/24 11/21/24 Range/Units 18:33 18:33 00:12 AST 41 (17-59) U/L Troponin I <0.012 <0.012 (0.000-0.034) ng/mL 11/21/24 Range/Units 03:09 AST (17-59) U/L Troponin I <0.012 (0.000-0.034) ng/mL Coagulation 11/20/24 Range/Units 18:33 PT 12.8 H (10.0-12.5) sec APTT 21.5 L (22.0-30.0) sec CBC 11/20/24 Range/Units 18:33 WBC 3.38 L (4.50-10.00) 10*3/uL RBC 2.18 L (4.40-5.60) 10*6/uL Hgb 7.8 L (13.0-17.0) g/dL Hct 21.1 L (39.6-50.0) % Plt Count 327 (140-440) 10*3/uL Comprehensive Metabolic Panel 11/20/24 Range/Units 18:33 Sodium 133 L (137-145) mmol/L Potassium 3.2 L (3.5-5.1) mmol/L Chloride 97 L (98-107) mmol/L Carbon Dioxide 28 (22-30) mmol/L BUN 13 (9-20) mg/dL Creatinine 0.75 (0.66-1.25) mg/dL Glucose 94 (74-99) mg/dL Calcium 7.3 L (8.4-10.2) mg/dL AST 41 (17-59) U/L ALT 24 (4-49) U/L Alkaline Phosphatase 73 (38-126) U/L Total Protein 5.8 L (6.3-8.2) g/dL Albumin 2.9 L (3.5-5.0) g/dL Current Medications Generic Name Dose Route Start Last Admin Trade Name Freq PRN Reason Stop Dose Admin Aspirin 325 mg 11/21/24 09:00 Aspirin 325 Mg Tab PO DAILY [place]ON Nitroglycerin 0.4 mg 11/20/24 23:57 Nitroglycerin Sl Tabs 0.4 Mg Tab SUBLINGUAL Q5M PRN Chest Pain Nitroglycerin 1 inch 11/21/24 06:00 11/21/24 05:30 Nitroglycerin Oint 1 Inch/Gm Packet TOPICAL Not Given Q6HR [place] Intake and Output 11/20/24 11/21/24 11/21/24 22:59 06:59 14:59 Other: Weight 65.771 kg 11/20/24 18:33 11/20/24 18:33
[2024-11-21] MEDS: ASPIRIN 325 MG TAB PO SCH (11:34)
[2024-11-21] MEDS: ENOXAPARIN 40 MG/0.4 ML SYRINGE SQ SCH (11:55)
[2024-11-21] MEDS: BENZONATATE 100 MG CAP PO PRN (11:55)
[2024-11-21] MEDS: HYDROcodone/APAP 10-325MG 1 EACH TAB PO PRN (11:55)
[2024-11-21] MEDS ORDERED: ALPRAZolam 0.5 MG TAB PO PRN (12:05)
[2024-11-21] MEDS ORDERED: traZODone HCL 50 MG TAB PO SCH (21:00)
--- NOTE | 2024-11-21 21:02 | P.HPIM ---
History of Present Illness H&P Date: 11/21/24 Chief Complaint: Chest pain Pleasant, patient is a 64-year-old PCP Dr. Augustine. Oncologist Dr. Lomas. Radiation oncologist Dr. Stallings. Patient recently just in the hospital, from November 11 through November 17. Had worsening medical asthenia, dysphagia due to laryngeal cancer. NPO. PEG tube was placed on November [address] Bradley. Patient had received empirical antibiotic Zosyn because of fever. For chronic PE patient is on aspirin. He does get intermittent throat pain because of his laryngeal/vocal cord cancer. Yesterday afternoon the pain started getting worse. And started affecting his left side of the chest. Also his breathing became worse. He became rather anxious and a bit panicky. Called 911. Patient was brought to the ER. This morning feels back to his normal self. Has not received tube feeding since presentation. Not able to hold his secretions and is still quite regularly coughed up. Denies any fever and chills Review of systems: GEN.: Tired EYES: None HEENT: Intermittent throat pain NECK: None RESPIRATORY: As above CARDIOVASCULAR: As above GASTROINTESTINAL: PEG tube feeding GENITOURINARY: None MUSCULOSKELETAL: None LYMPHATICS: None HEMATOLOGICAL: None PSYCHIATRY: Anxious NEUROLOGICAL: None Social history: Was smoking back in a half a day after recently.. Was also drinking average of 8-12 beers of 16 ounce daily. Also in the past has done cocaine and marijuana. Also LSD. This is back in the 70s. Smoking for over 35 years. Lives with his who also an alcoholic Physical examination: VITAL SIGNS: 99, 76, 10, 138 x 76, 97% room air GENERAL: BMI 8.8, sitting in bed awake slightly anxious EYES: Pupils equal. Conjunctiva pale HEENT: External appearance of nose and ears normal, oral cavity grossly normal. NECK: JVD not raised; masses not palpable. HEART: First and second heart sounds are normal; no edema. LUNGS: Respiratory rate normal; decreased breath sounds. ABDOMEN: Soft, no tenderness, no guarding rigidity liver spleen not palpable, no masses palpable. PEG tube with feeding PSYCH: [Alert and oriented x3; mood and affect-bed anxious MUSCULOSKELETAL:No Clubbing/cyanosis;muscles-grossly intact. Loss of muscle mass. And subcutaneous tissue. OA. INVESTIGATIONS, reviewed in the clinical context: November 20: White count 3.3 hemoglobin 7.8 platelets 327 sodium 133 potassium 3.2 creatinine 0.75 magnesium 0.9 Troponin I less than 0.012 x 3 albumin 2.9 EKG tracing personally reviewed by me-normal sinus rhythm. Poor R wave progression anterior lead Chest x-ray film personally reviewed by me-no obvious abnormality Chest CTA: 3.7 nodular consolidation in the posterior medial left lower lobe. E mphysema changes. Punctate nonobstructive right renal stones Recent testing CT abdomen and pelvis: Hepatic steatosis. Diverticulosis. Pancreas unremarkable CT angiography chest: Unremarkable Assessment plan: - Anterior chest wall pain. Was started off as the throat pain progressed to get worse. Rule out cardiac cause. Could be element of psychosomatic from anxiety panic. Troponins negative. Cardiology consulted. -Chronic medical asthenia due to underlying malignancy and other medical issues - Dysphagia, with trouble swallowing due to laryngeal cancer N.p.o. -PEG tube placed on November 15, [address] Bradley Tube feeding to be resumed water flushes -Chronic alcohol use disorder - Fever in a patient getting chemotherapy/immunosuppression. Currently empirically on Zosyn. Being followed by ID. 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 Increase potassium magnesium. Dietitian was consulted for tube feeding. Cardiology consulted. Discussed with patient. Past Medical History Past Medical History: Asthma, COPD, Pulmonary Embolus (PE) Additional Past Medical History / Comment(s): HX: chronic diarrhea and weight loss, alcoholism, bilateral lung pulmonary embolisms-in 2012 and previous to that, R lung pleurisy, asthma as child, back pain and sciatica, R foot drop with numbness and tingling to R foot due to pinched nerves, multifactoral anemia, elevated LFTs, 1997 R hand fracture. History of Any Multi-Drug Resistant Organisms: None Reported Past Surgical History: Back Surgery, Orthopedic Surgery Additional Past Surgical History / Comment(s): back-fusions x 2 L4, L5, S1 with hardware, cataracts bilateral with lens implants, rotator cuff right shoulder, colonoscopies Past Anesthesia/Blood Transfusion Reactions: No Reported Reaction Past Psychological History: Anxiety, Depression Smoking Status: Current every day smoker Past Alcohol Use History: Abuse, Daily, Heavy Past Drug Use History: Cocaine, Marijuana - Past Family History Mother Family Medical History: Cancer Additional Family Medical History / Comment(s): Mother of pancreatic cancer at age 82 yrs. Father Family Medical History: Cancer Additional Family Medical History / Comment(s): Father of lung cancer at 86yrs. He was a heavy smoker. hx colon cancer Brother(s) Family Medical History: Cancer Additional Family Medical History / Comment(s): (1) lymphoma, (1) BRAIN CANCER Sister(s) Family Medical History: Cancer Additional Family Medical History / Comment(s): lung cancer and throat cancer Medications and Allergies Home Medications Medication Instructions Recorded Confirmed Type traZODone HCL 150 mg PO HS 11/03/20 11/21/24 History ALPRAZolam [Xanax] 0.5 - 1 mg PO BID PRN 11/11/24 11/21/24 History Albuterol Inhaler [Ventolin Hfa 2 puff INHALATION RT-Q4H PRN 11/11/24 11/21/24 History Inhaler] Benzonatate [Tessalon Perles] 100 mg PO TID PRN 11/11/24 11/21/24 History HYDROcodone/APAP 10-325MG [[place] 1 - 2 tab PO Q6H PRN 11/11/24 11/21/24 History 10-325] Ondansetron [Zofran] 4 mg PO Q4H PRN 11/11/24 11/21/24 History Acetaminophen Tab [Tylenol] 650 mg PO Q4HR PRN tab 11/17/24 11/21/24 Rx Fluconazole [Diflucan] 100 mg PO DAILY 11/21/24 11/21/24 History Magnesium Oxide [Mag-Oxide] 200 mg PO BID #60 tablet 11/21/24 Rx Allergies Allergy/AdvReac Type Severity Reaction Status Date / Time buprenorphine [From Butrans] Allergy BUTRANS Verified 11/21/24 09:26 PATCH-ITCHING OF SKIN AND DISCOLORATION diclofenac [From Arthrotec] AdvReac DIZZY, Verified 11/21/24 09:26 LIGHTHEADED, "FELT STONED" mirtazapine [From Remeron] AdvReac DIZZY, Verified 11/21/24 09:26 LIGHTHEADED, "FELT STONED" misoprostol [From Arthrotec] AdvReac DIZZY, Verified 11/21/24 09:26 LIGHTHEADED, "FELT STONED" Physical Exam Vitals: Vital Signs Temp Pulse Resp BP Pulse Ox 11/21/24 10:08 98.9 F 82 18 116/71 95 11/21/24 09:20 98.9 F 73 18 116/71 96 11/21/24 08:00 100.0 F H 79 18 121/73 96 11/21/24 05:49 99.3 F 11/21/24 05:35 100.0 F H 75 17 114/71 97 11/21/24 01:58 74 17 95 11/20/24 22:42 74 17 109/55 99 11/20/24 21:05 85 17 102/57 98 11/20/24 19:28 80 17 104/56 97 11/20/24 19:00 93 20 117/52 96 11/20/24 17:40 98.0 F 95 18 107/67 100 Intake and Output 11/20/24 11/21/24 11/21/24 22:59 06:59 14:59 Other: Weight 65.771 kg Results CBC & Chem 7: 11/20/24 18:33 11/21/24 07:18 Labs: Abnormal Lab Results - Last 24 Hours (Table) 11/20/24 11/20/24 11/20/24 Range/Units 18:33 18:33 18:33 WBC 3.38 L (4.50-10.00) 10*3/uL RBC 2.18 L (4.40-5.60) 10*6/uL Hgb 7.8 L (13.0-17.0) g/dL Hct 21.1 L (39.6-50.0) % MCH 35.8 H (27.0-32.0) pg Neutrophils # 1.72 L (1.80-7.70) 10*3/uL Lymphocytes # 0.38 L (0.90-5.00) 10*3/uL Monocytes # 1.23 H (0.20-1.00) 10*3/uL Eosinophils # 0.01 L (0.04-0.35) 10*3/uL PT 12.8 H (10.0-12.5) sec INR 1.2 H (<1.2) APTT 21.5 L (22.0-30.0) sec D-Dimer 1.80 H (<0.60) mg/L FEU Sodium 133 L (137-145) mmol/L Potassium 3.2 L (3.5-5.1) mmol/L Chloride 97 L (98-107) mmol/L Calcium 7.3 L (8.4-10.2) mg/dL Magnesium 0.9 L* (1.6-2.3) mg/dL Total Protein 5.8 L (6.3-8.2) g/dL Albumin 2.9 L (3.5-5.0) g/dL /12/11 Range/Units 07:18 WBC (4.50-10.00) 10*3/uL RBC (4.40-5.60) 10*6/uL Hgb (13.0-17.0) g/dL Hct (39.6-50.0) % MCH (27.0-32.0) pg Neutrophils # (1.80-7.70) 10*3/uL Lymphocytes # (0.90-5.00) 10*3/uL Monocytes # (0.20-1.00) 10*3/uL Eosinophils # (0.04-0.35) 10*3/uL PT (10.0-12.5) sec INR (<1.2) APTT (22.0-30.0) sec D-Dimer (<0.60) mg/L FEU Sodium (137-145) mmol/L Potassium (3.5-5.1) mmol/L Chloride (98-107) mmol/L Calcium (8.4-10.2) mg/dL Magnesium 1.3 L (1.6-2.3) mg/dL Total Protein (6.3-8.2) g/dL Albumin (3.5-5.0) g/dL
--- NOTE | 2024-11-21 21:06 | P.DS ---
Providers Date of admission: 11/21/24 00:08 Expected date of discharge: 11/21/24 Attending physician: Linus Meza Consults: 11/20/24 23:57 Consult Physician Urgent Consulting Provider: [facility] Consult Reason/Comments: Chest pain Do you want consulting provider notified?: Yes 11/21/24 12:11 Consult Physician Routine Consulting Provider: Wade Lomas Consult Reason/Comments: radiation management. pt gets tx from [facility]. Do you want consulting provider notified?: Yes Primary care physician: [facility] Course: Chief Complaint: Chest pain Pleasant, patient is a 64-year-old PCP Dr. Augustine. Oncologist Dr. Lomas. Radiation oncologist Dr. Stallings. Patient recently just in the hospital, from November 11 through November 17. 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 NPO. PEG tube was placed on November [address] Bradley. Patient had received empirical antibiotic Zosyn because of fever. For chronic PE patient is on aspirin. He does get intermittent throat pain because of his laryngeal/vocal cord cancer. Yesterday afternoon the pain started getting worse. And started affecting his left side of the chest. Also his breathing became worse. He became rather anxious and a bit panicky. Called 911. Patient was brought to the ER. This morning feels back to his normal self. Has not received tube feeding since presentation. Not able to hold his secretions and is still quite regularly coughed up. Denies any fever and chills Patient this morning feeling back to normal. Seen by cardiology. [place] to be noncardiac. Patient is keen to return home. Discussed. Resume home medication Social history: Was smoking back in a half a day after recently.. Was also drinking average of 8-12 beers of 16 ounce daily. Also in the past has done cocaine and marijuana. Also LSD. This is back in the 70s. Smoking for over 35 years. Lives with his who also an alcoholic Physical examination: VITAL SIGNS: 99, 76, 10, 138 x 76, 97% room air GENERAL: BMI 8.8, sitting in bed awake slightly anxious EYES: Pupils equal. Conjunctiva pale HEENT: External appearance of nose and ears normal, oral cavity grossly normal. NECK: JVD not raised; masses not palpable. HEART: First and second heart sounds are normal; no edema. LUNGS: Respiratory rate normal; decreased breath sounds. ABDOMEN: Soft, no tenderness, no guarding rigidity liver spleen not palpable, no masses palpable. PEG tube with feeding PSYCH: [Alert and oriented x3; mood and affect-bed anxious MUSCULOSKELETAL:No Clubbing/cyanosis;muscles-grossly intact. Loss of muscle mass. And subcutaneous tissue. OA. INVESTIGATIONS, reviewed in the clinical context: November 20: White count 3.3 hemoglobin 7.8 platelets 327 sodium 133 potassium 3.2 creatinine 0.75 magnesium 0.9 Troponin I less than 0.012 x 3 albumin 2.9 EKG tracing personally reviewed by me-normal sinus rhythm. Poor R wave progression anterior lead Chest x-ray film personally reviewed by me-no obvious abnormality Chest CTA: 3.7 nodular consolidation in the posterior medial left lower lobe. Emphysema changes. Punctate nonobstructive right renal stones Recent testing CT abdomen and pelvis: Hepatic steatosis. Diverticulosis. Pancreas unremarkable CT angiography chest: Unremarkable Assessment plan: - Anterior chest wall pain. Was started off as the throat pain progressed to get worse. Seen by cardiology. [place] to be atypical. Could be element of psychosomatic from anxiety panic. Troponins negative. -Chronic medical asthenia due to underlying malignancy and other medical issues - Dysphagia, with trouble swallowing due to laryngeal cancer N.p.o. -PEG tube placed on November 15, [address] Bradley Tube feeding to be resumed water flushes -Chronic alcohol use disorder - Fever in a patient getting chemotherapy/immunosuppression. Currently empirically on Zosyn. Being followed by ID. 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 Deja Sánchez outpatient -Chronic pulm embolism Chronically on aspirin -Chronic back pain from musculoskeletal causes K-pad -Anxiety depression Cymbalta -COPD and current smoker Albuterol as needed Disposition: Home Past Medical History Past Medical History: Asthma, COPD, Pulmonary Embolus (PE) Additional Past Medical History / Comment(s): HX: chronic diarrhea and weight loss, alcoholism, bilateral lung pulmonary embolisms-in 2012 and previous to that, R lung pleurisy, asthma as child, back pain and sciatica, R foot drop with numbness and tingling to R foot due to pinched nerves, multifactoral anemia, elevated LFTs, 1997 R hand fracture. History of Any Multi-Drug Resistant Organisms: None Reported Past Surgical History: Back Surgery, Orthopedic Surgery Additional Past Surgical History / Comment(s): back-fusions x 2 L4, L5, S1 with hardware, cataracts bilateral with lens implants, rotator cuff right shoulder, colonoscopies Past Anesthesia/Blood Transfusion Reactions: No Reported Reaction Past Psychological History: Anxiety, Depression Smoking Status: Current every day smoker Past Alcohol Use History: Abuse, Daily, Heavy Past Drug Use History: Cocaine, Marijuana Plan - Discharge Summary Discharge Rx Participant: Yes New Discharge Prescriptions: New Magnesium Oxide [Mag-Oxide] 200 mg PO BID #60 tablet Continue ALPRAZolam [Xanax] 0.5 - 1 mg PO BID PRN PRN Reason: Severe Anxiety Benzonatate [Tessalon Perles] 100 mg PO TID PRN PRN Reason: Cough Acetaminophen Tab [Tylenol] 650 mg PO Q4HR PRN tab PRN Reason: Fever and/ or Mild Pain traZODone HCL 150 mg PO HS Albuterol Inhaler [Ventolin Hfa Inhaler] 2 puff INHALATION RT-Q4H PRN PRN Reason: Shortness Of Breath HYDROcodone/APAP 10-325MG [[place] 10-325] 1 - 2 tab PO Q6H PRN PRN Reason: Pain Ondansetron [Zofran] 4 mg PO Q4H PRN PRN Reason: Nausea Fluconazole [Diflucan] 100 mg PO DAILY Discharge Medication List traZODone HCL 150 mg PO HS 11/03/20 [History] ALPRAZolam [Xanax] 0.5 - 1 mg PO BID PRN 11/11/24 [History] Albuterol Inhaler [Ventolin Hfa Inhaler] 2 puff INHALATION RT-Q4H PRN 11/11/24 [History] Benzonatate [Tessalon Perles] 100 mg PO TID PRN 11/11/24 [History] HYDROcodone/APAP 10-325MG [[place] 10-325] 1 - 2 tab PO Q6H PRN 11/11/24 [History] Ondansetron [Zofran] 4 mg PO Q4H PRN 11/11/24 [History] Acetaminophen Tab [Tylenol] 650 mg PO Q4HR PRN tab 11/17/24 [Rx] Fluconazole [Diflucan] 100 mg PO DAILY 11/21/24 [History] Magnesium Oxide [Mag-Oxide] 200 mg PO BID #60 tablet 11/21/24 [Rx] Follow up Appointment(s)/Referral(s): Emile Augustine DO [Primary Care Provider] - 11/24/24 10:40 am Discharge Disposition: HOME SELF-CARE
--- NOTE | 2024-11-22 07:51 | CA ---
Transthoracic Echo Report Name: Scott Jett Age: 64 Gender: M : 1960 Exam Date: 11/21/2024 11:34 Exam Location: [facility] Ht (in): 70 Wt (lb): 145 Ordering Physician: Denita Sanchez Attending/Referring Phys: [id number], Daniel Operations Recruiter Saida Raymond RDCS Procedure CPT: Indications: CHEST DISCOMFORT, EVAL PERICARD METS Cardiac Hx: Technical Quality: Good Contrast 1: Total Dose (mL): Contrast 2: Total Dose (mL): MEASUREMENTS (Male / Female) Normal Values 2D ECHO LV Diastolic Diameter PLAX 4.2 cm 4.2 - 5.9 / 3.9 - 5.3 cm LV Systolic Diameter PLAX 2.9 cm IVS Diastolic Thickness 1.0 cm 0.6 - 1.0 / 0.6 - 0.9 cm LVPW Diastolic Thickness 0.9 cm 0.6 - 1.0 / 0.6 - 0.9 cm LV Relative Wall Thickness 0.5 RV Internal Dim ED PLAX 2.9 cm LA Systolic Diameter LX 3.1 cm 3.0 - 4.0 / 2.7 - 3.8 cm LV Diastolic Volume MOD 4C 65.6 cm??? LV Systolic Volume MOD 4C 29.6 cm??? LV Ejection Fraction MOD 4C 54.8 % LV Cardiac Index MOD 4C 1440.1 cm???/min???m??? LV Diastolic Length 4C 8.2 cm LV Systolic Length 4C 6.9 cm LV Diastolic Volume MOD 2C 86.7 cm??? LV Systolic Volume MOD 2C 32.1 cm??? LV Ejection Fraction MOD 2C 62.9 % LV Cardiac Index MOD 2C 2185.6 cm???/min???m??? LV Diastolic Length 2C 8.4 cm LV Systolic Length 2C 7.2 cm LA Volume 47.9 cm??? 18 - 58 / 22 - 52 cm??? LA Volume Index 26.7 cm???/m??? 16 - 28 cm???/m??? M-MODE Aortic Root Diameter MM 3.6 cm AV Cusp Separation MM 1.8 cm DOPPLER AV Peak Velocity 102.4 cm/s AV Peak Gradient 4.2 mmHg MV Area PHT 5.9 cm??? Mitral E Point Velocity 86.9 cm/s Mitral A Point Velocity 69.7 cm/s Mitral E to A Ratio 1.2 MV Deceleration Time 129.3 ms TR Peak Velocity 261.1 cm/s TR Peak Gradient 27.3 mmHg Right Ventricular Systolic Press 32.2 mmHg FINDINGS Left Ventricle Left ventricular ejection fraction is estimated at 55-60 %. Left ventricular cavity size normal. Left ventricular wall thickness normal. Inferobasal and inferoseptal hypokinesia noted Right Ventricle Normal right ventricular size. Right ventricular systolic pressure within normal limits. Right Atrium Normal right atrial size. No right atrial thrombus or mass seen. Left Atrium Normal left atrial size. No left atrial thrombus or mass present. Mitral Valve Structurally normal mitral valve. Mitral annular calcification. Mild mitral regurgitation. Aortic Valve Trileaflet aortic valve. Aortic valve sclerosis. No aortic valve stenosis or regurgitation. Tricuspid Valve Structurally normal tricuspid valve. Mild tricuspid regurgitation. Pulmonic Valve Pulmonic valve not well visualized. Pericardium No pericardial effusion. Aorta Normal size aortic root and proximal ascending aorta. CONCLUSIONS Normal LV size with mildly reduced function ejection fraction of 50% with inferior basal and inferoseptal hypokinesia. Mild mitral and tricuspid regurgitation. No pulmonary hypertension. No pericardial effusion but possible fat pad Previewed by: Dr. Mason Baires MD (Electronically Signed) Final Date: 22 Nov 2024 07:50
== END 2024-11-21 14:33 | disposition home or self-care (01) ==
LOC: EC 17:33 → 3SCARD 11-21 00:08 → INTOOBSV 11-21 00:08 → 3SCARD 11-21 07:45 → 4SSUR 11-21 08:09
PROVIDERS: ADMIT Hospitalist; ATTEND Hospitalist
DX: R07.89 Other chest pain (principal); E83.42 Hypomagnesemia; E87.6 Hypokalemia; E87.1 Hypo-osmolality and hyponatremia; R53.1 Weakness; R13.10 Dysphagia, unspecified; E43 Unspecified severe protein-calorie malnutrition; D72.819 Decreased white blood cell count, unspecified; D75.9 Disease of blood and blood-forming organs, unspecified; D64.9 Anemia, unspecified; R50.9 Fever, unspecified; I27.82 Chronic pulmonary embolism; C32.9 Malignant neoplasm of larynx, unspecified; F10.20 Alcohol dependence, uncomplicated; F17.210 Nicotine dependence, cigarettes, uncomplicated; F32.A Depression, unspecified; F41.9 Anxiety disorder, unspecified; J44.89 Other specified chronic obstructive pulmonary disease; K52.9 Noninfective gastroenteritis and colitis, unspecified; R79.89 Other specified abnormal findings of blood chemistry; G89.29 Other chronic pain; K70.10 Alcoholic hepatitis without ascites; Z85.21 Personal history of malignant neoplasm of larynx; Z79.899 Other long term (current) drug therapy; Z79.82 Long term (current) use of aspirin; Z68.20 Body mass index [BMI] 20.0-20.9, adult; Z92.21 Personal history of antineoplastic chemotherapy; Z88.8 Allergy status to other drugs, medicaments and biological substances
CPT/HCPCS: 96372; 96365; 96366 ×2; 96375; 99285; 36415; 93005 ×2; 93306; 85379; 80061; 80053; 83735 ×2; 84132; 84484 ×2; 85025; 85610; 85730; 71046; 71275; G0378; J2060; J1650; J3475; J1885; Q9967